=== PATIENT | male | born 1940 | race Caucasian/White ===

== ENCOUNTER 2017-03-10 13:02 | Emergency (ER) | payer OTHER ==
--- NOTE | 2017-03-10 14:28 | ED ---
General Adult HPI - General Chief complaint: Recheck/Abnormal Lab/Rx Stated complaint: high blood pressure Time Seen by Provider: 03/10/17 14:17 Source: patient Mode of arrival: ambulatory Limitations: no limitations - History of Present Illness Initial comments: This 77-year-old white male presents with a complaint of high blood pressure. He states that he felt slightly woozy 2 days ago. That it subsequently resolved. He checked his blood pressure and is actually was in the normal range per his recordings. He felt as though it could potentially be related to his blood pressure. He is here visiting from [place] and does not have a primary care physician to follow up with as of yet. He will be here until April. He denies any chest pain, shortness of breath, fevers, chills, or other symptomatology. He is currently asymptomatic at this time. He does have a history of his cardiac disease. He has had 3 stents in the past. He follows up regularly with his coder in [place]. No other complaints or modifying factors. - Related Data Allergies Allergy/AdvReac Type Severity Reaction Status Date / Time No Known Allergies Allergy Verified 03/10/17 13:11 Review of Systems ROS Statement: Those systems with pertinent positive or pertinent negative responses have been documented in the HPI. ROS Other: All systems not noted in ROS Statement are negative. Past Medical History Past Medical History: Coronary Artery Disease (CAD), Chest Pain / Angina, Myocardial Infarction ([place]) History of Any Multi-Drug Resistant Organisms: None Reported Past Surgical History: Heart Catheterization With Stent, Joint Replacement, Orthopedic Surgery Additional Past Surgical History / Comment(s): bilateral knees, right lung surgery Past Psychological History: No Psychological Hx Reported Smoking Status: Former smoker Past Alcohol Use History: Occasional, Rare Past Drug Use History: None Reported General Exam - General Exam Comments Initial Comments: GENERAL: The patient is well nourished and well hydrated. VITAL SIGNS: Heart rate, blood pressure, respiratory rate reviewed as recorded in nurse's notes. EYES: Pupils are round and reactive. Extraocular movements are intact. No conjunctival / lid redness or swelling. ENT: No external evidence of injury, swelling, or ecchymosis. Airway is patent. Throat is clear. NECK: Nontender. No swelling or evidence of injury. No subcutaneous emphysema. Trachea is midline. No thyroid mass. HEART: Regular rate and rhythm. Good peripheral pulses. LUNGS/CHEST: Breath sounds clear and equal bilaterally. No rales, rhonchi, or wheezes. No ecchymosis, subcutaneous emphysema, or tenderness. ABDOMEN: Abdomen soft without tenderness. No palpable masses or organomegaly. No peritoneal signs. No abdominal wall swelling or ecchymosis. EXTREMITIES: No extremity tenderness. Normal muscle tone and function. No thoracolumbar tenderness. NEUROLOGIC: Sensation is grossly intact. Cranial nerve exam reveals face is symmetrical, tongue is midline, speech is clear. SKIN: No abrasions or ecchymosis is noted. No induration or masses noted. PSYCHIATRIC: Alert and oriented. Appropriate behavior and judgment. Limitations: no limitations Course Vital Signs 03/10/17 13:05 Temperature 97.0 F L Pulse Rate 70 Respiratory 17 Rate Blood Pressure 160/77 O2 Sat by Pulse 96 Oximetry Medical Decision Making - Medical Decision Making The patient was seen and examined. He is a normal physical exam. His blood pressure is minimally elevated. Is not felt as though it is at the point that would require any definitive treatment. This felt as though he is stable for follow-up with a primary care physician. He will be referred to a primary care physician in this area as well since he will be here for the next couple of months. No acute process currently noted and is felt as though he is stable for discharge. He is counseled regarding hypertension and leaves in no distress. He is instructed to keep a blood pressure log and bring this as well as his medication list to his primary care physician in the next several days. Disposition Clinical Impression: Hypertension Disposition: HOME SELF-CARE Condition: Good Instructions: DASH Eating Plan (ED), Hypertension (ED) Referrals: Nohemi Salomon MD [STAFF PHYSICIAN] - 03/14/17 Time of Disposition: 14:27
[2017-03-10 14:38] VITALS: BP 168/88; PULSE 60; RESP 18; TEMP 97.4
== END 2017-03-10 14:40 | disposition home or self-care (01) ==
LOC: EC 13:02
DX: I10 Essential (primary) hypertension (principal); I25.10 Atherosclerotic heart disease of native coronary artery without angina pectoris; I25.2 Old myocardial infarction; Z95.5 Presence of coronary angioplasty implant and graft; Z87.891 Personal history of nicotine dependence
CPT/HCPCS: 93005; 99283

== ENCOUNTER → 2017-09-26 | Outpatient (CLI) | payer MEDICARE ==
[2017-09-26 12:35] LABS: Anisocytosis Slight; HCT 46.7 % (39.0-53.0); HGB 15.4 gm/dL (13.0-17.5); MCH 29.9 pg (25.0-35.0); MCHC 32.8 g/dL (31.0-37.0); MCV 91.2 fL (80.0-100.0); Mean Platelet Volume 8.7; Platelet Count 147 k/uL (150-450); RBC 5.13 m/uL (4.30-5.90); RDW 16.1 % (11.5-15.5); WBC 5.5 k/uL (3.8-10.6)
[2017-09-26 12:36] LABS: Appearance,Urine Clear (Clear); Bilirubin,Urine Negative (Negative); Blood,Urine Negative (Negative); Color,Urine Yellow; Glucose,Urine (UA) Negative (Negative); Ketones,Urine Negative (Negative); Leukocyte Esterase,Urine Negative (Negative); PH, Urine 5.5 (5.0-8.0); Protein,Urine Negative (Negative); Urobilinogen,Urine <2.0 mg/dL (<2.0)
[2017-09-26 12:45] LABS: ALT 38 U/L (21-72); AST 36 U/L (17-59); Albumin 4.4 g/dL (3.5-5.0); Alkaline Phosphatase 71 U/L (38-126); Anion Gap 9 mmol/L; Blood Urea Nitrogen 20 mg/dL (9-20); Calcium 9.5 mg/dL (8.4-10.2); Carbon Dioxide 25 mmol/L (22-30); Chloride 107 mmol/L (98-107); Cholesterol 152 mg/dL (<200); Glucose 108 mg/dL (74-99); HDL Cholesterol 50 mg/dL (40-60); LDL Cholesterol,Calculated 69 mg/dL (0-99); Potassium 4.3 mmol/L (3.5-5.1); Sodium 141 mmol/L (137-145); Total Protein 7.2 g/dL (6.3-8.2); Triglycerides 163 mg/dL (<150)
[2017-09-26 13:01] LABS: T4, Free (Free Thyroxine) 1.11 ng/dL (0.78-2.19)
[2017-09-26 13:15] LABS: Prostate Specific Antigen 0.45 ng/mL (0.00-4.00)
== END | disposition home or self-care (01) ==
LOC: LABWHC1 11:54
PROVIDERS: ATTEND Family Medicine
DX: E78.5 Hyperlipidemia, unspecified (principal); I10 Essential (primary) hypertension; N40.0 Benign prostatic hyperplasia without lower urinary tract symptoms
CPT/HCPCS: 36415; 80053; 80061; 81003; 84153; 84439; 84443; 85027

== ENCOUNTER 2017-10-09 11:37 | Observation (INO) | payer MEDICARE, OTHER ==
[2017-10-09] MEDS ORDERED: RX INFO: IV CONTRAST WAS GIVEN 1 EACH MISC MISCELLANE PRN (11:53)
[2017-10-09] MEDS ORDERED: SODIUM CHLORIDE 0.9% 1,000 ML IV STA (11:53)
--- NOTE | 2017-10-09 11:55 | ED ---
General Adult HPI - General Chief complaint: Neuro Symptoms/Deficit Stated complaint: Possible stroke Time Seen by Provider: 10/09/17 11:53 Source: patient, RN notes reviewed, old records reviewed Mode of arrival: wheelchair Limitations: no limitations - History of Present Illness Initial comments: This is a 69-year-old male to the ER for evaluation. Patient comes in for evaluation of possible stroke. History of CAD and NV. Patient states is her friend's house earlier had difficulty with speech difficulties talking difficulty finding words. Slurred speech. At this point patient states he feels normal, symptoms are resolved - Related Data Home Medications Medication Instructions Recorded Confirmed Aspirin EC [Ecotrin Low Dose] 81 mg PO DAILY 10/09/17 10/09/17 Atorvastatin [Lipitor] 40 mg PO HS 10/09/17 10/09/17 Benazepril [Lotensin] 5 mg PO DAILY 10/09/17 10/09/17 Clobetasol Propionate [Temovate 1 applic TOPICAL BID PRN 10/09/17 10/09/17 0.05% Cream] Cyanocobalamin (Vitamin B-12) 1,000 mcg PO DAILY 10/09/17 10/09/17 [Vitamin B-12] Isosorbide Mononitrate ER [Imdur] 30 mg PO DAILY 10/09/17 10/09/17 Metoprolol Tartrate [Lopressor] 12.5 mg PO DAILY 10/09/17 10/09/17 Multivitamin [Men's Multi-Vitamin] 1 tab PO DAILY 10/09/17 10/09/17 Allergies Allergy/AdvReac Type Severity Reaction Status Date / Time No Known Allergies Allergy Verified 10/09/17 11:50 Review of Systems ROS Statement: Those systems with pertinent positive or pertinent negative responses have been documented in the HPI. ROS Other: All systems not noted in ROS Statement are negative. Past Medical History Past Medical History: Coronary Artery Disease (CAD), Chest Pain / Angina, Myocardial Infarction ([place]) History of Any Multi-Drug Resistant Organisms: None Reported Past Surgical History: Heart Catheterization With Stent, Joint Replacement, Orthopedic Surgery Additional Past Surgical History / Comment(s): bilateral knees, right lung surgery Past Psychological History: No Psychological Hx Reported Smoking Status: Former smoker Past Alcohol Use History: Occasional, Rare Past Drug Use History: None Reported General Exam - General Exam Comments Initial Comments: NIH of 0 Limitations: no limitations General appearance: alert, in no apparent distress Head exam: Present: atraumatic, normocephalic, normal inspection Eye exam: Present: normal appearance, PERRL, EOMI. Absent: scleral icterus, conjunctival injection, periorbital swelling ENT exam: Present: normal exam, mucous membranes moist Neck exam: Present: normal inspection. Absent: tenderness, meningismus, lymphadenopathy Respiratory exam: Present: normal lung sounds bilaterally. Absent: respiratory distress, wheezes, rales, rhonchi, stridor Cardiovascular Exam: Present: regular rate, normal rhythm, normal heart sounds. Absent: systolic murmur, diastolic murmur, rubs, gallop, clicks GI/Abdominal exam: Present: soft, normal bowel sounds. Absent: distended, tenderness, guarding, rebound, rigid Extremities exam: Present: normal inspection, full ROM, normal capillary refill. Absent: tenderness, pedal edema, joint swelling, calf tenderness Back exam: Present: normal inspection Neurological exam: Present: alert, oriented X3, CN II-XII intact Psychiatric exam: Present: normal affect, normal mood Skin exam: Present: warm, dry, intact, normal color. Absent: rash Course Vital Signs 10/09/17 10/09/17 11:44 14:04 Temperature 97 F L 98.3 F Pulse Rate 62 54 L Respiratory 18 18 Rate Blood Pressure 134/71 158/71 O2 Sat by Pulse 95 98 Oximetry - Reevaluation(s) Reevaluation #1: 10/09/17 12:24 Symptoms did recur upon initial evaluation and after return from CAT scan all symptoms have resolved Reevaluation #2: 10/09/17 14:11 Patient symptoms are resolved EKG Findings - EKG Comments: EKG Findings:: EKG shows sinus rhythm rate of 64, SD 134, QRS 102, QTc 453 Medical Decision Making - Medical Decision Making 69 male the ER for evaluation of slurred speech and expressive aphasia, symptoms resolved will admit for neurological consultation - Lab Data Result diagrams: 10/09/17 12:10 10/09/17 12:10 Lab Results 10/09/17 10/09/17 10/09/17 Range/Units 11:56 12:10 12:10 WBC 6.0 (3.8-10.6) k/uL RBC 4.95 (4.30-5.90) m/uL Hgb 15.0 (13.0-17.5) gm/dL Hct 44.5 (39.0-53.0) % MCV 89.8 (80.0-100.0) fL MCH 30.3 (25.0-35.0) pg MCHC 33.7 (31.0-37.0) g/dL RDW 15.8 H (11.5-15.5) % Plt Count 173 (150-450) k/uL Neutrophils % 59 % Lymphocytes % 28 % Monocytes % 9 % Eosinophils % 2 % Basophils % 1 % Neutrophils # 3.5 (1.3-7.7) k/uL Lymphocytes # 1.7 (1.0-4.8) k/uL Monocytes # 0.5 (0-1.0) k/uL Eosinophils # 0.1 (0-0.7) k/uL Basophils # 0.1 (0-0.2) k/uL PT (9.0-12.0) sec INR (<1.2) APTT (22.0-30.0) sec Sodium 140 (137-145) mmol/L Potassium 4.2 (3.5-5.1) mmol/L Chloride 105 (98-107) mmol/L Carbon Dioxide 23 (22-30) mmol/L Anion Gap 12 mmol/L BUN 13 (9-20) mg/dL Creatinine 0.82 (0.66-1.25) mg/dL Est GFR (CKD-EPI)AfAm >90 (>60 ml/min/1.73 sqM) Est GFR (CKD-EPI)NonAf 85 (>60 ml/min/1.73 sqM) Glucose 119 H (74-99) mg/dL POC Glucose (mg/dL) 120 H (75-99) mg/dL POC Glu Feeder Operator Automatic ID Nancy Ramirez Calcium 9.5 (8.4-10.2) mg/dL Total Bilirubin 1.1 (0.2-1.3) mg/dL AST 31 (17-59) U/L ALT 38 (21-72) U/L Alkaline Phosphatase 75 (38-126) U/L Total Creatine Kinase (55-170) U/L CK-MB (CK-2) (0.0-2.4) ng/mL CK-MB (CK-2) Rel Index Troponin I (0.000-0.034) ng/mL Total Protein 7.0 (6.3-8.2) g/dL Albumin 4.2 (3.5-5.0) g/dL 10/09/17 10/09/17 Range/Units 12:10 12:10 WBC (3.8-10.6) k/uL RBC (4.30-5.90) m/uL Hgb (13.0-17.5) gm/dL Hct (39.0-53.0) % MCV (80.0-100.0) fL MCH (25.0-35.0) pg MCHC (31.0-37.0) g/dL RDW (11.5-15.5) % Plt Count (150-450) k/uL Neutrophils % % Lymphocytes % % Monocytes % % Eosinophils % % Basophils % % Neutrophils # (1.3-7.7) k/uL Lymphocytes # (1.0-4.8) k/uL Monocytes # (0-1.0) k/uL Eosinophils # (0-0.7) k/uL Basophils # (0-0.2) k/uL PT 10.5 (9.0-12.0) sec INR 1.1 (<1.2) APTT 24.7 (22.0-30.0) sec Sodium (137-145) mmol/L Potassium (3.5-5.1) mmol/L Chloride (98-107) mmol/L Carbon Dioxide (22-30) mmol/L Anion Gap mmol/L BUN (9-20) mg/dL Creatinine (0.66-1.25) mg/dL Est GFR (CKD-EPI)AfAm (>60 ml/min/1.73 sqM) Est GFR (CKD-EPI)NonAf (>60 ml/min/1.73 sqM) Glucose (74-99) mg/dL POC Glucose (mg/dL) (75-99) mg/dL POC Glu Feeder Operator Automatic ID Calcium (8.4-10.2) mg/dL Total Bilirubin (0.2-1.3) mg/dL AST (17-59) U/L ALT (21-72) U/L Alkaline Phosphatase (38-126) U/L Total Creatine Kinase 87 (55-170) U/L CK-MB (CK-2) 1.0 (0.0-2.4) ng/mL CK-MB (CK-2) Rel Index 1.1 Troponin I <0.012 (0.000-0.034) ng/mL Total Protein (6.3-8.2) g/dL Albumin (3.5-5.0) g/dL - Radiology Data Radiology results: report reviewed (CT brain CTA head and neck is negative), image reviewed Disposition Clinical Impression: Cerebrovascular accident Disposition: ADMITTED IP TO THIS [facility] Condition: Fair
[2017-10-09 12:07] LABS: Glucose,Whole Blood 120 mg/dL (75-99)
--- NOTE | 2017-10-09 12:27 | CT ---
EXAMINATION TYPE: CT brain wo con DATE OF EXAM: 10/09/2017 COMPARISON: NONE HISTORY: 77-year-old male Aphasia today. Symptoms resolving. TECHNIQUE: Examination was done in axial plane without intravenous contrast. Coronal and sagittal r econstructions performed. CT DLP: 1112 mGycm Automated exposure control for dose reduction was used. FINDINGS: There is no evidence of acute intracranial hemorrhage, acute ischemic changes, mass, mass-effect, or extra-axial fluid collection. There is no effacement of cerebral sulci or basal subarachnoid cister ns. There is no hydrocephalus. There is no midline shift. Campos-white matter distinction is preserv ed. There is mild to moderate generalized supratentorial volume loss. Paranasal sinuses and mastoid air cells are well pneumatized. Orbits and globes are intact. IMPRESSION: No acute intracranial abnormality seen. Mild to moderate generalized cerebral atrophy.
--- NOTE | 2017-10-09 12:35 | CT ---
EXAMINATION TYPE: CT angio head neck DATE OF EXAM: 10/09/2017 COMPARISON: CT brain same day HISTORY: 77-year-old male neurologic deficits, aphasia today TECHNIQUE: Contiguous axial scanning of the head and neck performed with IV Contrast, patient injecte d with 65 mL of Omnipaque 350. Coronal/sagittal MIP reconstructions performed. 3-D reconstructions ge nerated on a dedicated independent workstation. CT DLP: 352.0 mGycm Automated exposure control for dose reduction was used. FINDINGS: Head: Mild atherosclerotic calcifications within the carotid siphons. The vertebral, basilar, and internal carotid arteries are patent without significant stenosis or occlusion. Remainder of the anterior post erior circulations also appear grossly patent. No aneurysmal change seen. NECK: Moderate emphysema visualized upper lungs with some pleural-parenchymal scarring at the apices. Mild arthroscopic calcifications of the aortic cartilage with conventional arch vessel branching susannah marissa and mild chronic calcifications at the arch vessel origins. The right common carotid artery is patent. Mild atherosclerotic calcifications in the right carotid b ulb. Tortuosity of the upper cervical right ICA. The left common carotid artery shows mild atelectatic changes at its origin without significant steno sis. The left common and internal carotid arteries are patent with mild atherosclerotic calcification s eccentrically positioned in the proximal ICA just beyond the bulb without any significant stenosis. Tortuosity of the upper cervical left ICA. Mild atherosclerotic narrowing at the proximal left vertebral artery. Otherwise, the vertebral arteri es are codominant and patent throughout their course. IMPRESSION: 1. HEAD: NO LARGE VESSEL INTRACRANIAL OCCLUSION, SIGNIFICANT STENOSIS, OR ANEURYSMAL CHANGES SEEN. MS LD ATHEROSCLEROTIC CHANGES IN THE CAROTID SIPHONS. 2. NECK: MILD ATHEROSCLEROTIC CHANGE AT THE BILATERAL PROXIMAL ICA's. NO SIGNIFICANT STENOSIS SEEN ON EITHER SIDE. 3. COPD IN THE VISUALIZED UPPER LUNGS.
[2017-10-09 12:36] LABS: Basophils # (A) 0.1 k/uL (0-0.2); Basophils % (A) 1 %; Eosinophils # (A) 0.1 k/uL (0-0.7); Eosinophils % (A) 2 %; HCT 44.5 % (39.0-53.0); Lymphocytes # (A) 1.7 k/uL (1.0-4.8); Lymphocytes % (A) 28 %; MCH 30.3 pg (25.0-35.0); MCHC 33.7 g/dL (31.0-37.0); MCV 89.8 fL (80.0-100.0); Mean Platelet Volume 8.7; Monocytes # (A) 0.5 k/uL (0-1.0); Monocytes % (A) 9 %; Neutrophils # (A) 3.5 k/uL (1.3-7.7); Neutrophils % (A) 59 %; Platelet Count 173 k/uL (150-450); RBC 4.95 m/uL (4.30-5.90); RDW 15.8 % (11.5-15.5)
[2017-10-09 12:49] LABS: ALT 38 U/L (21-72); AST 31 U/L (17-59); Albumin 4.2 g/dL (3.5-5.0); Alkaline Phosphatase 75 U/L (38-126); Anion Gap 12 mmol/L; Blood Urea Nitrogen 13 mg/dL (9-20); Calcium 9.5 mg/dL (8.4-10.2); Carbon Dioxide 23 mmol/L (22-30); Chloride 105 mmol/L (98-107); Glucose 119 mg/dL (74-99); Potassium 4.2 mmol/L (3.5-5.1); Sodium 140 mmol/L (137-145); Total Bilirubin 1.1 mg/dL (0.2-1.3)
[2017-10-09 13:03] LABS: Creatine Kinase 87 U/L (55-170)
[2017-10-09 13:15] LABS: INR 1.1 (<1.2); Partial Thromboplastin Time 24.7 sec (22.0-30.0); Prothrombin Time 10.5 sec (9.0-12.0)
[2017-10-09 13:16] LABS: Troponin I <0.012 ng/mL (0.000-0.034)
--- NOTE | 2017-10-09 13:49 | XR ---
EXAMINATION TYPE: XR chest 2V DATE OF EXAM: 10/09/2017 COMPARISON: None HISTORY: 77-year-old male confusion, altered mental status, slurred speech TECHNIQUE: PA and lateral views FINDINGS: Heart normal size. Aorta within normal limits. Eventration anterior right hemidiaphragm. Diffuse inte rstitial prominence is chronic appearance. No consolidation or pleural effusion. Suggestion of some s urgical material at the right lower lung. IMPRESSION: Chronic-appearing changes. No definite acute process.
[2017-10-09 14:55] VITALS: BMI 28.8
[2017-10-09] MEDS ORDERED: CLOBETASOL PROP 0.05% CR 15GM TOPICAL PRN (15:14)
[2017-10-09] MEDS ORDERED: LORazepam 0.5 MG TAB PO PRN (15:15)
[2017-10-09] MEDS ORDERED: CALCIUM CARBONATE 500 MG CHEWABLE PO PRN (15:15)
[2017-10-09] MEDS ORDERED: Acetaminophen-Codeine 300-30mg TAB PO PRN (15:15)
[2017-10-09] MEDS ORDERED: MELATONIN 3 MG TABLET PO PRN (15:15)
[2017-10-09] MEDS ORDERED: MAGNESIUM HYDROXIDE 2,400 MG/10 ML CUP PO PRN (15:15)
[2017-10-09] MEDS ORDERED: NALOXONE 0.4 MG/ML 1 ML VIAL IV PRN (15:15)
[2017-10-09] MEDS ORDERED: LACTULOSE 20 GM/30 ML CUP PO PRN (15:15)
[2017-10-09] MEDS ORDERED: ONDANSETRON 4 MG/2 ML VIAL IVP PRN (15:15)
[2017-10-09] MEDS: ENOXAPARIN 40 MG/0.4 ML SYRINGE SQ SCH (16:40)
[2017-10-09] MEDS ORDERED: ATORVASTATIN 40 MG TAB PO SCH (21:00)
--- NOTE | 2017-10-09 22:48 | HP ---
HISTORY AND PHYSICAL DATE OF ADMISSION: 10/09/2017 PRESENTING COMPLAINT: Loss of speech. HISTORY OF PRESENTING COMPLAINT: A very pleasant 77-year-old patient of Dr. Kuhn whose chronic stable medical conditions include coronary artery disease, hypertension, hyperlipidemia. The patient was at his friend's house this morning, wanted to get his blood pressure cuff, his friend's, and was unable to say the word blood pressure and words were not coming out. Some words are coming out intermittently, not other words. That is when he decided to get to the hospital. No change in vision. No headache. No weakness on any particular side. No loss of consciousness. No palpitation. Came to the ER. He had one more episode, he thought, and then speech reverted back to normal. Patient's son is at the bedside. No prior history of the same. The patient had a stent placed way back in 1995, about 3 years ago had a further episode for cardiac workup where he was told that all his stents are blocked off, but he has good collaterals, it seems. The patient is otherwise rather active. The patient occasionally does get charley horses in his calf. REVIEW OF SYSTEMS: CONSTITUTIONAL: None. HEENT: None. RESPIRATORY: None. CARDIOVASCULAR: None. GASTROINTESTINAL: None. GENITOURINARY: None. MUSCULOSKELETAL: None. DERMATOLOGICAL: None. HEMATOLOGIC: None. LYMPHATIC: None. PSYCHIATRY: None. NEUROLOGICAL: None. PAST MEDICAL HISTORY: 1. Coronary artery with stent back in 1995 with a repeat cardiac cath 3 years ago showed all stents were blocked off. 2. Bilateral carpal tunnel and. 3. Right lung fungal wedge resection. 4. Hypertension. 5. Hyperlipidemia. PAST SURGICAL HISTORY: As above, including bilateral knee surgery, right lung wedge resection for a fungal infection. SOCIAL HISTORY: Lives alone. The patient used to be a evening sitter. Alcohol occasionally. Stopped smoking 19 years ago. FAMILY HISTORY: Myocardial infarction, colon cancer. HOME MEDICATIONS: 1. Multivitamin tab p.o. daily. 2. Vitamin B12 1000 mcg p.o. daily. 3. Temovate 0.05% 1 topical b.i.d. p.r.n. 4. Lopressor 12.5 p.o. daily. 5. Imdur ER 30 mg p.o. daily. 6. Lotensin 5 mg p.o. daily. 7. Lipitor 40 mg q.h.s. 8. Aspirin 81 mg p.o. daily. ALLERGIES: None. EXAMINATION: VITAL SIGNS: On presentation, temperature 97, pulse 62, respirations 18, blood pressure 134/71, pulse ox 95% on 2L. GENERAL APPEARANCE: Average build, lying in bed, comfortable. EYES: Pupils equal. Conjunctivae normal. HEENT: External appearance of nose and ears normal. Oral cavity normal. NECK: JVD not raised. Mass not palpable. RESPIRATORY: Effort normal. Lungs are clear. CARDIOVASCULAR: First and second sounds normal. No edema. ABDOMEN: Soft, nontender. Liver, spleen not palpable. LYMPHATIC: No lymph node palpable in neck or axillae. PSYCHIATRY: Alert and oriented x3. Mood and affect normal. NEUROLOGICAL: Pupils equal. No facial asymmetry. Power and sensation grossly intact. Reflexes are equal. Plantars are downgoing. INVESTIGATIONS: White count 6, hemoglobin 15, potassium 4.22. CT angio of the brain does not show any occlusion and no significant stenosis seen in the carotids currently. CT scan of the brain unremarkable. EKG shows PVC. ASSESSMENT: 1. Transient ischemic attack in the speech area in a right-handed patient which normally is in the Broca area on the left side of the brain with no evidence of ischemia shown on the CT scan. 2. Coronary artery disease with occluded stents, asymptomatic. 3. Essential hypertension. 4. Hyperlipidemia. PLAN: Patient is already on aspirin. Will switch that to Plavix. The patient is already on Lipitor 40 mg. Will do a 2-D echocardiogram. Care was discussed the patient and son at the bedside. Questions were answered. The patient's speech is back to normal. MMODL / IJN: [id number] /
[2017-10-10 03:08] LABS: Cholesterol 149 mg/dL (<200); HDL Cholesterol 46 mg/dL (40-60); LDL Cholesterol,Calculated 75 mg/dL (0-99); Triglycerides 140 mg/dL (<150)
[2017-10-10] MEDS: ENOXAPARIN 40 MG/0.4 ML SYRINGE SQ SCH (08:01)
[2017-10-10 08:05] VITALS: RESP 16
--- NOTE | 2017-10-10 08:46 | CT ---
EXAMINATION TYPE: CT brain wo con DATE OF EXAM: 10/10/2017 COMPARISON: 10/09/2017 HISTORY: Follow up to difficulty with speech CT DLP: 1198 mGycm Automated exposure control for dose reduction was used. TECHNIQUE: CT scan of the head is performed without contrast. FINDINGS: There is no acute intracranial hemorrhage or midline shift identified. There is diffuse v entricular and sulcal prominence consistent with diffuse age-related cerebral atrophy. There a few p atchy areas of low-attenuation in the periventricular white matter consistent with chronic small vess el ischemic change. The globes are intact and the visualized sinuses are clear. IMPRESSION: No interval change from the prior of 10/09/2017. No acute intracranial process. 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
[2017-10-10] MEDS ORDERED: ISOSORBIDE MONONITRATE ER 30 MG TAB.ER.24H PO SCH (09:00)
[2017-10-10] MEDS ORDERED: ASPIRIN 81 MG PO SCH (09:00)
[2017-10-10] MEDS ORDERED: METOPROLOL TARTRATE 12.5 MG TAB PO SCH (09:00)
[2017-10-10] MEDS ORDERED: CYANOCOBALAMIN 500 MCG TAB PO SCH (09:00)
[2017-10-10] MEDS ORDERED: LISINOPRIL 5 MG TAB PO SCH (09:00)
[2017-10-10 14:25] VITALS: PULSE 58
[2017-10-10 16:36] VITALS: BP 118/72; TEMP 97.8
--- NOTE | 2017-10-10 20:00 | ECHOF ---
Referral Reason:tia MEASUREMENTS -------- HEIGHT: 172.7 cm WEIGHT: 85.7 kg BP: 122/70 IVSd: 1.3 cm (0.6 - 1.1) LVIDd: 4.6 cm (3.9 - 5.3) LVPWd: 1.4 cm (0.6 - 1.1) IVSs: 2.0 cm LVIDs: 2.4 cm LVPWs: 1.8 cm LAESV Index (A-L): 25.87 ml/m Ao Diam: 3.7 cm (2.0 - 3.7) AV Cusp: 2.3 cm (1.5 - 2.6) LA Diam: 3.2 cm (2.7 - 3.8) MV EXCURSION: 15.618 mm (> 18.000) MV EF SLOPE: 71 mm/s (70 - 150) EPSS: 1.9 cm MV E Fercho: 0.68 m/s MV DecT: 326 ms MV A Fercho: 0.95 m/s MV E/A Ratio: 0.72 AR PHT: 959 ms RAP: 5.00 mmHg RVSP: 32.66 mmHg FINDINGS -------- Sinus rhythm. This was a technically good study. The left ventricular size is normal. There is mild concentric left ventricular hypertrophy. Overa ll left ventricular systolic function is normal with, an EF between 55 - 60 %. The right ventricle is normal in size and function. The left atrium is normal in size. The right atrium is normal in size. Aortic valve is trileaflet and is mildly thickened. There is mild aortic regurgitation. The mitral valve leaflets are mildly thickened. There is trace mitral regurgitation. Mild tricuspid regurgitation present. The right ventricular systolic pressure, as measured by Doppl er, is 32.66mmHg. Pulmonic valve appears structurally normal. The aortic root, ascending aorta and aortic arch are normal. The pericardium is normal. CONCLUSIONS -------- 1. Sinus rhythm. 2. This was a technically good study. 3. The left ventricular size is normal. 4. There is mild concentric left ventricular hypertrophy. 5. Overall left ventricular systolic function is normal with, an EF between 55 - 60 %. 6. The right ventricle is normal in size and function. 7. The left atrium is normal in size. 8. The right atrium is normal in size. 9. Aortic valve is trileaflet and is mildly thickened. 10. There is mild aortic regurgitation. 11. The mitral valve leaflets are mildly thickened. 12. There is trace mitral regurgitation. 13. Mild tricuspid regurgitation present. 14. The right ventricular systolic pressure, as measured by Doppler, is 32.66mmHg. 15. Pulmonic valve appears structurally normal. 16. The aortic root, ascending aorta and aortic arch are normal. 17. The pericardium is normal. COMPUTER OPERATIONS MANAGER: Elviar White RDCS
[2017-10-10] MEDS ORDERED: LISINOPRIL 10 MG TAB PO SCH (21:00)
--- NOTE | 2017-10-10 23:41 | P.CNNES ---
History of Present Illness Consult date: 10/10/17 Requesting physician: Yohannes Whitehead Reason for Consult: TIA Chief complaint: Difficulty with Speech History of Present Illness: Neurology is consulting on a 77-year-old male with a history of coronary artery disease, hypertension, hyperlipidemia. patient was speaking with a friend and experienced word finding difficulty. Patient was brought to the ED. Patient had 1 more occurrence of-like symptoms while in the ED but the symptoms resolved. Patient did have a stent placed in 1995 and in 2014 had a further episode for cardiac workup. He was advised that his prior stents had occluded. However, collaterals formed. On contact, patient is supine in bed and resting in no acute distress. Patient did express frustration with occurrence of intermittent word finding difficulty. Review of Systems Systems not noted in HPI or negative. Past Medical History Past Medical History: Coronary Artery Disease (CAD), Chest Pain / Angina, Myocardial Infarction ([place]) Additional Past Medical History / Comment(s): carpal tunnel,x2 artifical knees, right lung fungal wedge resection Last Myocardial Infarction Date:: 1996 History of Any Multi-Drug Resistant Organisms: None Reported Past Surgical History: Heart Catheterization With Stent, Joint Replacement, Orthopedic Surgery Additional Past Surgical History / Comment(s): bilateral knees, right lung surgery Past Anesthesia/Blood Transfusion Reactions: No Reported Reaction Date of Last Stent Placement:: 1996 Past Psychological History: No Psychological Hx Reported Smoking Status: Former smoker Past Alcohol Use History: Occasional, Rare Past Drug Use History: None Reported - Past Family History Father Family Medical History: Myocardial Infarction ([place]) Mother Family Medical History: Cancer Additional Family Medical History / Comment(s): colon Medications and Allergies Home Medications Medication Instructions Recorded Confirmed Type Aspirin EC [Ecotrin Low Dose] 81 mg PO DAILY 10/09/17 10/09/17 History Atorvastatin [Lipitor] 40 mg PO HS 10/09/17 10/09/17 History Benazepril [Lotensin] 5 mg PO DAILY 10/09/17 10/09/17 History Clobetasol Propionate [Temovate 1 applic TOPICAL BID PRN 10/09/17 10/09/17 History 0.05% Cream] Cyanocobalamin (Vitamin B-12) 1,000 mcg PO DAILY 10/09/17 10/09/17 History [Vitamin B-12] Isosorbide Mononitrate ER [Imdur] 30 mg PO DAILY 10/09/17 10/09/17 History Metoprolol Tartrate [Lopressor] 12.5 mg PO DAILY 10/09/17 10/09/17 History Multivitamin [Men's Multi-Vitamin] 1 tab PO DAILY 10/09/17 10/09/17 History Allergies Allergy/AdvReac Type Severity Reaction Status Date / Time No Known Allergies Allergy Verified 10/09/17 11:50 Physical Examination - Vital Signs Vital Signs: Vital Signs Temp Pulse Resp BP Pulse Ox 10/10/17 16:00 97.8 F 58 L 16 118/72 98 10/10/17 15:15 97 10/10/17 12:00 97.6 F 58 L 16 115/62 96 10/10/17 08:00 97.8 F 61 16 162/76 95 10/10/17 04:00 58 L 13 122/77 96 10/10/17 00:00 98.2 F 62 14 151/70 96 Intake and Output 10/10/17 10/10/17 10/11/17 14:59 22:59 06:59 Intake Total 480 Balance 480 Intake: Oral 480 Other: # Voids 3 General appearance: Alert & oriented x4, no apparent distress. Head: Atraumatic, normocephalic, normal inspection Eyes: Well appearance, PERRLA, EOMI. Absent scleral icterus, conjunctival injection, nystagmus, periorbital swelling. Ear, nose and throat: Normal exam, mucous membranes moist Neck: Normal inspection, absent tenderness, lymphadenopathy. Respiratory: No increased work of breathing Cardiovascular: Regular rate, rhythm GI/abdominal: Normal bowel sounds, nondistended, no tenderness, no guarding, no rebound, no rigidity. Extremities: All range of motion, normal capillary refill, no tenderness, pedal edema joint swelling, calf tenderness. Neurological: cranial nerves II through XII intact no lateralizing weakness no seizure activity noted on physical exam no pronator drift and no nystagmus. strength strength is equal in all 4 extremities, full Sensation: normal Psychological: Mood and affect appropriate for setting. Results - Laboratory Findings CBC and BMP: 10/09/17 12:10 10/09/17 12:10 Abnormal Lab Findings: Abnormal Labs 10/09/17 10/09/17 10/09/17 11:56 12:10 12:10 RDW 15.8 H Glucose 119 H POC Glucose (mg/dL) 120 H Assessment and Plan (1) TIA (transient ischemic attack) Status: Acute Code(s): G45.9 - TRANSIENT CEREBRAL ISCHEMIC ATTACK, UNSPECIFIED SNOMED Code(s): 674047377 (2) Expressive aphasia Status: Acute Code(s): R47.01 - APHASIA SNOMED Code(s): 271314762 (3) Hypertension Status: Acute Code(s): I10 - ESSENTIAL (PRIMARY) HYPERTENSION SNOMED Code(s) : 78332516 (4) Hyperlipidemia Status: Acute Code(s): E78.5 - HYPERLIPIDEMIA, UNSPECIFIED SNOMED Code(s): 11188251 Plan: 1. TIA 2. Expressive aphasia 3. Hypertension 4. Hyperlipidemia Based on the patient's symptoms, physical exam, it does appear that the patient did experience a TIA that has since resolved. Patient's primary complaint was expressive aphasiaword finding difficulty. Patient was already on Lipitor 40 mg-continue Hospitalist changed patient from aspirin to Plavix 75 mg by mouth daily - continue CT brain #1: No acute process, moderate age related atrophy, small vessel ischemic disease CT brain #2: Unchanged from #[address] angiogram noted mild atherosclerotic change, anatomical variant with vessels but noncontributory status: Patient's symptoms have resolved and he is back to baseline. patient is cleared for discharge from a neurological standpoint. Patient to follow up in our office within 14 days I have discussed the plan of care with the physician prior to implementation and he agrees with the plan as implemented.
--- NOTE | 2017-10-15 00:53 | DS ---
DISCHARGE SUMMARY DATE OF ADMISSION: 10/09/2017 DATE OF DISCHARGE: 10/10/2017 FINAL DIAGNOSES: 1. Transient ischemic attack in the speech area in a right-handed patient. 2. Coronary artery disease with occluded stents, asymptomatic. 3. Essential hypertension. 4. Hyperlipidemia. HOSPITAL COURSE: This pleasant gentleman presented with some loss of speech. The patient had a CT scan when he came in and repeat CT scan after 24 hours both were negative. CT angio did not show any significant stenosis. The 2D echocardiogram did not report any thrombus. The patient was back to his baseline. Questions were answered. Cleared by Neurology to be discharged. On examination, A/O x3. No neuro deficits. Lungs are clear. CONSULTATION: Dr. Mast from Neurology. DISCHARGE MEDICATIONS: 1. Aspirin 81 mg p.o. daily. 2. Lipitor 40 mg q.h.s. 3. Lotensin 5 mg p.o. daily. 4. Temovate 0.05% topical b.i.d. p.r.n. 5. Vitamin B12 1000 mcg p.o. daily. 6. Imdur ER 30 mg p.o. daily. 7. Lopressor 12.5 p.o. daily. 8. Multivitamin 1 tab p.o. daily. Follow up with Dr. Kuhn on 10/15/2017. Follow up with Dr. Mast in 2 weeks. MMODL / IJN: [id number] /
== END 2017-10-10 16:37 | disposition home or self-care (01) ==
LOC: EC 11:37 → 6SEL 13:00
PROVIDERS: ADMIT Hospitalist; ATTEND Hospitalist
DX: G45.9 Transient cerebral ischemic attack, unspecified (principal); I10 Essential (primary) hypertension; T82.855A Stenosis of coronary artery stent, initial encounter; E78.5 Hyperlipidemia, unspecified; I25.10 Atherosclerotic heart disease of native coronary artery without angina pectoris; Z95.5 Presence of coronary angioplasty implant and graft; G56.03 Carpal tunnel syndrome, bilateral upper limbs; Z79.82 Long term (current) use of aspirin; Z79.899 Other long term (current) drug therapy; I25.2 Old myocardial infarction; Z87.891 Personal history of nicotine dependence; Z82.49 Family history of ischemic heart disease and other diseases of the circulatory system; Z80.0 Family history of malignant neoplasm of digestive organs
CPT/HCPCS: 99285 ×2; 96360 ×2; 96372 ×2; 36415; 93005; 93306; 80061; 80053; 82550; 82553; 84484; 85025; 85610; 85730; 71046; 70496; 70450 ×2; 70498; G0378 ×2; Q9967; J1650 ×2

== ENCOUNTER 2018-09-05 09:46 | Emergency (ER) | payer MEDICARE, OTHER ==
[2018-09-05 10:03] VITALS: RESP 18
--- NOTE | 2018-09-05 11:19 | ED ---
General Adult HPI - General Chief complaint: Nausea/Vomiting/Diarrhea Stated complaint: Bladder pain/vomiting Time Seen by Provider: 09/05/18 10:00 Source: patient, RN notes reviewed Mode of arrival: ambulatory Limitations: no limitations - History of Present Illness Initial comments: This a 78-year-old male presents to the emergency department complaining of having urinary incontinence 6 times in one hour. Patient states he also has some dysuria. Patient also states out of the blue this morning he was nauseated and vomited times one. Patient states he has no abdominal pain he denies any fever he denies any chills denies being nauseated currently. Patient denies any diarrhea. Patient states he doesn't know why he was nauseated it occurred and now he is completely over it. Patient states he is wearing depends because he is having urinary incontinence this morning for the first time. Patient denies any chest pain difficulty breathing shortness of breath per patient denies any lightheadedness or dizziness. - Related Data Home Medications Medication Instructions Recorded Confirmed Aspirin EC [Ecotrin Low Dose] 81 mg PO DAILY 10/09/17 09/05/18 Atorvastatin [Lipitor] 40 mg PO HS 10/09/17 09/05/18 Benazepril [Lotensin] 5 mg PO DAILY 10/09/17 09/05/18 Isosorbide Mononitrate ER [Imdur] 30 mg PO DAILY 10/09/17 09/05/18 Metoprolol Tartrate [Lopressor] 12.5 mg PO DAILY 10/09/17 09/05/18 Multivitamin [Men's Multi-Vitamin] 1 tab PO DAILY 10/09/17 09/05/18 Biotin 5 mg PO DAILY 09/05/18 09/05/18 Saw [place] 160 mg PO DAILY 09/05/18 09/05/18 Tamsulosin HCl [Flomax] 0.4 mg PO DAILY 09/05/18 09/05/18 Vitamin B Complex 1 cap PO DAILY 09/05/18 09/05/18 Previous Rx's Medication Instructions Recorded Sulfamethox-Tmp 800-160Mg [Bactrim 1 each PO Q12HR #20 tab 09/05/18 DS 800-160 mg] Allergies Allergy/AdvReac Type Severity Reaction Status Date / Time No Known Allergies Allergy Verified 09/05/18 10:43 Review of Systems ROS Statement: Those systems with pertinent positive or pertinent negative responses have been documented in the HPI. ROS Other: All systems not noted in ROS Statement are negative. Past Medical History Past Medical History: Coronary Artery Disease (CAD), Chest Pain / Angina, Myocardial Infarction ([place]) Additional Past Medical History / Comment(s): carpal tunnel,x2 artifical knees, right lung fungal wedge resection Last Myocardial Infarction Date:: 1996 History of Any Multi-Drug Resistant Organisms: None Reported Past Surgical History: Heart Catheterization With Stent, Joint Replacement, Orthopedic Surgery Additional Past Surgical History / Comment(s): bilateral knees, right lung surgery Past Anesthesia/Blood Transfusion Reactions: No Reported Reaction Date of Last Stent Placement:: 1996 Past Psychological History: No Psychological Hx Reported Smoking Status: Former smoker Past Alcohol Use History: Occasional Past Drug Use History: None Reported - Past Family History Father Family Medical History: Myocardial Infarction ([place]) Mother Family Medical History: Cancer Additional Family Medical History / Comment(s): colon General Exam - General Exam Comments Initial Comments: GENERAL: Patient is well-developed and well-nourished. Patient is nontoxic and well- hydrated and is in mild distress. ENT: Neck is soft and supple. No significant lymphadenopathy is noted. Oropharynx is clear. Moist mucous membranes. Neck has full range of motion without eliciting any pain. EYES: The sclera were anicteric and conjunctiva were pink and moist. Extraocular movements were intact and pupils were equal round and reactive to light. Eyelids were unremarkable. PULMONARY: Unlabored respirations. Good breath sounds bilaterally. No audible rales rhonchi or wheezing was noted. CARDIOVASCULAR: There is a regular rate and rhythm without any murmurs gallops or rubs. ABDOMEN: Soft and nontender with normal bowel sounds. No palpable organomegaly was noted. There is no palpable pulsatile mass. SKIN: Skin is clear with no lesions or rashes and otherwise unremarkable. NEUROLOGIC: Patient is alert and oriented x3. Cranial nerves II through XII are grossly intact. Motor and sensory are also intact. Normal speech, volume and content. Symmetrical smile. MUSCULOSKELETAL: Normal extremities with adequate strength and full range of motion. No lower extremity swelling or edema. No calf tenderness. LYMPHATICS: No significant lymphadenopathy is noted PSYCHIATRIC: Normal psychiatric evaluation. Limitations: no limitations Course Vital Signs 09/05/18 09/05/18 09/05/18 09:58 12:00 12:45 Temperature 98.6 F Pulse Rate 86 72 76 Respiratory 18 18 18 Rate Blood Pressure 96/59 120/69 107/56 O2 Sat by Pulse 96 90 L 93 L Oximetry Medical Decision Making - Medical Decision Making Patient had a urinary tract infection psychiatric the patient a gram of Rocephin in the emergency department. - Lab Data Result diagrams: 09/05/18 11:36 09/05/18 11:36 Lab Results 09/05/18 09/05/18 09/05/18 Range/Units 11:36 11:36 11:36 WBC 18.7 H (3.8-10.6) k/uL RBC 4.63 (4.30-5.90) m/uL Hgb 14.0 (13.0-17.5) gm/dL Hct 42.2 (39.0-53.0) % MCV 91.1 (80.0-100.0) fL MCH 30.3 (25.0-35.0) pg MCHC 33.2 (31.0-37.0) g/dL RDW 17.2 H (11.5-15.5) % Plt Count 179 (150-450) k/uL Neutrophils % 91 % Lymphocytes % 4 % Monocytes % 4 % Eosinophils % 0 % Basophils % 0 % Neutrophils # 17.0 H (1.3-7.7) k/uL Lymphocytes # 0.7 L (1.0-4.8) k/uL Monocytes # 0.8 (0-1.0) k/uL Eosinophils # 0.1 (0-0.7) k/uL Basophils # 0.0 (0-0.2) k/uL Anisocytosis Slight Sodium 139 (137-145) mmol/L Potassium 4.1 (3.5-5.1) mmol/L Chloride 106 (98-107) mmol/L Carbon Dioxide 24 (22-30) mmol/L Anion Gap 9 mmol/L BUN 18 (9-20) mg/dL Creatinine 1.11 (0.66-1.25) mg/dL Est GFR (CKD-EPI)AfAm 73 (>60 ml/min/1.73 sqM) Est GFR (CKD-EPI)NonAf 63 (>60 ml/min/1.73 sqM) Glucose 165 H (74-99) mg/dL Calcium 9.2 (8.4-10.2) mg/dL Total Bilirubin 1.8 H (0.2-1.3) mg/dL AST 43 (17-59) U/L ALT 34 (21-72) U/L Alkaline Phosphatase 85 (38-126) U/L Total Protein 6.5 (6.3-8.2) g/dL Albumin 3.8 (3.5-5.0) g/dL Urine Color Dark Yellow Urine Appearance Cloudy (Clear) Urine pH 5.5 (5.0-8.0) Ur Specific [place] 1.025 (1.001-1.035) Urine Protein 2+ H (Negative) Urine Glucose (UA) Negative (Negative) Urine Ketones Trace H (Negative) Urine Blood Negative (Negative) Urine Nitrite Positive (Negative) Urine Bilirubin Negative (Negative) Urine Urobilinogen <2.0 (<2.0) mg/dL Ur Leukocyte Esterase Moderate H (Negative) Urine RBC 3 (0-5) /hpf Urine WBC 144 H (0-5) /hpf Ur Squamous Epith Cells 3 (0-4) /hpf Amorphous Sediment Occasional H (None) /hpf Urine Bacteria Many H (None) /hpf Hyaline Casts 44 H (0-2) /lpf Urine Mucus Many H (None) /hpf Disposition Clinical Impression: Urinary tract infection Disposition: HOME SELF-CARE Condition: Good Instructions (If sedation given, give patient instructions): Urinary Tract Infection in Men (ED) Prescriptions: Sulfamethox-Tmp 800-160Mg [Bactrim DS 800-160 mg] 1 each PO Q12HR #20 tab Is patient prescribed a controlled substance at d/c from ED?: No Referrals: Dharmesh Kuhn DO [Primary Care Provider] - 1-2 days Time of Disposition: 13:32
[2018-09-05 12:01] LABS: Anisocytosis Slight; Basophils % (A) 0 %; Eosinophils # (A) 0.1 k/uL (0-0.7); Eosinophils % (A) 0 %; HCT 42.2 % (39.0-53.0); Lymphocytes # (A) 0.7 k/uL (1.0-4.8); Lymphocytes % (A) 4 %; MCH 30.3 pg (25.0-35.0); MCHC 33.2 g/dL (31.0-37.0); MCV 91.1 fL (80.0-100.0); Mean Platelet Volume 7.3; Monocytes # (A) 0.8 k/uL (0-1.0); Monocytes % (A) 4 %; Neutrophils % (A) 91 %; Platelet Count 179 k/uL (150-450); RBC 4.63 m/uL (4.30-5.90); RDW 17.2 % (11.5-15.5); WBC 18.7 k/uL (3.8-10.6)
[2018-09-05 12:12] LABS: Amorphous Sediment,Urine Occasional /hpf; Appearance,Urine Cloudy (Clear); Bacteria,Urine Many /hpf; Bilirubin,Urine Negative (Negative); Blood,Urine Negative (Negative); Color,Urine Dark Yellow; Glucose,Urine (UA) Negative (Negative); Hyaline Casts,Urine 44 /lpf (0-2); Ketones,Urine Trace (Negative); Leukocyte Esterase,Urine Moderate (Negative); Mucus,Urine Many /hpf; Nitrite,Urine Positive (Negative); PH, Urine 5.5 (5.0-8.0); Protein,Urine 2+ (Negative); RBC,Urine 3 /hpf (0-5); Specific Gravity,Urine 1.025 (1.001-1.035); Squamous Epithelial Cell,Urine 3 /hpf (0-4); Urobilinogen,Urine <2.0 mg/dL (<2.0); WBC,Urine 144 /hpf (0-5)
[2018-09-05 12:45] LABS: Albumin 3.8 g/dL (3.5-5.0); Calcium 9.2 mg/dL (8.4-10.2); Potassium 4.1 mmol/L (3.5-5.1); Total Bilirubin 1.8 mg/dL (0.2-1.3); Total Protein 6.5 g/dL (6.3-8.2)
[2018-09-05] MEDS ORDERED: cefTRIAXone 1,000 MG VIAL (IM USE) IM STA (13:18)
[2018-09-05] MEDS ORDERED: APIXABAN 5 MG TAB PO STA (13:36)
[2018-09-05 14:05] VITALS: BP 117/65; PULSE 74; TEMP 97.4
== END 2018-09-05 14:03 | disposition home or self-care (01) ==
LOC: EC 09:46
DX: N39.0 Urinary tract infection, site not specified (principal); R11.2 Nausea with vomiting, unspecified; R19.7 Diarrhea, unspecified; I25.10 Atherosclerotic heart disease of native coronary artery without angina pectoris; I25.2 Old myocardial infarction; Z95.5 Presence of coronary angioplasty implant and graft; Z96.643 Presence of artificial hip joint, bilateral; Z87.891 Personal history of nicotine dependence; Z79.82 Long term (current) use of aspirin; Z79.899 Other long term (current) drug therapy; Z53.8 Procedure and treatment not carried out for other reasons
CPT/HCPCS: 36415; 80053; 85025; 81001; 87086; 99284; 96372; J0696; 87077; 87186

== ENCOUNTER 2018-09-07 12:05 | Inpatient (IN) | payer MEDICARE, OTHER ==
[2018-09-07] MEDS ORDERED: SODIUM CHLORIDE 0.9% 500 ML 500 ML IV STA (12:41)
[2018-09-07] MEDS ORDERED: SODIUM CHLORIDE 0.9% 1,000 ML IV STA (12:41)
--- NOTE | 2018-09-07 12:48 | ED ---
General Adult HPI - General Chief complaint: Urogenital Stated complaint: Cannot urinate Time Seen by Provider: 09/07/18 12:33 Source: patient Mode of arrival: ambulatory Limitations: no limitations - History of Present Illness Initial comments: This 78-year-old white male presents with plate urinary retention. He states that he will only be able to dribble a small amount of urine. This started last night. He does have some mild suprapubic pain. He states that he was seen in the emergency department 2 days ago and diagnosed with urinary tract infection. He apparently was having problems holding his urine at that time. He has had dysuria for the past several days. He denies any hematuria. He does relate a history of an enlarged prostate. He apparently had a fever of 100.3 after his ER visit 2 days ago. He states that he's felt very weak. He denies any previous history of hypotension but does present with a low blood pressure today. He denies any chest pain or shortness of breath. He states that he received an antibiotic shot in the ER 2 days ago and is on Bactrim currently. No other complaints or modifying factors. He does relate that he has seen Dr. Bui in the past in regards to his enlarged prostate. - Related Data Home Medications Medication Instructions Recorded Confirmed Aspirin EC [Ecotrin Low Dose] 81 mg PO DAILY 10/09/17 09/07/18 Atorvastatin [Lipitor] 40 mg PO HS 10/09/17 09/07/18 Benazepril [Lotensin] 5 mg PO DAILY 10/09/17 09/07/18 Isosorbide Mononitrate ER [Imdur] 30 mg PO DAILY 10/09/17 09/07/18 Metoprolol Tartrate [Lopressor] 12.5 mg PO DAILY 10/09/17 09/07/18 Multivitamin [Men's Multi-Vitamin] 1 tab PO DAILY 10/09/17 09/07/18 Biotin 5 mg PO DAILY 09/05/18 09/07/18 Saw [place] 160 mg PO DAILY 09/05/18 09/07/18 Tamsulosin HCl [Flomax] 0.4 mg PO DAILY 09/05/18 09/07/18 Vitamin B Complex 1 cap PO DAILY 09/05/18 09/07/18 Previous Rx's Medication Instructions Recorded Sulfamethox-Tmp 800-160Mg [Bactrim 1 each PO Q12HR #20 tab 09/05/18 DS 800-160 mg] Allergies Allergy/AdvReac Type Severity Reaction Status Date / Time No Known Allergies Allergy Verified 09/07/18 13:00 Review of Systems ROS Statement: Those systems with pertinent positive or pertinent negative responses have been documented in the HPI. ROS Other: All systems not noted in ROS Statement are negative. Past Medical History Past Medical History: Coronary Artery Disease (CAD), Chest Pain / Angina, Myocardial Infarction ([place]) Additional Past Medical History / Comment(s): carpal tunnel,x2 artifical knees, right lung fungal wedge resection Last Myocardial Infarction Date:: 1996 History of Any Multi-Drug Resistant Organisms: None Reported Past Surgical History: Heart Catheterization With Stent, Joint Replacement, Orthopedic Surgery Additional Past Surgical History / Comment(s): bilateral knees, right lung surgery Past Anesthesia/Blood Transfusion Reactions: No Reported Reaction Date of Last Stent Placement:: 1996 Past Psychological History: No Psychological Hx Reported Smoking Status: Former smoker Past Alcohol Use History: Occasional Past Drug Use History: None Reported - Past Family History Father Family Medical History: Myocardial Infarction ([place]) Mother Family Medical History: Cancer Additional Family Medical History / Comment(s): colon General Exam - General Exam Comments Initial Comments: GENERAL: The patient is well nourished and well hydrated. VITAL SIGNS: Heart rate, blood pressure, respiratory rate reviewed as recorded in nurse's notes. EYES: Pupils are round and reactive. Extraocular movements are intact. No conjunctival / lid redness or swelling. ENT: No external evidence of injury, swelling, or ecchymosis. Airway is patent. Throat is clear. NECK: Nontender. No swelling or evidence of injury. No subcutaneous emphysema. Trachea is midline. No thyroid mass. HEART: Regular rate and rhythm. Good peripheral pulses. LUNGS/CHEST: Breath sounds clear and equal bilaterally. No rales, rhonchi, or wheezes. No ecchymosis, subcutaneous emphysema, or tenderness. ABDOMEN: There is mild tenderness in the suprapubic region. No palpable masses or organomegaly. No peritoneal signs. No abdominal wall swelling or ecchymosis. EXTREMITIES: No extremity tenderness. Normal muscle tone and function. No thoracolumbar tenderness. NEUROLOGIC: Sensation is grossly intact. Cranial nerve exam reveals face is symmetrical, tongue is midline, speech is clear. SKIN: No abrasions or ecchymosis is noted. No induration or masses noted. PSYCHIATRIC: Alert and oriented. Appropriate behavior and judgment. Limitations: no limitations Course Vital Signs 09/07/18 09/07/18 09/07/18 12:17 13:01 14:00 Temperature 98.2 F Pulse Rate 74 57 L 62 Respiratory 18 18 18 Rate Blood Pressure 82/53 96/62 106/62 O2 Sat by Pulse 94 L 97 95 Oximetry 09/07/18 15:45 Temperature Pulse Rate 68 Respiratory 18 Rate Blood Pressure 124/70 O2 Sat by Pulse 94 L Oximetry Medical Decision Making - Medical Decision Making The patient was seen and examined. All diagnostics are reviewed. An IV is started and he is mildly hydrated. He does relate a history of fairly significant cardiac disease so overt hydration is not done. She states that he had 3 stents placed years ago and had another couple years ago which showed complete occlusion of all 3 stents but good collateral circulation. He also receives Rocephin intravenously. A [place] catheter is initiated. The laboratory came back showing transaminitis. The urine does show evidence of urinary tract infection. The acute abdominal series x-ray does not show any acute process. His blood pressure did improve with the fluid hydration. Nevertheless, it is felt as though he would require admission for further treatment due to his urinary tract infection, hypotension, urinary retention, and weakness. The patient is agreeable. Case is discussed with Dr. Talley and he is agreeable to admission. The EKG shows a normal sinus rhythm at a rate of 66. There is no acute ST-T wave changes identified. The [place] intervals 138, QRS duration is 90, and the QTC intervals 465. - Lab Data Result diagrams: 09/07/18 12:57 09/07/18 12:57 Lab Results 09/07/18 09/07/18 09/07/18 Range/Units 12:57 12:57 12:57 WBC 5.7 (3.8-10.6) k/uL RBC 4.35 (4.30-5.90) m/uL Hgb 13.2 (13.0-17.5) gm/dL Hct 38.8 L (39.0-53.0) % MCV 89.1 (80.0-100.0) fL MCH 30.2 (25.0-35.0) pg MCHC 33.9 (31.0-37.0) g/dL RDW 17.2 H (11.5-15.5) % Plt Count 153 (150-450) k/uL Neutrophils % 81 % Lymphocytes % 8 % Monocytes % 7 % Eosinophils % 2 % Basophils % 1 % Neutrophils # 4.6 (1.3-7.7) k/uL Lymphocytes # 0.5 L (1.0-4.8) k/uL Monocytes # 0.4 (0-1.0) k/uL Eosinophils # 0.1 (0-0.7) k/uL Basophils # 0.0 (0-0.2) k/uL Anisocytosis Slight PT (9.0-12.0) sec INR (<1.2) APTT (22.0-30.0) sec Sodium 137 (137-145) mmol/L Potassium 3.8 (3.5-5.1) mmol/L Chloride 107 (98-107) mmol/L Carbon Dioxide 20 L (22-30) mmol/L Anion Gap 10 mmol/L BUN 16 (9-20) mg/dL Creatinine 1.02 (0.66-1.25) mg/dL Est GFR (CKD-EPI)AfAm 81 (>60 ml/min/1.73 sqM) Est GFR (CKD-EPI)NonAf 70 (>60 ml/min/1.73 sqM) Glucose 133 H (74-99) mg/dL Plasma Lactic Acid [place] (0.7-2.0) mmol/L Calcium 8.8 (8.4-10.2) mg/dL Total Bilirubin 1.1 (0.2-1.3) mg/dL AST 127 H (17-59) U/L ALT 136 H (21-72) U/L Alkaline Phosphatase 109 (38-126) U/L Total Creatine Kinase 390 H (55-170) U/L CK-MB (CK-2) 1.7 (0.0-2.4) ng/mL CK-MB (CK-2) Rel Index 0.4 Troponin I <0.012 (0.000-0.034) ng/mL Total Protein 6.1 L (6.3-8.2) g/dL Albumin 3.4 L (3.5-5.0) g/dL Urine Color Urine Appearance (Clear) Urine pH (5.0-8.0) Ur Specific [place] (1.001-1.035) Urine Protein (Negative) Urine Glucose (UA) (Negative) Urine Ketones (Negative) Urine Blood (Negative) Urine Nitrite (Negative) Urine Bilirubin (Negative) Urine Urobilinogen (<2.0) mg/dL Ur Leukocyte Esterase (Negative) Urine RBC (0-5) /hpf Urine WBC (0-5) /hpf Ur Squamous Epith Cells (0-4) /hpf Urine Bacteria (None) /hpf Urine Mucus (None) /hpf 09/07/18 09/07/18 09/07/18 Range/Units 12:57 12:57 13:25 WBC (3.8-10.6) k/uL RBC (4.30-5.90) m/uL Hgb (13.0-17.5) gm/dL Hct (39.0-53.0) % MCV (80.0-100.0) fL MCH (25.0-35.0) pg MCHC (31.0-37.0) g/dL RDW (11.5-15.5) % Plt Count (150-450) k/uL Neutrophils % % Lymphocytes % % Monocytes % % Eosinophils % % Basophils % % Neutrophils # (1.3-7.7) k/uL Lymphocytes # (1.0-4.8) k/uL Monocytes # (0-1.0) k/uL Eosinophils # (0-0.7) k/uL Basophils # (0-0.2) k/uL Anisocytosis PT 10.1 (9.0-12.0) sec INR 0.9 (<1.2) APTT 26.1 (22.0-30.0) sec Sodium (137-145) mmol/L Potassium (3.5-5.1) mmol/L Chloride (98-107) mmol/L Carbon Dioxide (22-30) mmol/L Anion Gap mmol/L BUN (9-20) mg/dL Creatinine (0.66-1.25) mg/dL Est GFR (CKD-EPI)AfAm (>60 ml/min/1.73 sqM) Est GFR (CKD-EPI)NonAf (>60 ml/min/1.73 sqM) Glucose (74-99) mg/dL Plasma Lactic Acid [place] 1.8 (0.7-2.0) mmol/L Calcium (8.4-10.2) mg/dL Total Bilirubin (0.2-1.3) mg/dL AST (17-59) U/L ALT (21-72) U/L Alkaline Phosphatase (38-126) U/L Total Creatine Kinase (55-170) U/L CK-MB (CK-2) (0.0-2.4) ng/mL CK-MB (CK-2) Rel Index Troponin I (0.000-0.034) ng/mL Total Protein (6.3-8.2) g/dL Albumin (3.5-5.0) g/dL Urine Color Yellow Urine Appearance Clear (Clear) Urine pH 6.0 (5.0-8.0) Ur Specific [place] 1.009 (1.001-1.035) Urine Protein Trace H (Negative) Urine Glucose (UA) Negative (Negative) Urine Ketones Negative (Negative) Urine Blood Negative (Negative) Urine Nitrite Negative (Negative) Urine Bilirubin Negative (Negative) Urine Urobilinogen <2.0 (<2.0) mg/dL Ur Leukocyte Esterase Moderate H (Negative) Urine RBC 1 (0-5) /hpf Urine WBC 26 H (0-5) /hpf Ur Squamous Epith Cells <1 (0-4) /hpf Urine Bacteria Few H (None) /hpf Urine Mucus Rare H (None) /hpf Disposition Clinical Impression: Urinary retention, Abdominal pain, Hypotension, Weakness, Prostatic hypertrophy , Urinary tract infection, Transaminitis, Failure of outpatient treatment Disposition: ADMITTED IP TO THIS [facility] Condition: Fair Is patient prescribed a controlled substance at d/c from ED?: No Time of Disposition: 15:10 Decision Date: 09/07/18 Decision Time: 15:10
--- NOTE | 2018-09-07 13:30 | XR ---
EXAMINATION TYPE: XR abdomen acute w cxr DATE OF EXAM: 09/07/2018 COMPARISON: NONE HISTORY: Pain TECHNIQUE: Single view of the chest and 2 views of the abdomen are submitted. FINDINGS: Single view of the chest fails demonstrate evidence for acute pulmonary disease. Chronic elevation r ight hemidiaphragm. There is no evidence for pneumoperitoneum. The bowel gas pattern is unremarkable as there is air throughout nondilated small and large bowel. No sizeable air fluid levels.No mass effects are seen. No unusual calcifications. IMPRESSION: 1. Nonspecific nonobstructive bowel gas pattern.
[2018-09-07 13:33] LABS: Anisocytosis Slight; Basophils % (A) 1 %; Eosinophils # (A) 0.1 k/uL (0-0.7); Eosinophils % (A) 2 %; HCT 38.8 % (39.0-53.0); HGB 13.2 gm/dL (13.0-17.5); Lymphocytes # (A) 0.5 k/uL (1.0-4.8); Lymphocytes % (A) 8 %; MCH 30.2 pg (25.0-35.0); MCHC 33.9 g/dL (31.0-37.0); MCV 89.1 fL (80.0-100.0); Mean Platelet Volume 8.7; Monocytes # (A) 0.4 k/uL (0-1.0); Monocytes % (A) 7 %; Neutrophils # (A) 4.6 k/uL (1.3-7.7); Neutrophils % (A) 81 %; Platelet Count 153 k/uL (150-450); RBC 4.35 m/uL (4.30-5.90); RDW 17.2 % (11.5-15.5); WBC 5.7 k/uL (3.8-10.6)
[2018-09-07 13:36] LABS: Albumin 3.4 g/dL (3.5-5.0); Calcium 8.8 mg/dL (8.4-10.2); Potassium 3.8 mmol/L (3.5-5.1); Total Bilirubin 1.1 mg/dL (0.2-1.3); Total Protein 6.1 g/dL (6.3-8.2)
[2018-09-07 13:41] LABS: INR 0.9 (<1.2); Partial Thromboplastin Time 26.1 sec (22.0-30.0); Prothrombin Time 10.1 sec (9.0-12.0)
[2018-09-07 13:50] LABS: Creatine Kinase 390 U/L (55-170)
[2018-09-07 14:02] LABS: Creatine Kinase MB 1.7 ng/mL (0.0-2.4); Troponin I <0.012 ng/mL (0.000-0.034)
[2018-09-07 14:10] LABS: Appearance,Urine Clear (Clear); Bacteria,Urine Few /hpf; Bilirubin,Urine Negative (Negative); Blood,Urine Negative (Negative); Color,Urine Yellow; Glucose,Urine (UA) Negative (Negative); Ketones,Urine Negative (Negative); Leukocyte Esterase,Urine Moderate (Negative); Mucus,Urine Rare /hpf; Nitrite,Urine Negative (Negative); Protein,Urine Trace (Negative); RBC,Urine 1 /hpf (0-5); Specific Gravity,Urine 1.009 (1.001-1.035); Squamous Epithelial Cell,Urine <1 /hpf (0-4); Urobilinogen,Urine <2.0 mg/dL (<2.0); WBC,Urine 26 /hpf (0-5)
[2018-09-07] MEDS ORDERED: ONDANSETRON 4 MG/2 ML VIAL IVP PRN (15:11)
[2018-09-07] MEDS ORDERED: ACETAMINOPHEN TAB 325 MG TAB PO PRN (15:11)
[2018-09-07] MEDS ORDERED: NALOXONE 0.4 MG/ML 1 ML VIAL IV PRN (15:11)
[2018-09-07] MEDS ORDERED: HYDROcodone/APAP 5-325MG 1 EACH TAB PO PRN (15:11)
--- NOTE | 2018-09-07 16:27 | US ---
EXAMINATION TYPE: US gallbladder DATE OF EXAM: 09/07/2018 COMPARISON: NONE CLINICAL HISTORY: elevated liver enzymes. abn labs Limited exam due to overlying bowel gas EXAM MEASUREMENTS: Liver Length: 13.8 cm Gallbladder Wall: 0.2 cm CBD: 0.2 cm Right Kidney: 11.1 x 4.9 x 5.0 cm Pancreas: Echogenic in appearance. Main pancreatic duct - 2.2 mm. Tail obscured by overlying bowel gas Liver: wnl Gallbladder: No stones seen Evidence for sonographic Ojeda's sign: neg CBD: Obscured by overlying bowel gas CHD: wnl Right Kidney: wnl IMPRESSION: Limited study given overlying bowel content. Borderline prominence main pancreatic duct.
--- NOTE | 2018-09-07 17:57 | P.HPIM ---
History of Present Illness 78-year-old gentleman with known history of benign prostatic. Follows with Dr. Cristina as an outpatient came in with urinary retention patient was seen in the ER couple days ago for fever or urinary tract infection temperature of 100.3 urine cultures from then was showing gram-negative bacilli. Patient was discharged on Bactrim comes back for urinary retention not comfortable to go home patient is being admitted to fully catheter was placed urology was consulted patient was started on Rocephin. Patient is bit hypotensive patient also takes lisinopril which will be held along with a beta cristian patient was started on IV fluids. Patient was having dysuria couple days ago which improved now Review of Systems REVIEW OF SYSTEMS: CONSTITUTIONAL: No fever, no malaise, no fatigue. HEENT: No recent visual problems or hearing problems. Denied any sore throat. CARDIOVASCULAR: No chest pain, orthopnea, PND, no palpitations, no syncope. PULMONARY: No shortness of breath, no cough, no hemoptysis. GASTROINTESTINAL: No diarrhea, no nausea, no vomiting, no abdominal pain. NEUROLOGICAL: No headaches, no weakness, no numbness. HEMATOLOGICAL: Denies any bleeding or petechiae. GENITOURINARY: No frequency, or urgency. MUSCULOSKELETAL/RHEUMATOLOGICAL: Denies any joint pain, swelling, or any muscle pain. ENDOCRINE: Denies any polyuria or polydipsia. The rest of the 14-point review of systems is negative. Past Medical History Past Medical History: Coronary Artery Disease (CAD), Chest Pain / Angina, Myocardial Infarction ([place]) Additional Past Medical History / Comment(s): carpal tunnel,x2 artifical knees, right lung fungal wedge resection Last Myocardial Infarction Date:: 1996 History of Any Multi-Drug Resistant Organisms: None Reported Past Surgical History: Heart Catheterization With Stent, Joint Replacement, Orthopedic Surgery Additional Past Surgical History / Comment(s): bilateral knees, right lung surgery Past Anesthesia/Blood Transfusion Reactions: No Reported Reaction Date of Last Stent Placement:: 1996 Past Psychological History: No Psychological Hx Reported Smoking Status: Former smoker Past Alcohol Use History: Occasional Past Drug Use History: None Reported - Past Family History Father Family Medical History: Myocardial Infarction ([place]) Mother Family Medical History: Cancer Additional Family Medical History / Comment(s): colon Medications and Allergies Home Medications Medication Instructions Recorded Confirmed Type Aspirin EC [Ecotrin Low Dose] 81 mg PO DAILY 10/09/17 09/07/18 History Atorvastatin [Lipitor] 40 mg PO HS 10/09/17 09/07/18 History Benazepril [Lotensin] 5 mg PO DAILY 10/09/17 09/07/18 History Isosorbide Mononitrate ER [Imdur] 30 mg PO DAILY 10/09/17 09/07/18 History Metoprolol Tartrate [Lopressor] 12.5 mg PO DAILY 10/09/17 09/07/18 History Multivitamin [Men's Multi-Vitamin] 1 tab PO DAILY 10/09/17 09/07/18 History Biotin 5 mg PO DAILY 09/05/18 09/07/18 History Saw [place] 160 mg PO DAILY 09/05/18 09/07/18 History Sulfamethox-Tmp 800-160Mg [Bactrim 1 each PO Q12HR #20 tab 09/05/18 09/07/18 Rx DS 800-160 mg] Tamsulosin HCl [Flomax] 0.4 mg PO DAILY 09/05/18 09/07/18 History Vitamin B Complex 1 cap PO DAILY 09/05/18 09/07/18 History Allergies Allergy/AdvReac Type Severity Reaction Status Date / Time No Known Allergies Allergy Verified 09/07/18 13:00 Physical Exam Vitals: Vital Signs Temp Pulse Resp BP Pulse Ox 09/07/18 16:30 72 18 132/74 94 L 09/07/18 15:45 68 18 124/70 94 L 09/07/18 14:00 62 18 106/62 95 09/07/18 13:01 57 L 18 96/62 97 09/07/18 12:17 98.2 F 74 18 82/53 94 L Intake and Output 09/07/18 09/07/18 09/07/18 06:59 14:59 22:59 Output Total 1000 Balance -1000 Output: Urine 1000 Other: Weight 86.183 kg PHYSICAL EXAMINATION: GENERAL: The patient is alert and oriented x3, not in any acute distress. Well developed, well nourished. HEENT: Pupils are round and equally reacting to light. EOMI. No scleral icterus. No conjunctival pallor. Normocephalic, atraumatic. No pharyngeal erythema. No thyromegaly. CARDIOVASCULAR: S1 and S2 present. No murmurs, rubs, or gallops. PULMONARY: Chest is clear to auscultation, no wheezing or crackles. ABDOMEN: Soft, nontender, nondistended, normoactive bowel sounds. No palpable organomegaly. MUSCULOSKELETAL: No joint swelling or deformity. EXTREMITIES: No cyanosis, clubbing, or pedal edema. NEUROLOGICAL: Gross neurological examination did not reveal any focal deficits. SKIN: No rashes. Results CBC & Chem 7: 09/07/18 12:57 09/07/18 12:57 Labs: Abnormal Lab Results - Last 24 Hours (Table) 09/07/18 09/07/18 09/07/18 Range/Units 12:57 12:57 12:57 Hct 38.8 L (39.0-53.0) % RDW 17.2 H (11.5-15.5) % Lymphocytes # 0.5 L (1.0-4.8) k/uL Carbon Dioxide 20 L (22-30) mmol/L Glucose 133 H (74-99) mg/dL AST 127 H (17-59) U/L ALT 136 H (21-72) U/L Total Creatine Kinase 390 H (55-170) U/L Total Protein 6.1 L (6.3-8.2) g/dL Albumin 3.4 L (3.5-5.0) g/dL Urine Protein (Negative) Ur Leukocyte Esterase (Negative) Urine WBC (0-5) /hpf Urine Bacteria (None) /hpf Urine Mucus (None) /hpf 09/07/18 Range/Units 13:25 Hct (39.0-53.0) % RDW (11.5-15.5) % Lymphocytes # (1.0-4.8) k/uL Carbon Dioxide (22-30) mmol/L Glucose (74-99) mg/dL AST (17-59) U/L ALT (21-72) U/L Total Creatine Kinase (55-170) U/L Total Protein (6.3-8.2) g/dL Albumin (3.5-5.0) g/dL Urine Protein Trace H (Negative) Ur Leukocyte Esterase Moderate H (Negative) Urine WBC 26 H (0-5) /hpf Urine Bacteria Few H (None) /hpf Urine Mucus Rare H (None) /hpf Assessment and Plan Plan: -Sepsis secondary to urinary tract infection patient has gram-negative bacilli in the urine: Patient will continued on Rocephin and will await finalization of the cultures -Urinary retention patient does have history of benign prostatic hypertrophic for which patient is on tamsulosin which will be continued -Hypertension: Patient is presently hypotensive because of sepsis and as well will be discontinued patient will be continued on IV for fluids. -Hyperlipidemia -Coronary artery disease For for above-mentioned chronic medical problems patient will be resumed and continued on home medications
[2018-09-07 20:26] LABS: Creatine Kinase 329 U/L (55-170)
[2018-09-07 20:40] LABS: Creatine Kinase MB 1.7 ng/mL (0.0-2.4); Troponin I <0.012 ng/mL (0.000-0.034)
[2018-09-07] MEDS ORDERED: ATORVASTATIN 40 MG TAB PO SCH (21:00)
[2018-09-08 01:47] LABS: Creatine Kinase 296 U/L (55-170)
[2018-09-08 02:00] LABS: Creatine Kinase MB 1.1 ng/mL (0.0-2.4); Troponin I <0.012 ng/mL (0.000-0.034)
[2018-09-08 05:01] LABS: Hepatitis A Antibody IgM Non-Reactive (Non-Reactive); Hepatitis B Core IgM Non-Reactive (Non-Reactive)
[2018-09-08 07:14] VITALS: BP 144/80; PULSE 63; RESP 17; TEMP 98.1
[2018-09-08 07:56] LABS: Anisocytosis Slight; HCT 36.6 % (39.0-53.0); HGB 12.5 gm/dL (13.0-17.5); MCH 30.7 pg (25.0-35.0); MCHC 34.2 g/dL (31.0-37.0); MCV 89.7 fL (80.0-100.0); Mean Platelet Volume 8.6; Platelet Count 125 k/uL (150-450); RBC 4.08 m/uL (4.30-5.90); RDW 17.2 % (11.5-15.5)
[2018-09-08 08:23] LABS: ALT 141 U/L (21-72); AST 112 U/L (17-59); Albumin 2.9 g/dL (3.5-5.0); Alkaline Phosphatase 108 U/L (38-126); Anion Gap 8 mmol/L; Blood Urea Nitrogen 13 mg/dL (9-20); Calcium 8.3 mg/dL (8.4-10.2); Carbon Dioxide 21 mmol/L (22-30); Chloride 111 mmol/L (98-107); Glucose 108 mg/dL (74-99); Potassium 3.7 mmol/L (3.5-5.1); Sodium 140 mmol/L (137-145); Total Bilirubin 0.7 mg/dL (0.2-1.3); Total Protein 5.4 g/dL (6.3-8.2)
[2018-09-08] MEDS ORDERED: NON-FORMULARY DRUG (Biotin [Biotin] 5 MG) PO SCH (09:00)
[2018-09-08] MEDS ORDERED: ENOXAPARIN 40 MG/0.4 ML SYRINGE SQ SCH (09:00)
[2018-09-08] MEDS ORDERED: TAMSULOSIN 0.4 MG CAP.ER.24H PO SCH (09:00)
[2018-09-08] MEDS ORDERED: ISOSORBIDE MONONITRATE ER 30 MG TAB.ER.24H PO SCH (09:00)
[2018-09-08] MEDS ORDERED: METOPROLOL TARTRATE 12.5 MG TAB PO SCH (09:00)
[2018-09-08] MEDS ORDERED: PANTOPRAZOLE 40 MG/10 ML VIAL IV SCH (09:00)
[2018-09-08] MEDS ORDERED: BENAZEPRIL 5 MG PO SCH (09:00)
[2018-09-08] MEDS ORDERED: NON-FORMULARY DRUG (Saw Palmetto [Saw Palmetto] 160 MG) PO SCH (09:00)
[2018-09-08] MEDS ORDERED: ASPIRIN 81 MG PO SCH (09:00)
[2018-09-08] MEDS ORDERED: MULTIVITAMINS, THERA 1 EACH TAB PO SCH (12:00)
--- NOTE | 2018-09-08 13:14 | P.GSCN ---
History of Present Illness Consult date: 09/08/18 Reason for Consult: Urinary retention and urinary tract infection History of present illness: The patient is a 78-year-old male admitted through the emergency room yesterday for evaluation of urinary retention and a urinary tract infection. The patient' s history started late last week when he developed urgency and urge incontinence. He was seen in the [facility] emergency room on 09/05. His white blood count was 18,000 but he was afebrile. Urinalysis suggested a urinary tract infection. He was started on Bactrim and a urine culture eventually grew E. coli which was sensitive to Bactrim. He continued to have problems with urgency and urge incontinence and returned to the emergency room yesterday. His white blood count was 5700 and he was afebrile. BUN and creatinine were 16/1.02. A Schofield catheter was inserted and drained 1000 mL of relatively clear urine. The patient was started on IV antibiotics under the assumption that he continue to have a urinary tract infection and was admitted for further evaluation. The patient has remained afebrile and says he feels much more comfortable. His white blood count today is 5000. BUN/creatinine are 13/0.83. The patient has a history of a urinary tract infection which occurred while he was in [place] 4-5 years ago and resolved following antibiotics treatment. He was seen by in 05/2018 due to a slow urinary flow and urinary frequency. He was started on tamsulosin and his postvoid residual in 05/2018 was 12 mL. He says that prior to last week he was voiding every 3-4 hours during the day and and 1-2 times at night. Up until last week he felt that he was voiding completely. He has had no gross hematuria. He says that his bowels have been moving normally. Review of Systems - Constitutional Reports sweats, Denies fever - Cardiovascular Denies chest pain, Denies shortness of breath - Respiratory Denies cough - Gastrointestinal Denies abdominal pain, Denies constipation - Genitourinary Reports as per HPI Past Medical History Past Medical History: Coronary Artery Disease (CAD), Chest Pain / Angina, CVA/ TIA, Myocardial Infarction ([place]), Prostate Disorder Additional Past Medical History / Comment(s): Bilateral total knee arthroplasty, right lung fungal wedge resection, uti dx 09-05-18, had pne vaccine <5 years ago, news writer unable to verify date at time of this sdmit,please f/u in am Last Myocardial Infarction Date:: 1996 History of Any Multi-Drug Resistant Organisms: None Reported Past Surgical History: Heart Catheterization With Stent, Joint Replacement, Orthopedic Surgery, Tonsillectomy Additional Past Surgical History / Comment(s): bilateral knee replacments, right lung surgery, cataracts removed-lens iplants Past Anesthesia/Blood Transfusion Reactions: No Reported Reaction Date of Last Stent Placement:: 1996 Smoking Status: Former smoker - Past Family History Father Family Medical History: Myocardial Infarction ([place]) Mother Family Medical History: Cancer Additional Family Medical History / Comment(s): colon Medications and Allergies Home Medications Medication Instructions Recorded Confirmed Type Aspirin EC [Ecotrin Low Dose] 81 mg PO DAILY 10/09/17 09/07/18 History Atorvastatin [Lipitor] 40 mg PO HS 10/09/17 09/07/18 History Isosorbide Mononitrate ER [Imdur] 30 mg PO DAILY 10/09/17 09/07/18 History Metoprolol Tartrate [Lopressor] 12.5 mg PO DAILY 10/09/17 09/07/18 History Multivitamin [Men's Multi-Vitamin] 1 tab PO DAILY 10/09/17 09/07/18 History Biotin 5 mg PO DAILY 09/05/18 09/07/18 History Saw [place] 160 mg PO DAILY 09/05/18 09/07/18 History Tamsulosin HCl [Flomax] 0.4 mg PO DAILY 09/05/18 09/07/18 History Vitamin B Complex 1 cap PO DAILY 09/05/18 09/07/18 History Ciprofloxacin HCl [Cipro] 500 mg PO Q12H 5 Days #10 tab 09/08/18 Rx Allergies Allergy/AdvReac Type Severity Reaction Status Date / Time No Known Allergies Allergy Verified 09/07/18 13:00 Surgical - Exam Vital Signs Temp Pulse Resp BP Pulse Ox 98.2 F 74 18 82/53 94 L 09/07/18 12:17 09/07/18 12:17 09/07/18 12:17 09/07/18 12:17 09/07/18 12:17 - General well nourished, no distress - ENT no hearing loss - Respiratory normal respiratory effort - Abdomen Abdomen: soft, non tender, no organomegaly Hernia: none - Genitourinary normal penis with no external lesions, testicles non-tender, other (Schofield catheter is in place and is draining clear urine) Results - Labs 09/08/18 07:05 09/08/18 07:05 Abnormal Lab Results - Last 24 Hours (Table) 09/07/18 09/07/18 09/07/18 Range/Units 12:57 12:57 12:57 RBC (4.30-5.90) m/uL Hgb (13.0-17.5) gm/dL Hct 38.8 L (39.0-53.0) % RDW 17.2 H (11.5-15.5) % Plt Count (150-450) k/uL Lymphocytes # 0.5 L (1.0-4.8) k/uL Chloride (98-107) mmol/L Carbon Dioxide 20 L (22-30) mmol/L Glucose 133 H (74-99) mg/dL Calcium (8.4-10.2) mg/dL AST 127 H (17-59) U/L ALT 136 H (21-72) U/L Total Creatine Kinase 390 H (55-170) U/L Total Protein 6.1 L (6.3-8.2) g/dL Albumin 3.4 L (3.5-5.0) g/dL Urine Protein (Negative) Ur Leukocyte Esterase (Negative) Urine WBC (0-5) /hpf Urine Bacteria (None) /hpf Urine Mucus (None) /hpf 09/07/18 09/07/18 09/08/18 Range/Units 13:25 18:56 01:03 RBC (4.30-5.90) m/uL Hgb (13.0-17.5) gm/dL Hct (39.0-53.0) % RDW (11.5-15.5) % Plt Count (150-450) k/uL Lymphocytes # (1.0-4.8) k/uL Chloride (98-107) mmol/L Carbon Dioxide (22-30) mmol/L Glucose (74-99) mg/dL Calcium (8.4-10.2) mg/dL AST (17-59) U/L ALT (21-72) U/L Total Creatine Kinase 329 H 296 H (55-170) U/L Total Protein (6.3-8.2) g/dL Albumin (3.5-5.0) g/dL Urine Protein Trace H (Negative) Ur Leukocyte Esterase Moderate H (Negative) Urine WBC 26 H (0-5) /hpf Urine Bacteria Few H (None) /hpf Urine Mucus Rare H (None) /hpf 09/08/18 09/08/18 Range/Units 07:05 07:05 RBC 4.08 L (4.30-5.90) m/uL Hgb 12.5 L (13.0-17.5) gm/dL Hct 36.6 L (39.0-53.0) % RDW 17.2 H (11.5-15.5) % Plt Count 125 L (150-450) k/uL Lymphocytes # (1.0-4.8) k/uL Chloride 111 H (98-107) mmol/L Carbon Dioxide 21 L (22-30) mmol/L Glucose 108 H (74-99) mg/dL Calcium 8.3 L (8.4-10.2) mg/dL AST 112 H (17-59) U/L ALT 141 H (21-72) U/L Total Creatine Kinase (55-170) U/L Total Protein 5.4 L (6.3-8.2) g/dL Albumin 2.9 L (3.5-5.0) g/dL Urine Protein (Negative) Ur Leukocyte Esterase (Negative) Urine WBC (0-5) /hpf Urine Bacteria (None) /hpf Urine Mucus (None) /hpf Microbiology - Last 24 Hours (Table) 09/07/18 13:25 Urine Culture - Preliminary Urine,Voided Diabetes panel 09/07/18 09/08/18 Range/Units 12:57 07:05 Sodium 137 140 (137-145) mmol/L Potassium 3.8 3.7 (3.5-5.1) mmol/L Chloride 107 111 H (98-107) mmol/L Carbon Dioxide 20 L 21 L (22-30) mmol/L BUN 16 13 (9-20) mg/dL Creatinine 1.02 0.83 (0.66-1.25) mg/dL Glucose 133 H 108 H (74-99) mg/dL Calcium 8.8 8.3 L (8.4-10.2) mg/dL AST 127 H 112 H (17-59) U/L ALT 136 H 141 H (21-72) U/L Alkaline Phosphatase 109 108 (38-126) U/L Total Protein 6.1 L 5.4 L (6.3-8.2) g/dL Albumin 3.4 L 2.9 L (3.5-5.0) g/dL Calcium panel 09/07/18 09/08/18 Range/Units 12:57 07:05 Calcium 8.8 8.3 L (8.4-10.2) mg/dL Albumin 3.4 L 2.9 L (3.5-5.0) g/dL Pituitary panel 09/07/18 09/08/18 Range/Units 12:57 07:05 Sodium 137 140 (137-145) mmol/L Potassium 3.8 3.7 (3.5-5.1) mmol/L Chloride 107 111 H (98-107) mmol/L Carbon Dioxide 20 L 21 L (22-30) mmol/L BUN 16 13 (9-20) mg/dL Creatinine 1.02 0.83 (0.66-1.25) mg/dL Glucose 133 H 108 H (74-99) mg/dL Calcium 8.8 8.3 L (8.4-10.2) mg/dL Adrenal panel 09/07/18 09/08/18 Range/Units 12:57 07:05 Sodium 137 140 (137-145) mmol/L Potassium 3.8 3.7 (3.5-5.1) mmol/L Chloride 107 111 H (98-107) mmol/L Carbon Dioxide 20 L 21 L (22-30) mmol/L BUN 16 13 (9-20) mg/dL Creatinine 1.02 0.83 (0.66-1.25) mg/dL Glucose 133 H 108 H (74-99) mg/dL Calcium 8.8 8.3 L (8.4-10.2) mg/dL Total Bilirubin 1.1 0.7 (0.2-1.3) mg/dL AST 127 H 112 H (17-59) U/L ALT 136 H 141 H (21-72) U/L Alkaline Phosphatase 109 108 (38-126) U/L Total Protein 6.1 L 5.4 L (6.3-8.2) g/dL Albumin 3.4 L 2.9 L (3.5-5.0) g/dL Assessment and Plan (1) Urinary retention Narrative/Plan: The patient's urinary retention is most likely related to a combination of underlying BPH and a recent urinary tract infection. Patient had been taking tamsulosin 0.4 mg daily. The dose of the tamsulosin should be increased to twice a day. I instructed the patient in catheter removal and he can remove the catheter at home at 0 600 on 09/11. I will see him in the office at 1045 that morning to check a postvoid residual. Current Visit: Yes Status: Acute Code(s): R33.9 - RETENTION OF URINE, UNSPECIFIED SNOMED Code(s): 343357170 (2) Urinary tract infection Narrative/Plan: The patient had a urinary tract infection which was diagnosed on 09/05. Urine culture grew E. coli which is sensitive to the Bactrim that he was discharged on. The patient's infection has most likely responded to antibiotics as he is afebrile and his white blood count has normalized. His symptoms of lower abdominal discomfort with urgency incontinence appear to be primarily related to urinary retention. The patient can be discharged on Bactrim and he should finish the prescription that he has been previously been given. From my standpoint the patient does not need to be in the hospital for treatment of his infection or urinary retention. Current Visit: Yes Status: Acute Code(s): N39.0 - URINARY TRACT INFECTION, SITE NOT SPECIFIED SNOMED Code(s): 30865339
--- NOTE | 2018-09-08 13:37 | P.DS ---
Providers Date of admission: 09/07/18 15:11 Attending physician: Marii Talley Consults: 09/07/18 15:12 Consult Physician Routine Consulting Provider: Tam Eubanks Consult Reason/Comments: urinary retention, uti Do you want consulting provider notified?: Yes Primary care physician: [facility] Course: patient is admitted for UTI and urinary retention patient has E. coli in the urine patient will be started on Cipro for 5 more days will be discharged home patient will follow with urology as an outpatient. Patient will keep the Schofield catheter. PHYSICAL EXAMINATION: GENERAL: The patient is alert and oriented x3, not in any acute distress. Well developed, well nourished. HEENT: Pupils are round and equally reacting to light. EOMI. No scleral icterus. No conjunctival pallor. Normocephalic, atraumatic. No pharyngeal erythema. No thyromegaly. CARDIOVASCULAR: S1 and S2 present. No murmurs, rubs, or gallops. PULMONARY: Chest is clear to auscultation, no wheezing or crackles. ABDOMEN: Soft, nontender, nondistended, normoactive bowel sounds. No palpable organomegaly. MUSCULOSKELETAL: No joint swelling or deformity. EXTREMITIES: No cyanosis, clubbing, or pedal edema. NEUROLOGICAL: Gross neurological examination did not reveal any focal deficits. SKIN: No rashes. For rest of the chronic medical problems hospitalization course please refer to dictation of my HPI from yesterday Patient Condition at Discharge: Fair Plan - Discharge Summary Discharge Rx Participant: No New Discharge Prescriptions: New Ciprofloxacin HCl [Cipro] 500 mg PO Q12H 5 Days #10 tab Discontinued Benazepril [Lotensin] 5 mg PO DAILY Sulfamethox-Tmp 800-160Mg [Bactrim DS 800-160 mg] 1 each PO Q12HR #20 tab No Action Metoprolol Tartrate [Lopressor] 12.5 mg PO DAILY Isosorbide Mononitrate ER [Imdur] 30 mg PO DAILY Atorvastatin [Lipitor] 40 mg PO HS Aspirin EC [Ecotrin Low Dose] 81 mg PO DAILY Multivitamin [Men's Multi-Vitamin] 1 tab PO DAILY Vitamin B Complex 1 cap PO DAILY Tamsulosin HCl [Flomax] 0.4 mg PO DAILY Biotin 5 mg PO DAILY Saw [place] 160 mg PO DAILY Discharge Medication List Aspirin EC [Ecotrin Low Dose] 81 mg PO DAILY 10/09/17 [History] Atorvastatin [Lipitor] 40 mg PO HS 10/09/17 [History] Isosorbide Mononitrate ER [Imdur] 30 mg PO DAILY 10/09/17 [History] Metoprolol Tartrate [Lopressor] 12.5 mg PO DAILY 10/09/17 [History] Multivitamin [Men's Multi-Vitamin] 1 tab PO DAILY 10/09/17 [History] Biotin 5 mg PO DAILY 09/05/18 [History] Saw [place] 160 mg PO DAILY 09/05/18 [History] Tamsulosin HCl [Flomax] 0.4 mg PO DAILY 09/05/18 [History] Vitamin B Complex 1 cap PO DAILY 09/05/18 [History] Ciprofloxacin HCl [Cipro] 500 mg PO Q12H 5 Days #10 tab 09/08/18 [Rx] Follow up Appointment(s)/Referral(s): Tam Eubanks MD [STAFF PHYSICIAN] - 09/11/18 10:45 am Patient Instructions/Handouts: Urinary Retention in Men (GEN), Urinary Tract Infection in Men (GEN) Discharge Disposition: HOME SELF-CARE
--- NOTE | 2018-09-09 14:22 | CDI ---
Documentation Clarification Form Date: 09/09/18 From: Becky Verma Phone: If you have a question regarding this query, please contact Joselin Gusman at [phone] between 8am and 5pm. Admit Date: 09/07/2018 3:11:00 PM Patient Name: Adriel Gates Visit Number: [id number] Discharge Date: 09/08/2018 2:30:00 PM ATTENTION: The Clinical Documentation Specialists (CDI) and [facility] Coding Staff appreciate your assistance in clarifying documentation. Please respond to the clarification below the line at the bottom and electronically sign. The CDI & [facility] Coding staff will review the response and follow-up if needed. Please note: Queries are made part of the Legal Health Record. If you have any questions, please contact the author of this message via ITS. Dr. Marii Talley The patient presented with urinary retention. Sepsis secondary to urinary tract infection is documented in the H&P. Hypotension due to sepsis is also documented in the H&P. History/Risk Factors: The patient was diagnosed with UTI in the ER a couple of days prior to admission and given bactrim. Patient also has BPH with urinary retention. Clinical Indicators: Hypotensive on admission. WBCs normal, lactic acid normal. No fever. WBC: 5.7 Lactic acid: 1.8 Blood cultures: No growth. Vitals signs on admission: T. 98.2, P. 74, R. 18, BP 82/53 Treatment: Antiibiotics: IV Ceftriaxone IV Bolus: 500 mls @ 999 mls/hr then 1 liter at 100 mls/hr Other: In your professional opinion, please clarify if these findings signify one of the following conditions:: Sepsis ruled out SIRS, without underlying infectious process Sepsis Severe Sepsis Septic Shock Other, please specify Unable to determine Appropriate documentation is already dictated in the note. ANASTASIAD
== END 2018-09-08 14:30 | disposition home or self-care (01) | DRG 690 ==
LOC: EC 12:05 → 3NMEDONC 15:11 → 4SSUR 18:12
PROVIDERS: ADMIT Internal Medicine; ATTEND Internal Medicine
DX: N39.0 Urinary tract infection, site not specified (principal); I95.9 Hypotension, unspecified; N40.1 Benign prostatic hyperplasia with lower urinary tract symptoms; B96.20 Unspecified Escherichia coli [E. coli] as the cause of diseases classified elsewhere; E78.5 Hyperlipidemia, unspecified; I10 Essential (primary) hypertension; I25.10 Atherosclerotic heart disease of native coronary artery without angina pectoris; I25.2 Old myocardial infarction; N39.41 Urge incontinence; R33.8 Other retention of urine; R74.0 Nonspecific elevation of levels of transaminase and lactic acid dehydrogenase [LDH]; Z79.82 Long term (current) use of aspirin; Z79.899 Other long term (current) drug therapy; Z96.653 Presence of artificial knee joint, bilateral; Z86.73 Personal history of transient ischemic attack (TIA), and cerebral infarction without residual deficits; Z87.891 Personal history of nicotine dependence; Z95.5 Presence of coronary angioplasty implant and graft; Z98.42 Cataract extraction status, left eye; Z98.41 Cataract extraction status, right eye; Z96.1 Presence of intraocular lens; Z82.49 Family history of ischemic heart disease and other diseases of the circulatory system; Z80.0 Family history of malignant neoplasm of digestive organs
CPT/HCPCS: 36415; 51702; 74022; 76705; 80053; 80074; 81001; 82550; 82553; 83605; 84484; 85025; 85027; 85610; 85730; 87040; 87077; 87086; 87186; 93005; 96361; 96365; 96372; 99284; 99285

== ENCOUNTER → 2020-08-01 | Outpatient (CLI) | payer MEDICARE ==
--- NOTE | 2020-08-01 13:11 | US ---
EXAMINATION TYPE: US abdomen complete DATE OF EXAM: 08/01/2020 COMPARISON: US CLINICAL HISTORY: K80.20 calculus of gallbladder without cholecystitis. Abnormal labs EXAM MEASUREMENTS: Liver Length: 15.7 cm Gallbladder Wall: 0.2 cm CBD: 0.3 cm Spleen: 8.6 cm Right Kidney: 10.8 x 5.0 x 4.3 cm Left Kidney: 11.0 x 5.8 x 4.8 cm Pancreas: Panc duct visualized as seen on previous= 3mm, tail obscured by overlying bowel gas Liver: Heterogeneous, otherwise wnl Gallbladder: Multiple folds, lumen clear Evidence for sonographic Ojeda's sign: No CBD: wnl Spleen: wnl Right Kidney: wnl, lower pole gassed out Left Kidney: wnl Upper IVC: wnl Abd Aorta: Wall calcifications, no evidence of AAA IMPRESSION: 1. Normal abdomen ultrasound.
== END | disposition home or self-care (01) ==
LOC: RADUSWWP 07:28
PROVIDERS: ATTEND Family Medicine
DX: K80.20 Calculus of gallbladder without cholecystitis without obstruction (principal)
CPT/HCPCS: 76700

== ENCOUNTER 2020-09-22 11:01 | Observation (INO) | payer MEDICARE ==
[2020-09-22] MEDS ORDERED: SODIUM CHLORIDE 0.9% 1,000 ML IV STA (11:30)
--- NOTE | 2020-09-22 11:34 | ED ---
General Adult HPI - General Chief complaint: Recheck/Abnormal Lab/Rx Stated complaint: Low BP Time Seen by Provider: 09/22/20 11:18 Source: patient, RN notes reviewed Mode of arrival: ambulatory Limitations: no limitations - History of Present Illness Initial comments: Patient is a pleasant 80-year-old male presenting to the emergency Department with low blood pressure. Patient was doing dishes this morning and felt lightheaded. Patient does check his blood pressure with systolic 92. Patient had a repeat of 78. Patient states he is feeling better at this time. Patient called his doctor and was advised to come here. No chest pain or dyspnea. No abdominal pain. No confusion. No weakness. No recent changes in blood pressure medication. No fever or recent illness. - Related Data Home Medications Medication Instructions Recorded Confirmed Aspirin EC [Ecotrin Low Dose] 81 mg PO DAILY 10/09/17 09/22/20 Atorvastatin [Lipitor] 40 mg PO HS 10/09/17 09/22/20 Isosorbide Mononitrate ER [Imdur] 30 mg PO DAILY 10/09/17 09/22/20 Metoprolol Tartrate [Lopressor] 12.5 mg PO DAILY 10/09/17 09/22/20 Multivitamin [Men's Multi-Vitamin] 1 tab PO DAILY 10/09/17 09/22/20 Saw [place] 160 mg PO BID 09/05/18 09/22/20 Tamsulosin HCl [Flomax] 0.4 mg PO BID 09/05/18 09/22/20 Benazepril [Lotensin] 5 mg PO DAILY 09/22/20 09/22/20 Cyanocobalamin (Vitamin B-12) 2,500 mcg PO DAILY 09/22/20 09/22/20 [Vitamin B-12] Allergies Allergy/AdvReac Type Severity Reaction Status Date / Time No Known Allergies Allergy Verified 09/22/20 12:52 Review of Systems ROS Statement: Those systems with pertinent positive or pertinent negative responses have been documented in the HPI. ROS Other: All systems not noted in ROS Statement are negative. Constitutional: Denies: fever Eyes: Denies: eye pain ENT: Denies: ear pain Respiratory: Denies: cough Cardiovascular: Denies: chest pain Endocrine: Denies: fatigue Gastrointestinal: Denies: abdominal pain Genitourinary: Denies: urgency Musculoskeletal: Denies: back pain Skin: Denies: rash Neurological: Denies: weakness Past Medical History Past Medical History: Coronary Artery Disease (CAD), Chest Pain / Angina, CVA/TIA, Myocardial Infarction ([place]), Prostate Disorder Additional Past Medical History / Comment(s): Bilateral total knee arthroplasty,right lung fungal wedge resection, uti dx 09-05-18, had pne vaccine <5 years ago,leader writer unable to verify date at time of this sdmit,please f/u in am Last Myocardial Infarction Date:: 1996 History of Any Multi-Drug Resistant Organisms: None Reported Past Surgical History: Heart Catheterization With Stent, Joint Replacement, Orthopedic Surgery, Tonsillectomy Additional Past Surgical History / Comment(s): bilateral knee replacments, right lung surgery, cataracts removed-lens iplants Past Anesthesia/Blood Transfusion Reactions: No Reported Reaction Date of Last Stent Placement:: 1996 Past Psychological History: No Psychological Hx Reported Smoking Status: Never smoker Past Alcohol Use History: Occasional Past Drug Use History: None Reported - Past Family History Father Family Medical History: Myocardial Infarction ([place]) Mother Family Medical History: Cancer Additional Family Medical History / Comment(s): colon General Exam Limitations: no limitations General appearance: alert, in no apparent distress Head exam: Present: normocephalic Eye exam: Present: normal appearance Neck exam: Present: normal inspection Respiratory exam: Present: normal lung sounds bilaterally Cardiovascular Exam: Present: regular rate, normal rhythm Expanded Peripheral pulses: 2+: Radial (R), Radial (L), Posterior Tibialis (R), Posterior Tibialis (L) GI/Abdominal exam: Present: soft. Absent: tenderness, pulsatile mass Extremities exam: Present: normal inspection. Absent: pedal edema, calf tenderness Neurological exam: Present: alert, oriented X3, CN II-XII intact. Absent: motor sensory deficit Expanded Neurological exam: Present: protecting the airway Speech: Present: fluid speech Motor strength exam: RUE: 5, LUE: 5, RLE: 5, LLE: 5 Eye Response: (4) open spontaneously Motor Response: (6) obeys commands Verbal Response: (5) oriented Psychiatric exam: Present: normal affect, normal mood Skin exam: Present: normal color Course Vital Signs 09/22/20 09/22/20 11:12 12:10 Temperature 97.8 F Pulse Rate 88 58 L Respiratory 20 18 Rate Blood Pressure 103/62 129/65 O2 Sat by Pulse 99 96 Oximetry EKG Findings - EKG Comments: EKG Findings:: Normal sinus rhythm at 63. NE 138. QRS 90. QT 462. QTC 472. Left axis. Inferior Q waves. T-wave inversion in inferior. Lateral T wave inversion. Medical Decision Making - Medical Decision Making Patient reevaluated and resting comfortably in bed. Patient updated on results and plan. Does with Dr. gallegos, who will admit covering for Dr. Whitehead, who admits for Dr. Kuhn - Lab Data Result diagrams: 09/22/20 12:10 09/22/20 12:10 Lab Results 09/22/20 09/22/20 09/22/20 Range/Units 12:10 12:10 12:10 WBC 5.0 (3.8-10.6) k/uL RBC 4.43 (4.30-5.90) m/uL Hgb 13.7 (13.0-17.5) gm/dL Hct 40.0 (39.0-53.0) % MCV 90.2 (80.0-100.0) fL MCH 31.0 (25.0-35.0) pg MCHC 34.3 (31.0-37.0) g/dL RDW 16.5 H (11.5-15.5) % Plt Count 139 L (150-450) k/uL MPV 8.4 Neutrophils % 63 % Lymphocytes % 25 % Monocytes % 8 % Eosinophils % 3 % Basophils % 1 % Neutrophils # 3.2 (1.3-7.7) k/uL Lymphocytes # 1.2 (1.0-4.8) k/uL Monocytes # 0.4 (0-1.0) k/uL Eosinophils # 0.1 (0-0.7) k/uL Basophils # 0.0 (0-0.2) k/uL Anisocytosis Slight PT 10.7 (9.0-12.0) sec INR 1.0 (<1.2) APTT 25.9 (22.0-30.0) sec D-Dimer 0.47 (<0.60) mg/L FEU Sodium 138 (137-145) mmol/L Potassium 4.2 (3.5-5.1) mmol/L Chloride 107 (98-107) mmol/L Carbon Dioxide 25 (22-30) mmol/L Anion Gap 6 mmol/L BUN 17 (9-20) mg/dL Creatinine 0.94 (0.66-1.25) mg/dL Est GFR (CKD-EPI)AfAm 88 (>60 ml/min/1.73 sqM) Est GFR (CKD-EPI)NonAf 76 (>60 ml/min/1.73 sqM) Glucose 110 H (74-99) mg/dL Plasma Lactic Acid Davey (0.7-2.0) mmol/L Calcium 9.1 (8.4-10.2) mg/dL Magnesium 2.1 (1.6-2.3) mg/dL Total Bilirubin 1.1 (0.2-1.3) mg/dL AST 30 (17-59) U/L ALT 22 (4-49) U/L Alkaline Phosphatase 57 (38-126) U/L Troponin I (0.000-0.034) ng/mL Total Protein 6.0 L (6.3-8.2) g/dL Albumin 3.5 (3.5-5.0) g/dL 09/22/20 09/22/20 Range/Units 12:10 12:10 WBC (3.8-10.6) k/uL RBC (4.30-5.90) m/uL Hgb (13.0-17.5) gm/dL Hct (39.0-53.0) % MCV (80.0-100.0) fL MCH (25.0-35.0) pg MCHC (31.0-37.0) g/dL RDW (11.5-15.5) % Plt Count (150-450) k/uL MPV Neutrophils % % Lymphocytes % % Monocytes % % Eosinophils % % Basophils % % Neutrophils # (1.3-7.7) k/uL Lymphocytes # (1.0-4.8) k/uL Monocytes # (0-1.0) k/uL Eosinophils # (0-0.7) k/uL Basophils # (0-0.2) k/uL Anisocytosis PT (9.0-12.0) sec INR (<1.2) APTT (22.0-30.0) sec D-Dimer (<0.60) mg/L FEU Sodium (137-145) mmol/L Potassium (3.5-5.1) mmol/L Chloride (98-107) mmol/L Carbon Dioxide (22-30) mmol/L Anion Gap mmol/L BUN (9-20) mg/dL Creatinine (0.66-1.25) mg/dL Est GFR (CKD-EPI)AfAm (>60 ml/min/1.73 sqM) Est GFR (CKD-EPI)NonAf (>60 ml/min/1.73 sqM) Glucose (74-99) mg/dL Plasma Lactic Acid Davey 2.1 H* (0.7-2.0) mmol/L Calcium (8.4-10.2) mg/dL Magnesium (1.6-2.3) mg/dL Total Bilirubin (0.2-1.3) mg/dL AST (17-59) U/L ALT (4-49) U/L Alkaline Phosphatase (38-126) U/L Troponin I <0.012 (0.000-0.034) ng/mL Total Protein (6.3-8.2) g/dL Albumin (3.5-5.0) g/dL Disposition Clinical Impression: Hypotension, T wave inversion in EKG Disposition: ADMITTED IP TO THIS HOSP Is patient prescribed a controlled substance at d/c from ED?: No Referrals: Dharmesh Kuhn DO [Primary Care Provider] - 1-2 days Decision Time: 13:30
[2020-09-22 12:24] LABS: Anisocytosis Slight; Basophils % (A) 1 %; Eosinophils # (A) 0.1 k/uL (0-0.7); Eosinophils % (A) 3 %; HGB 13.7 gm/dL (13.0-17.5); Lymphocytes # (A) 1.2 k/uL (1.0-4.8); Lymphocytes % (A) 25 %; MCHC 34.3 g/dL (31.0-37.0); MCV 90.2 fL (80.0-100.0); Mean Platelet Volume 8.4; Monocytes # (A) 0.4 k/uL (0-1.0); Monocytes % (A) 8 %; Neutrophils # (A) 3.2 k/uL (1.3-7.7); Neutrophils % (A) 63 %; Platelet Count 139 k/uL (150-450); RBC 4.43 m/uL (4.30-5.90); RDW 16.5 % (11.5-15.5)
[2020-09-22 12:37] LABS: Albumin 3.5 g/dL (3.5-5.0); Calcium 9.1 mg/dL (8.4-10.2); Magnesium 2.1 mg/dL (1.6-2.3); Potassium 4.2 mmol/L (3.5-5.1); Total Bilirubin 1.1 mg/dL (0.2-1.3)
[2020-09-22 12:39] LABS: D-Dimer 0.47 mg/L FEU (<0.60); Partial Thromboplastin Time 25.9 sec (22.0-30.0); Prothrombin Time 10.7 sec (9.0-12.0)
--- NOTE | 2020-09-22 12:44 | XR ---
EXAMINATION TYPE: XR chest 2V DATE OF EXAM: 09/22/2020 COMPARISON: 10/09/2017 HISTORY: Shortness of breath TECHNIQUE: Frontal and lateral views of the chest are obtained. FINDINGS: Scattered senescent parenchymal changes noted. Hyperinflation compatible with COPD. No evidence for infiltrate. No evidence for atelectasis. Heart size is stable. Mediastinal structures are stable and grossly unremarkable. No evidence for hilar prominence. Degenerative changes dorsal spine. IMPRESSION: 1. No evidence for acute pulmonary disease.
[2020-09-22] MEDS ORDERED: NITROGLYCERIN SL TABS 0.4 MG TAB SUBLINGUAL PRN (13:30)
[2020-09-22] MEDS ORDERED: ASPIRIN 81 MG PO STA (13:30)
[2020-09-22] MEDS: SODIUM CHLORIDE 0.9% 1,000 ML IV SCH ×3 (14:13→21:06)
[2020-09-22 17:00] VITALS: RESP 18
--- NOTE | 2020-09-22 17:10 | P.HPIM ---
History of Present Illness Patient is a pleasant 80-year-old male came in with the low blood pressure felt lightheaded. Patient is any fever chills doesn't have any sepsis patient is a bit obese mildly dehydrated with dry mucous membranes. Patient was started on IV fluids patient's SURENDRA inhibitor will be held. Patient will be monitored overnight possibly of discharge tomorrow. Patient denied any recent changes in medication patient denied any diarrhea or nausea vomiting. Review of Systems REVIEW OF SYSTEMS: CONSTITUTIONAL: No fever, no malaise, no fatigue. HEENT: No recent visual problems or hearing problems. Denied any sore throat. CARDIOVASCULAR: No chest pain, orthopnea, PND, no palpitations, no syncope. PULMONARY: No shortness of breath, no cough, no hemoptysis. GASTROINTESTINAL: No diarrhea, no nausea, no vomiting, no abdominal pain. NEUROLOGICAL: No headaches, no weakness, no numbness. HEMATOLOGICAL: Denies any bleeding or petechiae. GENITOURINARY: Denies any burning micturition, frequency, or urgency. MUSCULOSKELETAL/RHEUMATOLOGICAL: Denies any joint pain, swelling, or any muscle pain. ENDOCRINE: Denies any polyuria or polydipsia. The rest of the 14-point review of systems is negative. Past Medical History Past Medical History: Coronary Artery Disease (CAD), Chest Pain / Angina, CVA/TIA, Myocardial Infarction ([place]), Prostate Disorder Additional Past Medical History / Comment(s): Bilateral total knee arthroplasty,right lung fungal wedge resection, uti dx 09-05-18, had pne vaccine <5 years ago,sba underwriter unable to verify date at time of this sdmit,please f/u in am Last Myocardial Infarction Date:: 1996 History of Any Multi-Drug Resistant Organisms: None Reported Past Surgical History: Heart Catheterization With Stent, Joint Replacement, Orthopedic Surgery, Tonsillectomy Additional Past Surgical History / Comment(s): bilateral knee replacments, right lung surgery, cataracts removed-lens iplants Past Anesthesia/Blood Transfusion Reactions: No Reported Reaction Date of Last Stent Placement:: 1996 Past Psychological History: No Psychological Hx Reported Smoking Status: Never smoker Past Alcohol Use History: Occasional Past Drug Use History: None Reported - Past Family History Father Family Medical History: Myocardial Infarction ([place]) Mother Family Medical History: Cancer Additional Family Medical History / Comment(s): colon Medications and Allergies Home Medications Medication Instructions Recorded Confirmed Type Aspirin EC [Ecotrin Low Dose] 81 mg PO DAILY 10/09/17 09/22/20 History Atorvastatin [Lipitor] 40 mg PO HS 10/09/17 09/22/20 History Isosorbide Mononitrate ER [Imdur] 30 mg PO DAILY 10/09/17 09/22/20 History Metoprolol Tartrate [Lopressor] 12.5 mg PO DAILY 10/09/17 09/22/20 History Multivitamin [Men's Multi-Vitamin] 1 tab PO DAILY 10/09/17 09/22/20 History Saw [place] 160 mg PO BID 09/05/18 09/22/20 History Tamsulosin HCl [Flomax] 0.4 mg PO BID 09/05/18 09/22/20 History Benazepril [Lotensin] 5 mg PO DAILY 09/22/20 09/22/20 History Cyanocobalamin (Vitamin B-12) 2,500 mcg PO DAILY 09/22/20 09/22/20 History [Vitamin B-12] Allergies Allergy/AdvReac Type Severity Reaction Status Date / Time No Known Allergies Allergy Verified 09/22/20 12:52 Physical Exam Vitals: Vital Signs Temp Pulse Pulse Resp BP Pulse Ox 09/22/20 16:59 59 L 18 133/70 96 09/22/20 13:45 58 L 16 108/65 96 09/22/20 13:30 58 L 09/22/20 12:10 58 L 18 129/65 96 09/22/20 11:12 97.8 F 88 20 103/62 99 Intake and Output 09/22/20 09/22/20 09/22/20 06:59 14:59 22:59 Other: Weight 83.915 kg PHYSICAL EXAMINATION: GENERAL: The patient is alert and oriented x3, not in any acute distress. Well developed, well nourished. HEENT: Pupils are round and equally reacting to light. EOMI. No scleral icterus. No conjunctival pallor. Normocephalic, atraumatic. No pharyngeal erythema. No thyromegaly. CARDIOVASCULAR: S1 and S2 present. No murmurs, rubs, or gallops. PULMONARY: Chest is clear to auscultation, no wheezing or crackles. ABDOMEN: Soft, nontender, nondistended, normoactive bowel sounds. No palpable organomegaly. MUSCULOSKELETAL: No joint swelling or deformity. EXTREMITIES: No cyanosis, clubbing, or pedal edema. NEUROLOGICAL: Gross neurological examination did not reveal any focal deficits. SKIN: No rashes. Results CBC & Chem 7: 09/22/20 12:10 09/22/20 12:10 Labs: Abnormal Lab Results - Last 24 Hours (Table) 09/22/20 09/22/20 09/22/20 Range/Units 12:10 12:10 12:10 RDW 16.5 H (11.5-15.5) % Plt Count 139 L (150-450) k/uL Glucose 110 H (74-99) mg/dL Plasma Lactic Acid Davey 2.1 H* (0.7-2.0) mmol/L Total Protein 6.0 L (6.3-8.2) g/dL Assessment and Plan Plan: -Hypotension secondary to mild dehydration and medications SURENDRA inhibitor will be held patient will be started on Cardizem and IV fluids -Lactic acidosis no evidence of sepsis at this time. And it intravascular depletion patient will continue her IV fluids as mentioned above --Benign prostatic hypertrophy -Hyperlipidemia - coronary artery disease
[2020-09-22] MEDS ORDERED: ATORVASTATIN 40 MG TAB PO SCH (21:00)
[2020-09-22] MEDS: TAMSULOSIN 0.4 MG CAP.ER.24H PO SCH (21:06)
[2020-09-23] MEDS: SODIUM CHLORIDE 0.9% 1,000 ML IV SCH ×2 (05:29→14:10)
[2020-09-23] MEDS ORDERED: ASPIRIN 81 MG PO SCH (09:00)
[2020-09-23] MEDS ORDERED: ISOSORBIDE MONONITRATE ER 30 MG TAB.ER.24H PO SCH (09:00)
[2020-09-23] MEDS ORDERED: ASPIRIN 325 MG TAB PO SCH (09:00)
[2020-09-23] MEDS ORDERED: CYANOCOBALAMIN 500 MCG TAB PO SCH (09:00)
--- NOTE | 2020-09-23 09:09 | P.CRDCN ---
History of Present Illness Consult date: 09/23/20 Requesting physician: Marii Talley Reason for Consult (text): t wave inversion Chief complaint: woozy feeling History of present illness: This is a pleasant 80-year-old gentleman who follows with Dr. Ascencio in the office. He has a history of hypertension, hyperlipidemia, CAD with prior [place] over 10 years ago and most recent stenting about 5 or 6 years ago in [place] with the details are not available to me at this time. Presented to the emergency department at the advice of his physician due to feeling quite woozy at home. Apparently it was following breakfast patient was up getting dressed and began to feel quite lightheaded and woozy. Blood pressure was noted to be low. He does check it at home but has not been checking it regularly. He recently lost about 10 pounds Cha cut out sweets and potato chips. He is currently on Flomax, metoprolol tartrate 4.5 mg by mouth daily, isosorbide 30 mg by mouth daily, benazepril 5 mg by mouth daily. He's had no recent change in hi s medications. Chest x-ray on admission showed no evidence for acute pulmonary disease. Blood pressure upon presentation to the emergency department was 103/62 with a heart rate of 88. He's been receiving IV fluids of 0.9% normal saline at 75 mL/hour. Laboratory values on admission showed normal hemoglobin, reticulocyte count 139, normal d-dimer, sodium 138, potassium 4.2, BUN 17 and creatinine 0.94, plasma lactic acid 2.1 with a repeat of 1.2. Troponins have been negative 3. EKG does show some T-wave inversions in inferolateral leads which is new compared to most recent available EKG. Patient denies any symptoms of chest discomfort and has had no symptoms similar to what he experienced with his WI or prior to his most recent PCI. Blood pressure has improved with some evidence of hypertension through the night. Upon examination the patient is resting comfortably in bed. He denies any further complaints of feeling woozy. He's had no chest discomfort, shortness of breath, palpitations, dizziness, lightheadedness, edema, orthopnea or PND. Past Medical History Past Medical History: Coronary Artery Disease (CAD), Chest Pain / Angina, CVA/TIA, Myocardial Infarction ([place]), Prostate Disorder Additional Past Medical History / Comment(s): Bilateral total knee arthroplasty,right lung fungal wedge resection, uti dx 09-05-18, had pne vaccine <5 years ago,mortgage or loan underwriter unable to verify date at time of this sdmit,please f/u in am Last Myocardial Infarction Date:: 1996 History of Any Multi-Drug Resistant Organisms: None Reported Past Surgical History: Heart Catheterization With Stent, Joint Replacement, Orthopedic Surgery, Tonsillectomy Additional Past Surgical History / Comment(s): bilateral knee replacments, right lung surgery, cataracts removed-lens iplants Past Anesthesia/Blood Transfusion Reactions: No Reported Reaction Date of Last Stent Placement:: 1996 Past Psychological History: No Psychological Hx Reported Smoking Status: Never smoker Past Alcohol Use History: Occasional Past Drug Use History: None Reported - Past Family History Father Family Medical History: Myocardial Infarction ([place]) Mother Family Medical History: Cancer Additional Family Medical History / Comment(s): colon Medications and Allergies Home Medications Medication Instructions Recorded Confirmed Type Aspirin EC [Ecotrin Low Dose] 81 mg PO DAILY 10/09/17 09/22/20 History Atorvastatin [Lipitor] 40 mg PO HS 10/09/17 09/22/20 History Isosorbide Mononitrate ER [Imdur] 30 mg PO DAILY 10/09/17 09/22/20 History Multivitamin [Men's Multi-Vitamin] 1 tab PO DAILY 10/09/17 09/22/20 History Saw [place] 160 mg PO BID 09/05/18 09/22/20 History Tamsulosin HCl [Flomax] 0.4 mg PO BID 09/05/18 09/22/20 History Cyanocobalamin (Vitamin B-12) 2,500 mcg PO DAILY 09/22/20 09/22/20 History [Vitamin B-12] Allergies Allergy/AdvReac Type Severity Reaction Status Date / Time No Known Allergies Allergy Verified 09/22/20 12:52 Physical Exam Vitals: Vital Signs Temp Pulse Pulse Pulse Resp BP BP 09/23/20 02:00 97.6 F 57 L 18 145/79 09/23/20 01:39 62 18 09/22/20 20:22 09/22/20 20:00 97.5 F L 62 18 155/80 09/22/20 16:59 59 L 18 133/70 09/22/20 14:04 98 F 62 18 155/80 09/22/20 13:45 58 L 16 108/65 09/22/20 13:30 58 L 09/22/20 12:10 58 L 18 129/65 09/22/20 11:12 97.8 F 88 20 103/62 Pulse Ox 09/23/20 02:00 94 L 09/23/20 01:39 09/22/20 20:22 95 09/22/20 20:00 96 09/22/20 16:59 96 09/22/20 14:04 96 09/22/20 13:45 96 09/22/20 13:30 09/22/20 12:10 96 09/22/20 11:12 99 Intake and Output 09/22/20 09/23/20 09/23/20 22:59 06:59 14:59 Intake Total 600 600 Balance 600 600 Intake: Intake, IV Titration 600 600 Amount Sodium Chloride 0.9% 1, 600 600 000 ml @ 75 mls/hr IV . [id number] [facility] Rx#:[id number] Other: Voiding Method Toilet Toilet Toilet # Voids 2 1 1 PHYSICAL EXAMINATION: This is a 80-year-old male in no apparent distress at the time of my examination. VITAL SIGNS: Blood pressure 145/79, heart rate 57, respirations 18, temp 97.6F. Patient is 94 % on room air. HEENT: Head is atraumatic, normocephalic. Pupils are equal, round. Sclerae anicteric. Conjunctivae are clear. Mucous membranes of the mouth are moist. Neck is supple. There is no elevated jugular venous pressure. No carotid bruit is heard. CHEST EXAMINATION: Clear to auscultation bilaterally. No wheezes rales or rhonchi. Respirations even and nonlabored. HEART EXAMINATION: Heart regular, positive S1 and S2. No S3. No S4. No clicks, rubs or murmurs. ABDOMEN: Soft, nontender. Bowel sounds are heard. No organomegaly noted. EXTREMITIES: 2+ peripheral pulses with no evidence of peripheral edema and no calf tenderness noted. NEUROLOGIC EXAMINATION: Patient is awake, alert and oriented x3. Results 09/22/20 12:10 09/22/20 12:10 Cardiac Enzymes 09/22/20 09/22/20 09/22/20 Range/Units 12:10 12:10 15:26 AST 30 (17-59) U/L Troponin I <0.012 <0.012 (0.000-0.034) ng/mL 09/22/20 Range/Units 18:48 AST (17-59) U/L Troponin I <0.012 (0.000-0.034) ng/mL Coagulation 09/22/20 Range/Units 12:10 PT 10.7 (9.0-12.0) sec APTT 25.9 (22.0-30.0) sec CBC 09/22/20 Range/Units 12:10 WBC 5.0 (3.8-10.6) k/uL RBC 4.43 (4.30-5.90) m/uL Hgb 13.7 (13.0-17.5) gm/dL Hct 40.0 (39.0-53.0) % Plt Count 139 L (150-450) k/uL Comprehensive Metabolic Panel 09/22/20 Range/Units 12:10 Sodium 138 (137-145) mmol/L Potassium 4.2 (3.5-5.1) mmol/L Chloride 107 (98-107) mmol/L Carbon Dioxide 25 (22-30) mmol/L BUN 17 (9-20) mg/dL Creatinine 0.94 (0.66-1.25) mg/dL Glucose 110 H (74-99) mg/dL Calcium 9.1 (8.4-10.2) mg/dL AST 30 (17-59) U/L ALT 22 (4-49) U/L Alkaline Phosphatase 57 (38-126) U/L Total Protein 6.0 L (6.3-8.2) g/dL Albumin 3.5 (3.5-5.0) g/dL Current Medications Generic Name Dose Route Start Last Admin Trade Name Freq PRN Reason Stop Dose Admin Aspirin 81 mg 09/23/20 09:00 Aspirin 81 Mg PO DAILY PRAKASH Atorvastatin Calcium 40 mg 09/22/20 21:00 09/22/20 21:06 Atorvastatin 40 Mg Tab PO 40 mg HS PRAKASH Administration Cyanocobalamin 2,500 mcg 09/23/20 09:00 Cyanocobalamin 500 Mcg Tab PO DAILY [facility] Sodium Chloride 1,000 mls @ 100 mls/hr 09/22/20 13:30 09/22/20 21:06 Saline 0.9% IV Not Given .Q10H PRAKASH Sodium Chloride 1,000 mls @ 75 mls/hr 09/22/20 17:15 09/23/20 05:29 Saline 0.9% IV 75 mls/hr .[id number] PRAKASH Administration Isosorbide Mononitrate 30 mg 09/23/20 09:00 Isosorbide Mononitrate Er 30 Mg Tab.Er.24h PO DAILY PRAKASH Nitroglycerin 0.4 mg 09/22/20 13:30 Nitroglycerin Sl Tabs 0.4 Mg Tab SUBLINGUAL Q5M PRN Chest Pain Tamsulosin HCl 0.4 mg 09/22/20 21:00 09/22/20 21:06 Tamsulosin 0.4 Mg Cap.Er.24h PO 0.4 mg BID PRAKASH Administration Intake and Output 09/22/20 09/23/20 09/23/20 22:59 06:59 14:59 Intake Total 600 600 Balance 600 600 Intake: Intake, IV Titration 600 600 Amount Sodium Chloride 0.9% 1, 600 600 000 ml @ 75 mls/hr IV . [id number] [facility] Rx#:[id number] Other: Voiding Method Toilet Toilet Toilet # Voids 2 1 1 09/22/20 12:10 09/22/20 12:10 Assessment and Plan Assessment: #1 hypotension likely secondary to recently lost and decrease in sodium intake as well as mild underlying dehydration #2 EKG changes with T-wave inversion noted in inferolateral leads, troponins negative 3 and no symptoms of chest discomfort #3 history of CAD with prior [place] and stenting #4 hypertension #5 hyperlipidemia #6 remote history of nicotine dependence Plan: From cardiology's perspective we will check orthostatic blood pressures. We'll obtain a 2-D echo with Doppler to assess cardiac structure and function. We will stop the beta cristian and oral nitrate. Continue SURENDRA inhibitor. Monitor the blood pressure. Depending on the patient's clinical course and diagnostic findings further recommendations will be made. HONING MACHINE SET UP OPERATOR note has been reviewed, I agree with a documented findings and plan of care. Patient was seen and examined.
[2020-09-23 09:22] LABS: Chol/HDL Ratio 3.08; LDL Cholesterol,Calculated 41.8 mg/dL (0.0-131.0); VLDL Calculation 35.2 mg/dL (5.00-40.00)
[2020-09-23] MEDS: TAMSULOSIN 0.4 MG CAP.ER.24H PO SCH (10:34)
[2020-09-23 10:51] VITALS: BP 165/76; PULSE 62; TEMP 97.5
--- NOTE | 2020-09-23 12:35 | P.DS ---
Providers Date of admission: 09/22/20 13:30 Expected date of discharge: 09/23/20 Attending physician: Tc Kendrick MD Consults: 09/22/20 13:30 Consult Physician Urgent Consulting Provider: Patrice Izquierdo Consult Reason/Comments: t wave inversion Do you want consulting provider notified?: Yes Primary care physician: [facility] Course: Final Diagnosis -Hypotension secondary to mild dehydration and medications -Lactic acidosis no evidence of sepsis at this time secondary to intravascular depletion -Benign prostatic hypertrophy -Hyperlipidemia -coronary artery disease Discharge disposition Patient is being discharged in a stable condition with guarded prognosis to home. Patient will follow-up with Dr. Kuhn in the outpatient setting upon discharge. Patient also instructed to follow-up with cardiology Dr. Ascencio in the outpatient setting. Total time taken is greater than 35 minutes. Hospital course Patient is a pleasant 80-year-old male came in with the low blood pressure felt lightheaded. Patient is any fever chills doesn't have any sepsis patient is a bit obese mildly dehydrated with dry mucous membranes. Patient was started on IV fluids patient's SURENDRA inhibitor will be held. Patient will be monitored overnight possibly of discharge tomorrow. Patient denied any recent changes in medication patient denied any diarrhea or nausea vomiting. 09/23/2020 Patient was seen this morning with no acute overnight issues. Patient denies any dizziness or lightheadedness. Patient was seen and evaluated by cardiology recommending a 2-D echo which is currently pending. Patient states he is feeling Much better and would like to go home. Patient is hungry and requesting to eat something. Patient instructed to hold blood pressure medications and follow-up with primary care provider this week. She instructed to get up slowly and sit at the side of the bed or chair for 1-2 minutes before standing. Patient also instructed to follow-up with cardiology in the outpatient setting. Currently no reports of chest pain, shortness of breath, or palpitations. Patient is afebrile. No reports of nausea or vomiting and patient is tolerating diet. Patient will be discharged home today. On exam vital signs are stable. Cardio S1, S2 are muffled. Respiratory system shows diminished breath sounds at the bases with no wheezing or rhonchi noted. Abdomen is soft and nontender. Nervous system show no focal deficits Please refer to medication reconciliation sheet for a list of medications. Patient Condition at Discharge: Stable Plan - Discharge Summary Discharge Rx Participant: No New Discharge Prescriptions: Continue Isosorbide Mononitrate ER [Imdur] 30 mg PO DAILY Atorvastatin [Lipitor] 40 mg PO HS Aspirin EC [Ecotrin Low Dose] 81 mg PO DAILY Multivitamin [Men's Multi-Vitamin] 1 tab PO DAILY Tamsulosin HCl [Flomax] 0.4 mg PO BID Saw Cotuit 160 mg PO BID Cyanocobalamin (Vitamin B-12) [Vitamin B-12] 2,500 mcg PO DAILY Discontinued Metoprolol Tartrate [Lopressor] 12.5 mg PO DAILY Benazepril [Lotensin] 5 mg PO DAILY Discharge Medication List Aspirin EC [Ecotrin Low Dose] 81 mg PO DAILY 10/09/17 [History] Atorvastatin [Lipitor] 40 mg PO HS 10/09/17 [History] Isosorbide Mononitrate ER [Imdur] 30 mg PO DAILY 10/09/17 [History] Multivitamin [Men's Multi-Vitamin] 1 tab PO DAILY 10/09/17 [History] Saw Cotuit 160 mg PO BID 09/05/18 [History] Tamsulosin HCl [Flomax] 0.4 mg PO BID 09/05/18 [History] Cyanocobalamin (Vitamin B-12) [Vitamin B-12] 2,500 mcg PO DAILY 09/22/20 [History] Follow up Appointment(s)/Referral(s): Pavithra Ascencio MD [STAFF PHYSICIAN] - 1 Week Dhramesh Kuhn DO [Primary Care Provider] - 1-2 days Patient Instructions/Handouts: Hypotension (DC) Activity/Diet/Wound Care/Special Instructions: Activity Limited until follow-up Follow up with primary care provider upon discharge Hold blood pressure medications and keep a diary of blood pressure readings and follow-up with primary care provider this week Follow-up with cardiology outpatient Continue current diet Sit up slowly at the edge of the bed or chair for 1-2 minutes before getting up or position changes Discharge Disposition: HOME SELF-CARE
--- NOTE | 2020-09-23 13:48 | ECHOF ---
Referral Reason:near syncope, EKG changes MEASUREMENTS -------- HEIGHT: 172.7 cm WEIGHT: 83.9 kg BP: 145/79 RVIDd: 3.7 cm (< 3.3) IVSd: 1.5 cm (0.6 - 1.1) LVIDd: 5.4 cm (3.9 - 5.3) LVPWd: 1.5 cm (0.6 - 1.1) IVSs: 1.9 cm LVIDs: 3.7 cm LVPWs: 2.2 cm LAESV Index (A-L): 29.21 ml/m Ao Diam: 3.2 cm (2.0 - 3.7) AV Cusp: 1.6 cm (1.5 - 2.6) MV EXCURSION: 13.946 mm (> 18.000) MV EF SLOPE: 82 mm/s (70 - 150) EPSS: 1.3 cm MV E Fercho: 0.85 m/s MV DecT: 212 ms MV A Fercho: 1.27 m/s MV E/A Ratio: 0.67 AR PHT: 557 ms RAP: 5.00 mmHg RVSP: 42.86 mmHg FINDINGS -------- Sinus rhythm. This was a technically adequate study. The left ventricular size is normal. There is moderate concentric left ventricular hypertrophy. O verall left ventricular systolic function is mildly impaired with, an EF between 45 - 50 %. The teagan stolic filling pattern indicates impaired relaxation 23.68. Basal lateral LV wall motion is hypokin etic. Basal inferior LV wall motion is hypokinetic. Mid lateral LV wall motion is hypokinetic. Mid inferior LV wall motion is hypokinetic. The right ventricle is mildly enlarged. LA is midly dilated 29-33ml/m2. The right atrial size is normal. Interatrial and interventricular septum intact. There is moderate aortic valve sclerosis. There is bydn-in-nicojfsp aortic regurgitation. There i s no evidence of aortic stenosis. Mild mitral annular calcification present. Cktv-yq-pylfxsna mitral regurgitation is present. Moderate tricuspid regurgitation present. There is mild pulmonary hypertension. The right ventric ular systolic pressure, as measured by Doppler, is 42.86mmHg. There is no pulmonic regurgitation present. The aortic root size is normal. IVC Not well visulized. There is no pericardial effusion. CONCLUSIONS -------- 1. There is moderate concentric left ventricular hypertrophy. 2. Overall left ventricular systolic function is mildly impaired with, an EF between 45 - 50 %. 3. Basal lateral LV wall motion is hypokinetic. 4. Basal inferior LV wall motion is hypokinetic. 5. Mid lateral LV wall motion is hypokinetic. 6. Mid inferior LV wall motion is hypokinetic. 7. The right ventricle is mildly enlarged. 8. LA is midly dilated 29-33ml/m2. 9. There is moderate aortic valve sclerosis. 10. There is ankq-wg-ylfuemnr aortic regurgitation. 11. Gxcx-fm-jzhamsiw mitral regurgitation is present. 12. Moderate tricuspid regurgitation present. 13. There is mild pulmonary hypertension. ACADEMIC PROGRAM SPECIALIST: Selma Raza RDCS
[2020-09-24] MEDS ORDERED: lisinopriL 5 MG TAB PO SCH (09:00)
== END 2020-09-23 14:58 | disposition home or self-care (01) ==
LOC: EC 11:01 → 6NMEDSUR 13:30
PROVIDERS: ADMIT Internal Medicine; ATTEND Internal Medicine
DX: I95.9 Hypotension, unspecified (principal); E87.2 Acidosis; E86.0 Dehydration; N40.0 Benign prostatic hyperplasia without lower urinary tract symptoms; E78.5 Hyperlipidemia, unspecified; I25.10 Atherosclerotic heart disease of native coronary artery without angina pectoris; E66.9 Obesity, unspecified; Z68.28 Body mass index [BMI] 28.0-28.9, adult; I10 Essential (primary) hypertension; Z87.891 Personal history of nicotine dependence; Z79.82 Long term (current) use of aspirin; Z79.899 Other long term (current) drug therapy; I25.2 Old myocardial infarction; Z86.73 Personal history of transient ischemic attack (TIA), and cerebral infarction without residual deficits; Z87.440 Personal history of urinary (tract) infections; Z95.5 Presence of coronary angioplasty implant and graft; Z96.653 Presence of artificial knee joint, bilateral; Z82.49 Family history of ischemic heart disease and other diseases of the circulatory system; Z80.0 Family history of malignant neoplasm of digestive organs; Z20.822 Contact with and (suspected) exposure to COVID-19
CPT/HCPCS: 96361 ×3; 93005 ×2; 96360; 99285; 94760; 93306; 85379; 80061; 80053; 83605; 83735; 84484; 85025; 85610; 85730; 87635; 71046; G0378 ×2

== ENCOUNTER 2021-02-19 06:07 | Day surgery (SDC) | payer MEDICARE ==
[2021-02-15 10:46] VITALS: BMI 28.7
[~2021-02-19 06:07] MED LIST: ALPRAZolam 0.25 MG TAB PO PRN; ALPRAZolam 0.5 MG TAB PO PRN; NITROGLYCERIN SL TABS 0.4 MG TAB SUBLINGUAL PRN; SODIUM CHLORIDE 0.9% 1,000 ML in EMPTY BAG 1 BAG IV ONE
[2021-02-19] MEDS ORDERED: SODIUM CHLORIDE 0.9% 1,000 ML IV ONE (06:29)
[2021-02-19 06:50] VITALS: RESP 16; TEMP 98
[2021-02-19] MEDS ORDERED: HEPARIN SODIUM,PORCINE 2,500 UNIT in SODIUM CHLORIDE 0.9% 250 ML IRRIGATION PRN (07:00)
[2021-02-19] MEDS ORDERED: ASPIRIN 325 MG TAB PO ONE (07:00)
[2021-02-19] MEDS ORDERED: HEPARIN SODIUM,PORCINE 10,000 UNIT in SODIUM CHLORIDE 0.9% 1,000 ML IRRIGATION PRN (07:00)
[2021-02-19] MEDS ORDERED: ATORVASTATIN 80 MG TAB PO ONE (07:00)
[2021-02-19] MEDS ORDERED: VERAPAMIL 2.5 MG/ML 2 ML AMP ONE (07:25)
[2021-02-19] MEDS ORDERED: LIDOCAINE 1% INJ 10MG/ML (20 ML MDV) ONE (07:25)
[2021-02-19] MEDS ORDERED: HEPARIN SODIUM 1,000 UN/ML (10ML VL) ONE (07:29)
[2021-02-19] MEDS ORDERED: MIDAZOLAM 2 MG/2 ML VIAL IV ONE (07:33)
[2021-02-19] MEDS ORDERED: LIDOCAINE 1% INJ 10MG/ML (20 ML MDV) SQ ONE (07:37)
[2021-02-19] MEDS ORDERED: VERAPAMIL SYRINGE (5 MG/10 ML) INTRAARTER ONE (07:42)
[2021-02-19] MEDS ORDERED: HEPARIN SODIUM 1,000 UN/ML (10ML VL) IV ONE (07:42)
[2021-02-19] MEDS ORDERED: IOPAMIDOL-370 100ML BTL INJ ONE (07:57)
[2021-02-19] MEDS ORDERED: SODIUM CHLORIDE 0.9% 1,000 ML IV SCH (08:15)
--- NOTE | 2021-02-19 09:15 | CC ---
CARDIAC CATHETERIZATION REPORT DATE OF SERVICE: 02/19/2021 PROCEDURE: Left heart catheterization and coronary angiography. PERFORMED BY: Dr. Miguel Ascencio. Moderate conscious sedation time was 18 minutes. Patient was administered Versed. Oxygen saturation, hemodynamics and EKG were monitored closely. CLINICAL INFORMATION: Mr. Adriel Gates is an 81-year-old gentleman with history of prior inferior VA in 1996 with a bare metal stent and subsequent to that vessel was totally occluded, collateralized from the left system. He also has sick sinus syndrome and is not on beta blockers and his heart rate runs in the high 50s and low 60s. He has hypertension and hyperlipidemia. There was a stress test which revealed a fixed defect in the inferior wall, but also a defect in the anterolateral wall as well and therefore was advised coronary angiography because of concern that he may have progression of CAD. PROCEDURE NOTE: Under local anesthesia and strict aseptic precautions, a 6-Gambian introducer was placed in the right radial artery. Using a JL3.4 and JR4 catheters, I performed coronary angiography and the same right catheter was used to check LV pressure but LV gram was not performed. The sheath was taken out and TR band applied as per protocol with saturation in the fingers of the right hand of about 98%. Patient tolerated procedure well without complications. CARDIAC CATH FINDINGS: The left ventricular end-diastolic pressure was about 10 mmHg without any gradient across aortic valve. CORONARY ANGIOGRAPHY FINDINGS: RIGHT CORONARY ARTERY: Dominant vessel, totally occluded in the proximal portion, seen as a stump without antegrade flow. However, the right coronary artery is collateralized from the left system with a rich network of collaterals coming from the LAD and circumflex opacifying the distal branches of RCA. LEFT MAIN CORONARY ARTERY: This is a very small vessel that immediately bifurcates into LAD and circumflex and appears to be moderate to heavily calcified. LEFT ANTERIOR DESCENDING CORONARY ARTERY: This vessel is heavily calcified in the proximal portion. In the BROWNING caudal projection, there is 80% lesion with heavy calcification in the LAD. The LAD then continues distally and gives off septal and diagonal branches that runs all the way to the apex and appears to be a graftable vessel. Some septal branches provide collaterals to the distal branches of the RCA. LEFT POSTERIOR CIRCUMFLEX CORONARY ARTERY: This vessel at its ostium is heavily calcified with at least a 70% blockage in the ostium of the circumflex and distally the first obtuse marginal is occluded and the second obtuse marginal is relatively small in caliber and then the distal posterolateral branch is large and graftable and appears to supply a sizable amount of myocardium. There are some collaterals from the circumflex system opacifying the distal branches of RCA. Left ventriculogram was not performed. FINAL IMPRESSION: This patient has a total occlusion of the dominant RCA, significant 70-80% lesion calcified of the ostial LAD as it comes off from the left main and also ostial circumflex of about 70% with calcification. The LAD distally does not have significant lesions and circumflex 1st obtuse marginal is occluded but the distal posterolateral branch is good size and graftable. There are collaterals from the left system to the distal branches of RCA. Filling pressures are normal and there is no gradient. RECOMMENDATION: I am recommending aortocoronary bypass surgery with a graft to the LAD and circumflex posterolateral branch and the distal RCA branches also can be grafted. Although this is a previously infarcted territory, there may be some viable myocardium. LAD appears to be a significant lesion. The left main is also involved and circumflex ostium is also involved. It is almost like a left main equivalent. Advised aortocoronary bypass surgery with HOYT to LAD and vein graft to the circumflex, possibly to RCA as well. Discussed my thoughts in detail with the patient, family, and also Dr. Guardado. MMDUANE / CARMELA: [id number] /
--- NOTE | 2021-02-19 11:35 | XR ---
EXAMINATION TYPE: XR chest 2V DATE OF EXAM: 02/19/2021 COMPARISON: 09/22/2020 HISTORY: Shortness of breath TECHNIQUE: Frontal and lateral views of the chest are obtained. FINDINGS: Scattered senescent parenchymal changes noted. Hyperinflation compatible with COPD. No evidence for infiltrate. No evidence for atelectasis. Heart size is stable. Mediastinal structures are stable and grossly unremarkable. No evidence for hilar prominence. Degenerative changes dorsal spine. IMPRESSION: 1. No evidence for acute pulmonary disease.
--- NOTE | 2021-02-19 11:50 | P.GSCN ---
<Elvira Dean - Last Filed: 02/19/21 11:36> History of Present Illness Consult date: 02/19/21 Reason for Consult: Coronary artery disease Requesting physician: Pavithra Ascencio History of present illness: This is an 81-year-old active gentleman who follows on an outpatient basis with Dr. Kuhn for primary care and Dr. Ascencio for cardiology. He has a previous medical history of coronary artery disease with myocardial infarction and previo us PCI, sick sinus syndrome, hypertension, hypercholesterolemia, TIA, prior lung biopsy, prior tobacco dependence, and family history of coronary artery disease. The patient states he has annual stress tests performed by cardiology, and his recent stress test was abnormal, demonstrating fixed defect in the inferior wall with possible reversible defect in the anterior lateral wall. He denies any chest pain, shortness of breath, or any other anginal type symptomatology in recent history. Due to findings on his stress test there was concern for progression of his coronary artery disease and he was recommended to undergo heart catheterization which was completed today and which demonstrated a calcified left main disease, calcified proximal left anterior descending coronary artery with 80% lesion, 70% blockage to the ostium of the circumflex coronary artery, total occlusion of the dominant RCA. Due to these findings consultation was placed to cardiothoracic surgery and the case was discussed between Dr. Guardado and Dr. Ascencio. Review of Systems Review of systems was completed and was negative Past Medical History Past Medical History: Coronary Artery Disease (CAD), Chest Pain / Angina, Hyperlipidemia, Hypertension, Myocardial Infarction ([place]), Prostate Disorder Additional Past Medical History / Comment(s): states has 3 cardiac stents that are 100% blocked, with collateral bypass; patient denies hypertension although it is listed in his history and he is on antihypertensives Last Myocardial Infarction Date:: 1996 History of Any Multi-Drug Resistant Organisms: None Reported Past Surgical History: Heart Catheterization With Stent, Joint Replacement, Orthopedic Surgery, Tonsillectomy Additional Past Surgical History / Comment(s): bilateral knee replacments, right lung wedge resection, cataracts removed-lens implants, states 3 cardiac stents Past Anesthesia/Blood Transfusion Reactions: No Reported Reaction Date of Last Stent Placement:: 1996 Past Psychological History: No Psychological Hx Reported Smoking Status: Former smoker Past Alcohol Use History: Rare Past Drug Use History: None Reported - Past Family History Father Family Medical History: Myocardial Infarction ([place]) Mother Family Medical History: Cancer Additional Family Medical History / Comment(s): colon Medications and Allergies Home Medications Medication Instructions Recorded Confirmed Type Aspirin EC [Ecotrin Low Dose] 81 mg PO DAILY 10/09/17 02/19/21 History Atorvastatin [Lipitor] 40 mg PO HS 10/09/17 02/19/21 History Multivitamin [Men's Multi-Vitamin] 1 tab PO DAILY 10/09/17 02/19/21 History Saw Ledbetter 160 mg PO BID 09/05/18 02/19/21 History Cyanocobalamin (Vitamin B-12) 2,500 mcg PO DAILY 09/22/20 02/19/21 History [Vitamin B-12] Benazepril [Lotensin] 5 mg PO QAM 02/15/21 02/19/21 History Allergies Allergy/AdvReac Type Severity Reaction Status Date / Time No Known Allergies Allergy Verified 02/19/21 06:28 Surgical - Exam Vital Signs Temp Pulse Resp BP Pulse Ox 98 F 68 16 179/77 97 02/19/21 06:48 02/19/21 06:48 02/19/21 06:48 02/19/21 06:48 02/19/21 06:48 CONSTITUTIONAL: Awake and alert, appears comfortable, cooperative, well- developed, well-nourished, no pain, no acute distress EYES: Pupils equal, round, reactive to light, normal ocular movement ENT: Moist mucous membranes without oral lesions present NECK: No masses, no bruits, trachea midline RESPIRATORY: Lungs sounds clear to auscultation bilaterally. Respirations even, nonlabored. Currently on room air with oxygen saturation 98%. Strong cough. No chest wall deformities. No clubbing or cyanosis present CARDIOVASCULAR: S1, S2 present. Regular rate and rhythm, sinus rhythm on telemetry. Palpable peripheral pulses bilaterally. No edema present. No calf pain or tenderness noted. No significant lower extremity varicosities noted. GASTROINTESTINAL: Abdomen soft, nontender, nondistended without masses or organomegaly noted. There is no rebound or guarding present. Active bowel sounds present 4 quadrants. GENITOURINARY: Deferred INTEGUMENTARY: Skin is warm and dry with evidence of good perfusion. NEUROLOGIC: Cranial nerves II through XII intact, normal coordination, no obvious motor or sensory deficits, speech is normal MUSKULOSKELETAL: Able to move all extremities, strength equal bilaterally, normal posture PSYCHIATRIC: Alert and oriented to person place and time, appropriate affect, intact judgment and insight Results - Imaging Additional studies: Heart catheterization films from today and echocardiogram films from August [address] Guardado Assessment and Plan Assessment: 1. Coronary artery disease with myocardial infarction and previous PCI 2. Sick sinus syndrome, off beta blockers 3. Hypertension 4. Hypercholesterolemia 5. TIA 6. Prior lung biopsy 7. Prior tobacco dependence 8. Family history of coronary artery disease Plan: The patient was seen and examined in the extended stay unit with Dr. Guardado. Chart/diagnostics reviewed. The usual course. Per course of order artery bypass surgery was discussed in detail with the patient, his , and his son at the bedside, risks and benefits were reviewed, all questions were answered. The patient is willing to consent to surgery. Preoperative testing was initiated. Once all testing has been completed an STS risk score will be calculated and discussed with the patient. 5 m walk test will be completed. Recommend continuing aspirin, statin. Would like beta cristian therapy, however it is contraindicated in this patient with a history of sick sinus syndrome and was stopped per cardiology. Our plan is for off-pump coronary artery bypass surgery with left internal mammary artery, endovascular vein harvest, and possible left atrial appendage, timing to be determined. Once preoperative testing has been completed the patient may be discharged to home from our standpoint to return as an outpatient for surgery. More recommendations to follow. Thank you Dr. Ascencio for this consult. We look forward to working with you in the care of your patient. Time with Patient: Greater than 30 <Adriel Guardado R - Last Filed: 02/19/21 16:25> Surgical - Exam Vital Signs Temp Pulse Resp BP Pulse Ox 98 F 68 16 179/77 97 02/19/21 06:48 02/19/21 06:48 02/19/21 06:48 02/19/21 06:48 02/19/21 06:48 Results - Labs 02/19/21 13:21 02/19/21 13:21 Abnormal Lab Results - Last 24 Hours (Table) 02/19/21 02/19/21 Range/Units 13:21 14:05 RDW 16.7 H (11.5-15.5) % Crossmatch See Detail Diabetes panel 02/19/21 Range/Units 13:21 Sodium 142 (137-145) mmol/L Potassium 4.6 (3.5-5.1) mmol/L Chloride 106 (98-107) mmol/L Carbon Dioxide 30 (22-30) mmol/L BUN 16 (9-20) mg/dL Creatinine 0.78 (0.66-1.25) mg/dL Glucose 90 (74-99) mg/dL Calcium 9.4 (8.4-10.2) mg/dL AST 30 (17-59) U/L ALT 22 (4-49) U/L Alkaline Phosphatase 63 (38-126) U/L Total Protein 6.5 (6.3-8.2) g/dL Albumin 4.0 (3.5-5.0) g/dL Thyroid panel 02/19/21 Range/Units 13:21 TSH 1.540 (0.465-4.680) mIU/L Calcium panel 02/19/21 Range/Units 13:21 Calcium 9.4 (8.4-10.2) mg/dL Albumin 4.0 (3.5-5.0) g/dL Pituitary panel 02/19/21 Range/Units 13:21 Sodium 142 (137-145) mmol/L Potassium 4.6 (3.5-5.1) mmol/L Chloride 106 (98-107) mmol/L Carbon Dioxide 30 (22-30) mmol/L BUN 16 (9-20) mg/dL Creatinine 0.78 (0.66-1.25) mg/dL Glucose 90 (74-99) mg/dL Calcium 9.4 (8.4-10.2) mg/dL TSH 1.540 (0.465-4.680) mIU/L Adrenal panel 02/19/21 Range/Units 13:21 Sodium 142 (137-145) mmol/L Potassium 4.6 (3.5-5.1) mmol/L Chloride 106 (98-107) mmol/L Carbon Dioxide 30 (22-30) mmol/L BUN 16 (9-20) mg/dL Creatinine 0.78 (0.66-1.25) mg/dL Glucose 90 (74-99) mg/dL Calcium 9.4 (8.4-10.2) mg/dL Total Bilirubin 0.6 (0.2-1.3) mg/dL AST 30 (17-59) U/L ALT 22 (4-49) U/L Alkaline Phosphatase 63 (38-126) U/L Total Protein 6.5 (6.3-8.2) g/dL Albumin 4.0 (3.5-5.0) g/dL Assessment and Plan Assessment: Patient seen and examined with RESERVE OPERATOR. Cath films and echo reviewed. Discussed with Dr Ascencio. 81 yom wiout symptomatology. History of CAD and inf [place] in past. + stress testing led to cardiac cath today. This shows chroinic RCA occlusion with filling lt to rt, graftable target. Distal left main/ proximal LAD and stent stenoses. Rec: CABG elective next week. Discussed with patient and . Indications for surgery, risks vs benefits, possible complications all discussed. Questions answered.
[2021-02-19 12:49] LABS: Appearance,Urine Clear (Clear); Bilirubin,Urine Negative (Negative); Blood,Urine Negative (Negative); Color,Urine Yellow; Glucose,Urine (UA) Negative (Negative); Ketones,Urine Negative (Negative); Leukocyte Esterase,Urine Negative (Negative); Nitrite,Urine Negative (Negative); PH, Urine 6.5 (5.0-8.0); Protein,Urine Negative (Negative); Specific Gravity,Urine 1.027 (1.001-1.035); Urobilinogen,Urine <2.0 mg/dL (<2.0)
[2021-02-19 13:45] LABS: Anisocytosis Slight; Basophils % (A) 1 %; Eosinophils # (A) 0.2 k/uL (0-0.7); Eosinophils % (A) 4 %; HCT 42.3 % (39.0-53.0); HGB 14.2 gm/dL (13.0-17.5); Lymphocytes # (A) 1.5 k/uL (1.0-4.8); Lymphocytes % (A) 31 %; MCH 31.6 pg (25.0-35.0); MCHC 33.6 g/dL (31.0-37.0); MCV 94.1 fL (80.0-100.0); Mean Platelet Volume 8.9; Monocytes # (A) 0.4 k/uL (0-1.0); Monocytes % (A) 8 %; Neutrophils # (A) 2.5 k/uL (1.3-7.7); Neutrophils % (A) 54 %; Platelet Count 152 k/uL (150-450); RDW 16.7 % (11.5-15.5); WBC 4.7 k/uL (3.8-10.6)
[2021-02-19 13:55] LABS: Partial Thromboplastin Time 25.7 sec (22.0-30.0); Prothrombin Time 10.5 sec (9.0-12.0)
[2021-02-19 14:02] LABS: ALT 22 U/L (4-49); AST 30 U/L (17-59); African American GFR (CKD) >90 (>60 ml/min/1.73 sqM); Alkaline Phosphatase 63 U/L (38-126); Anion Gap 6 mmol/L; Blood Urea Nitrogen 16 mg/dL (9-20); Calcium 9.4 mg/dL (8.4-10.2); Carbon Dioxide 30 mmol/L (22-30); Chloride 106 mmol/L (98-107); Glucose 90 mg/dL (74-99); Magnesium 2.2 mg/dL (1.6-2.3); Non-African American GFR(CKD) 84 (>60 ml/min/1.73 sqM); Potassium 4.6 mmol/L (3.5-5.1); Sodium 142 mmol/L (137-145); Total Bilirubin 0.6 mg/dL (0.2-1.3); Total Protein 6.5 g/dL (6.3-8.2)
[2021-02-19 15:49] VITALS: BP 156/77; PULSE 54
[2021-02-19 19:27] LABS: Hepatitis A Antibody IgM Non-Reactive (Non-Reactive); Hepatitis B Core IgM Non-Reactive (Non-Reactive); Hepatitis B Surface Antigen Non-Reactive (Non-Reactive); Hepatitis C IgG Antibody Non-Reactive (Non-Reactive)
[2021-02-19 21:01] LABS: Hemoglobin A1C 5.4 % (4.0-6.0)
[2021-02-20 02:15] LABS: Chol/HDL Ratio 3.23; Cholesterol 126 mg/dL (0-200); LDL Cholesterol,Calculated 33.2 mg/dL (0.0-131.0)
--- NOTE | 2021-02-21 13:45 | P.VSCSTY ---
Greater Saphenous Vein Mapping This is bilateral lower extremity greater saphenous vein mapping. Date of service: 02/19/2021 Vein quality and ultrasound appearance: We see no intraluminal thrombus or obvious wall changes. There are sizable branches high thigh on the left mid thigh on the right and mid calf and ankle on the right.. Vein size groin right : 9.4 x 10.7 groin left: 5.6 x 8.0 High thigh right: 6.9 x 8.3 high thigh left: 3.2 x 3.5 Mid thigh right: 8.7 x 10.2 mid thigh left: 3.6 x 3.1 Above-knee right: 8.3 x 10.7 above-knee left: 2.8 x 2.9 Below knee right: 6.2 x 7.6 below-knee left: 2.2 x 2.6 Mid calf right: 2.5 x 3.0 mid calf left: 2.7 x 3.0 Ankle right: 2.4 x 2.8 ankle left: 2.4 x 2.8 Impression: The left saphenous vein appears to be usable throughout. There is some usable vein below the knee on the right. The rest appears to be somewhat large for use as conduit.
== END 2021-02-19 14:25 | disposition home or self-care (01) ==
LOC: CATHCVL 06:07
PROVIDERS: ATTEND Internal Medicine Interventional Cardiology
DX: I25.10 Atherosclerotic heart disease of native coronary artery without angina pectoris (principal); I25.84 Coronary atherosclerosis due to calcified coronary lesion; I25.82 Chronic total occlusion of coronary artery; I25.2 Old myocardial infarction; I10 Essential (primary) hypertension; E78.5 Hyperlipidemia, unspecified; Z20.822 Contact with and (suspected) exposure to COVID-19; Z95.5 Presence of coronary angioplasty implant and graft; Z79.899 Other long term (current) drug therapy; Z79.82 Long term (current) use of aspirin; E78.00 Pure hypercholesterolemia, unspecified; Z86.73 Personal history of transient ischemic attack (TIA), and cerebral infarction without residual deficits
CPT/HCPCS: 94150; 93306; 93458; 80061; 80053; 80074; 84443; 83735; 85025; 85610; 85730; 81003; 87070; 83036; 71046; 93970; C1894; C1769 ×2; U0003; U0005; J2250; J2001; J1644; Q9967; 86850; 86900; 86901; 86920

== ENCOUNTER 2021-02-28 05:42 | Inpatient (IN) | payer MEDICARE ==
[~2021-02-28 05:42] MED LIST changes: +ALBUMIN HUMAN 25% 50 ML IV ONE; +ALBUMIN HUMAN 5% 500 ML IVPB ONE; -ALPRAZolam 0.25 MG TAB PO PRN; -ALPRAZolam 0.5 MG TAB PO PRN; +ASPIRIN 325 MG TAB PO ONE; +ATORVASTATIN 10 MG TAB PO ONE; +CALCIUM CHLORIDE 100 MG/ML 10 ML SYRINGE IV ONE; +CARDIOPLEGIC SOLN (K+ 16 MEQ/L 1,000 ML with SODIUM BICARB (1 MEQ/ML) 20 ML, LIDOCAINE ... PERFUSION ONE; +CHLORHEXIDINE GLUCONATE 15 ML CUP MUCOUS MEM ONE; +CLEVIDIPINE BUTYRATE 25 MG in EMPTY BAG 1 BAG IV ONE; +HEPARIN SODIUM 1,000 UN/ML (10ML VL) IV ONE; +INSULIN REGULAR 100 UNIT in SODIUM CHLORIDE 0.9% 100 ML IV ONE; +LACTATED RINGERS 1,000 ML IV ONE; +LACTATED RINGERS 1,000 ML IV SCH; +MAGNESIUM SULFATE MG 500 MG/ML IV ONE; +MANNITOL 25% 12.5 GM/50 ML VIAL IV ONE; +METOPROLOL TARTRATE 12.5 MG TAB PO ONE; +NITROGLYCERIN SL TABS 0.4 MG TAB SUBLINGUAL ONE; -NITROGLYCERIN SL TABS 0.4 MG TAB SUBLINGUAL PRN; +NITROGLYCERIN-D5W PMX 25 MG/250 ML BTL IV ONE; +NITROGLYCERIN-D5W PMX 50 MG in DEXTROSE/WATER 1 250ML.BAG IV ONE; +NOREPINEPHRINE 4 MG in SODIUM CHLORIDE 0.9% 250 ML IV ONE; +PHENYLEPHRINE 10 MG/ML VIAL IV ONE; +PHENYLEPHRINE 40 MG in SODIUM CHLORIDE 0.9% 250 ML IV ONE; +PROTAMINE SULFATE 10 MG/ML 25 ML VIAL IV ONE; +PROTAMINE SULFATE 250 MG in EMPTY BAG 1 BAG IV ONE; +SODIUM BICARB 8.4% 50 ML SYR (1 MEQ/ML) IV ONE; +SODIUM CHLORIDE 0.9% 1,000 ML IV ONE; -SODIUM CHLORIDE 0.9% 1,000 ML in EMPTY BAG 1 BAG IV ONE; +TRANEXAMIC ACID 2,000 MG in SODIUM CHLORIDE 0.9% 80 ML IV ONE; +propofoL 1,000 MG/100 ML VIAL IV ONE
[2021-02-28 06:38] LABS: Glucose,Whole Blood 118 mg/dL (75-99)
[2021-02-28] MEDS ORDERED: ALBUMIN HUMAN 5% (25gm) 500 ML VIAL IVPB ONE (08:21)
[2021-02-28] MEDS ORDERED: HEPARIN SODIUM,PORCINE 10,000 UNIT/ML 1 ML VIAL ONE (08:21)
[2021-02-28] MEDS ORDERED: MIDAZOLAM 2 MG/2 ML VIAL ONE (08:21)
[2021-02-28] MEDS ORDERED: SODIUM CHLORIDE 0.9% IRRIG 1,000 ML BTL IRRIGATION ONE (08:21)
[2021-02-28] MEDS ORDERED: fentaNYL (PF) 50 MCG/ML 50 ML VIAL ONE (08:21)
[2021-02-28] MEDS ORDERED: ePHEDrine SULFATE/0.9% NACL/PF 50 MG/5 ML SYRINGE IV ONE (08:21)
[2021-02-28] MEDS ORDERED: VECURONIUM 10 MG VIAL IV ONE (08:21)
[2021-02-28] MEDS ORDERED: INSULIN REGULAR 100 UNIT/ML VIAL (IV) IV ONE (08:21)
[2021-02-28] MEDS ORDERED: POTASSIUM CHLORIDE OPEN HEART 20 MEQ/50 ML BAG IVPB ONE (08:21)
[2021-02-28] MEDS ORDERED: PROPOFOL 10 MG/ML 20 ML VIAL IV ONE (08:21)
[2021-02-28] MEDS ORDERED: PROTAMINE SULFATE 10 MG/ML 5 ML VIAL IV ONE (08:21)
[2021-02-28] MEDS: HEPARIN SODIUM,PORCINE 5,000 UNIT in SODIUM CHLORIDE 0.9% 500 ML 500 ML IV ONE ×2 (09:08→09:26)
[2021-02-28] MEDS: PAPAVERINE 360 MG in SODIUM CHLORIDE 0.9% 90 ML IV ONE ×2 (09:08→09:26)
[2021-02-28] MEDS: ceFAZolin 1,000 MG in SODIUM CHLORIDE 0.9% IRRIGATIO 1,000 ML IRRIGATION ONE ×2 (09:09→12:42)
[2021-02-28 09:18] LABS: ABG Base Excess -2.3 mmol/L; ABG Glucose Whole Blood 110 mg/dL (75-99); ABG HCO3 23 mmol/L (21-25); ABG Hematocrit 38 % (34.0-46.0); ABG Ionized Calcium 4.7 mg/dL (4.5-5.3); ABG PCO2 42 mmHg (35-45); ABG PH 7.35 (7.35-7.45); ABG PO2 260 mmHg (83-108); ABG Sodium Whole Blood 140 mmol/L (135-146); ABG TCO2 25 mmol/L (19-24)
[2021-02-28 10:45] LABS: ABG Base Excess -1.3 mmol/L; ABG Glucose Whole Blood 136 mg/dL (75-99); ABG HCO3 23 mmol/L (21-25); ABG Hematocrit 36 % (34.0-46.0); ABG Ionized Calcium 4.5 mg/dL (4.5-5.3); ABG Lactic Acid Whole Blood 1.5 mmol/L (0.5-1.6); ABG Oxygen Saturation 99.7 % (94-97); ABG PCO2 35 mmHg (35-45); ABG PH 7.42 (7.35-7.45); ABG PO2 163 mmHg (83-108); ABG Potassium Whole Blood 3.8 mmol/L (3.4-4.5); ABG Sodium Whole Blood 139 mmol/L (135-146); ABG TCO2 24 mmol/L (19-24)
[2021-02-28 11:13] LABS: ABG Base Excess -2.2 mmol/L; ABG Glucose Whole Blood 129 mg/dL (75-99); ABG HCO3 23 mmol/L (21-25); ABG Hematocrit 34 % (34.0-46.0); ABG Ionized Calcium 4.5 mg/dL (4.5-5.3); ABG Lactic Acid Whole Blood 1.4 mmol/L (0.5-1.6); ABG Oxygen Saturation 99.8 % (94-97); ABG PCO2 41 mmHg (35-45); ABG PH 7.36 (7.35-7.45); ABG PO2 192 mmHg (83-108); ABG Potassium Whole Blood 4.5 mmol/L (3.4-4.5); ABG Sodium Whole Blood 139 mmol/L (135-146); ABG TCO2 24 mmol/L (19-24)
[2021-02-28 12:31] LABS: ABG Glucose Whole Blood 108 mg/dL (75-99); ABG HCO3 22 mmol/L (21-25); ABG Hematocrit 28 % (34.0-46.0); ABG Ionized Calcium 4.9 mg/dL (4.5-5.3); ABG PCO2 37 mmHg (35-45); ABG PH 7.38 (7.35-7.45); ABG PO2 208 mmHg (83-108); ABG Potassium Whole Blood 3.7 mmol/L (3.4-4.5); ABG Sodium Whole Blood 141 mmol/L (135-146); ABG TCO2 23 mmol/L (19-24)
[2021-02-28] MEDS ORDERED: Potassium Replacement Protocol 1 EACH MISC MISCELLANE PRN (13:03)
[2021-02-28] MEDS ORDERED: METOCLOPRAMIDE 5 MG/ML 2 ML VIAL IVP PRN (13:03)
[2021-02-28] MEDS ORDERED: Magnesium Replacement Protocol 1 EACH MISC MISCELLANE PRN (13:03)
[2021-02-28] MEDS ORDERED: IPRATROPIUM-ALBUTEROL 3 ML NEB INHALATION PRN (13:03)
[2021-02-28] MEDS ORDERED: BENZOCAINE/MENTHOL LOZENG 1 EACH LOZENGE MUCOUS MEM PRN (13:03)
[2021-02-28] MEDS ORDERED: Phosphorus Replacement Protoco 1 EACH MISC MISCELLANE PRN (13:03)
[2021-02-28] MEDS ORDERED: AMIODARONE 450 MG in DEXTROSE 5% IN WATER 250 ML IV PRN ×2 (13:03)
[2021-02-28] MEDS ORDERED: ONDANSETRON 4 MG/2 ML VIAL IVP PRN (13:03)
[2021-02-28] MEDS ORDERED: CALCIUM GLUCONATE 2 GM in SODIUM CHLORIDE 0.9% 100 ML IVPB PRN (13:03)
[2021-02-28] MEDS ORDERED: AMIODARONE 360 MG in DEXTROSE 5% IN WATER 200 ML IV PRN ×2 (13:03)
[2021-02-28] MEDS ORDERED: hydrALAZINE HCL 20 MG/ML 1 ML VIAL IVP PRN (13:03)
[2021-02-28] MEDS ORDERED: DEXTROSE 5% IN WATER 100 ML with AMIODARONE 150 MG IV PRN (13:03)
--- NOTE | 2021-02-28 13:23 | P.OP ---
Date of Procedure: 02/28/21 Preoperative Diagnosis: CAD Postoperative Diagnosis: Same Procedure(s) Performed: Off-pump CABG 3 with HOYT to LAD, saphenous vein grafts to obtuse marginal and posterior descending coronary arteries, endovascular vein harvest, epi-aortic ultrasonography, ligation of left atrial appendage with 40 mm AtriCure clip Implants: 40 mm AtriCure clip Anesthesia: BRANDON Surgeon: Adriel Guardado Belt Changer #1: Eugenio Aldridge Belt Changer #2: Ezra Browning Estimated Blood Loss (ml): 200 IV fluids (ml): 2,000 Urine output (ml): 500 Pathology: none sent Condition: stable Disposition: ICU Indications for Procedure: 81-year-old male with abnormal stress test underwent cardiac catheterization demonstrating left main triple-vessel coronary artery disease. Recommended [facility] coronary bypass surgery by Dr. Ascencio. Elective surgery was scheduled. Operative Findings: Diffuse coronary artery disease, mild atherosclerotic change of the ascending aorta, small but adequate saphenous vein, good internal mammary artery. LV function was normal. There was moderate AI by Echocardiography. MR was trivial. Description of Procedure: Patient was brought to the operating room, placed supine on the operating table, anesthetized and intubated. Invasive monitoring lines been placed in the preop holding area. Sch[place] catheter was placed. The anterior torso and bilateral lower extremities were sterilely prepped and draped. Saphenous vein was harvested from the upper calf to the groin. This is a relatively small vein. The lower portion was the best it was decided to harvested breast remaining vein to the ankle. Contralateral limb did not look like a good vein harvest site due to extensive varicose vein disease. The greater saphenous vein ultimately was harvested from ankle to groin on the left. 2 adequate segments were obtained. Simultaneous sternotomy was performed a left hemisternum retracted upwards and the left internal mammary artery harvested on a vascularized pedicle. It was left intact on its origin from the subclavian and divided distally. Left pleural space was drained with 32-Hungarian chest tube. Standard sternal retractor was placed. Midline pericardiotomy was performed. The heart was exposed pericardial sutures. Suction stabilization was used during distal anastomosis. Patient was systemically heparinized and ACT maintained greater than 250 during grafting. We began with the HOYT to the LAD. HOYT was tunneled into the pericardial space and the LAD was grafted in its midportion. There was a 1.75 mm vessel of good quality. Was opened and blood flow control with a 1.5 mm flow through. End to side anastomosis between the HOYT and the LAD was constructed with running 8-0 P rolene suture. On completion of the anastomosis the flow through was removed 50 probe the proximal distal portion of the anastomosis. Suture was tied with good result and hemostasis. The TERESA pedicle was tacked surrounding epicardium with 6-0 silk. Next the inferior wall was exposed. The posterior descending coronary artery was dissected out. The distal right coronary artery was heavily calcified. Soft spot was identified in the proximal PDA and the vessel was opened here. 1.5 mm flow through was placed within the lumen of the vessel. End-to-side anastomosis between the saphenous vein from the lower portion of the leg to the posterior descending coronary artery was performed with running 7-0 Prolene suture. Completion anastomosis the flow through was removed effectively probing the proximal distal portion anastomosis. Suture was tied with good result and hemostasis. Vein was cut to appropriately to reach the ascending aorta. Lateral wall of the heart was exposed. The major marginal branch was a diffusely diseased vessel. Was grafted fairly distally and a soft spot. It was opened here and blood flow was controlled with a 1.5 mm flow through. End to side anastomosis between the saphenous vein from upper portion of the cath into the proximal thigh was performed with running 7-0 Prolene suture. On completion anastomosis the flow through was removed 50 probe the proximal distal portion anastomosis. Suture was tied with good result and hemostasis. The heart was lowered into anatomic position. The vein was cut to appropriately to reach the ascending aorta. 40 mm AtriCure clip was placed on the base of the left atrial appendage. The pressure was controlled by anesthesia. Partial-occlusion clamp was placed in the ascending aorta. 24 mm punch holes were created in the ascending aorta. Proximal anastomoses were constructed with running 6-0 Prolene suture. On completion of the proximal anastomoses partial-occlusion clamp was removed they were de-aired with needle holes and the inflow was open. Good hemostasis was obtained throughout. Grafts were noted to lay well and be of good length. Heparin was reversed with protamine and after assuring good hemostasis the chest was irrigated with antibiotic solution. The mediastinum was drained with a 36- Hungarian chest tube. Left pleural space was drained with a 32-Hungarian chest tube. After assuring good hemostasis the sternum was reapproximated with 8 sternal wires. Fascia was closed with 0 Ethibond. Subcutaneous and subcuticular layers in the leg and chest were closed with layers of Vicryl suture. Dry sterile dressings were applied and the patient was transferred to the ICU in stable condition. No blood products were required no inotropes were required.
[2021-02-28] MEDS ORDERED: DEXMEDETOMIDINE/0.9% NACL(PMX) 400 MCG in EMPTY BAG 1 BAG IV SCH (13:30)
[2021-02-28] MEDS ORDERED: NITROGLYCERIN-D5W PMX 50 MG in DEXTROSE/WATER 1 250ML.BAG IV SCH (13:30)
[2021-02-28] MEDS ORDERED: INSULIN REGULAR 100 UNIT in SODIUM CHLORIDE 0.9% 100 ML IV SCH (13:30)
[2021-02-28 13:31] LABS: ABG Lactic Acid Whole Blood 2.2 mmol/L (0.5-1.6)
[2021-02-28 13:33] LABS: ABG Lactic Acid Whole Blood 2.6 mmol/L (0.5-1.6)
[2021-02-28] MEDS: LACTATED RINGERS 1,000 ML IV SCH (13:40)
[2021-02-28] MEDS: ACETAMINOPHEN IV (For NPO) 1,000 MG in EMPTY BAG 1 BAG IVPB SCH ×2 (14:00→23:09)
[2021-02-28] MEDS: CLEVIDIPINE BUTYRATE 25 MG in EMPTY BAG 1 BAG IV SCH ×2 (14:00→23:08)
[2021-02-28 14:11] LABS: ABG Base Excess -3.5 mmol/L; ABG HCO3 23 mmol/L (21-25); ABG Oxygen Saturation 99.7 % (94-97); ABG PCO2 47 mmHg (35-45); ABG PO2 272 mmHg (83-108); ABG TCO2 24 mmol/L (19-24)
[2021-02-28 14:17] LABS: Glucose,Whole Blood 99 mg/dL (75-99)
--- NOTE | 2021-02-28 14:18 | XR ---
EXAMINATION TYPE: XR chest 1V portable DATE OF EXAM: 02/28/2021 Comparison: 02/19/2021 Clinical History: 81-year-old male Post Operative Cardiac Surgery Findings: Interval median sternotomy wires with post-CABG clips. ET tube satisfactory. NG tube courses below th e diaphragm. Mediastinal drain. Right IJ Blanket-Adele catheter with tip in the proximal right main pulmo nary artery. Left-sided chest tube. No appreciable pneumothorax. Heart size. Diffuse interstitial gray nges increased as are small effusions with patchy bibasilar opacities. Impression: Interval post CABG changes. New pulmonary vascular congestion along with new small pleural effusions and adjacent atelectasis and/or consolidation.
--- NOTE | 2021-02-28 14:20 | P.CNPUL ---
History of Present Illness Consult date: 02/28/21 Requesting physician: Adriel Guardado Reason for consult: other Chief complaint: Coronary artery disease History of present illness: This is a 81-year-old white male patient of Dr. Dharmesh staley with past medical history of coronary artery disease with prior history of myocardial infarction and previous PCI, hypertension, hypercholesterolemia, sick sinus syndrome, prior tobacco dependence, osteoarthritis with history of orthopedic surgeries. Patient also has history of a lung wedge biopsy for a fungal infection 10 or 12 years ago. He has a family history of coronary artery disease. Patient had an abnormal outpatient stress test which showed fixed defect in the inferior wall with possible reversible defect in the anterior lateral wall. Clinically patient had been asymptomatic, without any complaints of chest pain, shortness of breath or any other anginal-type symptoms recently. Patient had a heart catheterization on 02/19/2021 which showed a calcified left main disease, calcified proximal left anterior descending coronary artery with 80% lesion, 70% blockage to the ostium of the circumflex coronary artery, total occlusion of the dominant RCA. His most recent echocardiogram from 09/23/2020 showed mildly impaired left ventricular systolic function with an EF of 45-50%, mildly enlarged right ventricle, hypokinesis of the basal lateral, inferior, mid lateral, and mid inferior LV wall motion. There was moderate aortic valve sclerosis, with mild to moderate aortic regurgitation, mild to moderate mitral regurgitation, and moderate tricuspid regurgitation, pulmonary artery pressure was 42.8 mmHg. His preop FEV1 was in order of 2.13 L or 81% of predicted, with FVC of 2.6 L or 72% of predicted, FEV1 to FVC ratio of 112%, MCV of 79.9, and this was consistent with mild restriction. Patient was referred to cardiothoracic surgery for coronary artery bypass consideration. After undergoing preop evaluation patient was deemed appropriate for off-pump coronary artery bypass surgery with left internal mammary artery, and endovascular vein harvest on possible left atrial appendage exclusion. On February 28 2021 patient underwent off pump elective myocardial revascularization with HOYT to the LAD, SVG to the PDA, SVG to the OM, endoscopic vein harvest from the left lower extremity, left atrial appendage exclusion and intraoperative transesophageal echocardiogram. Patient is seen in the postoperative period in the intensive care unit, he is intubated, and sedated on assist control mode of ventilation, with a rate of 12, tidal lines 500, FiO2 of 100% and PEEP of 5, postoperative blood gas showed a pO2 of 272, pCO2 of 47, and pH of 7.30 and this was done on FiO2 100%. FiO2 had since been dropped down to 60%. Patient is currently on lactated Ringer's at 50 ML per hour, Diprivan, and small amount of nitroglycerin infusion. He is in sinus mechanism, hemodynamically he is stable, blood pressures 139/60, PA pressures 42/18, CVP is 8, cardiac output is 5.3, and cardiac index is 2.6. He has a left pleural and mediastinal chest tube connected together, to Pleur-evac, wall suction, with small amount of sanguinous output. His incisions are clean dry and intact, covered with surgical dressings. Postoperative chest x-ray has been reviewed showing ET tube, [place]- Adele catheter, in appropriate positions. No pneumothorax Review of Systems All systems: negative Constitutional: Denies chills, Denies fever Eyes: denies blurred vision, denies pain Ears, nose, mouth and throat: Denies headache, Denies sore throat Cardiovascular: Denies chest pain, Denies shortness of breath Respiratory: Denies cough Gastrointestinal: Denies abdominal pain, Denies diarrhea, Denies nausea, Denies vomiting Musculoskeletal: Denies myalgias Integumentary: Denies pruritus, Denies rash Neurological: Denies numbness, Denies weakness Psychiatric: Denies anxiety, Denies depression Endocrine: Denies fatigue, Denies weight change Past Medical History Past Medical History: Coronary Artery Disease (CAD), Chest Pain / Angina, Hyperlipidemia, Hypertension, Myocardial Infarction (PR), Prostate Disorder Additional Past Medical History / Comment(s): states has 3 cardiac stents that are 100% blocked, with collateral bypass; patient denies hypertension although it is listed in his history and he is on antihypertensives Last Myocardial Infarction Date:: 1996 History of Any Multi-Drug Resistant Organisms: None Reported Past Surgical History: Heart Catheterization, Heart Catheterization With Stent, Joint Replacement, Orthopedic Surgery, Tonsillectomy Additional Past Surgical History / Comment(s): bilateral knee replacments, right lung wedge resection, cataracts removed-lens implants, states 3 cardiac stents Past Anesthesia/Blood Transfusion Reactions: No Reported Reaction Date of Last Stent Placement:: 1996 Smoking Status: Former smoker - Past Family History Father Family Medical History: Myocardial Infarction (PR) Mother Family Medical History: Cancer Additional Family Medical History / Comment(s): colon Medications and Allergies Home Medications Medication Instructions Recorded Confirmed Type Aspirin EC [Ecotrin Low Dose] 81 mg PO DAILY 10/09/17 02/28/21 History Atorvastatin [Lipitor] 40 mg PO HS 10/09/17 02/28/21 History Multivitamin [Men's Multi-Vitamin] 1 tab PO DAILY 10/09/17 02/28/21 History Saw [place] 160 mg PO BID 09/05/18 02/28/21 History Cyanocobalamin (Vitamin B-12) 2,500 mcg PO DAILY 09/22/20 02/28/21 History [Vitamin B-12] Benazepril [Lotensin] 5 mg PO QAM 02/15/21 02/28/21 History Flaxseed Oil 1,000 mg PO DAILY 02/26/21 02/28/21 History Green Tea [place] Extract [Green Tea 150 mg PO DAILY 02/26/21 02/28/21 History Extract] Pumpkin Seed Oil 1 tab PO DAILY 02/26/21 02/28/21 History Super C 1 tab PO DAILY 02/26/21 02/28/21 History Allergies Allergy/AdvReac Type Severity Reaction Status Date / Time No Known Allergies Allergy Verified 02/28/21 07:17 Physical Exam Vitals: Vital Signs Temp Pulse Resp BP BP Pulse Ox 02/28/21 06:11 154/74 02/28/21 06:10 97.0 F L 67 18 197/91 98 Intake and Output 02/27/21 02/28/21 02/28/21 22:59 06:59 14:59 Intake Total 400 103 Balance 400 103 Intake: IV 400 103 Other: Weight 87.2 kg GENERAL EXAM: Sedated, intubated, 81-year-old white male on assist-control mode of ventilation comfortable in no apparent distress. HEAD: Normocephalic/atraumatic. EYES: Normal reaction of pupils, equal size. Conjunctiva pink, sclera white. NOSE: Clear with pink turbinates. THROAT: No erythema or exudates. NECK: No masses, no JVD, no thyroid enlargement, no adenopathy. CHEST: No chest wall deformity. Symmetrical expansion. Midsternal incision is clean dry and intact, 1 mediastinal and left pleural chest tube in place, connected to get the to the Pleur-evac, to wall suction, no evidence of air leak noted, with small amount of sanguinous output in the Pleur-evac LUNGS: Equal air entry with no crackles, wheeze, rhonchi or dullness. CVS: Regular rate and rhythm, normal S1 and S2, no gallops, no murmurs, no rubs ABDOMEN: Soft, nontender. No hepatosplenomegaly, normal bowel sounds, no guarding or rigidity. EXTREMITIES: No clubbing, no edema, no cyanosis, 2+ pulses and upper and lower extremities. MUSCULOSKELETAL: Muscle strength and tone normal. Left leg endovascular vein harvest site covered with a surgical dressing, SCDs are on on bilateral lower extremities, SPINE: No scoliosis or deformity SKIN: No rashes CENTRAL NERVOUS SYSTEM: Sedated, and intubated. No focal deficits, tone is normal in all 4 extremities. Results - Laboratory Findings Abnormal lab findings: Abnormal Labs 02/19/21 02/28/21 14:05 06:27 POC Glucose (mg/dL) 118 H Crossmatch See Detail - Diagnostic Findings Chest x-ray: report reviewed, image reviewed Assessment and Plan Plan: Assessment: #1. Multivessel coronary artery disease, with an abnormal outpatient stress test, post previous myocardial infarction, and previous PCI, status post off-pump three-vessel artery artery bypass grafting with HOYT to the LAD, SVG to the PDA, and SCDs to the OM, endoscopic vein harvest from the left lower extremity, and left atrial appendage exclusion, postoperative day #0 on 02/28/2021 #2. Routine postoperative ventilator management #3. Prior history of right lung biopsy for a fungal infection in 2009 #4. Former smoker #5. Prior history of TIA #6. Osteoarthritis, with prior history of bilateral knee replacements Plan: Postoperative chest x-ray and labs are pending Blood gas reviewed Hemodynamically patient is stable Continue weaning FiO2 per protocol Continue nebulized bronchodilators every 4 hours while on the vent and 4 times a day after extubation Proceed with spontaneous awakening trial spontaneous breathing trial Incentive spirometer to the bedside after extubation Daily labs and chest x-rays We'll continue to closely follow with CT surgery I performed a history & physical examination of the patient and discussed their management with my nurse practitioner, Pily Reilly. I reviewed the nurse practitioner's note and agree with the documented findings and plan of care. Lung sounds are positive for clear breath sounds throughout the lung huynh. The findings and the impression was discussed with the patient. I attest to the documentation by the nurse practitioner. Time with Patient: Greater than 30
[2021-02-28 14:45] LABS: Glucose,Whole Blood 114 mg/dL (75-99)
[2021-02-28] MEDS ORDERED: MUPIROCIN 2% OINT 22 GM TUBE NASAL ONE (15:00)
[2021-02-28] MEDS: IPRATROPIUM-ALBUTEROL 3 ML NEB INHALATION SCH ×2 (15:23→18:09)
[2021-02-28 15:33] LABS: Anisocytosis Slight; Basophils % (A) 0 %; Eosinophils # (A) 0.1 k/uL (0-0.7); Eosinophils % (A) 1 %; HCT 28.1 % (39.0-53.0); Ionized Calcium 5.4 mg/dL (4.5-5.3); Lymphocytes # (A) 1.3 k/uL (1.0-4.8); Lymphocytes % (A) 13 %; MCH 32.3 pg (25.0-35.0); MCHC 34.2 g/dL (31.0-37.0); MCV 94.3 fL (80.0-100.0); Mean Platelet Volume 8.4; Monocytes # (A) 0.3 k/uL (0-1.0); Monocytes % (A) 3 %; Neutrophils % (A) 82 %; Platelet Count 112 k/uL (150-450); RBC 2.97 m/uL (4.30-5.90); RDW 17.2 % (11.5-15.5); WBC 9.8 k/uL (3.8-10.6)
[2021-02-28 15:44] LABS: ALT 13 U/L (4-49); AST 23 U/L (17-59); African American GFR (CKD) >90 (>60 ml/min/1.73 sqM); Albumin 2.7 g/dL (3.5-5.0); Alkaline Phosphatase 34 U/L (38-126); Anion Gap 6 mmol/L; Blood Urea Nitrogen 9 mg/dL (9-20); Calcium 8.2 mg/dL (8.4-10.2); Carbon Dioxide 21 mmol/L (22-30); Chloride 111 mmol/L (98-107); Glucose 100 mg/dL (74-99); Non-African American GFR(CKD) >90 (>60 ml/min/1.73 sqM); Potassium 3.8 mmol/L (3.5-5.1); Sodium 138 mmol/L (137-145); Total Bilirubin 0.4 mg/dL (0.2-1.3); Total Protein 4.5 g/dL (6.3-8.2)
[2021-02-28 15:47] LABS: INR 1.2 (<1.2); Partial Thromboplastin Time 34.6 sec (22.0-30.0); Prothrombin Time 12.7 sec (9.0-12.0)
[2021-02-28 15:57] LABS: HGB 9.6 gm/dL (13.0-17.5)
[2021-02-28 16:05] LABS: Glucose,Whole Blood 140 mg/dL (75-99)
[2021-02-28] MEDS: HEPARIN SODIUM,PORCINE/PF 5,000 UNIT/0.5 ML SYRINGE SQ SCH ×2 (16:44→23:07)
[2021-02-28 17:00] LABS: Glucose,Whole Blood 146 mg/dL (75-99)
[2021-02-28 17:08] LABS: Anisocytosis Slight; Basophils % (A) 0 %; Eosinophils # (A) 0.1 k/uL (0-0.7); Eosinophils % (A) 0 %; HCT 34.1 % (39.0-53.0); HGB 11.6 gm/dL (13.0-17.5); Lymphocytes # (A) 1.1 k/uL (1.0-4.8); Lymphocytes % (A) 9 %; MCH 31.9 pg (25.0-35.0); MCHC 34.2 g/dL (31.0-37.0); MCV 93.4 fL (80.0-100.0); Mean Platelet Volume 9.4; Monocytes # (A) 0.4 k/uL (0-1.0); Monocytes % (A) 3 %; Neutrophils # (A) 10.3 k/uL (1.3-7.7); Neutrophils % (A) 86 %; Platelet Count 126 k/uL (150-450); RBC 3.65 m/uL (4.30-5.90); RDW 17.2 % (11.5-15.5)
--- NOTE | 2021-02-28 17:22 | P.CONS ---
History of Present Illness - Reason for Consult Consult date: 02/28/21 Medical management Requesting physician: Adriel Guardado - Chief Complaint Coronary bypass - History of Present Illness Consultation: This is a 81-year-old patient who follows with Dr. Kuhn. Chronic stable medical conditions include hypertension, hyperlipidemia, BPH, osteoarthritis,. Patient undergone triple vessel bypass today. In the ICU. Currently intubated on the ventilator with FiO2 50% and a PEEP of 5. Patient did receive Cell Saver albumin previously. Current drips include nitroglycerin at 5 g, insulin 1.5 mg an hour, Cleviprex. Patient has 2 chest tubes 1 mediastinal and one left pleural. Telemetry shows sinus rhythm. Patient is semi-awake. [place] catheter. And warming blanket. Review of systems: Cannot be obtained patient is intubated Past medical history to include: Coronary artery with stent, hypertension, hyperlipidemia, prostate disorder, osteoarthritis Social history: Patient is to be unit and zhang. Stop smoking about 22 years ago. Alcohol occasionally. Family history: Includes myocardial infarction Physical examination: VITAL SIGNS: 90, 23, 106/51, 94% on the ventilator GENERAL: BMI 29.2, laying in bed, intubated. EYES: Pupils equal. Conjunctiva normal. HEENT: [External appearance of nose and ears normal, endotracheal tube NECK: JVD unable to assess; masses not palpable. HEART: First and second heart sounds are normal; no edema. LUNGS: Respiratory rate normal; decreased breath sounds. ABDOMEN: Soft, nontender, liver spleen not palpable, no masses palpable. PSYCH: Patient lethargic, unable to assessl. NEUROLOGICAL: Cranial nerves grossly intact; no facial asymmetry, power and sensation grossly intact. LYMPHATICS: No lymph nodes palpable in the axilla and neck INVESTIGATIONS, reviewed in the clinical context: WBC 12 hemoglobin 11.6 platelets 126 potassium 4.1 creatinine 0.57 albumin 2.7 L DL 33.2 Previous labs: Hemoglobin 14.2 on February 19 platelets 152 Assessment and plan: -Triple vessel coronary bypass. Patient has 1 mediastinal and one left pleural chest tube. -Triple vessel coronary artery disease -Acute hypoxic respiratory failure requiring ventilator support On FiO2 50% and a PEEP of 5 -Essential hypertension Currently on Cleviprex -Hyperlipidemia Resume Lipitor -BPH On supplements -Acute postprocedure blood loss anemia, expected from surgery Follow H&H -Dilutional thrombocytopenia -Hypoalbuminemia, acute phase reactant From surgery Patient comes in the ventilator. With FiO2 50 to PEEP of 5. On DuoNeb. Did receive amiodarone. Patient also on aspirin, Lipitor, IV Ancef, Cleviprex drip, subcu heparin insulin drip, Lopressor nitroglycerin drip status post IV propofol. Patient be followed closely. Thank you Dr. Guardado Past Medical History Past Medical History: Coronary Artery Disease (CAD), Chest Pain / Angina, H yperlipidemia, Hypertension, Myocardial Infarction ([place]), Prostate Disorder Additional Past Medical History / Comment(s): states has 3 cardiac stents that are 100% blocked, with collateral bypass; patient denies hypertension although it is listed in his history and he is on antihypertensives Last Myocardial Infarction Date:: 1996 History of Any Multi-Drug Resistant Organisms: None Reported Past Surgical History: Heart Catheterization, Heart Catheterization With Stent, Joint Replacement, Orthopedic Surgery, Tonsillectomy Additional Past Surgical History / Comment(s): bilateral knee replacments, right lung wedge resection, cataracts removed-lens implants, states 3 cardiac stents Past Anesthesia/Blood Transfusion Reactions: No Reported Reaction Date of Last Stent Placement:: 1996 Smoking Status: Former smoker - Past Family History Father Family Medical History: Myocardial Infarction ([place]) Mother Family Medical History: Cancer Additional Family Medical History / Comment(s): colon Medications and Allergies Home Medications Medication Instructions Recorded Confirmed Type Aspirin EC [Ecotrin Low Dose] 81 mg PO DAILY 10/09/17 02/28/21 History Atorvastatin [Lipitor] 40 mg PO HS 10/09/17 02/28/21 History Multivitamin [Men's Multi-Vitamin] 1 tab PO DAILY 10/09/17 02/28/21 History Saw [place] 160 mg PO BID 09/05/18 02/28/21 History Cyanocobalamin (Vitamin B-12) 2,500 mcg PO DAILY 09/22/20 02/28/21 History [Vitamin B-12] Benazepril [Lotensin] 5 mg PO QAM 02/15/21 02/28/21 History Flaxseed Oil 1,000 mg PO DAILY 02/26/21 02/28/21 History Green Tea [place] Extract [Green Tea 150 mg PO DAILY 02/26/21 02/28/21 History Extract] Pumpkin Seed Oil 1 tab PO DAILY 02/26/21 02/28/21 History Super C 1 tab PO DAILY 02/26/21 02/28/21 History Allergies Allergy/AdvReac Type Severity Reaction Status Date / Time No Known Allergies Allergy Verified 02/28/21 07:17 Physical Exam Vitals: Vital Signs Temp Pulse Pulse Resp BP BP BP 02/28/21 17:00 90 23 02/28/21 16:45 93 21 02/28/21 16:30 86 22 02/28/21 16:15 87 24 02/28/21 16:00 85 22 02/28/21 15:45 79 20 02/28/21 15:37 77 14 02/28/21 15:30 74 17 02/28/21 15:24 73 14 02/28/21 15:15 73 18 02/28/21 15:00 68 15 02/28/21 14:45 68 17 02/28/21 14:30 67 15 02/28/21 14:15 65 16 166/81 02/28/21 14:00 61 14 02/28/21 13:45 59 L 14 02/28/21 06:11 154/74 02/28/21 06:10 97.0 F L 67 18 197/91 Pulse Ox 02/28/21 17:00 94 L 02/28/21 16:45 95 02/28/21 16:30 95 02/28/21 16:15 97 02/28/21 16:00 95 02/28/21 15:45 95 02/28/21 15:37 02/28/21 15:30 95 02/28/21 15:24 02/28/21 15:15 95 02/28/21 15:00 95 02/28/21 14:45 95 02/28/21 14:30 96 02/28/21 14:15 100 02/28/21 14:00 100 02/28/21 13:45 99 02/28/21 06:11 02/28/21 06:10 98 Intake and Output 02/28/21 02/28/21 02/28/21 06:59 14:59 22:59 Intake Total 400 199.500 250.757 Output Total 2345 1570 Balance 400 -2145.500 -1319.243 Intake: IV 400 192 208 .9 NS pressure bag 9 18 .9NS CO/CI 30 90 Lactated Ringers 1,000 ml 50 100 @ 50 mls/hr IV .Q20H PRAKASH Rx#:[id number] Intake, IV Titration 7.500 42.757 Amount Clevidipine Butyrate 25 7.500 1.467 mg In Empty Bag 1 bag @ 1 MG/HR 2 mls/hr IV .Q24H PRAKASH Rx#:[id number] propofoL 1,000 mg In 41.29 Empty Bag 1 bag @ Titrate IV .Q0M PRAKASH Rx#: [id number] Output: Chest Tube Drainage 120 320 Chest Tube Left Pleural/ 120 320 Mediastinal Urine 1225 1250 Estimated Blood Loss 1000 Other: Weight 87.2 kg ABP, PAP, CO, CI - Last 8 Hours Arterial Blood Pressure 106/51 Arterial Blood Pressure 140/66 Arterial Blood Pressure 155/65 Arterial Blood Pressure 162/64 Arterial Blood Pressure 147/65 Arterial Blood Pressure 137/59 Arterial Blood Pressure 125/60 Arterial Blood Pressure 140/60 Arterial Blood Pressure 136/57 Arterial Blood Pressure 130/57 Arterial Blood Pressure 102/45 Arterial Blood Pressure 170/72 Arterial Blood Pressure 147/63 Arterial Blood Pressure 143/60 Arterial Blood Pressure 132/51 Pulmonary Artery Pressure 32/17 Pulmonary Artery Pressure 34/18 Pulmonary Artery Pressure 0/0 Pulmonary Artery Pressure 39/19 Pulmonary Artery Pressure 38/18 Pulmonary Artery Pressure 35/17 Pulmonary Artery Pressure 35/20 Pulmonary Artery Pressure 35/19 Pulmonary Artery Pressure 34/16 Pulmonary Artery Pressure 32/15 Pulmonary Artery Pressure 37/16 Pulmonary Artery Pressure 42/18 Pulmonary Artery Pressure 42/19 Pulmonary Artery Pressure 38/15 Cardiac Output 5.4 Cardiac Output 5.4 Cardiac Output 5.9 Cardiac Output 7.4 Cardiac Output 5.3 Cardiac Index 2.7 Cardiac Index 2.7 Cardiac Index 2.9 Cardiac Index 3.7 Cardiac Index 2.6 Results CBC & Chem 7: 02/28/21 17:03 02/28/21 17:03 Labs: Abnormal Lab Results - Last 24 Hours (Table) 02/19/21 02/28/21 02/28/21 Range/Units 14:05 06:27 09:21 WBC (3.8-10.6) k/uL RBC (4.30-5.90) m/uL Hgb (13.0-17.5) gm/dL Hct (39.0-53.0) % RDW (11.5-15.5) % Plt Count (150-450) k/uL Neutrophils # (1.3-7.7) k/uL PT (9.0-12.0) sec INR (<1.2) APTT (22.0-30.0) sec ABG pH (7.35-7.45) ABG pCO2 (35-45) mmHg ABG pO2 260 H (83-108) mmHg ABG Total CO2 25 H (19-24) mmol/L ABG O2 Saturation 100.0 H (94-97) % ABG Hematocrit (34.0-46.0) % ABG Glucose 110 H (75-99) mg/dL ABG Lactic Acid 2.2 H* (0.5-1.6) mmol/L Hemoglobin 12.4 L (13.0-17.5) gm/dL Chloride (98-107) mmol/L Carbon Dioxide (22-30) mmol/L Creatinine (0.66-1.25) mg/dL Glucose (74-99) mg/dL POC Glucose (mg/dL) 118 H (75-99) mg/dL Calcium (8.4-10.2) mg/dL Ionized Calcium [place] (4.5-5.3) mg/dL Alkaline Phosphatase (38-126) U/L Total Protein (6.3-8.2) g/dL Albumin (3.5-5.0) g/dL Arterial Blood Glucose 110 H (75-99) mg/dL Crossmatch See Detail 02/28/21 02/28/21 02/28/21 Range/Units 10:48 11:16 12:34 WBC (3.8-10.6) k/uL RBC (4.30-5.90) m/uL Hgb (13.0-17.5) gm/dL Hct (39.0-53.0) % RDW (11.5-15.5) % Plt Count (150-450) k/uL Neutrophils # (1.3-7.7) k/uL PT (9.0-12.0) sec INR (<1.2) APTT (22.0-30.0) sec ABG pH (7.35-7.45) ABG pCO2 (35-45) mmHg ABG pO2 163 H 192 H 208 H (83-108) mmHg ABG Total CO2 (19-24) mmol/L ABG O2 Saturation 99.7 H 99.8 H 100.0 H (94-97) % ABG Hematocrit 28 L (34.0-46.0) % ABG Glucose 136 H 129 H 108 H (75-99) mg/dL ABG Lactic Acid 2.6 H* (0.5-1.6) mmol/L Hemoglobin 11.6 L 11.1 L 9.0 L (13.0-17.5) gm/dL Chloride (98-107) mmol/L Carbon Dioxide (22-30) mmol/L Creatinine (0.66-1.25) mg/dL Glucose (74-99) mg/dL POC Glucose (mg/dL) (75-99) mg/dL Calcium (8.4-10.2) mg/dL Ionized Calcium [place] (4.5-5.3) mg/dL Alkaline Phosphatase (38-126) U/L Total Protein (6.3-8.2) g/dL Albumin (3.5-5.0) g/dL Arterial Blood Glucose 136 H 129 H 108 H (75-99) mg/dL Crossmatch 02/28/21 02/28/21 02/28/21 Range/Units 13:43 13:43 13:43 WBC (3.8-10.6) k/uL RBC 2.97 L (4.30-5.90) m/uL Hgb 9.6 L D (13.0-17.5) gm/dL Hct 28.1 L (39.0-53.0) % RDW 17.2 H (11.5-15.5) % Plt Count 112 L (150-450) k/uL Neutrophils # 8.0 H (1.3-7.7) k/uL PT 12.7 H (9.0-12.0) sec INR 1.2 H (<1.2) APTT 34.6 H (22.0-30.0) sec ABG pH (7.35-7.45) ABG pCO2 (35-45) mmHg ABG pO2 (83-108) mmHg ABG Total CO2 (19-24) mmol/L ABG O2 Saturation (94-97) % ABG Hematocrit (34.0-46.0) % ABG Glucose (75-99) mg/dL ABG Lactic Acid (0.5-1.6) mmol/L Hemoglobin (13.0-17.5) gm/dL Chloride 111 H (98-107) mmol/L Carbon Dioxide 21 L (22-30) mmol/L Creatinine 0.57 L (0.66-1.25) mg/dL Glucose 100 H (74-99) mg/dL POC Glucose (mg/dL) (75-99) mg/dL Calcium 8.2 L (8.4-10.2) mg/dL Ionized Calcium [place] 5.4 H (4.5-5.3) mg/dL Alkaline Phosphatase 34 L (38-126) U/L Total Protein 4.5 L (6.3-8.2) g/dL Albumin 2.7 L (3.5-5.0) g/dL Arterial Blood Glucose (75-99) mg/dL Crossmatch 02/28/21 02/28/21 02/28/21 Range/Units 14:09 14:44 16:03 WBC (3.8-10.6) k/uL RBC (4.30-5.90) m/uL Hgb (13.0-17.5) gm/dL Hct (39.0-53.0) % RDW (11.5-15.5) % Plt Count (150-450) k/uL Neutrophils # (1.3-7.7) k/uL PT (9.0-12.0) sec INR (<1.2) APTT (22.0-30.0) sec ABG pH 7.30 L (7.35-7.45) ABG pCO2 47 H (35-45) mmHg ABG pO2 272 H (83-108) mmHg ABG Total CO2 (19-24) mmol/L ABG O2 Saturation 99.7 H (94-97) % ABG Hematocrit (34.0-46.0) % ABG Glucose (75-99) mg/dL ABG Lactic Acid (0.5-1.6) mmol/L Hemoglobin (13.0-17.5) gm/dL Chloride (98-107) mmol/L Carbon Dioxide (22-30) mmol/L Creatinine (0.66-1.25) mg/dL Glucose (74-99) mg/dL POC Glucose (mg/dL) 114 H 140 H (75-99) mg/dL Calcium (8.4-10.2) mg/dL Ionized Calcium [place] (4.5-5.3) mg/dL Alkaline Phosphatase (38-126) U/L Total Protein (6.3-8.2) g/dL Albumin (3.5-5.0) g/dL Arterial Blood Glucose (75-99) mg/dL Crossmatch 02/28/21 02/28/21 Range/Units 16:53 17:03 WBC 12.0 H (3.8-10.6) k/uL RBC 3.65 L (4.30-5.90) m/uL Hgb 11.6 L (13.0-17.5) gm/dL Hct 34.1 L (39.0-53.0) % RDW 17.2 H (11.5-15.5) % Plt Count 126 L (150-450) k/uL Neutrophils # 10.3 H (1.3-7.7) k/uL PT (9.0-12.0) sec INR (<1.2) APTT (22.0-30.0) sec ABG pH (7.35-7.45) ABG pCO2 (35-45) mmHg ABG pO2 (83-108) mmHg ABG Total CO2 (19-24) mmol/L ABG O2 Saturation (94-97) % ABG Hematocrit (34.0-46.0) % ABG Glucose (75-99) mg/dL ABG Lactic Acid (0.5-1.6) mmol/L Hemoglobin (13.0-17.5) gm/dL Chloride (98-107) mmol/L Carbon Dioxide (22-30) mmol/L Creatinine (0.66-1.25) mg/dL Glucose (74-99) mg/dL POC Glucose (mg/dL) 146 H (75-99) mg/dL Calcium (8.4-10.2) mg/dL Ionized Calcium [place] (4.5-5.3) mg/dL Alkaline Phosphatase (38-126) U/L Total Protein (6.3-8.2) g/dL Albumin (3.5-5.0) g/dL Arterial Blood Glucose (75-99) mg/dL Crossmatch
[2021-02-28 17:40] LABS: ABG Base Excess -1.4 mmol/L; ABG HCO3 24 mmol/L (21-25); ABG Oxygen Saturation 96.9 % (94-97); ABG PCO2 39 mmHg (35-45); ABG PH 7.39 (7.35-7.45); ABG PO2 85 mmHg (83-108); ABG TCO2 25 mmol/L (19-24)
[2021-02-28 17:56] LABS: Glucose,Whole Blood 150 mg/dL (75-99)
[2021-02-28] MEDS: KETOROLAC 15 MG/ML 1 ML VIAL IVP SCH ×2 (18:11→23:06)
[2021-02-28 19:15] LABS: Glucose,Whole Blood 129 mg/dL (75-99)
[2021-02-28 19:54] LABS: Glucose,Whole Blood 122 mg/dL (75-99)
[2021-02-28 19:59] LABS: Anisocytosis Slight; Basophils % (A) 0 %; Eosinophils % (A) 0 %; HGB 11.8 gm/dL (13.0-17.5); Lymphocytes # (A) 0.5 k/uL (1.0-4.8); Lymphocytes % (A) 4 %; MCH 32.1 pg (25.0-35.0); MCHC 34.8 g/dL (31.0-37.0); MCV 92.3 fL (80.0-100.0); Mean Platelet Volume 9.5; Monocytes # (A) 0.4 k/uL (0-1.0); Monocytes % (A) 3 %; Neutrophils # (A) 10.9 k/uL (1.3-7.7); Neutrophils % (A) 91 %; Platelet Count 117 k/uL (150-450); Poikilocytosis Slight; RBC 3.69 m/uL (4.30-5.90); RDW 17.1 % (11.5-15.5); WBC 11.9 k/uL (3.8-10.6)
[2021-02-28 21:14] LABS: Glucose,Whole Blood 119 mg/dL (75-99)
[2021-02-28] MEDS: ATORVASTATIN 40 MG TAB PO SCH (21:16)
[2021-02-28 21:57] LABS: Glucose,Whole Blood 125 mg/dL (75-99)
[2021-02-28 23:27] LABS: Glucose,Whole Blood 143 mg/dL (75-99)
[2021-03-01] MEDS ORDERED: HYDROcodone/APAP 5-325MG 1 EACH TAB PO PRN (00:52)
[2021-03-01 01:02] LABS: Glucose,Whole Blood 129 mg/dL (75-99)
[2021-03-01] MEDS: HYDROcodone/APAP 5-325MG 1 EACH TAB PO PRN ×2 (01:06→22:32)
[2021-03-01] MEDS: ALBUMIN HUMAN 5% 250 ML in EMPTY BAG 1 BAG IVPB PRN ×2 (02:01→06:30)
[2021-03-01 03:05] LABS: Glucose,Whole Blood 110 mg/dL (75-99)
[2021-03-01 03:47] LABS: Anisocytosis Slight; Basophils % (A) 0 %; Eosinophils % (A) 0 %; HGB 11.1 gm/dL (13.0-17.5); Lymphocytes % (A) 7 %; MCH 31.9 pg (25.0-35.0); MCHC 34.6 g/dL (31.0-37.0); MCV 92.1 fL (80.0-100.0); Monocytes # (A) 0.7 k/uL (0-1.0); Monocytes % (A) 5 %; Neutrophils # (A) 11.4 k/uL (1.3-7.7); Neutrophils % (A) 86 %; Platelet Count 106 k/uL (150-450); Poikilocytosis Slight; RBC 3.48 m/uL (4.30-5.90); RDW 17.2 % (11.5-15.5); WBC 13.2 k/uL (3.8-10.6)
[2021-03-01 03:54] LABS: Ionized Calcium 4.9 mg/dL (4.5-5.3)
[2021-03-01 04:01] LABS: ALT 14 U/L (4-49); AST 32 U/L (17-59); African American GFR (CKD) >90 (>60 ml/min/1.73 sqM); Albumin 3.3 g/dL (3.5-5.0); Alkaline Phosphatase 41 U/L (38-126); Anion Gap 8 mmol/L; Blood Urea Nitrogen 9 mg/dL (9-20); Calcium 8.3 mg/dL (8.4-10.2); Carbon Dioxide 22 mmol/L (22-30); Chloride 103 mmol/L (98-107); Glucose 114 mg/dL (74-99); Magnesium 1.8 mg/dL (1.6-2.3); Non-African American GFR(CKD) >90 (>60 ml/min/1.73 sqM); Sodium 133 mmol/L (137-145); Total Bilirubin 1.1 mg/dL (0.2-1.3); Total Protein 5.3 g/dL (6.3-8.2)
[2021-03-01 05:03] LABS: Glucose,Whole Blood 132 mg/dL (75-99)
[2021-03-01 06:13] LABS: Glucose,Whole Blood 143 mg/dL (75-99)
[2021-03-01] MEDS: KETOROLAC 15 MG/ML 1 ML VIAL IVP SCH ×3 (06:22→17:37)
[2021-03-01] MEDS: MAGNESIUM SULFATE-D5W PMX 1 GM in DEXTROSE/WATER 1 100ML.BAG IVPB SCH ×2 (06:22→08:33)
[2021-03-01 07:00] LABS: Glucose,Whole Blood 144 mg/dL (75-99)
[2021-03-01] MEDS: IPRATROPIUM-ALBUTEROL 3 ML NEB INHALATION SCH ×4 (08:17→20:00)
[2021-03-01 08:31] LABS: Glucose,Whole Blood 163 mg/dL (75-99)
[2021-03-01] MEDS: HEPARIN SODIUM,PORCINE/PF 5,000 UNIT/0.5 ML SYRINGE SQ SCH ×2 (08:32→15:49)
[2021-03-01] MEDS: MULTIVITAMINS, THERA 1 EACH TAB PO SCH (08:33)
[2021-03-01] MEDS: ASPIRIN 325 MG TAB PO SCH (08:33)
[2021-03-01] MEDS: CLOPIDOGREL 75 MG TAB PO SCH (08:33)
[2021-03-01] MEDS: CYANOCOBALAMIN 500 MCG TAB PO SCH (08:33)
[2021-03-01] MEDS: LACTATED RINGERS 1,000 ML IV SCH (08:36)
[2021-03-01] MEDS ORDERED: PANTOPRAZOLE 40 MG/10 ML VIAL IVP SCH (09:00)
[2021-03-01] MEDS ORDERED: MAGNESIUM HYDROXIDE 2,400 MG/10 ML CUP PO PRN (09:00)
[2021-03-01] MEDS ORDERED: bisacodyL 10 MG SUPP RECTAL PRN (09:00)
[2021-03-01] MEDS ORDERED: METOPROLOL TARTRATE 12.5 MG TAB PO SCH (09:00)
--- NOTE | 2021-03-01 09:00 | XR ---
EXAMINATION TYPE: XR chest 1V portable DATE OF EXAM: 03/01/2021 COMPARISON: 02/28/2021 INDICATION: Post cardiac surgery TECHNIQUE: Single frontal view of the chest is obtained. FINDINGS: The heart size is normal. The pulmonary vasculature is upper limits of normal. Appears to be some left basilar platelike atelectasis. Mild infiltrate at the right base. There are multiple lines and catheters. Mediastinal tubes are present. A left-sided chest tube is pre sent. [place] catheter is present with the tip in the right main pulmonary artery region. Sternoto my wires are in the midline. No pneumothorax is evident. IMPRESSION: 1. Mild bibasilar infiltrates. 2. Some platelike atelectasis at the left base. 3. Lines and catheters discussed above
[2021-03-01 09:19] LABS: Glucose,Whole Blood 152 mg/dL (75-99)
[2021-03-01 10:11] LABS: Glucose,Whole Blood 160 mg/dL (75-99)
[2021-03-01 10:59] LABS: Glucose,Whole Blood 139 mg/dL (75-99)
[2021-03-01 11:09] VITALS: BMI 29.0
[2021-03-01 12:31] LABS: Glucose,Whole Blood 188 mg/dL (75-99)
--- NOTE | 2021-03-01 12:52 | P.PN ---
Subjective Progress Note Date: 03/01/21 Principal diagnosis: Coronary artery disease This is a 81-year-old white male patient of Dr. Dharmesh staley with past medical history of coronary artery disease with prior history of myocardial infarction and previous PCI, hypertension, hypercholesterolemia, sick sinus syndrome, prior tobacco dependence, osteoarthritis with history of orthopedic surgeries. Patient also has history of a lung wedge biopsy for a fungal infection 10 or 12 years ago. He has a family history of coronary artery disease. Patient had an abnormal outpatient stress test which showed fixed defect in the inferior wall with possible reversible defect in the anterior lateral wall. Clinically patient had been asymptomatic, without any complaints of chest pain, shortness of breath or any other anginal-type symptoms recently. Patient had a heart catheterization on 02/19/2021 which showed a calcified left main disease, calcified proximal left anterior descending coronary artery with 80% lesion, 70% blockage to the ostium of the circumflex coronary artery, total occlusion of the dominant RCA. His most recent echocardiogram from 09/23/2020 showed mildly impaired left ventricular systolic function with an EF of 45-50%, mildly enlarged right ventricle, hypokinesis of the basal lateral, inferior, mid lateral, and mid inferior LV wall motion. There was moderate aortic valve sclerosis, with mild to moderate aortic regurgitation, mild to moderate mitral regurgitation, and moderate tricuspid regurgitation, pulmonary artery pressure was 42.8 mmHg. His preop FEV1 was in order of 2.13 L or 81% of predicted, with FVC of 2.6 L or 72% of predicted, FEV1 to FVC ratio of 112%, MCV of 79.9, and th is was consistent with mild restriction. Patient was referred to cardiothoracic surgery for coronary artery bypass consideration. After undergoing preop evaluation patient was deemed appropriate for off-pump coronary artery bypass surgery with left internal mammary artery, and endovascular vein harvest on possible left atrial appendage exclusion. On February 28 2021 patient underwent off pump elective myocardial revascularization with HOYT to the LAD, SVG to the PDA, SVG to the OM, endoscopic vein harvest from the left lower extremity, left atrial appendage exclusion and intraoperative transesophageal echocardiogram. Patient is seen in the postoperative period in the intensive care unit, he is intubated, and sedated on assist control mode of ventilation, with a rate of 12, tidal lines 500, FiO2 of 100% and PEEP of 5, postoperative blood gas showed a pO2 of 272, pCO2 of 47, and pH of 7.30 and this was done on FiO2 100%. FiO2 had since been dropped down to 60%. Patient is currently on lactated Ringer's at 50 ML per hour, Diprivan, and small amount of nitroglycerin infusion. He is in sinus mechanism, hemodynamically he is stable, blood pressures 139/60, PA pressures 42/18, CVP is 8, cardiac output is 5.3, and cardiac index is 2.6. He has a left pleural and mediastinal chest tube connected together, to Pleur-evac, wall suction, with small amount of sanguinous output. His incisions are clean dry and intact, covered with surgical dressings. Postoperative chest x-ray has been reviewed showing ET tube, [place] catheter, in appropriate positions. No pneumothorax On 03/01/2021 patient seen in follow-up intensive care unit. Today is postoperative day #1, status post three-vessel coronary artery bypass grafting was done off pump, with endovascular vein harvest. Patient is doing well, he seen sitting up in the recliner, on 3 L oxygen pulse ox is 93%, patient was ext ubated within 4 hours of the OR exit time. Patient has been working on incentive spirometer, today's chest x-ray shows mild bibasilar infiltrates, and platelike atelectasis at the left base. He was dynamically his been stable, he is currently on lactated Ringer's at a rate of 30 ML per hour, and insulin drip is at 2.5 units per hour. No other drips. Patient is in sinus mechanism with a controlled rate, [place] catheter has been discontinued, his mediastinal and left pleural chest tube has put out a total of 1070 ML of watery serosanguineous output in the last 24 hours. His incisions are clean dry and intact. Sternum was stable, chest tube sites are clean dry and intact. No episodes of arrhythmias overnight. Patient is breathing comfortably, he is tolerating oral intake. Today's labs have been reviewed, white count is 13.2, hemoglobin is 11.1, sodium is 133, the rest electrolytes are within normal limits, BUN is 9, creatinine 0.61. Objective - Vital Signs Vital signs: Vital Signs Temp 98 F 03/01/21 12:00 Pulse 78 03/01/21 12:00 Resp 16 03/01/21 12:00 BP 96/44 03/01/21 12:00 Pulse Ox 93 L 03/01/21 12:00 Intake & Output 02/28/21 03/01/21 03/01/21 18:59 06:59 18:59 Intake Total 705.901 6115.197 608.612 Output Total 4575 1760 420 Balance -3891.458 -439.803 188.612 Weight 86.5 kg 86.5 kg Intake: IV 628 1168 254 .9 NS pressure bag 45 108 24 .9NS CO/CI 180 60 ACETAMINOPHEN IV (For NPO 100 ) 1,000 mg In Empty Bag 1 bag @ 400 mls/hr IVPB Q6HR PRAKASH Rx#:[id number] Albumin Human 5% 250 ml 250 In Empty Bag 1 bag @ 250 mls/hr IVPB Q1HR PRN Rx#: [id number] Lactated Ringers 1,000 ml 200 500 180 @ 20 mls/hr IV .Q24H PRAKASH Rx#:[id number] ceFAZolin 2 gm In Sodium 100 150 50 Chloride 0.9% 50 ml @ 100 mls/hr IVPB Q8HR PRAKASH Rx# :[id number] Intake, IV Titration 55.542 52.197 114.612 Amount Clevidipine Butyrate 25 11.500 32.300 mg In Empty Bag 1 bag @ 1 MG/HR 2 mls/hr IV .Q24H PRAKASH Rx#:[id number] Insulin Regular 100 unit 2.752 19.897 14.612 In Sodium Chloride 0.9% 100 ml @ Per Protocol IV .Q0M PRAKASH Rx#:[id number] Magnesium Sulfate-D5w Pmx 100 1 gm In Dextrose/Water 1 100ml.bag @ 100 mls/hr IVPB Q1H PRAKASH Rx#: [id number] propofoL 1,000 mg In 41.29 Empty Bag 1 bag @ Titrate IV .Q0M PRAKASH Rx#: [id number] Oral 100 240 Output: Chest Tube Drainage 550 520 175 Chest Tube Left Pleural/ 550 520 175 Mediastinal Urine 3025 1240 245 Estimated Blood Loss 1000 Other: Voiding Method Indwelling Catheter Indwelling Catheter Indwelling Catheter ABP, PAP, CO, CI - Last Documented Arterial Blood Pressure 115/52 Pulmonary Artery Pressure 36/15 Cardiac Output 7.1 Cardiac Index 3.5 - Exam GENERAL EXAM: Awake and alert, oriented 3,, 81-year-old white male on 3 L of oxygen pulse ox of 93%, sitting up in the recliner HEAD: Normocephalic/atraumatic. EYES: Normal reaction of pupils, equal size. Conjunctiva pink, sclera white. NOSE: Clear with pink turbinates. THROAT: No erythema or exudates. NECK: No masses, no JVD, no thyroid enlargement, no adenopathy. CHEST: No chest wall deformity. Symmetrical expansion. Midsternal incision is clean dry and intact, 1 mediastinal and left pleural chest tube in place, connected to get the to the Pleur-evac, to wall suction, no evidence of air leak noted, with small amount of sanguinous output in the Pleur-evac LUNGS: Equal air entry with no crackles, wheeze, rhonchi or dullness. CVS: Regular rate and rhythm, normal S1 and S2, no gallops, no murmurs, no rubs ABDOMEN: Soft, nontender. No hepatosplenomegaly, normal bowel sounds, no guarding or rigidity. EXTREMITIES: No clubbing, no edema, no cyanosis, 2+ pulses and upper and lower extremities. MUSCULOSKELETAL: Muscle strength and tone normal. Left leg endovascular vein harvest site covered with a surgical dressing, SCDs are on on bilateral lower extremities, SPINE: No scoliosis or deformity SKIN: No rashes CENTRAL NERVOUS SYSTEM: Awake and alert, oriented 3. No focal deficits, tone is normal in all 4 extremities. - Labs CBC & Chem 7: 03/01/21 03:35 03/01/21 03:35 Labs: Abnormal Lab Results - Last 24 Hours (Table) 02/19/21 02/28/21 02/28/21 Range/Units 14:05 09:21 10:48 WBC (3.8-10.6) k/uL RBC (4.30-5.90) m/uL Hgb (13.0-17.5) gm/dL Hct (39.0-53.0) % RDW (11.5-15.5) % Plt Count (150-450) k/uL Neutrophils # (1.3-7.7) k/uL Lymphocytes # (1.0-4.8) k/uL PT (9.0-12.0) sec INR (<1.2) APTT (22.0-30.0) sec ABG pH (7.35-7.45) ABG pCO2 (35-45) mmHg ABG pO2 260 H 163 H (83-108) mmHg ABG Total CO2 25 H (19-24) mmol/L ABG O2 Saturation 100.0 H 99.7 H (94-97) % ABG Hematocrit (34.0-46.0) % ABG Glucose 110 H 136 H (75-99) mg/dL ABG Lactic Acid 2.2 H* (0.5-1.6) mmol/L Hemoglobin 12.4 L 11.6 L (13.0-17.5) gm/dL Sodium (137-145) mmol/L Chloride (98-107) mmol/L Carbon Dioxide (22-30) mmol/L Creatinine (0.66-1.25) mg/dL Glucose (74-99) mg/dL POC Glucose (mg/dL) (75-99) mg/dL Calcium (8.4-10.2) mg/dL Ionized Calcium [place] (4.5-5.3) mg/dL Alkaline Phosphatase (38-126) U/L Total Protein (6.3-8.2) g/dL Albumin (3.5-5.0) g/dL Arterial Blood Glucose 110 H 136 H (75-99) mg/dL Crossmatch See Detail 02/28/21 02/28/21 02/28/21 Range/Units 11:16 12:34 13:43 WBC (3.8-10.6) k/uL RBC 2.97 L (4.30-5.90) m/uL Hgb 9.6 L D (13.0-17.5) gm/dL Hct 28.1 L (39.0-53.0) % RDW 17.2 H (11.5-15.5) % Plt Count 112 L (150-450) k/uL Neutrophils # 8.0 H (1.3-7.7) k/uL Lymphocytes # (1.0-4.8) k/uL PT (9.0-12.0) sec INR (<1.2) APTT (22.0-30.0) sec ABG pH (7.35-7.45) ABG pCO2 (35-45) mmHg ABG pO2 192 H 208 H (83-108) mmHg ABG Total CO2 (19-24) mmol/L ABG O2 Saturation 99.8 H 100.0 H (94-97) % ABG Hematocrit 28 L (34.0-46.0) % ABG Glucose 129 H 108 H (75-99) mg/dL ABG Lactic Acid 2.6 H* (0.5-1.6) mmol/L Hemoglobin 11.1 L 9.0 L (13.0-17.5) gm/dL Sodium (137-145) mmol/L Chloride (98-107) mmol/L Carbon Dioxide (22-30) mmol/L Creatinine (0.66-1.25) mg/dL Glucose (74-99) mg/dL POC Glucose (mg/dL) (75-99) mg/dL Calcium (8.4-10.2) mg/dL Ionized Calcium [place] (4.5-5.3) mg/dL Alkaline Phosphatase (38-126) U/L Total Protein (6.3-8.2) g/dL Albumin (3.5-5.0) g/dL Arterial Blood Glucose 129 H 108 H (75-99) mg/dL Crossmatch 02/28/21 02/28/21 02/28/21 Range/Units 13:43 13:43 14:09 WBC (3.8-10.6) k/uL RBC (4.30-5.90) m/uL Hgb (13.0-17.5) gm/dL Hct (39.0-53.0) % RDW (11.5-15.5) % Plt Count (150-450) k/uL Neutrophils # (1.3-7.7) k/uL Lymphocytes # (1.0-4.8) k/uL PT 12.7 H (9.0-12.0) sec INR 1.2 H (<1.2) APTT 34.6 H (22.0-30.0) sec ABG pH 7.30 L (7.35-7.45) ABG pCO2 47 H (35-45) mmHg ABG pO2 272 H (83-108) mmHg ABG Total CO2 (19-24) mmol/L ABG O2 Saturation 99.7 H (94-97) % ABG Hematocrit (34.0-46.0) % ABG Glucose (75-99) mg/dL ABG Lactic Acid (0.5-1.6) mmol/L Hemoglobin (13.0-17.5) gm/dL Sodium (137-145) mmol/L Chloride 111 H (98-107) mmol/L Carbon Dioxide 21 L (22-30) mmol/L Creatinine 0.57 L (0.66-1.25) mg/dL Glucose 100 H (74-99) mg/dL POC Glucose (mg/dL) (75-99) mg/dL Calcium 8.2 L (8.4-10.2) mg/dL Ionized Calcium [place] 5.4 H (4.5-5.3) mg/dL Alkaline Phosphatase 34 L (38-126) U/L Total Protein 4.5 L (6.3-8.2) g/dL Albumin 2.7 L (3.5-5.0) g/dL Arterial Blood Glucose (75-99) mg/dL Crossmatch 02/28/21 02/28/21 02/28/21 Range/Units 14:44 16:03 16:53 WBC (3.8-10.6) k/uL RBC (4.30-5.90) m/uL Hgb (13.0-17.5) gm/dL Hct (39.0-53.0) % RDW (11.5-15.5) % Plt Count (150-450) k/uL Neutrophils # (1.3-7.7) k/uL Lymphocytes # (1.0-4.8) k/uL PT (9.0-12.0) sec INR (<1.2) APTT (22.0-30.0) sec ABG pH (7.35-7.45) ABG pCO2 (35-45) mmHg ABG pO2 (83-108) mmHg ABG Total CO2 (19-24) mmol/L ABG O2 Saturation (94-97) % ABG Hematocrit (34.0-46.0) % ABG Glucose (75-99) mg/dL ABG Lactic Acid (0.5-1.6) mmol/L Hemoglobin (13.0-17.5) gm/dL Sodium (137-145) mmol/L Chloride (98-107) mmol/L Carbon Dioxide (22-30) mmol/L Creatinine (0.66-1.25) mg/dL Glucose (74-99) mg/dL POC Glucose (mg/dL) 114 H 140 H 146 H (75-99) mg/dL Calcium (8.4-10.2) mg/dL Ionized Calcium [place] (4.5-5.3) mg/dL Alkaline Phosphatase (38-126) U/L Total Protein (6.3-8.2) g/dL Albumin (3.5-5.0) g/dL Arterial Blood Glucose (75-99) mg/dL Crossmatch 02/28/21 02/28/21 02/28/21 Range/Units 17:03 17:38 17:55 WBC 12.0 H (3.8-10.6) k/uL RBC 3.65 L (4.30-5.90) m/uL Hgb 11.6 L (13.0-17.5) gm/dL Hct 34.1 L (39.0-53.0) % RDW 17.2 H (11.5-15.5) % Plt Count 126 L (150-450) k/uL Neutrophils # 10.3 H (1.3-7.7) k/uL Lymphocytes # (1.0-4.8) k/uL PT (9.0-12.0) sec INR (<1.2) APTT (22.0-30.0) sec ABG pH (7.35-7.45) ABG pCO2 (35-45) mmHg ABG pO2 (83-108) mmHg ABG Total CO2 25 H (19-24) mmol/L ABG O2 Saturation (94-97) % ABG Hematocrit (34.0-46.0) % ABG Glucose (75-99) mg/dL ABG Lactic Acid (0.5-1.6) mmol/L Hemoglobin (13.0-17.5) gm/dL Sodium (137-145) mmol/L Chloride (98-107) mmol/L Carbon Dioxide (22-30) mmol/L Creatinine (0.66-1.25) mg/dL Glucose (74-99) mg/dL POC Glucose (mg/dL) 150 H (75-99) mg/dL Calcium (8.4-10.2) mg/dL Ionized Calcium [place] (4.5-5.3) mg/dL Alkaline Phosphatase (38-126) U/L Total Protein (6.3-8.2) g/dL Albumin (3.5-5.0) g/dL Arterial Blood Glucose (75-99) mg/dL Crossmatch 02/28/21 02/28/21 02/28/21 Range/Units 19:13 19:52 19:53 WBC 11.9 H (3.8-10.6) k/uL RBC 3.69 L (4.30-5.90) m/uL Hgb 11.8 L (13.0-17.5) gm/dL Hct 34.0 L (39.0-53.0) % RDW 17.1 H (11.5-15.5) % Plt Count 117 L (150-450) k/uL Neutrophils # 10.9 H (1.3-7.7) k/uL Lymphocytes # 0.5 L (1.0-4.8) k/uL PT (9.0-12.0) sec INR (<1.2) APTT (22.0-30.0) sec ABG pH (7.35-7.45) ABG pCO2 (35-45) mmHg ABG pO2 (83-108) mmHg ABG Total CO2 (19-24) mmol/L ABG O2 Saturation (94-97) % ABG Hematocrit (34.0-46.0) % ABG Glucose (75-99) mg/dL ABG Lactic Acid (0.5-1.6) mmol/L Hemoglobin (13.0-17.5) gm/dL Sodium (137-145) mmol/L Chloride (98-107) mmol/L Carbon Dioxide (22-30) mmol/L Creatinine (0.66-1.25) mg/dL Glucose (74-99) mg/dL POC Glucose (mg/dL) 129 H 122 H (75-99) mg/dL Calcium (8.4-10.2) mg/dL Ionized Calcium [place] (4.5-5.3) mg/dL Alkaline Phosphatase (38-126) U/L Total Protein (6.3-8.2) g/dL Albumin (3.5-5.0) g/dL Arterial Blood Glucose (75-99) mg/dL Crossmatch 02/28/21 02/28/21 02/28/21 Range/Units 21:12 21:56 23:25 WBC (3.8-10.6) k/uL RBC (4.30-5.90) m/uL Hgb (13.0-17.5) gm/dL Hct (39.0-53.0) % RDW (11.5-15.5) % Plt Count (150-450) k/uL Neutrophils # (1.3-7.7) k/uL Lymphocytes # (1.0-4.8) k/uL PT (9.0-12.0) sec INR (<1.2) APTT (22.0-30.0) sec ABG pH (7.35-7.45) ABG pCO2 (35-45) mmHg ABG pO2 (83-108) mmHg ABG Total CO2 (19-24) mmol/L ABG O2 Saturation (94-97) % ABG Hematocrit (34.0-46.0) % ABG Glucose (75-99) mg/dL ABG Lactic Acid (0.5-1.6) mmol/L Hemoglobin (13.0-17.5) gm/dL Sodium (137-145) mmol/L Chloride (98-107) mmol/L Carbon Dioxide (22-30) mmol/L Creatinine (0.66-1.25) mg/dL Glucose (74-99) mg/dL POC Glucose (mg/dL) 119 H 125 H 143 H (75-99) mg/dL Calcium (8.4-10.2) mg/dL Ionized Calcium [place] (4.5-5.3) mg/dL Alkaline Phosphatase (38-126) U/L Total Protein (6.3-8.2) g/dL Albumin (3.5-5.0) g/dL Arterial Blood Glucose (75-99) mg/dL Crossmatch 03/01/21 03/01/21 03/01/21 Range/Units 01:00 03:03 03:35 WBC 13.2 H (3.8-10.6) k/uL RBC 3.48 L (4.30-5.90) m/uL Hgb 11.1 L (13.0-17.5) gm/dL Hct 32.0 L (39.0-53.0) % RDW 17.2 H (11.5-15.5) % Plt Count 106 L (150-450) k/uL Neutrophils # 11.4 H (1.3-7.7) k/uL Lymphocytes # (1.0-4.8) k/uL PT (9.0-12.0) sec INR (<1.2) APTT (22.0-30.0) sec ABG pH (7.35-7.45) ABG pCO2 (35-45) mmHg ABG pO2 (83-108) mmHg ABG Total CO2 (19-24) mmol/L ABG O2 Saturation (94-97) % ABG Hematocrit (34.0-46.0) % ABG Glucose (75-99) mg/dL ABG Lactic Acid (0.5-1.6) mmol/L Hemoglobin (13.0-17.5) gm/dL Sodium (137-145) mmol/L Chloride (98-107) mmol/L Carbon Dioxide (22-30) mmol/L Creatinine (0.66-1.25) mg/dL Glucose (74-99) mg/dL POC Glucose (mg/dL) 129 H 110 H (75-99) mg/dL Calcium (8.4-10.2) mg/dL Ionized Calcium [place] (4.5-5.3) mg/dL Alkaline Phosphatase (38-126) U/L Total Protein (6.3-8.2) g/dL Albumin (3.5-5.0) g/dL Arterial Blood Glucose (75-99) mg/dL Crossmatch 03/01/21 03/01/21 03/01/21 Range/Units 03:35 05:01 06:11 WBC (3.8-10.6) k/uL RBC (4.30-5.90) m/uL Hgb (13.0-17.5) gm/dL Hct (39.0-53.0) % RDW (11.5-15.5) % Plt Count (150-450) k/uL Neutrophils # (1.3-7.7) k/uL Lymphocytes # (1.0-4.8) k/uL PT (9.0-12.0) sec INR (<1.2) APTT (22.0-30.0) sec ABG pH (7.35-7.45) ABG pCO2 (35-45) mmHg ABG pO2 (83-108) mmHg ABG Total CO2 (19-24) mmol/L ABG O2 Saturation (94-97) % ABG Hematocrit (34.0-46.0) % ABG Glucose (75-99) mg/dL ABG Lactic Acid (0.5-1.6) mmol/L Hemoglobin (13.0-17.5) gm/dL Sodium 133 L (137-145) mmol/L Chloride (98-107) mmol/L Carbon Dioxide (22-30) mmol/L Creatinine 0.61 L (0.66-1.25) mg/dL Glucose 114 H (74-99) mg/dL POC Glucose (mg/dL) 132 H 143 H (75-99) mg/dL Calcium 8.3 L (8.4-10.2) mg/dL Ionized Calcium [place] (4.5-5.3) mg/dL Alkaline Phosphatase (38-126) U/L Total Protein 5.3 L (6.3-8.2) g/dL Albumin 3.3 L (3.5-5.0) g/dL Arterial Blood Glucose (75-99) mg/dL Crossmatch 03/01/21 03/01/21 03/01/21 Range/Units 06:59 08:18 09:04 WBC (3.8-10.6) k/uL RBC (4.30-5.90) m/uL Hgb (13.0-17.5) gm/dL Hct (39.0-53.0) % RDW (11.5-15.5) % Plt Count (150-450) k/uL Neutrophils # (1.3-7.7) k/uL Lymphocytes # (1.0-4.8) k/uL PT (9.0-12.0) sec INR (<1.2) APTT (22.0-30.0) sec ABG pH (7.35-7.45) ABG pCO2 (35-45) mmHg ABG pO2 (83-108) mmHg ABG Total CO2 (19-24) mmol/L ABG O2 Saturation (94-97) % ABG Hematocrit (34.0-46.0) % ABG Glucose (75-99) mg/dL ABG Lactic Acid (0.5-1.6) mmol/L Hemoglobin (13.0-17.5) gm/dL Sodium (137-145) mmol/L Chloride (98-107) mmol/L Carbon Dioxide (22-30) mmol/L Creatinine (0.66-1.25) mg/dL Glucose (74-99) mg/dL POC Glucose (mg/dL) 144 H 163 H 152 H (75-99) mg/dL Calcium (8.4-10.2) mg/dL Ionized Calcium [place] (4.5-5.3) mg/dL Alkaline Phosphatase (38-126) U/L Total Protein (6.3-8.2) g/dL Albumin (3.5-5.0) g/dL Arterial Blood Glucose (75-99) mg/dL Crossmatch 03/01/21 03/01/21 03/01/21 Range/Units 10:09 10:57 12:28 WBC (3.8-10.6) k/uL RBC (4.30-5.90) m/uL Hgb (13.0-17.5) gm/dL Hct (39.0-53.0) % RDW (11.5-15.5) % Plt Count (150-450) k/uL Neutrophils # (1.3-7.7) k/uL Lymphocytes # (1.0-4.8) k/uL PT (9.0-12.0) sec INR (<1.2) APTT (22.0-30.0) sec ABG pH (7.35-7.45) ABG pCO2 (35-45) mmHg ABG pO2 (83-108) mmHg ABG Total CO2 (19-24) mmol/L ABG O2 Saturation (94-97) % ABG Hematocrit (34.0-46.0) % ABG Glucose (75-99) mg/dL ABG Lactic Acid (0.5-1.6) mmol/L Hemoglobin (13.0-17.5) gm/dL Sodium (137-145) mmol/L Chloride (98-107) mmol/L Carbon Dioxide (22-30) mmol/L Creatinine (0.66-1.25) mg/dL Glucose (74-99) mg/dL POC Glucose (mg/dL) 160 H 139 H 188 H (75-99) mg/dL Calcium (8.4-10.2) mg/dL Ionized Calcium [place] (4.5-5.3) mg/dL Alkaline Phosphatase (38-126) U/L Total Protein (6.3-8.2) g/dL Albumin (3.5-5.0) g/dL Arterial Blood Glucose (75-99) mg/dL Crossmatch Assessment and Plan Plan: Assessment: #1. Multivessel coronary artery disease, with an abnormal outpatient stress test, post previous myocardial infarction, and previous PCI, status post off- pump three-vessel artery artery bypass grafting with HOYT to the LAD, SVG to the PDA, and SCDs to the OM, endoscopic vein harvest from the left lower extremity, and left atrial appendage exclusion, postoperative day #0 on 02/28/2021. Postop day #1 #2. Routine postoperative ventilator management, patient was successfully weaned and extubated on postoperative day #0, within 4 hours of OR exit time #3. Prior history of right lung biopsy for a fungal infection in 2009 #4. Former smoker #5. Prior history of TIA #6. Osteoarthritis, with prior history of bilateral knee replacements Plan: Patient is doing well Hemodynamically stable Continue encouraging deep breathing and coughing and insulin spirometry use This chest x-ray has been reviewed Labs have been reviewed No acute events overnight Tolerating extubation well so far Continue nebulized bronchodilators 4 times a day Encourage ambulation Chest tubes will remain in place We'll continue to monitor output, Continue glucose monitoring Daily chest x-rays and labs I performed a history & physical examination of the patient and discussed their management with my nurse practitioner, Pily Reilly. I reviewed the nurse practitioner's note and agree with the documented findings and plan of care. Lung sounds are positive for clear breath sounds throughout the lung huynh. The findings and the impression was discussed with the patient. I attest to the documentation by the nurse practitioner. Time with Patient: Less than 30
--- NOTE | 2021-03-01 12:55 | P.PN ---
Subjective Progress Note Date: 03/01/21 Principal diagnosis: Coronary artery disease. Past medical history significant for coronary artery disease with myocardial infarction and previous PCI, sick sinus syndrome, recent abnormal stress test, hypertension, hypercholesterolemia, TIA, prior lung biopsy, prior tobacco dependence and family history of coronary artery disease. POD #1 Off-pump CABG 3 with HOYT to LAD, saphenous vein grafts to obtuse marginal and posterior descending coronary arteries, endovascular vein harvest, epi-aortic ultrasonography, ligation of left atrial appendage with 40 mm AtriCure clip. Postoperative acute blood loss anemia, expected post cardiac surgery given hemodilution. The patient was seen in follow-up today 03/01/2021 at his bedside in the intensive care unit. Currently he is sitting up to the bedside chair, is awake, alert and oriented 3 and is in no acute care distress. He was successfully extubated last evening at 6:05 PM, is currently on room air with oxygen saturati on is 94%. He is achieving 1250 mL on his incentive spirometry with much encouragement. He remains hemodynamically stable and is currently on no inotropic or pressor support. Bedside telemetry showing normal sinus rhythm heart rate 77 BPM. Current hemodynamic showing a cardiac output 7.1, cardiac index 3.5, PA pressure 38/17, and CVP 6 mmHg. Mediastinal and left pleural chest tubes remain in place to low continuous wall suction -20 cm H2O. No air leak is present. Draining thin serosanguineous drainage with 350 mL output in the last 8 hours and 950 mL output since surgery. Objective - Vital Signs Vital signs: Vital Signs Temp 99.0 F 03/01/21 08:00 Pulse 72 03/01/21 08:17 Resp 12 03/01/21 08:00 BP 95/59 03/01/21 08:00 Pulse Ox 94 L 03/01/21 08:00 Intake & Output 02/28/21 03/01/21 03/01/21 18:59 06:59 18:59 Intake Total 157.599 6254.197 335.535 Output Total 4575 1760 90 Balance -3891.458 -439.803 245.535 Weight 86.5 kg Intake: IV 628 1168 92 .9 NS pressure bag 45 108 12 .9NS CO/CI 180 60 ACETAMINOPHEN IV (For NPO 100 ) 1,000 mg In Empty Bag 1 bag @ 400 mls/hr IVPB Q6HR PRAKASH Rx#:[id number] Albumin Human 5% 250 ml 250 In Empty Bag 1 bag @ 250 mls/hr IVPB Q1HR PRN Rx#: [id number] Lactated Ringers 1,000 ml 200 500 80 @ 50 mls/hr IV .Q20H PRAKASH Rx#:[id number] ceFAZolin 2 gm In Sodium 100 150 Chloride 0.9% 50 ml @ 100 mls/hr IVPB Q8HR PRAKASH Rx# :[id number] Intake, IV Titration 55.542 52.197 3.535 Amount Clevidipine Butyrate 25 11.500 32.300 mg In Empty Bag 1 bag @ 1 MG/HR 2 mls/hr IV .Q24H PRAKASH Rx#:[id number] Insulin Regular 100 unit 2.752 19.897 3.535 In Sodium Chloride 0.9% 100 ml @ Per Protocol IV .Q0M PRAKASH Rx#:[id number] propofoL 1,000 mg In 41.29 Empty Bag 1 bag @ Titrate IV .Q0M PRAKASH Rx#: [id number] Oral 100 240 Output: Chest Tube Drainage 550 520 50 Chest Tube Left Pleural/ 550 520 50 Mediastinal Urine 3025 1240 40 Estimated Blood Loss 1000 Other: Voiding Method Indwelling Catheter Indwelling Catheter ABP, PAP, CO, CI - Last Documented Arterial Blood Pressure 120/52 Pulmonary Artery Pressure 36/15 Cardiac Output 7.1 Cardiac Index 3.5 - Exam CONSTITUTIONAL: Sitting up to the bedside chair in the intensive care unit, appears comfortable, cooperative, no apparent acute distress. HEENT: Neck is supple, no JVD, no lymphadenopathy. Right IJ Cordis and Felda- Adele catheter in place and functioning. RESPIRATORY: Lungs sounds essentially clear throughout, diminished to his bilateral bases with few scattered crackles to his right lower lobe. Respirations are symmetrical and nonlabored. Currently on room air with oxygen saturation is 94%. Able to achieve 1250 mL on his incentive spirometry. Strong cough. CARDIOVASCULAR: Regular rhythm and rate. S1 and S2 present, negative for S3, gallop or murmur. Sternum is stable. Palpable peripheral pulses bilaterally, no edema present. No calf pain or tenderness noted. Heart hugger in place with patient demonstrating appropriate use. Knee-high DAVID hose and sequential compression devices in place to his bilateral lower extremities. Bedside teleme try showing normal sinus rhythm heart rate 77 BPM. GASTROINTESTINAL: Abdomen soft, nontender, nondistended. Hypoactive bowel sounds present 4 quadrants. Tolerating diet. Passing flatus. No guarding or rigidity. GENITOURINARY: Schofield present draining clear, yellow urine. Output 565 mL in the last 8 hours INTEGUMENTARY: Skin is warm and dry with no evidence of clubbing or cyanosis. Midline sternal incision clean dry and well approximated, covered with dry intact dressing. Left lower extremity EVH sites well approximated without redness or drainage. NEUROLOGIC: Cranial nerves II through XII intact. No focal deficits. MUSKULOSKELETAL: Able to move all extremities, strength equal bilaterally, generalized weakness. PSYCHIATRIC: Alert and oriented to person place and time, appropriate affect, intact judgment and insight. INVASIVE LINES AND TUBES: Mediastinal/left pleural chest tubes present and connected to low continuous wall suction, no air leaks present. Chest tubes with 350 mL of thin serosanguineous drainage overnight, 950 mL output since surgery. Right internal jugular Felda/Cordis, right radial arterial line present. Last CO 7.1, CI 3.5 , PA 38/17 and CVP 6 mmHg. - Allied health notes Allied health notes reviewed: nursing - Labs CBC & Chem 7: 03/01/21 03:35 03/01/21 03:35 Labs: Abnormal Lab Results - Last 24 Hours (Table) 02/19/21 02/28/21 02/28/21 Range/Units 14:05 09:21 10:48 WBC (3.8-10.6) k/uL RBC (4.30-5.90) m/uL Hgb (13.0-17.5) gm/dL Hct (39.0-53.0) % RDW (11.5-15.5) % Plt Count (150-450) k/uL Neutrophils # (1.3-7.7) k/uL Lymphocytes # (1.0-4.8) k/uL PT (9.0-12.0) sec INR (<1.2) APTT (22.0-30.0) sec ABG pH (7.35-7.45) ABG pCO2 (35-45) mmHg ABG pO2 260 H 163 H (83-108) mmHg ABG Total CO2 25 H (19-24) mmol/L ABG O2 Saturation 100.0 H 99.7 H (94-97) % ABG Hematocrit (34.0-46.0) % ABG Glucose 110 H 136 H (75-99) mg/dL ABG Lactic Acid 2.2 H* (0.5-1.6) mmol/L Hemoglobin 12.4 L 11.6 L (13.0-17.5) gm/dL Sodium (137-145) mmol/L Chloride (98-107) mmol/L Carbon Dioxide (22-30) mmol/L Creatinine (0.66-1.25) mg/dL Glucose (74-99) mg/dL POC Glucose (mg/dL) (75-99) mg/dL Calcium (8.4-10.2) mg/dL Ionized Calcium [place] (4.5-5.3) mg/dL Alkaline Phosphatase (38-126) U/L Total Protein (6.3-8.2) g/dL Albumin (3.5-5.0) g/dL Arterial Blood Glucose 110 H 136 H (75-99) mg/dL Crossmatch See Detail 02/28/21 02/28/21 02/28/21 Range/Units 11:16 12:34 13:43 WBC (3.8-10.6) k/uL RBC 2.97 L (4.30-5.90) m/uL Hgb 9.6 L D (13.0-17.5) gm/dL Hct 28.1 L (39.0-53.0) % RDW 17.2 H (11.5-15.5) % Plt Count 112 L (150-450) k/uL Neutrophils # 8.0 H (1.3-7.7) k/uL Lymphocytes # (1.0-4.8) k/uL PT (9.0-12.0) sec INR (<1.2) APTT (22.0-30.0) sec ABG pH (7.35-7.45) ABG pCO2 (35-45) mmHg ABG pO2 192 H 208 H (83-108) mmHg ABG Total CO2 (19-24) mmol/L ABG O2 Saturation 99.8 H 100.0 H (94-97) % ABG Hematocrit 28 L (34.0-46.0) % ABG Glucose 129 H 108 H (75-99) mg/dL ABG Lactic Acid 2.6 H* (0.5-1.6) mmol/L Hemoglobin 11.1 L 9.0 L (13.0-17.5) gm/dL Sodium (137-145) mmol/L Chloride (98-107) mmol/L Carbon Dioxide (22-30) mmol/L Creatinine (0.66-1.25) mg/dL Glucose (74-99) mg/dL POC Glucose (mg/dL) (75-99) mg/dL Calcium (8.4-10.2) mg/dL Ionized Calcium [place] (4.5-5.3) mg/dL Alkaline Phosphatase (38-126) U/L Total Protein (6.3-8.2) g/dL Albumin (3.5-5.0) g/dL Arterial Blood Glucose 129 H 108 H (75-99) mg/dL Crossmatch 02/28/21 02/28/21 02/28/21 Range/Units 13:43 13:43 14:09 WBC (3.8-10.6) k/uL RBC (4.30-5.90) m/uL Hgb (13.0-17.5) gm/dL Hct (39.0-53.0) % RDW (11.5-15.5) % Plt Count (150-450) k/uL Neutrophils # (1.3-7.7) k/uL Lymphocytes # (1.0-4.8) k/uL PT 12.7 H (9.0-12.0) sec INR 1.2 H (<1.2) APTT 34.6 H (22.0-30.0) sec ABG pH 7.30 L (7.35-7.45) ABG pCO2 47 H (35-45) mmHg ABG pO2 272 H (83-108) mmHg ABG Total CO2 (19-24) mmol/L ABG O2 Saturation 99.7 H (94-97) % ABG Hematocrit (34.0-46.0) % ABG Glucose (75-99) mg/dL ABG Lactic Acid (0.5-1.6) mmol/L Hemoglobin (13.0-17.5) gm/dL Sodium (137-145) mmol/L Chloride 111 H (98-107) mmol/L Carbon Dioxide 21 L (22-30) mmol/L Creatinine 0.57 L (0.66-1.25) mg/dL Glucose 100 H (74-99) mg/dL POC Glucose (mg/dL) (75-99) mg/dL Calcium 8.2 L (8.4-10.2) mg/dL Ionized Calcium [place] 5.4 H (4.5-5.3) mg/dL Alkaline Phosphatase 34 L (38-126) U/L Total Protein 4.5 L (6.3-8.2) g/dL Albumin 2.7 L (3.5-5.0) g/dL Arterial Blood Glucose (75-99) mg/dL Crossmatch 02/28/21 02/28/21 02/28/21 Range/Units 14:44 16:03 16:53 WBC (3.8-10.6) k/uL RBC (4.30-5.90) m/uL Hgb (13.0-17.5) gm/dL Hct (39.0-53.0) % RDW (11.5-15.5) % Plt Count (150-450) k/uL Neutrophils # (1.3-7.7) k/uL Lymphocytes # (1.0-4.8) k/uL PT (9.0-12.0) sec INR (<1.2) APTT (22.0-30.0) sec ABG pH (7.35-7.45) ABG pCO2 (35-45) mmHg ABG pO2 (83-108) mmHg ABG Total CO2 (19-24) mmol/L ABG O2 Saturation (94-97) % ABG Hematocrit (34.0-46.0) % ABG Glucose (75-99) mg/dL ABG Lactic Acid (0.5-1.6) mmol/L Hemoglobin (13.0-17.5) gm/dL Sodium (137-145) mmol/L Chloride (98-107) mmol/L Carbon Dioxide (22-30) mmol/L Creatinine (0.66-1.25) mg/dL Glucose (74-99) mg/dL POC Glucose (mg/dL) 114 H 140 H 146 H (75-99) mg/dL Calcium (8.4-10.2) mg/dL Ionized Calcium [place] (4.5-5.3) mg/dL Alkaline Phosphatase (38-126) U/L Total Protein (6.3-8.2) g/dL Albumin (3.5-5.0) g/dL Arterial Blood Glucose (75-99) mg/dL Crossmatch 02/28/21 02/28/21 02/28/21 Range/Units 17:03 17:38 17:55 WBC 12.0 H (3.8-10.6) k/uL RBC 3.65 L (4.30-5.90) m/uL Hgb 11.6 L (13.0-17.5) gm/dL Hct 34.1 L (39.0-53.0) % RDW 17.2 H (11.5-15.5) % Plt Count 126 L (150-450) k/uL Neutrophils # 10.3 H (1.3-7.7) k/uL Lymphocytes # (1.0-4.8) k/uL PT (9.0-12.0) sec INR (<1.2) APTT (22.0-30.0) sec ABG pH (7.35-7.45) ABG pCO2 (35-45) mmHg ABG pO2 (83-108) mmHg ABG Total CO2 25 H (19-24) mmol/L ABG O2 Saturation (94-97) % ABG Hematocrit (34.0-46.0) % ABG Glucose (75-99) mg/dL ABG Lactic Acid (0.5-1.6) mmol/L Hemoglobin (13.0-17.5) gm/dL Sodium (137-145) mmol/L Chloride (98-107) mmol/L Carbon Dioxide (22-30) mmol/L Creatinine (0.66-1.25) mg/dL Glucose (74-99) mg/dL POC Glucose (mg/dL) 150 H (75-99) mg/dL Calcium (8.4-10.2) mg/dL Ionized Calcium [place] (4.5-5.3) mg/dL Alkaline Phosphatase (38-126) U/L Total Protein (6.3-8.2) g/dL Albumin (3.5-5.0) g/dL Arterial Blood Glucose (75-99) mg/dL Crossmatch 02/28/21 02/28/21 02/28/21 Range/Units 19:13 19:52 19:53 WBC 11.9 H (3.8-10.6) k/uL RBC 3.69 L (4.30-5.90) m/uL Hgb 11.8 L (13.0-17.5) gm/dL Hct 34.0 L (39.0-53.0) % RDW 17.1 H (11.5-15.5) % Plt Count 117 L (150-450) k/uL Neutrophils # 10.9 H (1.3-7.7) k/uL Lymphocytes # 0.5 L (1.0-4.8) k/uL PT (9.0-12.0) sec INR (<1.2) APTT (22.0-30.0) sec ABG pH (7.35-7.45) ABG pCO2 (35-45) mmHg ABG pO2 (83-108) mmHg ABG Total CO2 (19-24) mmol/L ABG O2 Saturation (94-97) % ABG Hematocrit (34.0-46.0) % ABG Glucose (75-99) mg/dL ABG Lactic Acid (0.5-1.6) mmol/L Hemoglobin (13.0-17.5) gm/dL Sodium (137-145) mmol/L Chloride (98-107) mmol/L Carbon Dioxide (22-30) mmol/L Creatinine (0.66-1.25) mg/dL Glucose (74-99) mg/dL POC Glucose (mg/dL) 129 H 122 H (75-99) mg/dL Calcium (8.4-10.2) mg/dL Ionized Calcium [place] (4.5-5.3) mg/dL Alkaline Phosphatase (38-126) U/L Total Protein (6.3-8.2) g/dL Albumin (3.5-5.0) g/dL Arterial Blood Glucose (75-99) mg/dL Crossmatch 02/28/21 02/28/21 02/28/21 Range/Units 21:12 21:56 23:25 WBC (3.8-10.6) k/uL RBC (4.30-5.90) m/uL Hgb (13.0-17.5) gm/dL Hct (39.0-53.0) % RDW (11.5-15.5) % Plt Count (150-450) k/uL Neutrophils # (1.3-7.7) k/uL Lymphocytes # (1.0-4.8) k/uL PT (9.0-12.0) sec INR (<1.2) APTT (22.0-30.0) sec ABG pH (7.35-7.45) ABG pCO2 (35-45) mmHg ABG pO2 (83-108) mmHg ABG Total CO2 (19-24) mmol/L ABG O2 Saturation (94-97) % ABG Hematocrit (34.0-46.0) % ABG Glucose (75-99) mg/dL ABG Lactic Acid (0.5-1.6) mmol/L Hemoglobin (13.0-17.5) gm/dL Sodium (137-145) mmol/L Chloride (98-107) mmol/L Carbon Dioxide (22-30) mmol/L Creatinine (0.66-1.25) mg/dL Glucose (74-99) mg/dL POC Glucose (mg/dL) 119 H 125 H 143 H (75-99) mg/dL Calcium (8.4-10.2) mg/dL Ionized Calcium [place] (4.5-5.3) mg/dL Alkaline Phosphatase (38-126) U/L Total Protein (6.3-8.2) g/dL Albumin (3.5-5.0) g/dL Arterial Blood Glucose (75-99) mg/dL Crossmatch 03/01/21 03/01/21 03/01/21 Range/Units 01:00 03:03 03:35 WBC 13.2 H (3.8-10.6) k/uL RBC 3.48 L (4.30-5.90) m/uL Hgb 11.1 L (13.0-17.5) gm/dL Hct 32.0 L (39.0-53.0) % RDW 17.2 H (11.5-15.5) % Plt Count 106 L (150-450) k/uL Neutrophils # 11.4 H (1.3-7.7) k/uL Lymphocytes # (1.0-4.8) k/uL PT (9.0-12.0) sec INR (<1.2) APTT (22.0-30.0) sec ABG pH (7.35-7.45) ABG pCO2 (35-45) mmHg ABG pO2 (83-108) mmHg ABG Total CO2 (19-24) mmol/L ABG O2 Saturation (94-97) % ABG Hematocrit (34.0-46.0) % ABG Glucose (75-99) mg/dL ABG Lactic Acid (0.5-1.6) mmol/L Hemoglobin (13.0-17.5) gm/dL Sodium (137-145) mmol/L Chloride (98-107) mmol/L Carbon Dioxide (22-30) mmol/L Creatinine (0.66-1.25) mg/dL Glucose (74-99) mg/dL POC Glucose (mg/dL) 129 H 110 H (75-99) mg/dL Calcium (8.4-10.2) mg/dL Ionized Calcium [place] (4.5-5.3) mg/dL Alkaline Phosphatase (38-126) U/L Total Protein (6.3-8.2) g/dL Albumin (3.5-5.0) g/dL Arterial Blood Glucose (75-99) mg/dL Crossmatch 03/01/21 03/01/21 03/01/21 Range/Units 03:35 05:01 06:11 WBC (3.8-10.6) k/uL RBC (4.30-5.90) m/uL Hgb (13.0-17.5) gm/dL Hct (39.0-53.0) % RDW (11.5-15.5) % Plt Count (150-450) k/uL Neutrophils # (1.3-7.7) k/uL Lymphocytes # (1.0-4.8) k/uL PT (9.0-12.0) sec INR (<1.2) APTT (22.0-30.0) sec ABG pH (7.35-7.45) ABG pCO2 (35-45) mmHg ABG pO2 (83-108) mmHg ABG Total CO2 (19-24) mmol/L ABG O2 Saturation (94-97) % ABG Hematocrit (34.0-46.0) % ABG Glucose (75-99) mg/dL ABG Lactic Acid (0.5-1.6) mmol/L Hemoglobin (13.0-17.5) gm/dL Sodium 133 L (137-145) mmol/L Chloride (98-107) mmol/L Carbon Dioxide (22-30) mmol/L Creatinine 0.61 L (0.66-1.25) mg/dL Glucose 114 H (74-99) mg/dL POC Glucose (mg/dL) 132 H 143 H (75-99) mg/dL Calcium 8.3 L (8.4-10.2) mg/dL Ionized Calcium [place] (4.5-5.3) mg/dL Alkaline Phosphatase (38-126) U/L Total Protein 5.3 L (6.3-8.2) g/dL Albumin 3.3 L (3.5-5.0) g/dL Arterial Blood Glucose (75-99) mg/dL Crossmatch 03/01/21 Range/Units 06:59 WBC (3.8-10.6) k/uL RBC (4.30-5.90) m/uL Hgb (13.0-17.5) gm/dL Hct (39.0-53.0) % RDW (11.5-15.5) % Plt Count (150-450) k/uL Neutrophils # (1.3-7.7) k/uL Lymphocytes # (1.0-4.8) k/uL PT (9.0-12.0) sec INR (<1.2) APTT (22.0-30.0) sec ABG pH (7.35-7.45) ABG pCO2 (35-45) mmHg ABG pO2 (83-108) mmHg ABG Total CO2 (19-24) mmol/L ABG O2 Saturation (94-97) % ABG Hematocrit (34.0-46.0) % ABG Glucose (75-99) mg/dL ABG Lactic Acid (0.5-1.6) mmol/L Hemoglobin (13.0-17.5) gm/dL Sodium (137-145) mmol/L Chloride (98-107) mmol/L Carbon Dioxide (22-30) mmol/L Creatinine (0.66-1.25) mg/dL Glucose (74-99) mg/dL POC Glucose (mg/dL) 144 H (75-99) mg/dL Calcium (8.4-10.2) mg/dL Ionized Calcium [place] (4.5-5.3) mg/dL Alkaline Phosphatase (38-126) U/L Total Protein (6.3-8.2) g/dL Albumin (3.5-5.0) g/dL Arterial Blood Glucose (75-99) mg/dL Crossmatch - Imaging and Cardiology Chest x-ray: report reviewed, image reviewed Assessment and Plan Assessment: 1. Coronary artery disease, status post CABG 3 2. History of coronary artery disease with myocardial infarction and previous PCI 3. History of sick sinus syndrome 4. History of hypertension 5. Hypercholesterolemia 6. History of TIA 7. Remote history of lung biopsy, for fungal infection 10-12 years ago 8. Remote history of tobacco dependence, with a preoperative FEV1 81% of predicted value, 2.13 L 9. Family history of coronary artery disease 10. Osteoarthritis with history of previous orthopedic surgeries Plan: 1. Continue aspirin, statin, Plavix, low-dose beta cristian. Will increase metoprolol tartrate carefully, as tolerated as patient did have documented history of sick sinus syndrome. 2. Encourage incentive spirometry use 10 times every hour while awake. Bronchodilators per pulmonology management. 3. Discontinue IV nitroglycerin drip. 4. Increase activity, ambulate as tolerated. PT/OT/cardiac rehab consulted. 5. GI/DVT prophylaxis. 6. Will monitor daily labs and chest x-rays. Electrolyte replacement per protocol. 7. Insulin management per primary care service. The patient is not diabetic, preoperative hemoglobin A1c 5.4%, however he does need tight blood sugar control to promote sternal union and to prevent infection 8. Pain control with current medication regimen. 9. Discontinue Felda. Connect Cordis to continuous CVP monitoring. 10. Continue mediastinal/left chest tubes, Cordis, arterial line for another 24 hours. 11. Continue Schofield catheter for another 24 hours for strict accurate intake and output. Daily weights. 12. More recommendations to follow based on patient's clinical course. Time with Patient: Greater than 30
[2021-03-01 13:16] LABS: Glucose,Whole Blood 181 mg/dL (75-99)
--- NOTE | 2021-03-01 13:47 | P.PN ---
Progress Note - Text Progress Note Date: 03/01/21 - Chief Complaint Coronary bypass Consultation: This is a 81-year-old patient who follows with Dr. Kuhn. Chronic stable medical conditions include hypertension, hyperlipidemia, BPH, osteoarthritis,. Patient undergone triple vessel bypass today. In the ICU. Currently intubated on the ventilator with FiO2 50% and a PEEP of 5. Patient did receive Cell Saver albumin previously. Current drips include nitroglycerin at 5 g, insulin 1.5 mg an hour, Cleviprex. Patient has 2 chest tubes 1 mediastinal and one left pleural. Telemetry shows sinus rhythm. Patient is semi-awake. Schofield catheter. And warming blanket. March 01: ICU: Sitting up in a chair. Chest tubes in place. Nasal cannula. Sinus rhythm. Tolerated clear liquids. Did thousand cc on incentive spirometry. No flatus. Patient did walk in the hallway with support. Review of systems: Was done for constitutional, cardiovascular, GI, pulmonary. relevant finding as above Active Medications Hydrocodone Bitart/Acetaminophen (Hydrocodone/Apap 5-325mg 1 Each Tab) 2 each PO Q4HR PRN PRN Reason: Severe Pain Last Admin: 03/01/21 01:06 Dose: 2 each Documented by: Hydrocodone Bitart/Acetaminophen (Hydrocodone/Apap 5-325mg 1 Each Tab) 1 each PO Q4HR PRN PRN Reason: Moderate Pain Albuterol/Ipratropium (Ipratropium-Albuterol 3 Ml Neb) 3 ml INHALATION RT-Q2H PRN PRN Reason: Shortness Of Breath Or Wheezing Albuterol/Ipratropium (Ipratropium-Albuterol 3 Ml Neb) 3 ml INHALATION RT-QID [facility] Last Admin: 03/01/21 11:46 Dose: Not Given Documented by: Aspirin (Aspirin 325 Mg Tab) 325 mg PO DAILY [facility] Last Admin: 03/01/21 08:33 Dose: 325 mg Documented by: Atorvastatin Calcium (Atorvastatin 40 Mg Tab) 40 mg PO HS [facility] Last Admin: 02/28/21 21:16 Dose: 40 mg Documented by: Benzocaine/Menthol (Benzocaine/Menthol Lozeng 1 Each Lozenge) 1 each MUCOUS MEM Q2H PRN PRN Reason: Sore Throat Bisacodyl (Bisacodyl 10 Mg Supp) 10 mg RECTAL DAILY PRN PRN Reason: Constipation Clopidogrel Bisulfate (Clopidogrel 75 Mg Tab) 75 mg PO DAILY [facility] Last Admin: 03/01/21 08:33 Dose: 75 mg Documented by: Cyanocobalamin (Cyanocobalamin 500 Mcg Tab) 2,500 mcg PO DAILY [facility] Last Admin: 03/01/21 08:33 Dose: 2,500 mcg Documented by: Heparin Sodium (Porcine) (Heparin Sodium,Porcine/Pf 5,000 Unit/0.5 Ml Syringe) 5,000 unit SQ Q8HR [facility] Last Admin: 03/01/21 08:32 Dose: 5,000 unit Documented by: Hydralazine HCl (Hydralazine Hcl 20 Mg/Ml 1 Ml Vial) 10 mg IVP Q1H PRN PRN Reason: Blood Pressure - High Amiodarone HCl 150 mg/ (Dextrose/Water) 103 mls @ 618 mls/hr IV .Q10M PRN; Protocol PRN Reason: A.FIB/FLUTTER Amiodarone HCl 360 mg/ (Dextrose/Water) 207.2 mls @ 34.533 mls/hr IV .Q6H PRN; Protocol PRN Reason: A.FIB/FLUTTER Amiodarone HCl 450 mg/ (Dextrose/Water) 250 mls @ 16.667 mls/hr IV .Q15H PRN; Protocol PRN Reason: A.FIB/FLUTTER Albumin Human 250 ml/ IV (Solution) 250 mls @ 250 mls/hr IVPB Q1HR PRN PRN Reason: For Volume Stop: 03/02/21 13:04 Last Admin: 03/01/21 06:30 Dose: 250 mls/hr Documented by: Lactated Ringer's (Lactated Ringers) 1,000 mls @ 20 mls/hr IV .Q24H [facility] Last Admin: 03/01/21 08:36 Dose: 50 mls/hr Documented by: Calcium Gluconate 2 gm/ Sodium (Chloride) 120 mls @ 100 mls/hr IVPB ONCE PRN PRN Reason: Ionized Calcium less than 4.4 Stop: 03/30/21 13:04 Insulin Human Regular 100 unit (/ Sodium Chloride) 101 mls @ 0 mls/hr IV .Q0M PRAKASH; Protocol Last Titration: 03/01/21 13:15 Dose: 5 units/hr, 5.05 mls/hr Documented by: Ketorolac Tromethamine (Ketorolac 15 Mg/Ml 1 Ml Vial) 15 mg IVP Q6HR [facility] Stop: 03/03/21 16:40 Last Admin: 03/01/21 11:41 Dose: 15 mg Documented by: Magnesium Hydroxide (Magnesium Hydroxide 2,400 Mg/10 Ml Cup) 2,400 mg PO BID PRN PRN Reason: Constipation Metoclopramide HCl (Metoclopramide 5 Mg/Ml 2 Ml Vial) 10 mg IVP Q4H PRN PRN Reason: Nausea And Vomiting Metoprolol Tartrate (Metoprolol Tartrate 12.5 Mg Tab) 12.5 mg PO BID [facility] Last Admin: 03/01/21 08:34 Dose: 12.5 mg Documented by: Miscellaneous Information (Potassium Replacement Protocol 1 Each Misc) 1 each MISCELLANE DAILY PRN; Protocol PRN Reason: Per Protocol Miscellaneous Information (Magnesium Replacement Protocol 1 Each Misc) 1 each MISCELLANE DAILY PRN; Protocol PRN Reason: Per Protocol Miscellaneous Information (Phosphorus Replacement Protoco 1 Each Misc) 1 each MISCELLANE DAILY PRN; Protocol PRN Reason: Per Protocol Multivitamins (Multivitamins, Thera 1 Each Tab) 1 each PO DAILY [facility] Last Admin: 03/01/21 08:33 Dose: 1 each Documented by: Ondansetron HCl (Ondansetron 4 Mg/2 Ml Vial) 4 mg IVP Q6HR PRN PRN Reason: Nausea And Vomiting Last Admin: 03/01/21 06:00 Dose: 4 mg Documented by: Pantoprazole Sodium (Pantoprazole 40 Mg Tablet) 40 mg PO AC-BRKT [facility] Senna/Docusate Sodium (Sennosides-Docusate Sodium 1 Each Tab) 2 each PO HS [facility] Sodium Chloride (Sodium Chloride 0.9% Flush 10 Ml Syringe) 10 ml IV BID [facility] Last Admin: 03/01/21 08:34 Dose: 10 ml Documented by: Past medical history to include: Coronary artery with stent, hypertension, hyperlipidemia, prostate disorder, osteoarthritis Social history: Patient is to be unit and zhang. Stop smoking about 22 years ago. Alcohol occasionally. Family history: Includes myocardial infarction Physical examination: VITAL SIGNS: 98, 78, 16, 115/52, 93% on 3 L GENERAL: Sitting up in a chair, awake. Chest tubes in place EYES: Pupils equal. Conjunctiva normal. HEENT: [External appearance of nose and ears normal, oral cavity normal NECK: JVD unable to assess; masses not palpable. HEART: First and second heart sounds are normal; no edema. LUNGS: Respiratory rate increased; decreased breath sounds. ABDOMEN: Soft, nontender, liver spleen not palpable, no masses palpable. PSYCH: AO - times three. Mood and affect normall. Tired NEUROLOGICAL: Cranial nerves grossly intact; no facial asymmetry, power and sensation grossly intact. INVESTIGATIONS, reviewed in the clinical context: March 01: WBC 13.2 hemoglobin 11.1 platelets 106 potassium 4 creatinine 0.61 WBC 12 hemoglobin 11.6 platelets 126 potassium 4.1 creatinine 0.57 albumin 2.7 LDL 33.2 Previous labs: Hemoglobin 14.2 on February 19 platelets 152 Assessment and plan: -Triple vessel coronary bypass. Patient has 1 mediastinal and one left pleural chest tube. -Triple vessel coronary artery disease -Acute hypoxic respiratory failure , status post ventilator On 3 L nasal cannula today -Essential hypertension Taken off Cleviprex. Lopressor 12.5 twice daily -Hyperlipidemia Lipitor 40 mg daily at bedtime -BPH On supplements -Acute postprocedure blood loss anemia, expected from surgery Follow H&H -Dilutional thrombocytopenia -Hypoalbuminemia, acute phase reactant From surgery Pulmonary clear liquids. Diet being advanced. Activity as tolerated. Incentive spirometry. Other medications to continue. Thank you Dr. Guardado
[2021-03-01 14:05] LABS: Glucose,Whole Blood 127 mg/dL (75-99)
[2021-03-01 15:05] LABS: Glucose,Whole Blood 110 mg/dL (75-99)
--- NOTE | 2021-03-01 15:23 | CDI ---
Documentation Clarification Form Date: 03/01/2021 03:12:04 PM From: Lisa Wing CCS, CCDS Admit Date: 02/28/2021 05:42:00 AM Patient Name: Adriel Gates Visit Number: [id number] Discharge Date: ATTENTION: The Clinical Documentation Specialists (CDI) and [facility] Coding Staff appreciate your assistance in clarifying documentation. Please respond to the clarification below the line at the bottom and electronically sign. The CDI & [facility] Coding staff will review the response and follow-up if needed. Please note: Queries are made part of the Legal Health Record. If you have any questions, please contact the author of this message via ITS. Dr. Yohannes Whitehead: Per the 02/28 Medical Management Consult and the 02/28 Medical Management Progress Note, the following is documented: Acute hypoxic respiratory failure , status post ventilator. On 3 L nasal cannula today. Per the 02/28 Pulmonary/Critical Care Consult and subsequent Progress Note on 03/01: "Routine postoperative ventilator management." and "Routine postoperative ventilator management, patient was successfully weaned and extubated on postoperative day #0, within 4 hours of OR exit." Additional clarification regarding the documented Acute Hypoxic Respiratory Failure is requested. History/Risk Factors per the 02/28 Medical Management Consult: Hypertension, Hyperlipidemia, BPH, OA, CAD with prior Stent, Former smoker. Clinical Indicators: Presented on 02/28 for an elective CABG. Per the Pulmonary/Critical Utility Mechanic, the patient was extubated to 3Lnc within 4 hours of OR exit time. Treatment 02/28: To ICU postoperatively, O2 3Lnc, INH Neb Bronchodilators q4Hrs, Incentive Spirometer, IV Cefazolin, IV Clevidipine, IV Heparin, IV Lactated Ringers, IV MagSulfate Can you please clarify the following diagnosis: [ ] Acute Hypoxic Respiratory Failure Present: [ ] Yes [ ] No [ ] Other, please specify: [ ] Unable to determine (Template Last Revised: September 2020) see progress note MTDD
[2021-03-01 16:15] LABS: Glucose,Whole Blood 110 mg/dL (75-99)
[2021-03-01 17:27] LABS: Glucose,Whole Blood 127 mg/dL (75-99)
[2021-03-01] MEDS: METOPROLOL TARTRATE 12.5 MG TAB PO SCH ×2 (17:37→21:03)
--- NOTE | 2021-03-01 17:42 | P.CRDCN ---
History of Present Illness Consult date: 03/01/21 History of present illness: This is a 81-year-old gentleman with history of coronary artery disease with previous myocardial infarction and PCI who was recently evaluated with by cardiac catheterization because of abnormal stress test and echocardiogram. He was found to have 80% stenosis of the calcified proximal left anterior descending coronary artery, 70% stenosis of the ostium of the circumflex coronary artery and total occlusion of the dominant RCA. Ejection fraction is a 40-45%. He also had mild to moderate aortic regurgitation, mitral regurgitation and moderate tricuspid regurgitation on the echocardiogram. Patient had a HOYT graft to the LAD, vein graft to the PDA and vein graft to the OM branch. Patient is extubated. Patient seemed to be hemodynamically stable. Complaining of chest pain only when he takes a deep breath. No Sigmund arrhythmias noted. Overall patient seemed to be progressing fairly well at this time. Vital signs are stable Review of Systems As per the chart Past Medical History Past Medical History: Coronary Artery Disease (CAD), Chest Pain / Angina, H yperlipidemia, Hypertension, Myocardial Infarction ([place]), Prostate Disorder Additional Past Medical History / Comment(s): states has 3 cardiac stents that are 100% blocked, with collateral bypass; patient denies hypertension although it is listed in his history and he is on antihypertensives Last Myocardial Infarction Date:: 1996 History of Any Multi-Drug Resistant Organisms: None Reported Past Surgical History: Heart Catheterization, Heart Catheterization With Stent, Joint Replacement, Orthopedic Surgery, Tonsillectomy Additional Past Surgical History / Comment(s): bilateral knee replacments, right lung wedge resection, cataracts removed-lens implants, states 3 cardiac stents Past Anesthesia/Blood Transfusion Reactions: No Reported Reaction Date of Last Stent Placement:: 1996 Smoking Status: Former smoker - Past Family History Father Family Medical History: Myocardial Infarction ([place]) Mother Family Medical History: Cancer Additional Family Medical History / Comment(s): colon Medications and Allergies Home Medications Medication Instructions Recorded Confirmed Type Aspirin EC [Ecotrin Low Dose] 81 mg PO DAILY 10/09/17 02/28/21 History Atorvastatin [Lipitor] 40 mg PO HS 10/09/17 02/28/21 History Multivitamin [Men's Multi-Vitamin] 1 tab PO DAILY 10/09/17 02/28/21 History Saw [place] 160 mg PO BID 09/05/18 02/28/21 History Cyanocobalamin (Vitamin B-12) 2,500 mcg PO DAILY 09/22/20 02/28/21 History [Vitamin B-12] Benazepril [Lotensin] 5 mg PO QAM 02/15/21 02/28/21 History Flaxseed Oil 1,000 mg PO DAILY 02/26/21 02/28/21 History Green Tea [place] Extract [Green Tea 150 mg PO DAILY 02/26/21 02/28/21 History Extract] Pumpkin Seed Oil 1 tab PO DAILY 02/26/21 02/28/21 History Super C 1 tab PO DAILY 02/26/21 02/28/21 History Allergies Allergy/AdvReac Type Severity Reaction Status Date / Time No Known Allergies Allergy Verified 02/28/21 07:17 Physical Exam Vitals: Vital Signs Temp Pulse Resp BP Pulse Ox 03/01/21 17:00 86 22 96 03/01/21 16:01 79 03/01/21 16:00 98 F 81 28 H 95 03/01/21 15:48 78 03/01/21 15:00 76 23 93 L 03/01/21 14:00 75 16 94 L 03/01/21 13:00 72 17 94 L 03/01/21 12:00 98 F 78 16 93 L 03/01/21 11:00 79 18 93 L 03/01/21 10:00 75 16 90 L 03/01/21 09:00 74 15 96/44 99 03/01/21 08:30 74 03/01/21 08:17 72 03/01/21 08:00 99.0 F 77 12 94 L 03/01/21 07:00 76 12 95/59 93 L 03/01/21 06:00 85 23 94 L 03/01/21 05:00 79 18 95 03/01/21 04:00 99.1 F 73 20 96 03/01/21 03:00 75 15 96 03/01/21 02:00 78 16 101/58 96 03/01/21 01:00 82 20 93 L 03/01/21 00:00 100.0 F H 86 18 104/62 95 02/28/21 23:45 86 18 94 L 02/28/21 23:30 89 21 92 L 02/28/21 23:15 93 21 93 L 02/28/21 23:00 96 22 91 L 02/28/21 22:45 97 26 H 90 L 02/28/21 22:30 93 20 94 L 02/28/21 22:15 93 20 95 02/28/21 22:00 92 27 H 129/69 90 L 02/28/21 21:45 98 24 93 L 02/28/21 21:30 92 19 94 L 02/28/21 21:15 93 27 H 98 02/28/21 21:00 86 21 129/69 91 L 02/28/21 20:45 87 24 94 L 02/28/21 20:30 88 24 127/74 92 L 02/28/21 20:15 85 18 95 02/28/21 20:00 88 21 93 L 02/28/21 19:45 89 14 93 L 02/28/21 19:30 87 26 H 128/72 94 L 02/28/21 19:15 85 17 94 L 02/28/21 19:00 86 17 95 02/28/21 18:45 89 21 95 02/28/21 18:30 87 27 H 93 L 02/28/21 18:15 97 28 H 92 L 02/28/21 18:00 87 22 97 02/28/21 17:45 84 20 98 Intake and Output 03/01/21 03/01/21 03/01/21 06:59 14:59 22:59 Intake Total 916.800 683.490 80.626 Output Total 915 540 265 Balance 1.800 143.490 -184.374 Intake: IV 872 321 78 .9 NS pressure bag 72 51 18 ACETAMINOPHEN IV (For NPO 100 ) 1,000 mg In Empty Bag 1 bag @ 400 mls/hr IVPB Q6HR [facility] Rx#:[id number] Albumin Human 5% 250 ml 250 In Empty Bag 1 bag @ 250 mls/hr IVPB Q1HR PRN Rx#: [id number] Lactated Ringers 1,000 ml 400 220 60 @ 20 mls/hr IV .Q24H [facility] Rx#:[id number] ceFAZolin 2 gm In Sodium 50 50 Chloride 0.9% 50 ml @ 100 mls/hr IVPB Q8HR [facility] Rx# :[id number] Intake, IV Titration 44.800 122.490 2.626 Amount Clevidipine Butyrate 25 30.500 mg In Empty Bag 1 bag @ 1 MG/HR 2 mls/hr IV .Q24H [facility] Rx#:[id number] Insulin Regular 100 unit 14.300 22.490 2.626 In Sodium Chloride 0.9% 100 ml @ Per Protocol IV .Q0M [facility] Rx#:[id number] Magnesium Sulfate-D5w Pmx 100 1 gm In Dextrose/Water 1 100ml.bag @ 100 mls/hr IVPB Q1H [facility] Rx#: [id number] Oral 240 Output: Chest Tube Drainage 350 195 80 Chest Tube Left Pleural/ 350 195 80 Mediastinal Urine 565 345 185 Other: Voiding Method Indwelling Catheter Indwelling Catheter Indwelling Catheter Weight 86.5 kg 86.5 kg ABP, PAP, CO, CI - Last 8 Hours Arterial Blood Pressure 133/50 Arterial Blood Pressure 124/53 Arterial Blood Pressure 125/45 Arterial Blood Pressure 114/43 Arterial Blood Pressure 108/40 Arterial Blood Pressure 115/52 Arterial Blood Pressure 132/41 Arterial Blood Pressure 136/43 GENERAL EXAM: Patient is alert and oriented and doesn't appear to be in any acute distress HEENT: Normocephalic. Normal reaction of pupils, equal size, normal range of extraocular motion. No erythema or exudates in the throat. NECK: No masses, no nuchal rigidity. CHEST: Postsurgical LUNGS: Rhonchi HEART: S1 and S2 normal ABDOMEN: No hepatosplenomegaly, normal bowel sounds, no guarding or rigidity. SKIN: No rashes CENTRAL NERVOUS SYSTEM: No focal deficits. EXTREMITIES: No cyanosis, clubbing or edema. Results 03/01/21 03:35 03/01/21 03:35 Cardiac Enzymes 03/01/21 Range/Units 03:35 AST 32 (17-59) U/L CBC 02/28/21 03/01/21 Range/Units 19:53 03:35 WBC 11.9 H 13.2 H (3.8-10.6) k/uL RBC 3.69 L 3.48 L (4.30-5.90) m/uL Hgb 11.8 L 11.1 L (13.0-17.5) gm/dL Hct 34.0 L 32.0 L (39.0-53.0) % Plt Count 117 L 106 L (150-450) k/uL Comprehensive Metabolic Panel 03/01/21 Range/Units 03:35 Sodium 133 L (137-145) mmol/L Potassium 4.0 (3.5-5.1) mmol/L Chloride 103 (98-107) mmol/L Carbon Dioxide 22 (22-30) mmol/L BUN 9 (9-20) mg/dL Creatinine 0.61 L (0.66-1.25) mg/dL Glucose 114 H (74-99) mg/dL Calcium 8.3 L (8.4-10.2) mg/dL AST 32 (17-59) U/L ALT 14 (4-49) U/L Alkaline Phosphatase 41 (38-126) U/L Total Protein 5.3 L (6.3-8.2) g/dL Albumin 3.3 L (3.5-5.0) g/dL Current Medications Generic Name Dose Route Start Last Admin Trade Name Freq PRN Reason Stop Dose Admin Hydrocodone Bitart/Acetaminophen 2 each 03/01/21 00:52 03/01/21 01:06 Hydrocodone/Apap 5-325mg 1 Each Tab PO 2 each Q4HR PRN Administration Severe Pain Hydrocodone Bitart/Acetaminophen 1 each 03/01/21 00:52 Hydrocodone/Apap 5-325mg 1 Each Tab PO Q4HR PRN Moderate Pain Albuterol/Ipratropium 3 ml 02/28/21 13:03 Ipratropium-Albuterol 3 Ml Neb INHALATION RT-Q2H PRN Shortness Of Breath Or Wheezing Albuterol/Ipratropium 3 ml 03/01/21 08:00 03/01/21 15:48 Ipratropium-Albuterol 3 Ml Neb INHALATION 3 ml RT-QID PRAKASH Administration Aspirin 325 mg 03/01/21 09:00 03/01/21 08:33 Aspirin 325 Mg Tab PO 325 mg DAILY [facility]ASH Administration Atorvastatin Calcium 40 mg 02/28/21 21:00 02/28/21 21:16 Atorvastatin 40 Mg Tab PO 40 mg HS [facility]ASH Administration Benzocaine/Menthol 1 each 02/28/21 13:03 Benzocaine/Menthol Lozeng 1 Each Lozenge MUCOUS MEM Q2H PRN Sore Throat Bisacodyl 10 mg 03/01/21 09:00 Bisacodyl 10 Mg Supp RECTAL DAILY PRN Constipation Clopidogrel Bisulfate 75 mg 03/01/21 09:00 03/01/21 08:33 Clopidogrel 75 Mg Tab PO 75 mg DAILY [facility] Administration Cyanocobalamin 2,500 mcg 03/01/21 09:00 03/01/21 08:33 Cyanocobalamin 500 Mcg Tab PO 2,500 mcg DAILY [facility] Administration Heparin Sodium (Porcine) 5,000 unit 02/28/21 16:00 03/01/21 15:49 Heparin Sodium,Porcine/Pf 5,000 Unit/0.5 Ml Syringe SQ 5,000 unit Q8HR [facility] Administration Hydralazine HCl 10 mg 02/28/21 13:03 Hydralazine Hcl 20 Mg/Ml 1 Ml Vial IVP Q1H PRN Blood Pressure - High Amiodarone HCl 150 mg/ 103 mls @ 618 mls/hr 02/28/21 13:03 Dextrose/Water IV .Q10M PRN A.FIB/FLUTTER Protocol Amiodarone HCl 360 mg/ 207.2 mls @ 34.533 mls/hr 02/28/21 13:03 Dextrose/Water IV .Q6H PRN A.FIB/FLUTTER Protocol 1 MG/MIN Amiodarone HCl 450 mg/ 250 mls @ 16.667 mls/hr 02/28/21 13:03 Dextrose/Water IV .Q15H PRN A.FIB/FLUTTER Protocol 0.5 MG/MIN Albumin Human 250 ml/ IV 250 mls @ 250 mls/hr 02/28/21 13:03 03/01/21 06:30 Solution IVPB 03/02/21 13:04 250 mls/hr Q1HR PRN Administration For Volume Lactated Ringer's 1,000 mls @ 20 mls/hr 02/28/21 13:03 03/01/21 08:36 Lactated Ringers IV 50 mls/hr .Q24H [facility]ASH Administration Calcium Gluconate 2 gm/ Sodium 120 mls @ 100 mls/hr 02/28/21 13:03 Chloride IVPB 03/30/21 13:04 ONCE PRN Ionized Calcium less than 4.4 Insulin Human Regular 100 unit 101 mls @ 0 mls/hr 02/28/21 13:30 03/01/21 17:14 / Sodium Chloride IV 2.5 units/hr .Q0M [facility]ASH 2.525 mls/hr Titration Protocol Per Protocol Ketorolac Tromethamine 15 mg 02/28/21 18:00 03/01/21 11:41 Ketorolac 15 Mg/Ml 1 Ml Vial IVP 03/03/21 16:40 15 mg Q6HR PRAKASH Administration Magnesium Hydroxide 2,400 mg 03/01/21 09:00 Magnesium Hydroxide 2,400 Mg/10 Ml Cup PO BID PRN Constipation Metoclopramide HCl 10 mg 02/28/21 13:03 Metoclopramide 5 Mg/Ml 2 Ml Vial IVP Q4H PRN Nausea And Vomiting Metoprolol Tartrate 12.5 mg 03/01/21 16:30 Metoprolol Tartrate 12.5 Mg Tab PO TID [facility] Miscellaneous Information 1 each 02/28/21 13:03 Potassium Replacement Protocol 1 Each Misc MISCELLANE DAILY PRN Per Protocol Protocol Miscellaneous Information 1 each 02/28/21 13:03 Magnesium Replacement Protocol 1 Each Misc MISCELLANE DAILY PRN Per Protocol Protocol Miscellaneous Information 1 each 02/28/21 13:03 Phosphorus Replacement Protoco 1 Each Misc MISCELLANE DAILY PRN Per Protocol Protocol Multivitamins 1 each 03/01/21 09:00 03/01/21 08:33 Multivitamins, Thera 1 Each Tab PO 1 each DAILY [facility] Administration Ondansetron HCl 4 mg 02/28/21 13:03 03/01/21 06:00 Ondansetron 4 Mg/2 Ml Vial IVP 4 mg Q6HR PRN Administration Nausea And Vomiting Pantoprazole Sodium 40 mg 03/02/21 07:30 Pantoprazole 40 Mg Tablet PO AC-BRKFST [facility] Senna/Docusate Sodium 2 each 03/01/21 21:00 Sennosides-Docusate Sodium 1 Each Tab PO HS [facility]ASH Sodium Chloride 10 ml 02/28/21 21:00 03/01/21 08:34 Sodium Chloride 0.9% Flush 10 Ml Syringe IV 10 ml BID [facility]AKASH Administration Intake and Output 03/01/21 03/01/21 03/01/21 06:59 14:59 22:59 Intake Total 916.800 683.490 80.626 Output Total 915 540 265 Balance 1.800 143.490 -184.374 Intake: IV 872 321 78 .9 NS pressure bag 72 51 18 ACETAMINOPHEN IV (For NPO 100 ) 1,000 mg In Empty Bag 1 bag @ 400 mls/hr IVPB Q6HR [facility] Rx#:[id number] Albumin Human 5% 250 ml 250 In Empty Bag 1 bag @ 250 mls/hr IVPB Q1HR PRN Rx#: [id number] Lactated Ringers 1,000 ml 400 220 60 @ 20 mls/hr IV .Q24H [facility] Rx#:[id number] ceFAZolin 2 gm In Sodium 50 50 Chloride 0.9% 50 ml @ 100 mls/hr IVPB Q8HR [facility] Rx# :[id number] Intake, IV Titration 44.800 122.490 2.626 Amount Clevidipine Butyrate 25 30.500 mg In Empty Bag 1 bag @ 1 MG/HR 2 mls/hr IV .Q24H [facility] Rx#:[id number] Insulin Regular 100 unit 14.300 22.490 2.626 In Sodium Chloride 0.9% 100 ml @ Per Protocol IV .Q0M [facility] Rx#:[id number] Magnesium Sulfate-D5w Pmx 100 1 gm In Dextrose/Water 1 100ml.bag @ 100 mls/hr IVPB Q1H [facility] Rx#: [id number] Oral 240 Output: Chest Tube Drainage 350 195 80 Chest Tube Left Pleural/ 350 195 80 Mediastinal Urine 565 345 185 Other: Voiding Method Indwelling Catheter Indwelling Catheter Indwelling Catheter Weight 86.5 kg 86.5 kg Patient Weight 03/02/21 06:59 Weight 86.5 kg 03/01/21 03:35 03/01/21 03:35 Assessment and Plan (1) Status post aorto-coronary artery bypass graft Current Visit: Yes Status: Acute Code(s): Z95.1 - PRESENCE OF AORTOCORONARY BYPASS GRAFT SNOMED Code(s): 581982709 (2) History of TIA (transient ischemic attack) Current Visit: Yes Status: Acute Code(s): Z86.73 - PRSNL HX OF TIA (TIA), AND CEREB INFRC W/O RESID DEFICITS SNOMED Code(s): 229374374 (3) Hyperlipidemia Current Visit: No Status: Acute Code(s): E78.5 - HYPERLIPIDEMIA, UNSPECIFIED SNOMED Code(s): 17040966 (4) Hypertension Current Visit: No Status: Acute Code(s): I10 - ESSENTIAL (PRIMARY) HYPE RTENSION SNOMED Code(s): 65945632 Plan: Patient's to make clinically stable and making good progress. No arrhythmias noted. Continue current medical therapy. We will follow
[2021-03-01 17:55] LABS: Glucose,Whole Blood 142 mg/dL (75-99)
[2021-03-01 19:04] LABS: Glucose,Whole Blood 227 mg/dL (75-99)
[2021-03-01 20:44] LABS: Glucose,Whole Blood 167 mg/dL (75-99)
[2021-03-01] MEDS: ATORVASTATIN 40 MG TAB PO SCH (21:03)
[2021-03-01] MEDS: SENNOSIDES-DOCUSATE SODIUM 1 EACH TAB PO SCH (21:03)
[2021-03-01 22:37] LABS: Glucose,Whole Blood 97 mg/dL (75-99)
[2021-03-02 00:19] LABS: Glucose,Whole Blood 127 mg/dL (75-99)
[2021-03-02] MEDS: HEPARIN SODIUM,PORCINE/PF 5,000 UNIT/0.5 ML SYRINGE SQ SCH ×4 (00:21→23:24)
[2021-03-02] MEDS: KETOROLAC 15 MG/ML 1 ML VIAL IVP SCH ×5 (00:21→23:23)
[2021-03-02 02:01] LABS: Glucose,Whole Blood 122 mg/dL (75-99)
[2021-03-02 03:22] LABS: Glucose,Whole Blood 122 mg/dL (75-99)
[2021-03-02 04:17] LABS: Glucose,Whole Blood 126 mg/dL (75-99)
[2021-03-02 04:36] LABS: Anisocytosis Slight; Basophils % (A) 0 %; Eosinophils # (A) 0.1 k/uL (0-0.7); Eosinophils % (A) 0 %; HCT 29.6 % (39.0-53.0); HGB 10.1 gm/dL (13.0-17.5); Lymphocytes # (A) 1.4 k/uL (1.0-4.8); Lymphocytes % (A) 11 %; MCH 31.9 pg (25.0-35.0); MCHC 34.1 g/dL (31.0-37.0); MCV 93.8 fL (80.0-100.0); Monocytes # (A) 0.6 k/uL (0-1.0); Monocytes % (A) 5 %; Neutrophils # (A) 10.7 k/uL (1.3-7.7); Neutrophils % (A) 82 %; Platelet Count 111 k/uL (150-450); RBC 3.15 m/uL (4.30-5.90); RDW 17.2 % (11.5-15.5)
[2021-03-02 04:55] LABS: Albumin 2.9 g/dL (3.5-5.0); Calcium 8.3 mg/dL (8.4-10.2); Magnesium 2.4 mg/dL (1.6-2.3); Total Bilirubin 0.9 mg/dL (0.2-1.3)
[2021-03-02 06:04] LABS: Glucose,Whole Blood 133 mg/dL (75-99)
[2021-03-02] MEDS: IPRATROPIUM-ALBUTEROL 3 ML NEB INHALATION SCH ×4 (07:04→20:05)
[2021-03-02] MEDS ORDERED: FUROSEMIDE 10 MG/ML 2 ML VIAL IV STA (07:21)
[2021-03-02] MEDS: PANTOPRAZOLE 40 MG TABLET PO SCH (07:23)
[2021-03-02] MEDS: METOPROLOL TARTRATE 25 MG TAB PO SCH ×2 (07:23→22:03)
[2021-03-02 07:48] LABS: Glucose,Whole Blood 142 mg/dL (75-99)
[2021-03-02] MEDS: LACTATED RINGERS 1,000 ML IV SCH (08:28)
[2021-03-02] MEDS: ASPIRIN 325 MG TAB PO SCH (08:29)
[2021-03-02] MEDS: CYANOCOBALAMIN 500 MCG TAB PO SCH (08:29)
[2021-03-02] MEDS: CLOPIDOGREL 75 MG TAB PO SCH (08:29)
[2021-03-02] MEDS: MULTIVITAMINS, THERA 1 EACH TAB PO SCH (08:30)
--- NOTE | 2021-03-02 08:44 | XR ---
EXAMINATION TYPE: XR chest 1V portable DATE OF EXAM: 03/02/2021 Comparison: 03/01/2021 Clinical History: 81-year-old male Post Operative Cardiac Surgery Findings: Median sternotomy wires are present. Mediastinal drain. Left-sided chest tube. No appreciable pneumot horax. Right IJ sheath remains in place with removal of the [place] catheter. Heart borderline in s ize. Mild interstitial opacity. Stable line at the medial right base. Patchy left basilar opacity rem ains. Slight improving aeration at the right base. Impression: Similar interstitial density, possible pulmonary vascular congestion. Left basilar atelectasis and/or consolidation remains. Prior surgical change and some improving aeration at the right base.
[2021-03-02] MEDS ORDERED: DEXTROSE 5% IN WATER 100 ML with AMIODARONE 150 MG IV ONE (09:00)
[2021-03-02 09:07] LABS: Glucose,Whole Blood 160 mg/dL (75-99)
--- NOTE | 2021-03-02 10:22 | P.PN ---
Subjective Progress Note Date: 03/02/21 Principal diagnosis: Coronary artery disease. Past medical history significant for coronary artery disease with myocardial infarction and previous PCI, sick sinus syndrome, recent abnormal stress test, hypertension, hypercholesterolemia, TIA, prior lung biopsy, prior tobacco dependence and family history of coronary artery disease. POD #2 Off-pump CABG 3 with HOYT to LAD, saphenous vein grafts to obtuse marginal and posterior descending coronary arteries, endovascular vein harvest, epi-aortic ultrasonography, ligation of left atrial appendage with 40 mm AtriCure clip. Postoperative acute blood loss anemia, expected post cardiac surgery given hemodilution. Postoperative paroxysmal atrial fibrillation, a known common occurrence after cardiac surgery. The patient was seen in follow-up today 03/02/2021 at his bedside in the intensive care unit. Currently he is sitting up to the bedside chair, is awake, alert and oriented 3 and is in no acute care distress. He denies any complaints of pain or shortness of breath at this time. His bedside telemetry showing atrial fibrillation with heart rate 114 BPM. Amiodarone per protocol was initiated and infusing at 1 mg/m. Oxygen saturation are 94% on 2 L nasal cannula and he is achieving 1000 mL on his incentive spirometry. Mediastinal and left pleural chest tubes remain in place to low continuous wall suction -20 cm H2O. No air leak is present. Draining thin serosanguineous drainage, with 230 mL output in the last 8 hours and 620 mL output in the last 24 hours. He has been up ambulating in the intensive care unit hallway with standby assistance from nursing and therapy staff. Schofield catheter remains in place for accurate I&O with 460 mL output in the last 8 hours. He remains hemodynamically stable and is currently on no inotropic or pressor support. Objective - Vital Signs Vital signs: Vital Signs Temp 98.9 F 03/02/21 08:00 Pulse 120 H 03/02/21 08:00 Resp 19 03/02/21 08:00 BP 96/61 03/02/21 08:00 Pulse Ox 96 03/02/21 08:00 Intake & Output 03/01/21 03/02/21 03/02/21 18:59 06:59 18:59 Intake Total 791.757 309.140 52.801 Output Total 865 900 130 Balance -73.243 -590.860 -77.199 Weight 86.5 kg 90 kg Intake: IV 425 279 46 .9 NS pressure bag 75 39 6 Lactated Ringers 1,000 ml 300 240 40 @ 20 mls/hr IV .Q24H PRAKASH Rx#:[id number] ceFAZolin 2 gm In Sodium 50 Chloride 0.9% 50 ml @ 100 mls/hr IVPB Q8HR PRAKASH Rx# :[id number] Intake, IV Titration 126.757 30.140 6.801 Amount Insulin Regular 100 unit 26.757 30.140 6.801 In Sodium Chloride 0.9% 100 ml @ Per Protocol IV .Q0M PRAKASH Rx#:[id number] Magnesium Sulfate-D5w Pmx 100 1 gm In Dextrose/Water 1 100ml.bag @ 100 mls/hr IVPB Q1H PRAKASH Rx#: [id number] Oral 240 Output: Chest Tube Drainage 305 270 50 Chest Tube Left Pleural/ 305 270 50 Mediastinal Urine 560 630 80 Other: Voiding Method Indwelling Catheter Indwelling Catheter ABP, PAP, CO, CI - Last Documented Arterial Blood Pressure 133/50 Pulmonary Artery Pressure 36/15 Cardiac Output 7.1 Cardiac Index 3.5 - Exam CONSTITUTIONAL: Sitting up to the bedside chair in the intensive care unit, appears comfortable, cooperative, no apparent acute distress. HEENT: Neck is supple, no JVD, no lymphadenopathy. Right IJ Cordis in place and functioning. RESPIRATORY: Lungs sounds essentially clear throughout, diminished to his bilateral bases. Respirations are symmetrical and nonlabored. Currently on 2 L nasal cannula with oxygen saturation is 94%. Able to achieve 1000 mL on his incentive spirometry. Strong cough. CARDIOVASCULAR: Irregular rhythm and tachycardic rate. S1 and S2 present, negative for S3, gallop or murmur. Sternum is stable. Palpable peripheral pulses bilaterally, no edema present. No calf pain or tenderness noted. Heart hugger in place with patient demonstrating appropriate use. Knee-high DAVID hose and sequential compression devices in place to his bilateral lower extremities. Bedside telemetry showing atrial fibrillation with heart rate 114 BPM. GASTROINTESTINAL: Abdomen soft, nontender, nondistended. Active bowel sounds present 4 quadrants. Tolerating diet. Passing flatus. No guarding or rigidity. GENITOURINARY: Schofield present draining clear, yellow urine. Output 460 mL in the last 8 hours INTEGUMENTARY: Skin is warm and dry with no evidence of clubbing or cyanosis. Midline sternal incision clean dry and well approximated, covered with dry intact dressing. Left lower extremity EVH sites well approximated without redness or drainage. NEUROLOGIC: Cranial nerves II through XII intact. No focal deficits. MUSKULOSKELETAL: Able to move all extremities, strength equal bilaterally. PSYCHIATRIC: Alert and oriented to person place and time, appropriate affect, intact judgment and insight. INVASIVE LINES AND TUBES: Mediastinal/left pleural chest tubes present and connected to low continuous wall suction, no air leaks present. Chest tubes with 230 mL of thin serosanguineous drainage overnight, 620 mL output since surgery. Right internal jugular Cordis present. Last CVP 11mmHg. - Allied health notes Allied health notes reviewed: nursing - Labs CBC & Chem 7: 03/02/21 04:18 03/02/21 04:18 Labs: Abnormal Lab Results - Last 24 Hours (Table) 03/01/21 03/01/21 03/01/21 Range/Units 09:04 10:09 10:57 WBC (3.8-10.6) k/uL RBC (4.30-5.90) m/uL Hgb (13.0-17.5) gm/dL Hct (39.0-53.0) % RDW (11.5-15.5) % Plt Count (150-450) k/uL Neutrophils # (1.3-7.7) k/uL Sodium (137-145) mmol/L Glucose (74-99) mg/dL POC Glucose (mg/dL) 152 H 160 H 139 H (75-99) mg/dL Calcium (8.4-10.2) mg/dL Magnesium (1.6-2.3) mg/dL Total Protein (6.3-8.2) g/dL Albumin (3.5-5.0) g/dL 03/01/21 03/01/21 03/01/21 Range/Units 12:28 13:14 14:05 WBC (3.8-10.6) k/uL RBC (4.30-5.90) m/uL Hgb (13.0-17.5) gm/dL Hct (39.0-53.0) % RDW (11.5-15.5) % Plt Count (150-450) k/uL Neutrophils # (1.3-7.7) k/uL Sodium (137-145) mmol/L Glucose (74-99) mg/dL POC Glucose (mg/dL) 188 H 181 H 127 H (75-99) mg/dL Calcium (8.4-10.2) mg/dL Magnesium (1.6-2.3) mg/dL Total Protein (6.3-8.2) g/dL Albumin (3.5-5.0) g/dL 03/01/21 03/01/21 03/01/21 Range/Units 15:02 15:57 17:13 WBC (3.8-10.6) k/uL RBC (4.30-5.90) m/uL Hgb (13.0-17.5) gm/dL Hct (39.0-53.0) % RDW (11.5-15.5) % Plt Count (150-450) k/uL Neutrophils # (1.3-7.7) k/uL Sodium (137-145) mmol/L Glucose (74-99) mg/dL POC Glucose (mg/dL) 110 H 110 H 127 H (75-99) mg/dL Calcium (8.4-10.2) mg/dL Magnesium (1.6-2.3) mg/dL Total Protein (6.3-8.2) g/dL Albumin (3.5-5.0) g/dL 03/01/21 03/01/21 03/01/21 Range/Units 17:52 18:57 20:43 WBC (3.8-10.6) k/uL RBC (4.30-5.90) m/uL Hgb (13.0-17.5) gm/dL Hct (39.0-53.0) % RDW (11.5-15.5) % Plt Count (150-450) k/uL Neutrophils # (1.3-7.7) k/uL Sodium (137-145) mmol/L Glucose (74-99) mg/dL POC Glucose (mg/dL) 142 H 227 H 167 H (75-99) mg/dL Calcium (8.4-10.2) mg/dL Magnesium (1.6-2.3) mg/dL Total Protein (6.3-8.2) g/dL Albumin (3.5-5.0) g/dL 08/06/21 08/06/21 08/06/21 Range/Units 00:17 01:59 03:20 WBC (3.8-10.6) k/uL RBC (4.30-5.90) m/uL Hgb (13.0-17.5) gm/dL Hct (39.0-53.0) % RDW (11.5-15.5) % Plt Count (150-450) k/uL Neutrophils # (1.3-7.7) k/uL Sodium (137-145) mmol/L Glucose (74-99) mg/dL POC Glucose (mg/dL) 127 H 122 H 122 H (75-99) mg/dL Calcium (8.4-10.2) mg/dL Magnesium (1.6-2.3) mg/dL Total Protein (6.3-8.2) g/dL Albumin (3.5-5.0) g/dL 03/02/21 03/02/21 03/02/21 Range/Units 04:15 04:18 04:18 WBC 13.0 H (3.8-10.6) k/uL RBC 3.15 L (4.30-5.90) m/uL Hgb 10.1 L (13.0-17.5) gm/dL Hct 29.6 L (39.0-53.0) % RDW 17.2 H (11.5-15.5) % Plt Count 111 L (150-450) k/uL Neutrophils # 10.7 H (1.3-7.7) k/uL Sodium 133 L (137-145) mmol/L Glucose 118 H (74-99) mg/dL POC Glucose (mg/dL) 126 H (75-99) mg/dL Calcium 8.3 L (8.4-10.2) mg/dL Magnesium 2.4 H (1.6-2.3) mg/dL Total Protein 5.0 L (6.3-8.2) g/dL Albumin 2.9 L (3.5-5.0) g/dL 03/02/21 03/02/21 Range/Units 06:03 07:46 WBC (3.8-10.6) k/uL RBC (4.30-5.90) m/uL Hgb (13.0-17.5) gm/dL Hct (39.0-53.0) % RDW (11.5-15.5) % Plt Count (150-450) k/uL Neutrophils # (1.3-7.7) k/uL Sodium (137-145) mmol/L Glucose (74-99) mg/dL POC Glucose (mg/dL) 133 H 142 H (75-99) mg/dL Calcium (8.4-10.2) mg/dL Magnesium (1.6-2.3) mg/dL Total Protein (6.3-8.2) g/dL Albumin (3.5-5.0) g/dL - Imaging and Cardiology Chest x-ray: report reviewed, image reviewed Assessment and Plan Assessment: 1. Coronary artery disease, status post CABG 3 2. History of coronary artery disease with myocardial infarction and previous PCI 3. History of sick sinus syndrome 4. History of hypertension 5. Hypercholesterolemia 6. History of TIA 7. Remote history of lung biopsy, for fungal infection 10-12 years ago 8. Remote history of tobacco dependence, with a preoperative FEV1 81% of predicted value, 2.13 L 9. Family history of coronary artery disease 10. Osteoarthritis with history of previous orthopedic surgeries 11. Postoperative acute blood loss anemia, an expected outcome due to hemodilution 12. Postoperative paroxysmal atrial fibrillation, a known common occurrence after cardiac surgery Plan: 1. Continue aspirin, statin, Plavix, and beta cristian. Will increase metoprolol tartrate 25 mg by mouth twice a day we will carefully increase, as tolerated as patient did have documented history of sick sinus syndrome. Absolutely 2. Encourage incentive spirometry use 10 times every hour while awake. Bronchodilators per pulmonology management. 3. We will remove his mediastinal chest tube and keep his left pleural chest tube to low continuous wall suction at -20 cm H2O. Anticipate removal of his left pleural chest tube tomorrow 03/03/2021. 4. Increase activity, ambulate as tolerated. PT/OT/cardiac rehab consulted. 5. GI/DVT prophylaxis. 6. Will monitor daily labs and chest x-rays. Electrolyte replacement per protocol. 7. Insulin management per primary care service. The patient is not diabetic, preoperative hemoglobin A1c 5.4%, however he does need tight blood sugar control to promote sternal union and to prevent infection 8. Pain control with current medication regimen. 9. Discontinue right IJ Cordis. 10. Right radial arterial line has been discontinued. 11. Discontinue Schofield catheter, continue to record strict accurate intake and output. Daily weights. 12. Amiodarone 150 mg IV bolus 1 now over 10 minutes and then start amiodarone 1 mg/m per the amiodarone protocol for his paroxysmal atrial fibrillation. 13. Lasix 20 mg IV 1 now. 14. Transfer to the cardiac stepdown unit when bed available. Discharge planning is in place. 15. More recommendations to follow based on patient's clinical course. Time with Patient: Greater than 30
--- NOTE | 2021-03-02 11:39 | P.PN ---
Subjective Progress Note Date: 03/02/21 Principal diagnosis: CAD This is a 81-year-old white male patient of Dr. Dharmesh staley with past medical history of coronary artery disease with prior history of myocardial infarction and previous PCI, hypertension, hypercholesterolemia, sick sinus syndrome, prior tobacco dependence, osteoarthritis with history of orthopedic surgeries. Patient also has history of a lung wedge biopsy for a fungal infection 10 or 12 years ago. He has a family history of coronary artery disease. Patient had an abnormal outpatient stress test which showed fixed defect in the inferior wall with possible reversible defect in the anterior lateral wall. Clinically patient had been asymptomatic, without any complaints of chest pain, shortness of breath or any other anginal-type symptoms recently. Patient had a heart catheterization on 02/19/2021 which showed a calcified left main disease, calcified proximal left anterior descending coronary artery with 80% lesion, 70% blockage to the ostium of the circumflex coronary artery, total occlusion of the dominant RCA. His most recent echocardiogram from 09/23/2020 showed mildly impaired left ventricular systolic function with an EF of 45-50%, mildly enlarged right ventricle, hypokinesis of the basal lateral, inferior, mid lateral, and mid inferior LV wall motion. There was moderate aortic valve sclerosis, with mild to moderate aortic regurgitation, mild to moderate mitral regurgitation, and moderate tricuspid regurgitation, pulmonary artery pressure was 42.8 mmHg. His preop FEV1 was in order of 2.13 L or 81% of predicted, with FVC of 2.6 L or 72% of predicted, FEV1 to FVC ratio of 112%, MCV of 79.9, and this was consistent with mild restriction. Patient was referred to cardiothoracic surgery for coronary artery bypass consideration. After undergoing preop evaluation patient was deemed appropriate for off-pump coronary artery bypass surgery with left internal mammary artery, and endovascular vein harvest on possible left atrial appendage exclusion. On February 28 2021 patient underwent off pump elective myocardial revascularization with HOYT to the LAD, SVG to the PDA, SVG to the OM, endoscopic vein harvest from the left lower extremity, left atrial appendage exclusion and intraoperative transesophageal echocardiogram. Patient is seen in the postoperative period in the intensive care unit, he is intubated, and sedated on assist control mode of ventilation, with a rate of 12, tidal lines 500, FiO2 of 100% and PEEP of 5, postoperative blood gas showed a pO2 of 272, pCO2 of 47, and pH of 7.30 and this was done on FiO2 100%. FiO2 had since been dropped down to 60%. Patient is currently on lactated Ringer's at 50 ML per hour, Diprivan, and small amount of nitroglycerin infusion. He is in sinus mechanism, hemodynamically he is stable, blood pressures 139/60, PA pressures 42/18, CVP is 8, cardiac output is 5.3, and cardiac index is 2.6. He has a left pleural and mediastinal chest tube connected together, to Pleur-evac, wall suction, with small amount of sanguinous output. His incisions are clean dry and intact, covered with surgical dressings. Postoperative chest x-ray has been reviewed showing ET tube, [place]- Adele catheter, in appropriate positions. No pneumothorax On 03/01/2021 patient seen in follow-up intensive care unit. Today is postoperative day #1, status post three-vessel coronary artery bypass grafting was done off pump, with endovascular vein harvest. Patient is doing well, he seen sitting up in the recliner, on 3 L oxygen pulse ox is 93%, patient was extubated within 4 hours of the OR exit time. Patient has been working on incentive spirometer, today's chest x-ray shows mild bibasilar infiltrates, and platelike atelectasis at the left base. He was dynamically his been stable, he is currently on lactated Ringer's at a rate of 30 ML per hour, and insulin drip is at 2.5 units per hour. No other drips. Patient is in sinus mechanism with a controlled rate, [place]-Adele catheter has been discontinued, his mediastinal and left pleural chest tube has put out a total of 1070 ML of watery serosanguineous output in the last 24 hours. His incisions are clean dry and intact. Sternum was stable, chest tube sites are clean dry and intact. No episodes of arrhythmias overnight. Patient is breathing comfortably, he is tolerating oral intake. Today's labs have been reviewed, white count is 13.2, hemoglobin is 11.1, sodium is 133, the rest electrolytes are within normal limits, BUN is 9, creatinine 0.61. The patient is seen today 03/02/2021 in follow-up in the intensive care unit. Postoperative day #2. He did receive a three-vessel coronary artery bypass surgery. He is awake and alert in no acute distress. Maintaining O2 saturation in the mid 90s on 3 L/m per nasal cannula. He is afebrile. He did have an episode of atrial fibrillation earlier this morning. He did receive amiodarone bolus and is currently back in sinus rhythm. Chest x-ray reveals similar interstitial density, some pulmonary vascular congestion. Left basilar atelectasis. Improved aeration in the right base. He received Lasix 20 mg IVP 1. He remains on bronchodilators. He continues to work well with the incentive spirometer. Heparin for DVT prophylaxis. White count 13.0. Hemoglobin 10.1. Platelets 111. Sodium 133. Potassium 4.0. Creatinine 0.97. Glucose 126. Objective - Vital Signs Vital signs: Vital Signs Temp 98.9 F 03/02/21 08:00 Pulse 68 03/02/21 11:20 Resp 19 03/02/21 10:00 BP 91/58 03/02/21 10:00 Pulse Ox 98 03/02/21 10:00 Intake & Output 03/01/21 03/02/21 03/02/21 18:59 06:59 18:59 Intake Total 791.757 309.140 89.252 Output Total 865 900 635 Balance -73.243 -590.860 -545.748 Weight 86.5 kg 90 kg Intake: IV 425 279 79 .9 NS pressure bag 75 39 9 Lactated Ringers 1,000 ml 300 240 70 @ 20 mls/hr IV .Q24H PRAKASH Rx#:[id number] ceFAZolin 2 gm In Sodium 50 Chloride 0.9% 50 ml @ 100 mls/hr IVPB Q8HR PRAKASH Rx# :[id number] Intake, IV Titration 126.757 30.140 10.252 Amount Insulin Regular 100 unit 26.757 30.140 10.252 In Sodium Chloride 0.9% 100 ml @ Per Protocol IV .Q0M PRAKASH Rx#:[id number] Magnesium Sulfate-D5w Pmx 100 1 gm In Dextrose/Water 1 100ml.bag @ 100 mls/hr IVPB Q1H PRAKASH Rx#: [id number] Oral 240 Output: Chest Tube Drainage 305 270 80 Chest Tube Left Pleural/ 305 270 80 Mediastinal Urine 560 630 555 Other: Voiding Method Indwelling Catheter Indwelling Catheter Indwelling Catheter ABP, PAP, CO, CI - Last Documented Arterial Blood Pressure 133/50 Pulmonary Artery Pressure 36/15 Cardiac Output 7.1 Cardiac Index 3.5 - Exam GENERAL EXAM: Awake and alert, oriented 3, 81-year-old male patient on 3 L of oxygen pulse ox of 96%, sitting up in the recliner HEAD: Normocephalic/atraumatic. EYES: Normal reaction of pupils, equal size. Conjunctiva pink, sclera white. NOSE: Clear with pink turbinates. THROAT: No erythema or exudates. NECK: No masses, no JVD, no thyroid enlargement, no adenopathy. CHEST: No chest wall deformity. Symmetrical expansion. Midsternal incision is clean dry and intact, 1 mediastinal and left pleural chest tube in place LUNGS: Equal air entry with crackles in the posterior bases left greater than right. CVS: Regular rate and rhythm, normal S1 and S2, no gallops, no murmurs, no rubs ABDOMEN: Soft, nontender. No hepatosplenomegaly, normal bowel sounds, no guard ing or rigidity. EXTREMITIES: No clubbing, no edema, no cyanosis, 2+ pulses and upper and lower extremities. MUSCULOSKELETAL: Muscle strength and tone normal. Left leg endovascular vein harvest site covered with a surgical dressing, SCDs are on on bilateral lower extremities, SPINE: No scoliosis or deformity SKIN: No rashes CENTRAL NERVOUS SYSTEM: Awake and alert, oriented 3. No focal deficits, tone is normal in all 4 extremities. - Labs CBC & Chem 7: 03/02/21 04:18 03/02/21 04:18 Labs: Abnormal Lab Results - Last 24 Hours (Table) 03/01/21 03/01/21 03/01/21 Range/Units 12:28 13:14 14:05 WBC (3.8-10.6) k/uL RBC (4.30-5.90) m/uL Hgb (13.0-17.5) gm/dL Hct (39.0-53.0) % RDW (11.5-15.5) % Plt Count (150-450) k/uL Neutrophils # (1.3-7.7) k/uL Sodium (137-145) mmol/L Glucose (74-99) mg/dL POC Glucose (mg/dL) 188 H 181 H 127 H (75-99) mg/dL Calcium (8.4-10.2) mg/dL Magnesium (1.6-2.3) mg/dL Total Protein (6.3-8.2) g/dL Albumin (3.5-5.0) g/dL 03/01/21 03/01/21 03/01/21 Range/Units 15:02 15:57 17:13 WBC (3.8-10.6) k/uL RBC (4.30-5.90) m/uL Hgb (13.0-17.5) gm/dL Hct (39.0-53.0) % RDW (11.5-15.5) % Plt Count (150-450) k/uL Neutrophils # (1.3-7.7) k/uL Sodium (137-145) mmol/L Glucose (74-99) mg/dL POC Glucose (mg/dL) 110 H 110 H 127 H (75-99) mg/dL Calcium (8.4-10.2) mg/dL Magnesium (1.6-2.3) mg/dL Total Protein (6.3-8.2) g/dL Albumin (3.5-5.0) g/dL 03/01/21 03/01/21 03/01/21 Range/Units 17:52 18:57 20:43 WBC (3.8-10.6) k/uL RBC (4.30-5.90) m/uL Hgb (13.0-17.5) gm/dL Hct (39.0-53.0) % RDW (11.5-15.5) % Plt Count (150-450) k/uL Neutrophils # (1.3-7.7) k/uL Sodium (137-145) mmol/L Glucose (74-99) mg/dL POC Glucose (mg/dL) 142 H 227 H 167 H (75-99) mg/dL Calcium (8.4-10.2) mg/dL Magnesium (1.6-2.3) mg/dL Total Protein (6.3-8.2) g/dL Albumin (3.5-5.0) g/dL 03/02/21 03/02/21 03/02/21 Range/Units 00:17 01:59 03:20 WBC (3.8-10.6) k/uL RBC (4.30-5.90) m/uL Hgb (13.0-17.5) gm/dL Hct (39.0-53.0) % RDW (11.5-15.5) % Plt Count (150-450) k/uL Neutrophils # (1.3-7.7) k/uL Sodium (137-145) mmol/L Glucose (74-99) mg/dL POC Glucose (mg/dL) 127 H 122 H 122 H (75-99) mg/dL Calcium (8.4-10.2) mg/dL Magnesium (1.6-2.3) mg/dL Total Protein (6.3-8.2) g/dL Albumin (3.5-5.0) g/dL 03/02/21 03/02/21 03/02/21 Range/Units 04:15 04:18 04:18 WBC 13.0 H (3.8-10.6) k/uL RBC 3.15 L (4.30-5.90) m/uL Hgb 10.1 L (13.0-17.5) gm/dL Hct 29.6 L (39.0-53.0) % RDW 17.2 H (11.5-15.5) % Plt Count 111 L (150-450) k/uL Neutrophils # 10.7 H (1.3-7.7) k/uL Sodium 133 L (137-145) mmol/L Glucose 118 H (74-99) mg/dL POC Glucose (mg/dL) 126 H (75-99) mg/dL Calcium 8.3 L (8.4-10.2) mg/dL Magnesium 2.4 H (1.6-2.3) mg/dL Total Protein 5.0 L (6.3-8.2) g/dL Albumin 2.9 L (3.5-5.0) g/dL 03/02/21 03/02/21 03/02/21 Range/Units 06:03 07:46 09:05 WBC (3.8-10.6) k/uL RBC (4.30-5.90) m/uL Hgb (13.0-17.5) gm/dL Hct (39.0-53.0) % RDW (11.5-15.5) % Plt Count (150-450) k/uL Neutrophils # (1.3-7.7) k/uL Sodium (137-145) mmol/L Glucose (74-99) mg/dL POC Glucose (mg/dL) 133 H 142 H 160 H (75-99) mg/dL Calcium (8.4-10.2) mg/dL Magnesium (1.6-2.3) mg/dL Total Protein (6.3-8.2) g/dL Albumin (3.5-5.0) g/dL Assessment and Plan Assessment: 1 Multivessel coronary artery disease, with an abnormal outpatient stress test, post previous myocardial infarction, and previous PCI, status post off-pump three-vessel artery artery bypass grafting with HOYT to the LAD, SVG to the PDA, and SCDs to the OM, endoscopic vein harvest from the left lower extremity, and left atrial appendage exclusion on 02/28/2021. Postop day #2 2 Routine postoperative ventilator management, patient was successfully weaned and extubated on postoperative day #0, within 4 hours of OR exit time 3 Paroxysmal atrial fibrillation requiring amiodarone, the common and expected occurrence of open heart surgery 4 Prior history of right lung biopsy for a fungal infection in 2009 5 Former smoker 6 Prior history of TIA 7 Osteoarthritis, with prior history of bilateral knee replacements Plan: The patient was seen and evaluated by Dr. Dietrich Chest x-ray and labs reviewed Lasix 20 mg IVP 1 was given this morning Initiated on amiodarone for paroxysmal atrial fibrillation Continue bronchodilators, continue incentive spirometer Increase his activity as tolerated We will continue to follow I, the cosigning physician, performed a history & physical examination of the patient. Lungs sounds with faint crackles in posterior bases left greater than right. Maintaining good O2 saturations in the 90s on 3 L/m per nasal cannula. I discussed the assessment and plan of care with my nurse practitioner, Vivian Adkins. I attest to the above note as dictated by her.
--- NOTE | 2021-03-02 11:57 | P.PN ---
Subjective This is a pleasant 81-year-old male past medical history significant for coronary artery disease with previous PA and PCI who was recently evaluated pericardial thoracic surgery due to abnormal cardiac catheterization and was found to have 80% stenosis of the calcified proximal LAD, 70% stenosis of ostial circumflex and total occlusion of the dominant RCA with an ejection fraction of 40-45% with mild to moderate aortic regurgitation, mitral regurgitation and moderate tricuspid regurgitation. He is status post HOYT to LAD, SVG to PDA and SVG to OM. He is seen and examined resting comfortably lying flat in bed in no acute distress. This morning he went into A. fib with RVR. He was initiated on IV amiodarone and converted back to sinus mechanism. He is currently maintaining sinus rhythm with a blood pressure of 91/58 heart rate of 68. Laboratory data reviewed, WBC 13, hemoglobin 10.1, platelets 111, sodium 133, potassium 4 creatinine 0.97. Chest x-ray this morning revealed similar interstitial density, possible pulmonary vascular congestion, left basilar atelectasis and/or consolidation remains. He denies symptoms of chest pain, shortness of breath, dizziness or palpitations. Even during the afib episode he was asymptomatic. GENERAL: Well-appearing, well-nourished and in no acute distress. NECK: Supple without JVD or thyromegaly. LUNGS: Bibasilar rales, no wheezes or rhonchi. Respiration equal and unlabored. HEART: Regular rate and rhythm without murmurs, rubs or gallops. S1 and S2 heard. Heart hugger in place. EXTREMITIES: Normal range of motion, no edema. No clubbing or cyanosis. Peripheral pulses intact. ASSESSMENT Coronary artery disease status post bypass grafting Brief paroxysmal episode of atrial fibrillation with rapid ventricular response, currently maintaining sinus mechanism on IV amiodarone Hypertension Dyslipidemia History of TIA Former nicotine dependence PLAN Continue amiodarone infusion for afib. Agree with one time dose of IV lasix. Increase activity and ambulation as tolerated. Encourage incentive spirometer use. Nurse Practitioner note has been reviewed, I agree with a documented findings and plan of care. Patient was seen and examined. Objective - Vital Signs Vital signs: Vital Signs Temp 98.9 F 03/02/21 08:00 Pulse 68 03/02/21 11:28 Resp 19 03/02/21 10:00 BP 91/58 03/02/21 10:00 Pulse Ox 98 03/02/21 10:00 Intake & Output 03/01/21 03/02/21 03/02/21 18:59 06:59 18:59 Intake Total 791.757 309.140 89.252 Output Total 865 900 635 Balance -73.243 -590.860 -545.748 Weight 86.5 kg 90 kg Intake: IV 425 279 79 .9 NS pressure bag 75 39 9 Lactated Ringers 1,000 ml 300 240 70 @ 20 mls/hr IV .Q24H [facility] Rx#:[id number] ceFAZolin 2 gm In Sodium 50 Chloride 0.9% 50 ml @ 100 mls/hr IVPB Q8HR [facility] Rx# :[id number] Intake, IV Titration 126.757 30.140 10.252 Amount Insulin Regular 100 unit 26.757 30.140 10.252 In Sodium Chloride 0.9% 100 ml @ Per Protocol IV .Q0M PRAKASH Rx#:[id number] Magnesium Sulfate-D5w Pmx 100 1 gm In Dextrose/Water 1 100ml.bag @ 100 mls/hr IVPB Q1H [facility] Rx#: [id number] Oral 240 Output: Chest Tube Drainage 305 270 80 Chest Tube Left Pleural/ 305 270 80 Mediastinal Urine 560 630 555 Other: Voiding Method Indwelling Catheter Indwelling Catheter Indwelling Catheter ABP, PAP, CO, CI - Last Documented Arterial Blood Pressure 133/50 Pulmonary Artery Pressure 36/15 Cardiac Output 7.1 Cardiac Index 3.5 - Labs CBC & Chem 7: 03/02/21 04:18 03/02/21 04:18 Labs: Abnormal Lab Results - Last 24 Hours (Table) 03/01/21 03/01/21 03/01/21 Range/Units 12:28 13:14 14:05 WBC (3.8-10.6) k/uL RBC (4.30-5.90) m/uL Hgb (13.0-17.5) gm/dL Hct (39.0-53.0) % RDW (11.5-15.5) % Plt Count (150-450) k/uL Neutrophils # (1.3-7.7) k/uL Sodium (137-145) mmol/L Glucose (74-99) mg/dL POC Glucose (mg/dL) 188 H 181 H 127 H (75-99) mg/dL Calcium (8.4-10.2) mg/dL Magnesium (1.6-2.3) mg/dL Total Protein (6.3-8.2) g/dL Albumin (3.5-5.0) g/dL 03/01/21 03/01/21 03/01/21 Range/Units 15:02 15:57 17:13 WBC (3.8-10.6) k/uL RBC (4.30-5.90) m/uL Hgb (13.0-17.5) gm/dL Hct (39.0-53.0) % RDW (11.5-15.5) % Plt Count (150-450) k/uL Neutrophils # (1.3-7.7) k/uL Sodium (137-145) mmol/L Glucose (74-99) mg/dL POC Glucose (mg/dL) 110 H 110 H 127 H (75-99) mg/dL Calcium (8.4-10.2) mg/dL Magnesium (1.6-2.3) mg/dL Total Protein (6.3-8.2) g/dL Albumin (3.5-5.0) g/dL 03/01/21 03/01/21 03/01/21 Range/Units 17:52 18:57 20:43 WBC (3.8-10.6) k/uL RBC (4.30-5.90) m/uL Hgb (13.0-17.5) gm/dL Hct (39.0-53.0) % RDW (11.5-15.5) % Plt Count (150-450) k/uL Neutrophils # (1.3-7.7) k/uL Sodium (137-145) mmol/L Glucose (74-99) mg/dL POC Glucose (mg/dL) 142 H 227 H 167 H (75-99) mg/dL Calcium (8.4-10.2) mg/dL Magnesium (1.6-2.3) mg/dL Total Protein (6.3-8.2) g/dL Albumin (3.5-5.0) g/dL 03/02/21 03/02/21 03/02/21 Range/Units 00:17 01:59 03:20 WBC (3.8-10.6) k/uL RBC (4.30-5.90) m/uL Hgb (13.0-17.5) gm/dL Hct (39.0-53.0) % RDW (11.5-15.5) % Plt Count (150-450) k/uL Neutrophils # (1.3-7.7) k/uL Sodium (137-145) mmol/L Glucose (74-99) mg/dL POC Glucose (mg/dL) 127 H 122 H 122 H (75-99) mg/dL Calcium (8.4-10.2) mg/dL Magnesium (1.6-2.3) mg/dL Total Protein (6.3-8.2) g/dL Albumin (3.5-5.0) g/dL 03/02/21 03/02/21 03/02/21 Range/Units 04:15 04:18 04:18 WBC 13.0 H (3.8-10.6) k/uL RBC 3.15 L (4.30-5.90) m/uL Hgb 10.1 L (13.0-17.5) gm/dL Hct 29.6 L (39.0-53.0) % RDW 17.2 H (11.5-15.5) % Plt Count 111 L (150-450) k/uL Neutrophils # 10.7 H (1.3-7.7) k/uL Sodium 133 L (137-145) mmol/L Glucose 118 H (74-99) mg/dL POC Glucose (mg/dL) 126 H (75-99) mg/dL Calcium 8.3 L (8.4-10.2) mg/dL Magnesium 2.4 H (1.6-2.3) mg/dL Total Protein 5.0 L (6.3-8.2) g/dL Albumin 2.9 L (3.5-5.0) g/dL 03/02/21 03/02/21 03/02/21 Range/Units 06:03 07:46 09:05 WBC (3.8-10.6) k/uL RBC (4.30-5.90) m/uL Hgb (13.0-17.5) gm/dL Hct (39.0-53.0) % RDW (11.5-15.5) % Plt Count (150-450) k/uL Neutrophils # (1.3-7.7) k/uL Sodium (137-145) mmol/L Glucose (74-99) mg/dL POC Glucose (mg/dL) 133 H 142 H 160 H (75-99) mg/dL Calcium (8.4-10.2) mg/dL Magnesium (1.6-2.3) mg/dL Total Protein (6.3-8.2) g/dL Albumin (3.5-5.0) g/dL
[2021-03-02 12:06] LABS: Glucose,Whole Blood 149 mg/dL (75-99)
[2021-03-02] MEDS: INSULIN ASPART (NovoLOG) 100 UNIT/ML VIAL SQ SCH ×3 (12:08→22:03)
[2021-03-02] MEDS: TAMSULOSIN 0.4 MG CAP.ER.24H PO SCH (12:13)
--- NOTE | 2021-03-02 16:15 | P.PN ---
Progress Note - Text Progress Note Date: 03/02/21 - Chief Complaint Coronary bypass Consultation: This is a 81-year-old patient who follows with Dr. Kuhn. Chronic stable medical conditions include hypertension, hyperlipidemia, BPH, osteoarthritis,. Patient undergone triple vessel bypass today. In the ICU. Currently intubated on the ventilator with FiO2 50% and a PEEP of 5. Patient did receive Cell Saver albumin previously. Current drips include nitroglycerin at 5 g, insulin 1.5 mg an hour, Cleviprex. Patient has 2 chest tubes 1 mediastinal and one left pleural. Telemetry shows sinus rhythm. Patient is semi-awake. Schofield catheter. And warming blanket. March 01: ICU: Sitting up in a chair. Chest tubes in place. Nasal cannula. Sinus rhythm. Tolerated clear liquids. Did thousand cc on incentive spirometry. No flatus. Patient did walk in the hallway with support. March 02: ICU: Laying in bed. Did call into atrial fibrillation this morning. Back in sinus rhythm. Started on IV amiodarone. And Lopressor. Schofield catheter in place. Put on Flomax. Did walk in the hallway. Mediastinal chest tube removed. Oral intake better. Using incentive spirometry. Review of systems: Was done for constitutional, cardiovascular, GI, pulmonary. relevant finding as above Active Medications Hydrocodone Bitart/Acetaminophen (Hydrocodone/Apap 5-325mg 1 Each Tab) 2 each PO Q4HR PRN PRN Reason: Severe Pain Last Admin: 03/01/21 22:32 Dose: 2 each Documented by: Hydrocodone Bitart/Acetaminophen (Hydrocodone/Apap 5-325mg 1 Each Tab) 1 each PO Q4HR PRN PRN Reason: Moderate Pain Albuterol/Ipratropium (Ipratropium-Albuterol 3 Ml Neb) 3 ml INHALATION RT-Q2H PRN PRN Reason: Shortness Of Breath Or Wheezing Albuterol/Ipratropium (Ipratropium-Albuterol 3 Ml Neb) 3 ml INHALATION RT-QID [facility] Last Admin: 03/02/21 15:57 Dose: 3 ml Documented by: Aspirin (Aspirin 325 Mg Tab) 325 mg PO DAILY [facility] Last Admin: 03/02/21 08:29 Dose: 325 mg Documented by: Atorvastatin Calcium (Atorvastatin 40 Mg Tab) 40 mg PO HS [facility] Last Admin: 03/01/21 21:03 Dose: 40 mg Documented by: Bisacodyl (Bisacodyl 10 Mg Supp) 10 mg RECTAL DAILY PRN PRN Reason: Constipation Clopidogrel Bisulfate (Clopidogrel 75 Mg Tab) 75 mg PO DAILY [facility] Last Admin: 03/02/21 08:29 Dose: 75 mg Documented by: Cyanocobalamin (Cyanocobalamin 500 Mcg Tab) 2,500 mcg PO DAILY [facility] Last Admin: 03/02/21 08:29 Dose: 2,500 mcg Documented by: Heparin Sodium (Porcine) (Heparin Sodium,Porcine/Pf 5,000 Unit/0.5 Ml Syringe) 5,000 unit SQ Q8HR [facility] Last Admin: 03/02/21 08:29 Dose: 5,000 unit Documented by: Amiodarone HCl 150 mg/ (Dextrose/Water) 103 mls @ 618 mls/hr IV .Q10M PRN; Protocol PRN Reason: A.FIB/FLUTTER Last Admin: 03/02/21 07:49 Dose: 618 mls/hr Documented by: Amiodarone HCl 360 mg/ (Dextrose/Water) 207.2 mls @ 34.533 mls/hr IV .Q6H PRN; Protocol PRN Reason: A.FIB/FLUTTER Amiodarone HCl 450 mg/ (Dextrose/Water) 250 mls @ 16.667 mls/hr IV .Q15H PRN; Protocol PRN Reason: A.FIB/FLUTTER Calcium Gluconate 2 gm/ Sodium (Chloride) 120 mls @ 100 mls/hr IVPB ONCE PRN PRN Reason: Ionized Calcium less than 4.4 Stop: 03/30/21 13:04 Insulin Aspart (Insulin Aspart (Novolog) 100 Unit/Ml Vial) 0 unit SQ ACHS [facility]; Protocol Last Admin: 03/02/21 12:08 Dose: 1 unit Documented by: Ketorolac Tromethamine (Ketorolac 15 Mg/Ml 1 Ml Vial) 15 mg IVP Q6HR [facility] Stop: 03/03/21 16:40 Last Admin: 03/02/21 12:07 Dose: 15 mg Documented by: Magnesium Hydroxide (Magnesium Hydroxide 2,400 Mg/10 Ml Cup) 2,400 mg PO BID PRN PRN Reason: Constipation Metoclopramide HCl (Metoclopramide 5 Mg/Ml 2 Ml Vial) 10 mg IVP Q4H PRN PRN Reason: Nausea And Vomiting Metoprolol Tartrate (Metoprolol Tartrate 25 Mg Tab) 25 mg PO BID [facility] Last Admin: 03/02/21 07:23 Dose: 25 mg Documented by: Miscellaneous Information (Potassium Replacement Protocol 1 Each Misc) 1 each MISCELLANE DAILY PRN; Protocol PRN Reason: Per Protocol Miscellaneous Information (Magnesium Replacement Protocol 1 Each Misc) 1 each MISCELLANE DAILY PRN; Protocol PRN Reason: Per Protocol Miscellaneous Information (Phosphorus Replacement Protoco 1 Each Misc) 1 each MISCELLANE DAILY PRN; Protocol PRN Reason: Per Protocol Multivitamins (Multivitamins, Thera 1 Each Tab) 1 each PO DAILY [facility] Last Admin: 03/02/21 08:30 Dose: 1 each Documented by: Ondansetron HCl (Ondansetron 4 Mg/2 Ml Vial) 4 mg IVP Q6HR PRN PRN Reason: Nausea And Vomiting Last Admin: 03/01/21 06:00 Dose: 4 mg Documented by: Pantoprazole Sodium (Pantoprazole 40 Mg Tablet) 40 [facility] Last Admin: 03/02/21 07:23 Dose: 40 mg Documented by: Senna/Docusate Sodium (Sennosides-Docusate Sodium 1 Each Tab) 2 each PO HS [facility] Last Admin: 03/01/21 21:03 Dose: 2 each Documented by: Sodium Chloride (Sodium Chloride 0.9% Flush 10 Ml Syringe) 10 ml IV BID [facility] Last Admin: 03/02/21 08:29 Dose: 10 ml Documented by: Tamsulosin HCl (Tamsulosin 0.4 Mg Cap.Er.24h) 0.4 mg PO [facility] Last Admin: 03/02/21 12:13 Dose: 0.4 mg Documented by: Past medical history to include: Coronary artery with stent, hypertension, hyperlipidemia, prostate disorder, osteoarthritis Social history: Patient is to be unit and zhang. Stop smoking about 22 years ago. Alcohol occasionally. Family history: Includes myocardial infarction Physical examination: VITAL SIGNS: 98.1, 71, 22, 109/59, 95% on 2 L GENERAL: Laying in bed, comfortable leftpleural Chest tube in place EYES: Pupils equal. Conjunctiva normal. HEENT: [External appearance of nose and ears normal, oral cavity normal NECK: JVD unable to assess; masses not palpable. HEART: First and second heart sounds are normal; no edema. LUNGS: Respiratory rate increased; decreased breath sounds. ABDOMEN: Soft, nontender, liver spleen not palpable, no masses palpable. PSYCH: AO - times three. Mood and affect normal. Tired NEUROLOGICAL: Cranial nerves grossly intact; no facial asymmetry, power and sensation grossly intact. INVESTIGATIONS, reviewed in the clinical context: March 02: WBC 13 hemoglobin 10.1 platelets 111 potassium 4 creatinine 0.97 March 01: WBC 13.2 hemoglobin 11.1 platelets 106 potassium 4 creatinine 0.61 WBC 12 hemoglobin 11.6 platelets 126 potassium 4.1 creatinine 0.57 albumin 2.7 LDL 33.2 Previous labs: Hemoglobin 14.2 on February 19 platelets 152 Assessment and plan: -Triple vessel coronary bypass. Patient has 1 mediastinal-discontinued and one left pleural chest tube. -Triple vessel coronary artery disease -Acute hypoxic respiratory failure , status post ventilator On 2 L nasal cannula today -New onset of paroxysmal atrial fibrillation. Back in sinus rhythm IV amiodarone. Lopressor -Essential hypertension Taken off Cleviprex. Increase Lopressor 25 mg twice daily -Hyperlipidemia Lipitor 40 mg daily at bedtime -BPH On supplements -Acute postprocedure blood loss anemia, expected from surgery Follow H&H -Dilutional thrombocytopenia -Hypoalbuminemia, acute phase reactant From surgery On IV amiodarone. Dose of Lopressor increased. Other medications to continue. Eating better. Thank you Dr. Guardado
[2021-03-02 16:42] LABS: Glucose,Whole Blood 129 mg/dL (75-99)
[2021-03-02 21:54] LABS: Glucose,Whole Blood 186 mg/dL (75-99)
[2021-03-02] MEDS: ATORVASTATIN 40 MG TAB PO SCH (22:03)
[2021-03-02] MEDS: SENNOSIDES-DOCUSATE SODIUM 1 EACH TAB PO SCH (22:03)
[2021-03-03] MEDS: HYDROcodone/APAP 5-325MG 1 EACH TAB PO PRN (02:26)
[2021-03-03 04:42] LABS: Anisocytosis Slight; Basophils % (A) 0 %; Eosinophils # (A) 0.1 k/uL (0-0.7); Eosinophils % (A) 1 %; HGB 9.4 gm/dL (13.0-17.5); Lymphocytes % (A) 11 %; MCH 31.5 pg (25.0-35.0); MCHC 33.6 g/dL (31.0-37.0); MCV 93.8 fL (80.0-100.0); Mean Platelet Volume 9.9; Monocytes # (A) 0.4 k/uL (0-1.0); Monocytes % (A) 5 %; Neutrophils # (A) 7.2 k/uL (1.3-7.7); Neutrophils % (A) 82 %; Platelet Count 110 k/uL (150-450); RBC 2.98 m/uL (4.30-5.90); RDW 17.6 % (11.5-15.5); WBC 8.8 k/uL (3.8-10.6)
[2021-03-03] MEDS: KETOROLAC 15 MG/ML 1 ML VIAL IVP SCH ×2 (05:06→11:38)
[2021-03-03 05:09] LABS: ALT 14 U/L (4-49); AST 40 U/L (17-59); African American GFR (CKD) >90 (>60 ml/min/1.73 sqM); Albumin 2.9 g/dL (3.5-5.0); Alkaline Phosphatase 49 U/L (38-126); Anion Gap 7 mmol/L; Blood Urea Nitrogen 18 mg/dL (9-20); Carbon Dioxide 22 mmol/L (22-30); Chloride 103 mmol/L (98-107); Glucose 132 mg/dL (74-99); Non-African American GFR(CKD) 84 (>60 ml/min/1.73 sqM); Potassium 3.8 mmol/L (3.5-5.1); Sodium 132 mmol/L (137-145); Total Bilirubin 1.2 mg/dL (0.2-1.3)
[2021-03-03] MEDS ORDERED: POTASSIUM CHLORIDE ER 20 MEQ TAB.ER PO SCH ×2 (06:00→09:00)
[2021-03-03 06:55] LABS: Glucose,Whole Blood 139 mg/dL (75-99)
[2021-03-03] MEDS: INSULIN ASPART (NovoLOG) 100 UNIT/ML VIAL SQ SCH ×4 (06:58→20:11)
[2021-03-03] MEDS: PANTOPRAZOLE 40 MG TABLET PO SCH (06:58)
[2021-03-03] MEDS: IPRATROPIUM-ALBUTEROL 3 ML NEB INHALATION SCH ×4 (08:09→19:51)
--- NOTE | 2021-03-03 08:17 | P.PN ---
Subjective Progress Note Date: 03/03/21 Principal diagnosis: Coronary artery disease. Past medical history significant for coronary artery disease with myocardial infarction and previous PCI, sick sinus syndrome, recent abnormal stress test, hypertension, hypercholesterolemia, TIA, prior lung biopsy, prior tobacco dependence and family history of coronary artery disease. POD #3 Off-pump CABG 3 with HOYT to LAD, saphenous vein grafts to obtuse marginal and posterior descending coronary arteries, endovascular vein harvest, epi-aortic ultrasonography, ligation of left atrial appendage with 40 mm AtriCure clip. Postoperative acute blood loss anemia, expected post cardiac surgery given hemodilution. Postoperative paroxysmal atrial fibrillation, a known common occurrence after cardiac surgery. The patient was seen in follow-up today 03/03/2021 at his bedside in the intensive care unit. Currently he is sitting up to the bedside chair, is awake, alert and oriented 3 and is in no acute care distress. He denies any complaints of pain or shortness of breath at this time. His mediastinal chest tube was removed without incident yesterday 03/02/2021. Left pleural chest tube remains in place to low continuous wall suction -20 cm H2O. No air leaks present. Draining thin serosanguineous drainage with 100 mL output in the last 8 hours and 280 mL in the last 24 hours. Oxygen saturation are 94% on 2 L nasal cannula and he is achieving 6767-6479 mL on his incentive spirometry. He remains hemodynamically stable and is currently on no inotropic or pressor support. Bedside telemetry showing normal sinus rhythm heart rate 68 BPM, no further episodes of atrial fibrillation. Amiodarone drip remains infusing per protocol at 0.5 mg/m. Objective - Vital Signs Vital signs: Vital Signs Temp 98.7 F 03/03/21 04:00 Pulse 71 03/03/21 04:00 Resp 18 03/03/21 04:00 BP 102/59 03/03/21 04:00 Pulse Ox 94 L 03/03/21 04:00 Intake & Output 03/02/21 03/03/21 03/03/21 18:59 06:59 18:59 Intake Total 159.252 110 Output Total 1100 670 Balance -940.748 -560 Weight 89.6 kg Intake: IV 149 110 .9 NS pressure bag 9 Lactated Ringers 1,000 ml 140 110 @ 20 mls/hr IV .Q24H [facility] Rx#:[id number] Intake, IV Titration 10.252 Amount Insulin Regular 100 unit 10.252 In Sodium Chloride 0.9% 100 ml @ Per Protocol IV .Q0M [facility] Rx#:[id number] Output: Chest Tube Drainage 110 220 Chest Tube Left Pleural/ 80 Mediastinal Left Lateral Chest 30 220 Urine 990 450 Other: Voiding Method Indwelling Catheter Toilet Urinal # Voids 1 ABP, PAP, CO, CI - Last Documented Arterial Blood Pressure 133/50 Pulmonary Artery Pressure 36/15 Cardiac Output 7.1 Cardiac Index 3.5 - Exam CONSTITUTIONAL: Sitting up to the bedside chair in the intensive care unit, appears comfortable, cooperative, no apparent acute distress. HEENT: Neck is supple, no JVD, no lymphadenopathy. Right IJ Cordis in place and functioning. RESPIRATORY: Lungs sounds essentially clear throughout, diminished to his bilateral bases. Respirations are symmetrical and nonlabored. Currently on 2 L nasal cannula with oxygen saturation is 94%. Able to achieve 5422-5623 mL mL on his incentive spirometry. Strong cough. CARDIOVASCULAR: Regular rhythm and rate. S1 and S2 present, negative for S3, gallop or murmur. Sternum is stable. Palpable peripheral pulses bilaterally, no edema present. No calf pain or tenderness noted. Heart hugger in place with patient demonstrating appropriate use. Knee-high DAVID hose and sequential compression devices in place to his bilateral lower extremities. Bedside telemetry showing normal sinus rhythm heart rate 68 BPM. GASTROINTESTINAL: Abdomen soft, nontender, nondistended. Active bowel sounds present 4 quadrants. Tolerating diet. Passing flatus. No guarding or rigidity. GENITOURINARY: Continues to void. Output 250 mL in the last 8 hours. INTEGUMENTARY: Skin is warm and dry with no evidence of clubbing or cyanosis. Midline sternal incision clean dry and well approximated, covered with dry intact dressing. Left lower extremity EVH sites well approximated without redness or drainage. NEUROLOGIC: Cranial nerves II through XII intact. No focal deficits. MUSKULOSKELETAL: Able to move all extremities, strength equal bilaterally. PSYCHIATRIC: Alert and oriented to person place and time, appropriate affect, intact judgment and insight. INVASIVE LINES AND TUBES: Left pleural chest tube present and connected to low continuous wall suction, no air leaks present. Chest tube with 100 mL of thin serosanguineous drainage overnight, 280 mL output since surgery. - Labs CBC & Chem 7: 08/07/21 04:26 03/03/21 04:26 Labs: Abnormal Lab Results - Last 24 Hours (Table) 03/02/21 03/02/21 03/02/21 Range/Units 09:05 12:05 16:41 RBC (4.30-5.90) m/uL Hgb (13.0-17.5) gm/dL Hct (39.0-53.0) % RDW (11.5-15.5) % Plt Count (150-450) k/uL Sodium (137-145) mmol/L Glucose (74-99) mg/dL POC Glucose (mg/dL) 160 H 149 H 129 H (75-99) mg/dL Calcium (8.4-10.2) mg/dL Total Protein (6.3-8.2) g/dL Albumin (3.5-5.0) g/dL 03/02/21 03/03/21 03/03/21 Range/Units 21:51 04:26 04:26 RBC 2.98 L (4.30-5.90) m/uL Hgb 9.4 L (13.0-17.5) gm/dL Hct 28.0 L (39.0-53.0) % RDW 17.6 H (11.5-15.5) % Plt Count 110 L (150-450) k/uL Sodium 132 L (137-145) mmol/L Glucose 132 H (74-99) mg/dL POC Glucose (mg/dL) 186 H (75-99) mg/dL Calcium 8.0 L (8.4-10.2) mg/dL Total Protein 5.0 L (6.3-8.2) g/dL Albumin 2.9 L (3.5-5.0) g/dL 03/03/21 Range/Units 06:52 RBC (4.30-5.90) m/uL Hgb (13.0-17.5) gm/dL Hct (39.0-53.0) % RDW (11.5-15.5) % Plt Count (150-450) k/uL Sodium (137-145) mmol/L Glucose (74-99) mg/dL POC Glucose (mg/dL) 139 H (75-99) mg/dL Calcium (8.4-10.2) mg/dL Total Protein (6.3-8.2) g/dL Albumin (3.5-5.0) g/dL Assessment and Plan Assessment: 1. Coronary artery disease, status post CABG 3 2. History of coronary artery disease with myocardial infarction and previous PCI 3. History of sick sinus syndrome 4. History of hypertension 5. Hypercholesterolemia 6. History of TIA 7. Remote history of lung biopsy, for fungal infection 10-12 years ago 8. Remote history of tobacco dependence, with a preoperative FEV1 81% of predicted value, 2.13 L 9. Family history of coronary artery disease 10. Osteoarthritis with history of previous orthopedic surgeries 11. Postoperative acute blood loss anemia, an expected outcome due to hemodilution 12. Postoperative paroxysmal atrial fibrillation, a known common occurrence after cardiac surgery Plan: 1. Continue aspirin, statin, Plavix, and beta cristian. Will increase metoprolol tartrate carefully, as tolerated as patient does have documented history of sick sinus syndrome. 2. Encourage incentive spirometry use 10 times every hour while awake. Bronchodilators per pulmonology management. 3. We will remove his left pleural chest tube. 4. Increase activity, ambulate as tolerated. PT/OT/cardiac rehab consulted. 5. GI/DVT prophylaxis. 6. Will monitor daily labs and chest x-rays. Electrolyte replacement per protocol. 7. Insulin management per primary care service. The patient is not diabetic, preoperative hemoglobin A1c 5.4%, however he does need tight blood sugar control to promote sternal union and to prevent infection 8. Pain control with current medication regimen. Discontinue [place]. 9. Continue to record strict accurate intake and output. Daily weights. 10. continue to record strict accurate intake and output. Daily weights. 11. Start amiodarone 400 mg by mouth twice a day, for atrial fibrillation prophylaxis. 12. Lasix 20 mg IV 1 now. 13. Transfer to the cardiac stepdown unit when bed available. Discharge planning is in place. 14. More recommendations to follow based on patient's clinical course. Time with Patient: Greater than 30
[2021-03-03] MEDS: METOPROLOL TARTRATE 25 MG TAB PO SCH ×2 (08:38→20:07)
[2021-03-03] MEDS: HEPARIN SODIUM,PORCINE/PF 5,000 UNIT/0.5 ML SYRINGE SQ SCH ×3 (08:38→22:51)
[2021-03-03] MEDS: ASPIRIN 325 MG TAB PO SCH (08:38)
[2021-03-03] MEDS: CLOPIDOGREL 75 MG TAB PO SCH (08:38)
[2021-03-03] MEDS: CYANOCOBALAMIN 500 MCG TAB PO SCH (08:39)
[2021-03-03] MEDS: AMIODARONE 200 MG TAB PO SCH ×2 (08:39→20:07)
[2021-03-03] MEDS: MULTIVITAMINS, THERA 1 EACH TAB PO SCH (08:39)
[2021-03-03] MEDS: TAMSULOSIN 0.4 MG CAP.ER.24H PO SCH (08:39)
[2021-03-03] MEDS ORDERED: FUROSEMIDE 10 MG/ML 2 ML VIAL IV STA (09:32)
[2021-03-03 11:36] LABS: Glucose,Whole Blood 156 mg/dL (75-99)
--- NOTE | 2021-03-03 12:30 | XR ---
EXAMINATION TYPE: XR chest 1V portable DATE OF EXAM: 03/03/2021 COMPARISON: 03/02/2021 INDICATION: Postop CABG TECHNIQUE: Single frontal view of the chest is obtained. FINDINGS: The heart size is enlarged. The pulmonary vasculature is prominent. Mild left lung infiltrate is present. Right lower lobe infrahilar lung markings are present. Postsurg ical changes present. Sternotomy wires are in the midline. Left-sided chest tube is present. No pneum othorax is evident. IMPRESSION: 1. Increasing pulmonary vascular markings with increased lung markings on the left. Correlate for aty pical pulmonary edema. 2. No pneumothorax present. Left-sided chest tube remains in position.
--- NOTE | 2021-03-03 13:42 | P.PN ---
Subjective Progress Note Date: 03/03/21 Principal diagnosis: Status post off-pump CABG 3 postoperative day #3 Patient was reevaluated today on 03/03/2021, patient remains in the ICU, his postoperative day #3. Patient had off-pump CABG 3 with HOYT to LAD, saphenous vein graft to obtuse marginal and posterior descending coronary arteries. Patient is sitting at a bedside chair, doing great, he is alert oriented 3, d enies being short of breath, his mediastinal chest tube was removed without incident yesterday. Left pleural chest tube remains in place to low continuous wall suction. His O2 saturations 94% on 2 L. Patient is doing well with incentive spirometer. He is hemodynamically stable not requiring any inotropes or process. He is in sinus rhythm, patient had no further episodes of atrial fibrillation. Remains on amiodarone, this will likely be transitioned to oral amiodarone. CBC is relatively normal index was are normal. Chest x-ray showed no evidence of pneumothorax. Increased pulmonary vascular markings otherwise unremarkable. Objective - Vital Signs Vital signs: Vital Signs Temp 98.4 F 03/03/21 12:00 Pulse 67 03/03/21 12:00 Resp 21 03/03/21 12:00 BP 107/59 03/03/21 12:00 Pulse Ox 94 L 03/03/21 12:00 Intake & Output 03/02/21 03/03/21 03/03/21 18:59 06:59 18:59 Intake Total 159.252 110 850 Output Total 8833 149 6501 Balance -940.748 -560 -250 Weight 89.6 kg Intake: IV 149 110 0 .9 NS pressure bag 9 Lactated Ringers 1,000 ml 140 110 0 @ 20 mls/hr IV .Q24H [facility] Rx#:[id number] Intake, IV Titration 10.252 Amount Insulin Regular 100 unit 10.252 In Sodium Chloride 0.9% 100 ml @ Per Protocol IV .Q0M [facility] Rx#:[id number] Oral 850 Output: Chest Tube Drainage 110 220 Chest Tube Left Pleural/ 80 Mediastinal Left Lateral Chest 30 220 Urine 560 029 4485 Other: Voiding Method Indwelling Catheter Toilet Toilet Urinal Urinal # Voids 1 1 # Bowel Movements 1 ABP, PAP, CO, CI - Last Documented Arterial Blood Pressure 133/50 Pulmonary Artery Pressure 36/15 Cardiac Output 7.1 Cardiac Index 3.5 - Exam Physical Exam: Revealed an 81-year-old white male in no distress. Head: Atraumatic, normocephalic. HEENT:[Neck is supple.] [No neck masses.] [No thyromegaly.] [No JVD.] Chest: [Symmetrical chest expansion, minimal crackles at the left base. Cardiac Exam: [Normal S1 and S2, no S3 gallop, no murmur.] Abdomen: [Soft, nontender, no megaly, no rebound, no guarding, normal bowel sounds.] Extremities: [No clubbing, no edema, no cyanosis.] Neurological Exam: [No focal neurologic deficit.] Alert and oriented 3. Psychiatric: Normal mood affect and normal mental status examination. Musculoskeletal no deformities noted limitation in range of motion. - Labs CBC & Chem 7: 03/03/21 04:26 03/03/21 04:26 Labs: Abnormal Lab Results - Last 24 Hours (Table) 03/02/21 03/02/21 03/03/21 Range/Units 16:41 21:51 04:26 RBC 2.98 L (4.30-5.90) m/uL Hgb 9.4 L (13.0-17.5) gm/dL Hct 28.0 L (39.0-53.0) % RDW 17.6 H (11.5-15.5) % Plt Count 110 L (150-450) k/uL Sodium (137-145) mmol/L Glucose (74-99) mg/dL POC Glucose (mg/dL) 129 H 186 H (75-99) mg/dL Calcium (8.4-10.2) mg/dL Total Protein (6.3-8.2) g/dL Albumin (3.5-5.0) g/dL 03/03/21 03/03/21 03/03/21 Range/Units 04:26 06:52 11:35 RBC (4.30-5.90) m/uL Hgb (13.0-17.5) gm/dL Hct (39.0-53.0) % RDW (11.5-15.5) % Plt Count (150-450) k/uL Sodium 132 L (137-145) mmol/L Glucose 132 H (74-99) mg/dL POC Glucose (mg/dL) 139 H 156 H (75-99) mg/dL Calcium 8.0 L (8.4-10.2) mg/dL Total Protein 5.0 L (6.3-8.2) g/dL Albumin 2.9 L (3.5-5.0) g/dL Assessment and Plan Assessment: Impression: Status post CABG 3 postoperative day #3. Paroxysmal atrial fibrillation, responded well to amiodarone, today he is in sinus rhythm. 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 Former smoker. Degenerative joint disease. Postoperative atelectasis. Expected. Recommendation: Continue present supportive care measures. Continue aspirin statins and Plavix and beta blockers. Continue incentive spirometry. Continue ambulation. Continue GI and DVT prophylaxis. Continue pain control management. Continue amiodarone orally. Agree with Lasix given today. Transfer patient to stepdown unit and continue to monitor. Possible discharge planning in the next 48 hours. We'll continue to follow. Time with Patient: Less than 30
--- NOTE | 2021-03-03 14:44 | P.PN ---
Progress Note - Text Progress Note Date: 03/03/21 - Chief Complaint Coronary bypass Consultation: This is a 81-year-old patient who follows with Dr. Kuhn. Chronic stable medical conditions include hypertension, hyperlipidemia, BPH, osteoarthritis,. Patient undergone triple vessel bypass today. In the ICU. Currently intubated on the ventilator with FiO2 50% and a PEEP of 5. Patient did receive Cell Saver albumin previously. Current drips include nitroglycerin at 5 g, insulin 1.5 mg an hour, Cleviprex. Patient has 2 chest tubes 1 mediastinal and one left pleural. Telemetry shows sinus rhythm. Patient is semi-awake. Schofield catheter. And warming blanket. March 01: ICU: Sitting up in a chair. Chest tubes in place. Nasal cannula. Sinus rhythm. Tolerated clear liquids. Did thousand cc on incentive spirometry. No flatus. Patient did walk in the hallway with support. March 02: ICU: Laying in bed. Did call into atrial fibrillation this morning. Back in sinus rhythm. Started on IV amiodarone. And Lopressor. Schofield catheter in place. Put on Flomax. Did walk in the hallway. Mediastinal chest tube removed. Oral intake better. Using incentive spirometry. March 03: ICU. Up in a chair. Breathing better. Sinus rhythm. Did walk in the hallway. Decreased by mouth intake because does not like hospital food. Review of systems: Was done for constitutional, cardiovascular, GI, pulmonary. relevant finding as above Active Medications Albuterol/Ipratropium (Ipratropium-Albuterol 3 Ml Neb) 3 ml INHALATION RT-Q2H PRN PRN Reason: Shortness Of Breath Or Wheezing Albuterol/Ipratropium (Ipratropium-Albuterol 3 Ml Neb) 3 ml INHALATION RT-QID [facility] Last Admin: 03/03/21 11:37 Dose: 3 ml Documented by: Amiodarone HCl (Amiodarone 200 Mg Tab) 400 mg PO BID [facility] Last Admin: 03/03/21 08:39 Dose: 400 mg Documented by: Aspirin (Aspirin 325 Mg Tab) 325 mg PO DAILY [facility] Last Admin: 03/03/21 08:38 Dose: 325 mg Documented by: Atorvastatin Calcium (Atorvastatin 40 Mg Tab) 40 mg PO HS [facility] Last Admin: 03/02/21 22:03 Dose: 40 mg Documented by: Bisacodyl (Bisacodyl 10 Mg Supp) 10 mg RECTAL DAILY PRN PRN Reason: Constipation Last Admin: 03/03/21 08:39 Dose: 10 mg Documented by: Clopidogrel Bisulfate (Clopidogrel 75 Mg Tab) 75 mg PO DAILY [facility] Last Admin: 03/03/21 08:38 Dose: 75 mg Documented by: Cyanocobalamin (Cyanocobalamin 500 Mcg Tab) 2,500 mcg PO DAILY [facility] Last Admin: 03/03/21 08:39 Dose: 2,500 mcg Documented by: Heparin Sodium (Porcine) (Heparin Sodium,Porcine/Pf 5,000 Unit/0.5 Ml Syringe) 5,000 unit SQ Q8HR [facility] Last Admin: 03/03/21 08:38 Dose: 5,000 unit Documented by: Calcium Gluconate 2 gm/ Sodium (Chloride) 120 mls @ 100 mls/hr IVPB ONCE PRN PRN Reason: Ionized Calcium less than 4.4 Stop: 03/30/21 13:04 Insulin Aspart (Insulin Aspart (Novolog) 100 Unit/Ml Vial) 0 unit SQ ACHS [facility]; Protocol Last Admin: 03/03/21 11:39 Dose: 1 unit Documented by: Ketorolac Tromethamine (Ketorolac 15 Mg/Ml 1 Ml Vial) 15 mg IVP Q6HR [facility] Stop: 03/03/21 16:40 Last Admin: 03/03/21 11:38 Dose: 15 mg Documented by: Magnesium Hydroxide (Magnesium Hydroxide 2,400 Mg/10 Ml Cup) 2,400 mg PO BID PRN PRN Reason: Constipation Metoclopramide HCl (Metoclopramide 5 Mg/Ml 2 Ml Vial) 10 mg IVP Q4H PRN PRN Reason: Nausea And Vomiting Metoprolol Tartrate (Metoprolol Tartrate 25 Mg Tab) 25 mg PO BID [facility] Last Admin: 03/03/21 08:38 Dose: 25 mg Documented by: Miscellaneous Information (Potassium Replacement Protocol 1 Each Misc) 1 each MISCELLANE DAILY PRN; Protocol PRN Reason: Per Protocol Miscellaneous Information (Magnesium Replacement Protocol 1 Each Misc) 1 each MISCELLANE DAILY PRN; Protocol PRN Reason: Per Protocol Miscellaneous Information (Phosphorus Replacement Protoco 1 Each Misc) 1 each MISCELLANE DAILY PRN; Protocol PRN Reason: Per Protocol Multivitamins (Multivitamins, Thera 1 Each Tab) 1 each PO DAILY [facility] Last Admin: 03/03/21 08:39 Dose: 1 each Documented by: Ondansetron HCl (Ondansetron 4 Mg/2 Ml Vial) 4 mg IVP Q6HR PRN PRN Reason: Nausea And Vomiting Last Admin: 03/01/21 06:00 Dose: 4 mg Documented by: Pantoprazole Sodium (Pantoprazole 40 Mg Tablet) 40 mg PO AC-BRKFST [facility] Last Admin: 03/03/21 06:58 Dose: 40 mg Documented by: Senna/Docusate Sodium (Sennosides-Docusate Sodium 1 Each Tab) 2 each PO HS [facility] Last Admin: 03/02/21 22:03 Dose: 2 each Documented by: Sodium Chloride (Sodium Chloride 0.9% Flush 10 Ml Syringe) 10 ml IV BID [facility] Last Admin: 03/03/21 08:40 Dose: 10 ml Documented by: Tamsulosin HCl (Tamsulosin 0.4 Mg Cap.Er.24h) 0.4 mg PO PC-BRKFST [facility] Last Admin: 03/03/21 08:39 Dose: 0.4 mg Documented by: Past medical history to include: Coronary artery with stent, hypertension, hyperlipidemia, prostate disorder, osteoarthritis Social history: Patient is to be unit and zhang. Stop smoking about 22 years ago. Alcohol occasionally. Family history: Includes myocardial infarction Physical examination: VITAL SIGNS: 98.4, 67, 21, 107/59, 94% on 2 L GENERAL: Laying in bed, comfortable left, pleural Chest tube in place EYES: Pupils equal. Conjunctiva normal. HEENT: [External appearance of nose and ears normal, oral cavity normal NECK: JVD unable to assess; masses not palpable. HEART: First and second heart sounds are normal; no edema. LUNGS: Respiratory rate increased; decreased breath sounds. ABDOMEN: Soft, nontender, liver spleen not palpable, no masses palpable. PSYCH: AO - times three. Mood and affect normal. Tired NEUROLOGICAL: Cranial nerves grossly intact; no facial asymmetry, power and sensation grossly intact. INVESTIGATIONS, reviewed in the clinical context: March 03: WBC 8.8 hemoglobin 944 platelets 110 potassium 3.8 creatinine 0.79 March 02: WBC 13 hemoglobin 10.1 platelets 111 potassium 4 creatinine 0.97 March 01: WBC 13.2 hemoglobin 11.1 platelets 106 potassium 4 creatinine 0.61 WBC 12 hemoglobin 11.6 platelets 126 potassium 4.1 creatinine 0.57 albumin 2.7 LDL 33.2 Previous labs: Hemoglobin 14.2 on February 19 platelets 152 Assessment and plan: -Triple vessel coronary bypass. Patient has 1 mediastinal-discontinued and one left pleural chest tube. -Triple vessel coronary artery disease -Acute hypoxic respiratory failure , status post ventilator On 2 L nasal cannula -New onset of paroxysmal atrial fibrillation. Back in sinus rhythm IV amiodarone-changed to 400 mg twice a day. Lopressor -Essential hypertension Taken off Cleviprex. Lopressor 25 mg twice daily -Hyperlipidemia Lipitor 40 mg daily at bedtime -BPH On supplements -Acute postprocedure blood loss anemia, expected from surgery Follow H&H -Dilutional thrombocytopenia Follow H&H -Hypoalbuminemia, acute phase reactant From surgery Care was discussed with the patient. Increase activity as tolerated. Using incentive spirometry. Continue current medications. Thank you Dr. Guardado
--- NOTE | 2021-03-03 16:06 | P.PN ---
Subjective Progress Note Date: 03/03/21 This is a 81-year-old gentleman status post off-pump bypass surgery. Patient's chest tubes were removed. Patient seemed to be tolerating activity. Overall, hemodynamically stable. Chest pain is improving. No Sigmund arrhythmias noted. Lungs are clear. Heart is regular. Patient seemed clinically progressing well. Objective - Vital Signs Vital signs: Vital Signs Temp 98.4 F 03/03/21 12:00 Pulse 67 03/03/21 12:00 Resp 21 03/03/21 12:00 BP 107/59 03/03/21 12:00 Pulse Ox 94 L 03/03/21 12:00 Intake & Output 03/02/21 03/03/21 03/03/21 18:59 06:59 18:59 Intake Total 159.252 110 850 Output Total 4722 715 0842 Balance -940.748 -560 -250 Weight 89.6 kg Intake: IV 149 110 0 .9 NS pressure bag 9 Lactated Ringers 1,000 ml 140 110 0 @ 20 mls/hr IV .Q24H [facility] Rx#:[id number] Intake, IV Titration 10.252 Amount Insulin Regular 100 unit 10.252 In Sodium Chloride 0.9% 100 ml @ Per Protocol IV .Q0M [facility] Rx#:[id number] Oral 850 Output: Chest Tube Drainage 110 220 Chest Tube Left Pleural/ 80 Mediastinal Left Lateral Chest 30 220 Urine 811 001 6763 Other: Voiding Method Indwelling Catheter Toilet Toilet Urinal Urinal # Voids 1 1 # Bowel Movements 1 ABP, PAP, CO, CI - Last Documented Arterial Blood Pressure 133/50 Pulmonary Artery Pressure 36/15 Cardiac Output 7.1 Cardiac Index 3.5 - Exam GENERAL EXAM: Patient is alert and oriented a HEENT: Normocephalic. Normal reaction of pupils, equal size, normal range of extraocular motion. No erythema or exudates in the throat. NECK: No masses, no nuchal rigidity. CHEST: Postsurgical LUNGS: Equal air entry with no crackles or wheeze. HEART: S1 and S2 normal with no audible mumurs or gallops. Regular rhythm, femorals equal on both sides.. ABDOMEN: No hepatosplenomegaly, normal bowel sounds, no guarding or rigidity. SKIN: No rashes CENTRAL NERVOUS SYSTEM: No focal deficits. EXTREMITIES: No cyanosis, clubbing or edema. - Labs CBC & Chem 7: 03/03/21 04:26 03/03/21 04:26 Labs: Abnormal Lab Results - Last 24 Hours (Table) 03/02/21 03/02/21 03/03/21 Range/Units 16:41 21:51 04:26 RBC 2.98 L (4.30-5.90) m/uL Hgb 9.4 L (13.0-17.5) gm/dL Hct 28.0 L (39.0-53.0) % RDW 17.6 H (11.5-15.5) % Plt Count 110 L (150-450) k/uL Sodium (137-145) mmol/L Glucose (74-99) mg/dL POC Glucose (mg/dL) 129 H 186 H (75-99) mg/dL Calcium (8.4-10.2) mg/dL Total Protein (6.3-8.2) g/dL Albumin (3.5-5.0) g/dL 03/03/21 03/03/21 03/03/21 Range/Units 04:26 06:52 11:35 RBC (4.30-5.90) m/uL Hgb (13.0-17.5) gm/dL Hct (39.0-53.0) % RDW (11.5-15.5) % Plt Count (150-450) k/uL Sodium 132 L (137-145) mmol/L Glucose 132 H (74-99) mg/dL POC Glucose (mg/dL) 139 H 156 H (75-99) mg/dL Calcium 8.0 L (8.4-10.2) mg/dL Total Protein 5.0 L (6.3-8.2) g/dL Albumin 2.9 L (3.5-5.0) g/dL Assessment and Plan (1) Status post aorto-coronary artery bypass graft Current Visit: Yes Status: Acute Code(s): Z95.1 - PRESENCE OF AORTOCORONARY BYPASS GRAFT SNOMED Code(s): 017255828 (2) History of TIA (transient ischemic attack) Current Visit: Yes Status: Acute Code(s): Z86.73 - PRSNL HX OF TIA (TIA), AND CEREB INFRC W/O RESID DEFICITS SNOMED Code(s): 115440531 (3) Hyperlipidemia Current Visit: No Status: Acute Code(s): E78.5 - HYPERLIPIDEMIA, UNSPECIFIED SNOMED Code(s): 12833786 (4) Hypertension Current Visit: No Status: Acute Code(s): I10 - ESSENTIAL (PRIMARY) HYPERTENSION SNOMED Code(s): 61157311 Plan: Patient is making good progress. Chest tubes have been removed. Patient had an episode of atrial fibrillation but back in sinus rhythm. He'll continue current medical therapy. Possible transfer to telemetry unit. Incentive spirometry
[2021-03-03 17:05] LABS: Glucose,Whole Blood 132 mg/dL (75-99)
[2021-03-03] MEDS: SENNOSIDES-DOCUSATE SODIUM 1 EACH TAB PO SCH (20:07)
[2021-03-03] MEDS: ATORVASTATIN 40 MG TAB PO SCH (20:07)
[2021-03-04 05:53] LABS: Glucose,Whole Blood 138 mg/dL (75-99)
[2021-03-04] MEDS: PANTOPRAZOLE 40 MG TABLET PO SCH (06:39)
[2021-03-04] MEDS: INSULIN ASPART (NovoLOG) 100 UNIT/ML VIAL SQ SCH ×4 (06:39→20:37)
[2021-03-04] MEDS: IPRATROPIUM-ALBUTEROL 3 ML NEB INHALATION SCH ×4 (08:00→20:13)
--- NOTE | 2021-03-04 08:36 | P.PN ---
Subjective Progress Note Date: 03/04/21 Principal diagnosis: Coronary artery disease. Previous medical history of coronary artery disease with myocardial infarction and previous PCI, sick sinus syndrome, recent abnormal stress test, hypertension, hypercholesterolemia, TIA, prior lung biopsy, prior tobacco dependence and family history of coronary artery disease. POD #4 Off-pump CABG 3 with HOYT to LAD, saphenous vein grafts to obtuse marginal and posterior descending coronary arteries, endovascular vein harvest of the left greater saphenous vein from the ankle to the groin, epi-aortic ultrasonography, ligation of left atrial appendage with 40 mm AtriCure clip. Postoperative acute blood loss anemia, expected post cardiac surgery given hemodilution. Paroxysmal atrial fibrillation, a known common occurrence after cardiac surgery. The patient is currently laying in bed on the cardiac stepdown unit in no acute distress. Denies pain, complains of some mild shortness of breath although he appears very comfortable. Remains in sinus rhythm and hemodynamically stable. Patient has been ambulatory in the hallway without difficulty. Remains on room air. No new concerns. Objective - Vital Signs Vital signs: Vital Signs Temp 98.1 F 03/04/21 03:28 Pulse 81 03/04/21 08:15 Resp 16 03/04/21 03:28 BP 110/58 03/04/21 03:28 Pulse Ox 93 L 03/04/21 03:28 Intake & Output 03/03/21 03/04/21 03/04/21 18:59 06:59 18:59 Intake Total 1100 Output Total 1450 200 Balance -350 -200 Weight 93.667 kg Intake: IV 0 Lactated Ringers 1,000 ml 0 @ 20 mls/hr IV .Q24H [facility] Rx#:[id number] Oral 1100 Output: Urine 1450 200 Other: Voiding Method Toilet Toilet Urinal Urinal Diaper # Voids 1 3 # Bowel Movements 1 ABP, PAP, CO, CI - Last Documented Arterial Blood Pressure 133/50 Pulmonary Artery Pressure 36/15 Cardiac Output 7.1 Cardiac Index 3.5 - Exam CONSTITUTIONAL: Appears comfortable, cooperative, no acute distress RESPIRATORY: Lungs sounds diminished bilaterally. Respirations even, nonlabored. Currently on room air with oxygen saturation 93%. Able to achieve 1000 mL on incentive spirometry. Strong cough. CARDIOVASCULAR: S1, S2 present. Regular rate and rhythm, sinus rhythm on telemetry. Sternum stable. Palpable peripheral pulses bilaterally. No edema present. No calf pain or tenderness noted. Heart hugger in place with patient demonstrating appropriate use. Antiembolism stockings, SCDs present. GASTROINTESTINAL: Abdomen soft, nontender, nondistended. Active bowel sounds present 4 quadrants. Tolerating diet. Positive bowel movement 03/03. GENITOURINARY: Continues to void INTEGUMENTARY: Skin is warm and dry with evidence of good perfusion. Anterior chest incision well approximated and covered with dry intact dressing. Left lower extremity EVH site well approximated without redness or drainage. NEUROLOGIC: Cranial nerves II through XII intact MUSKULOSKELETAL: Able to move all extremities, strength equal bilaterally, gait normal PSYCHIATRIC: Alert and oriented to person place and time, appropriate affect, intact judgment and insight - Allied health notes Allied health notes reviewed: nursing - Labs CBC & Chem 7: 03/03/21 04:26 03/03/21 04:26 Labs: Abnormal Lab Results - Last 24 Hours (Table) 03/03/21 03/03/21 03/04/21 Range/Units 11:35 17:02 05:51 POC Glucose (mg/dL) 156 H 132 H 138 H (75-99) mg/dL - Imaging and Cardiology Chest x-ray: image reviewed Assessment and Plan Assessment: 1. Coronary artery disease, with previous history of myocardial infarction and previous PCI, S/P 3V off pump CABG 2. History of sick sinus syndrome 3. Hypertension 4. Hypercholesterolemia, treated, cholesterol 126, LDL 33 5. Previous TIA 6. Prior lung biopsy demostrating fungal infection 7. Prior tobacco dependence, preoperative FEV1 81% of predicted 8. Family history of coronary artery disease. 9. Postoperative acute blood loss anemia, expected 10. Paroxysmal atrial fibrillation, S/P left atrial appendage ligation Plan: 1. Continue aspirin, statin, Plavix, and beta cristian. Will increase beta cristian carefully as tolerated as patient does have documented history of sick sinus syndrome 2. Continue amiodarone for afib prophylaxis, no anticoagulation warranted at this time 3. Encourage incentive spirometry use 10 times every hour while awake. Bro nchodilators per pulmonology management. 4. Increase activity, ambulate as tolerated. PT/OT/cardiac rehab consulted. First post op shower today 5. Will monitor daily labs and chest x-rays. Electrolyte replacement per protocol 6. GI/DVT prophylaxis. 7. Insulin management per primary care service. The patient is not diabetic, preoperative hemoglobin A1c 5.4%, however he does need tight blood sugar control to promote sternal union and to prevent infection 8. Pain control with current medication regimen 9. Strict accurate intake and output. Daily weights. 10. Discharge planning in progress. Anticipate discharge to home with home care in the next 24-48 hours 11. More recommendations to follow Time with Patient: Greater than 30
[2021-03-04 08:51] LABS: Anisocytosis Slight; HCT 26.8 % (39.0-53.0); HGB 9.2 gm/dL (13.0-17.5); MCH 32.2 pg (25.0-35.0); MCHC 34.4 g/dL (31.0-37.0); MCV 93.8 fL (80.0-100.0); Mean Platelet Volume 9.7; Platelet Count 141 k/uL (150-450); RBC 2.86 m/uL (4.30-5.90); WBC 7.9 k/uL (3.8-10.6)
[2021-03-04 08:57] LABS: Calcium 8.3 mg/dL (8.4-10.2); Magnesium 2.1 mg/dL (1.6-2.3); Potassium 3.9 mmol/L (3.5-5.1)
--- NOTE | 2021-03-04 09:23 | XR ---
EXAMINATION TYPE: XR chest 2V DATE OF EXAM: 03/04/2021 COMPARISON: 03/03/2021 INDICATION: Post cardiac surgery TECHNIQUE: Frontal and lateral views of the chest are obtained. FINDINGS: The heart size is mildly prominent. The pulmonary vasculature is normal. Mild left lower lobe and is present. This is improved from comparison. IMPRESSION: 1. Improving left lower lobe infiltrate. 2. Postcardiac surgery changes
[2021-03-04] MEDS: TAMSULOSIN 0.4 MG CAP.ER.24H PO SCH (09:27)
[2021-03-04] MEDS: CYANOCOBALAMIN 500 MCG TAB PO SCH (09:27)
[2021-03-04] MEDS: METOPROLOL TARTRATE 25 MG TAB PO SCH ×2 (09:27→20:37)
[2021-03-04] MEDS: CLOPIDOGREL 75 MG TAB PO SCH (09:27)
[2021-03-04] MEDS: MULTIVITAMINS, THERA 1 EACH TAB PO SCH (09:27)
[2021-03-04] MEDS: AMIODARONE 200 MG TAB PO SCH ×2 (09:28→20:37)
[2021-03-04] MEDS: ASPIRIN 325 MG TAB PO SCH (09:28)
[2021-03-04] MEDS: HEPARIN SODIUM,PORCINE/PF 5,000 UNIT/0.5 ML SYRINGE SQ SCH ×2 (09:28→18:00)
[2021-03-04] MEDS ORDERED: FUROSEMIDE 10 MG/ML 2 ML VIAL IV STA (11:26)
[2021-03-04 11:53] LABS: Glucose,Whole Blood 137 mg/dL (75-99)
[2021-03-04] MEDS ORDERED: POTASSIUM CHLORIDE ER 20 MEQ TAB.ER PO SCH (12:00)
--- NOTE | 2021-03-04 12:02 | P.PN ---
Subjective Progress Note Date: 03/04/21 Principal diagnosis: Coronary artery disease This is a 81-year-old white male patient of Dr. Dharmesh staley with past medical history of coronary artery disease with prior history of myocardial infarction and previous PCI, hypertension, hypercholesterolemia, sick sinus syndrome, prior tobacco dependence, osteoarthritis with history of orthopedic surgeries. Patient also has history of a lung wedge biopsy for a fungal infection 10 or 12 years ago. He has a family history of coronary artery disease. Patient had an abnormal outpatient stress test which showed fixed defect in the inferior wall with possible reversible defect in the anterior lateral wall. Clinically patient had been asymptomatic, without any complaints of chest pain, shortness of breath or any other anginal-type symptoms recently. Patient had a heart catheterization on 02/19/2021 which showed a calcified left main disease, calcified proximal left anterior descending coronary artery with 80% lesion, 70% blockage to the ostium of the circumflex coronary artery, total occlusion of the dominant RCA. His most recent echocardiogram from 09/23/2020 showed mildly impaired left ventricular systolic function with an EF of 45-50%, mildly enlarged right ventricle, hypokinesis of the basal lateral, inferior, mid lateral, and mid inferior LV wall motion. There was moderate aortic valve sclerosis, with mild to moderate aortic regurgitation, mild to moderate mitral regurgitation, and moderate tricuspid regurgitation, pulmonary artery pressure was 42.8 mmHg. His preop FEV1 was in order of 2.13 L or 81% of predicted, with FVC of 2.6 L or 72% of predicted, FEV1 to FVC ratio of 112%, MCV of 79.9, and th is was consistent with mild restriction. Patient was referred to cardiothoracic surgery for coronary artery bypass consideration. After undergoing preop evaluation patient was deemed appropriate for off-pump coronary artery bypass surgery with left internal mammary artery, and endovascular vein harvest on possible left atrial appendage exclusion. On February 28 2021 patient underwent off pump elective myocardial revascularization with HOYT to the LAD, SVG to the PDA, SVG to the OM, endoscopic vein harvest from the left lower extremity, left atrial appendage exclusion and intraoperative transesophageal echocardiogram. Patient is seen in the postoperative period in the intensive care unit, he is intubated, and sedated on assist control mode of ventilation, with a rate of 12, tidal lines 500, FiO2 of 100% and PEEP of 5, postoperative blood gas showed a pO2 of 272, pCO2 of 47, and pH of 7.30 and this was done on FiO2 100%. FiO2 had since been dropped down to 60%. Patient is currently on lactated Ringer's at 50 ML per hour, Diprivan, and small amount of nitroglycerin infusion. He is in sinus mechanism, hemodynamically he is stable, blood pressures 139/60, PA pressures 42/18, CVP is 8, cardiac output is 5.3, and cardiac index is 2.6. He has a left pleural and mediastinal chest tube connected together, to Pleur-evac, wall suction, with small amount of sanguinous output. His incisions are clean dry and intact, covered with surgical dressings. Postoperative chest x-ray has been reviewed showing ET tube, [place] catheter, in appropriate positions. No pneumothorax On 03/01/2021 patient seen in follow-up intensive care unit. Today is postoperative day #1, status post three-vessel coronary artery bypass grafting was done off pump, with endovascular vein harvest. Patient is doing well, he seen sitting up in the recliner, on 3 L oxygen pulse ox is 93%, patient was ext ubated within 4 hours of the OR exit time. Patient has been working on incentive spirometer, today's chest x-ray shows mild bibasilar infiltrates, and platelike atelectasis at the left base. He was dynamically his been stable, he is currently on lactated Ringer's at a rate of 30 ML per hour, and insulin drip is at 2.5 units per hour. No other drips. Patient is in sinus mechanism with a controlled rate, [place] catheter has been discontinued, his mediastinal and left pleural chest tube has put out a total of 1070 ML of watery serosanguineous output in the last 24 hours. His incisions are clean dry and intact. Sternum was stable, chest tube sites are clean dry and intact. No episodes of arrhythmias overnight. Patient is breathing comfortably, he is tolerating oral intake. Today's labs have been reviewed, white count is 13.2, hemoglobin is 11.1, sodium is 133, the rest electrolytes are within normal limits, BUN is 9, creatinine 0.61. On 03/04/2021 patient seen in follow-up on selective care unit, he is awake and alert, oriented 3, he is sitting up in the recliner, appears to be in no acute distress, denies any pain, he does have some exertional dyspnea, but no apparent distress, hemodynamically stable, he is in sinus mechanism, he has been tolerating ambulation, is currently on room air, his pulse ox is 92%, vital signs have been stable. He is not on any IV infusions. Today's chest x-ray has been reviewed, and his left lower lobe infiltrate is improving. His labs have been reviewed, his white blood cell count is 7.9, hemoglobin is 9.2, his electrolytes and renal profile were unremarkable on today's labs. Patient received a dose of IV Lasix today per CT surgery. She received 1 dose of IV Lasix yesterday as well, and he has produced 1.6 L in urine output over last 24 hours, and he is in -550 ML. He is working on incentive spirometer, he is tolerating oral diet, his had no nausea vomiting or diarrhea. Objective - Vital Signs Vital signs: Vital Signs Temp 99.3 F 03/04/21 08:00 Pulse 81 03/04/21 08:15 Resp 18 03/04/21 08:00 BP 126/74 03/04/21 08:00 Pulse Ox 92 L 03/04/21 08:00 Intake & Output 03/03/21 03/04/21 03/04/21 18:59 06:59 18:59 Intake Total 1100 240 Output Total 1450 200 Balance -350 -200 240 Weight 93.667 kg Intake: IV 0 Lactated Ringers 1,000 ml 0 @ 20 mls/hr IV .Q24H [facility] Rx#:[id number] Oral 1100 240 Output: Urine 1450 200 Other: Voiding Method Toilet Toilet Toilet Urinal Urinal Urinal Diaper Diaper # Voids 1 3 # Bowel Movements 1 ABP, PAP, CO, CI - Last Documented Arterial Blood Pressure 133/50 Pulmonary Artery Pressure 36/15 Cardiac Output 7.1 Cardiac Index 3.5 - Exam GENERAL EXAM: Awake and alert, oriented 3,, 81-year-old white male on room air with a pulse ox of 92% sitting up in the recliner HEAD: Normocephalic/atraumatic. EYES: Normal reaction of pupils, equal size. Conjunctiva pink, sclera white. NOSE: Clear with pink turbinates. THROAT: No erythema or exudates. NECK: No masses, no JVD, no thyroid enlargement, no adenopathy. CHEST: No chest wall deformity. Symmetrical expansion. Midsternal incision is clean dry and intact, chest tube sites are clean dry and intact LUNGS: Equal air entry with no crackles, wheeze, rhonchi or dullness. CVS: Regular rate and rhythm, normal S1 and S2, no gallops, no murmurs, no rubs ABDOMEN: Soft, nontender. No hepatosplenomegaly, normal bowel sounds, no guarding or rigidity. EXTREMITIES: No clubbing, no edema, no cyanosis, 2+ pulses and upper and lower extremities. MUSCULOSKELETAL: Muscle strength and tone normal. Left leg endovascular vein harvest site covered with a surgical dressing, SCDs are on on bilateral lower extremities, SPINE: No scoliosis or deformity SKIN: No rashes CENTRAL NERVOUS SYSTEM: Awake and alert, oriented 3. No focal deficits, tone is normal in all 4 extremities. - Labs CBC & Chem 7: 03/04/21 07:58 03/04/21 07:58 Labs: Abnormal Lab Results - Last 24 Hours (Table) 03/03/21 03/03/21 03/04/21 Range/Units 17:02 20:09 05:51 RBC (4.30-5.90) m/uL Hgb (13.0-17.5) gm/dL Hct (39.0-53.0) % RDW (11.5-15.5) % Plt Count (150-450) k/uL BUN (9-20) mg/dL Glucose (74-99) mg/dL POC Glucose (mg/dL) 132 H 137 H 138 H (75-99) mg/dL Calcium (8.4-10.2) mg/dL 03/04/21 03/04/21 Range/Units 07:58 07:58 RBC 2.86 L (4.30-5.90) m/uL Hgb 9.2 L (13.0-17.5) gm/dL Hct 26.8 L (39.0-53.0) % RDW 17.0 H (11.5-15.5) % Plt Count 141 L (150-450) k/uL BUN 22 H (9-20) mg/dL Glucose 133 H (74-99) mg/dL POC Glucose (mg/dL) (75-99) mg/dL Calcium 8.3 L (8.4-10.2) mg/dL Assessment and Plan Plan: Assessment: #1. Multivessel coronary artery disease, with an abnormal outpatient stress test, post previous myocardial infarction, and previous PCI, status post off- pump three-vessel artery artery bypass grafting with HOYT to the LAD, SVG to the PDA, and SCDs to the OM, endoscopic vein harvest from the left lower extremity, and left atrial appendage exclusion, postoperative day #0 on 02/28/2021. Postop day #3 #2. Routine postoperative ventilator management, patient was successfully weaned and extubated on postoperative day #0, within 4 hours of OR exit time #3. Prior history of right lung biopsy for a fungal infection in 2009 #4. Former smoker #5. Prior history of TIA #6. Osteoarthritis, with prior history of bilateral knee replacements #7. Postoperative atelectasis, expected Plan: Continue current medical treatment Continue aspirin, statins, Plavix and beta blockers Encourage incentive spirometry use Continue GI and DVT prophylaxis Encourage ambulation Patient received an additional dose of IV Lasix today Today's chest x-ray has been reviewed Follow-up labs and chest x-ray in the morning I performed a history & physical examination of the patient and discussed their management with my nurse practitioner, Pily Reilly. I reviewed the nurse practitioner's note and agree with the documented findings and plan of care. Lung sounds are positive for clear breath sounds throughout the lung huynh. The findings and the impression was discussed with the patient. I attest to the documentation by the nurse practitioner. Time with Patient: Less than 30
[2021-03-04 12:06] LABS: Glucose,Whole Blood 113 mg/dL (75-99)
--- NOTE | 2021-03-04 14:05 | P.PN ---
Progress Note - Text Progress Note Date: 03/04/21 - Chief Complaint Coronary bypass Consultation: This is a 81-year-old patient who follows with Dr. Kuhn. Chronic stable medical conditions include hypertension, hyperlipidemia, BPH, osteoarthritis,. Patient undergone triple vessel bypass today. In the ICU. Currently intubated on the ventilator with FiO2 50% and a PEEP of 5. Patient did receive Cell Saver albumin previously. Current drips include nitroglycerin at 5 g, insulin 1.5 mg an hour, Cleviprex. Patient has 2 chest tubes 1 mediastinal and one left pleural. Telemetry shows sinus rhythm. Patient is semi-awake. [place] catheter. And warming blanket. March 01: ICU: Sitting up in a chair. Chest tubes in place. Nasal cannula. Sinus rhythm. Tolerated clear liquids. Did thousand cc on incentive spirometry. No flatus. Patient did walk in the hallway with support. March 02: ICU: Laying in bed. Did call into atrial fibrillation this morning. Back in sinus rhythm. Started on IV amiodarone. And Lopressor. Schofield catheter in place. Put on Flomax. Did walk in the hallway. Mediastinal chest tube removed. Oral intake better. Using incentive spirometry. March 03: ICU. Up in a chair. Breathing better. Sinus rhythm. Did walk in the hallway. Decreased by mouth intake because does not like hospital food. March 04: On the medical floor. Up in a chair. Breathing better. Gets tired with ambulation. Not very excited about hospital for. Using incentive spirometry. Review of systems: Was done for constitutional, cardiovascular, GI, pulmonary. relevant finding as above A Active Medications Albuterol/Ipratropium (Ipratropium-Albuterol 3 Ml Neb) 3 ml INHALATION RT-Q2H PRN PRN Reason: Shortness Of Breath Or Wheezing Albuterol/Ipratropium (Ipratropium-Albuterol 3 Ml Neb) 3 ml INHALATION RT-QID [facility] Last Admin: 03/04/21 12:02 Dose: 3 ml Documented by: Amiodarone HCl (Amiodarone 200 Mg Tab) 400 mg PO BID [facility] Last Admin: 03/04/21 09:28 Dose: 400 mg Documented by: Aspirin (Aspirin 325 Mg Tab) 325 mg PO DAILY [facility] Last Admin: 03/04/21 09:28 Dose: 325 mg Documented by: Atorvastatin Calcium (Atorvastatin 40 Mg Tab) 40 mg PO HS [facility] Last Admin: 03/03/21 20:07 Dose: 40 mg Documented by: Bisacodyl (Bisacodyl 10 Mg Supp) 10 mg RECTAL DAILY PRN PRN Reason: Constipation Last Admin: 03/03/21 08:39 Dose: 10 mg Documented by: Clopidogrel Bisulfate (Clopidogrel 75 Mg Tab) 75 mg PO DAILY [facility] Last Admin: 03/04/21 09:27 Dose: 75 mg Documented by: Cyanocobalamin (Cyanocobalamin 500 Mcg Tab) 2,500 mcg PO DAILY [facility] Last Admin: 03/04/21 09:27 Dose: 2,500 mcg Documented by: Heparin Sodium (Porcine) (Heparin Sodium,Porcine/Pf 5,000 Unit/0.5 Ml Syringe) 5,000 unit SQ Q8HR [facility] Last Admin: 03/04/21 09:28 Dose: 5,000 unit Documented by: Calcium Gluconate 2 gm/ Sodium (Chloride) 120 mls @ 100 mls/hr IVPB ONCE PRN PRN Reason: Ionized Calcium less than 4.4 Stop: 03/30/21 13:04 Insulin Aspart (Insulin Aspart (Novolog) 100 Unit/Ml Vial) 0 unit SQ ACHS [facility]; Protocol Last Admin: 03/04/21 12:32 Dose: Not Given Documented by: Magnesium Hydroxide (Magnesium Hydroxide 2,400 Mg/10 Ml Cup) 2,400 mg PO BID PRN PRN Reason: Constipation Metoclopramide HCl (Metoclopramide 5 Mg/Ml 2 Ml Vial) 10 mg IVP Q4H PRN PRN Reason: Nausea And Vomiting Metoprolol Tartrate (Metoprolol Tartrate 25 Mg Tab) 25 mg PO BID [facility] Last Admin: 03/04/21 09:27 Dose: 25 mg Documented by: Miscellaneous Information (Potassium Replacement Protocol 1 Each Misc) 1 each MISCELLANE DAILY PRN; Protocol PRN Reason: Per Protocol Miscellaneous Information (Magnesium Replacement Protocol 1 Each Misc) 1 each MISCELLANE DAILY PRN; Protocol PRN Reason: Per Protocol Miscellaneous Information (Phosphorus Replacement Protoco 1 Each Misc) 1 each MISCELLANE DAILY PRN; Protocol PRN Reason: Per Protocol Multivitamins (Multivitamins, Thera 1 Each Tab) 1 each PO DAILY [facility] Last Admin: 03/04/21 09:27 Dose: 1 each Documented by: Ondansetron HCl (Ondansetron 4 Mg/2 Ml Vial) 4 mg IVP Q6HR PRN PRN Reason: Nausea And Vomiting Last Admin: 03/01/21 06:00 Dose: 4 mg Documented by: Pantoprazole Sodium (Pantoprazole 40 Mg Tablet) 40 mg PO AC-BRKFST [facility] Last Admin: 03/04/21 06:39 Dose: 40 mg Documented by: Senna/Docusate Sodium (Sennosides-Docusate Sodium 1 Each Tab) 2 each PO HS [facility] Last Admin: 03/03/21 20:07 Dose: 2 each Documented by: Sodium Chloride (Sodium Chloride 0.9% Flush 10 Ml Syringe) 10 ml IV BID [facility] Last Admin: 03/04/21 09:28 Dose: 10 ml Documented by: Tamsulosin HCl (Tamsulosin 0.4 Mg Cap.Er.24h) 0.4 mg PO -BRKFST [facility] Last Admin: 03/04/21 09:27 Dose: 0.4 mg Documented by: Past medical history to include: Coronary artery with stent, hypertension, hyperlipidemia, prostate disorder, osteoarthritis Social history: Patient is to be unit and zhang. Stop smoking about 22 years ago. Alcohol occasionally. Family history: Includes myocardial infarction Physical examination: VITAL SIGNS: 99.3, 80, 18, 126/74, 92% room air GENERAL: Sitting up in a chair, comfortable EYES: Pupils equal. Conjunctiva normal. HEENT: [External appearance of nose and ears normal, oral cavity normal NECK: JVD unable to assess; masses not palpable. HEART: First and second heart sounds are normal; no edema. LUNGS: Respiratory rate increased; decreased breath sounds. ABDOMEN: Soft, nontender, liver spleen not palpable, no masses palpable. PSYCH: AO - times three. Mood and affect normal. Tired INVESTIGATIONS, reviewed in the clinical context: March 04: WBC 7.9 hemoglobin 9.2 platelets 141 potassium 3.9 creatinine 0.9 to March 03: WBC 8.8 hemoglobin 944 platelets 110 potassium 3.8 creatinine 0.79 March 02: WBC 13 hemoglobin 10.1 platelets 111 potassium 4 creatinine 0.97 March 01: WBC 13.2 hemoglobin 11.1 platelets 106 potassium 4 creatinine 0.61 WBC 12 hemoglobin 11.6 platelets 126 potassium 4.1 creatinine 0.57 albumin 2.7 LDL 33.2 Previous labs: Hemoglobin 14.2 on February 19 platelets 152 Assessment and plan: -Triple vessel coronary bypass. Patient has 1 mediastinal-discontinued and one left pleural chest tube. -Triple vessel coronary artery disease -Acute hypoxic respiratory failure , status post ventilator On 2 L nasal cannula -New onset of paroxysmal atrial fibrillation. Back in sinus rhythm IV amiodarone-changed to 400 mg twice a day. Lopressor -Essential hypertension Taken off Cleviprex. Lopressor 25 mg twice daily -Hyperlipidemia Lipitor 40 mg daily at bedtime -BPH On supplements -Acute postprocedure blood loss anemia, expected from surgery Follow H&H -Dilutional thrombocytopenia Follow H&H -Hypoalbuminemia, acute phase reactant From surgery Care was discussed with the patient. Continue current medication incentive spirometry. Progressing satisfactorily. Thank you Dr. Guardado
--- NOTE | 2021-03-04 14:26 | P.PN ---
Subjective Progress Note Date: 03/04/21 HISTORY OF PRESENT ILLNESS: This is a pleasant 81-year-old male past medical history significant for coronary artery disease with previous HI and PCI who was recently evaluated pericardial thoracic surgery due to abnormal cardiac catheterization and was found to have 80% stenosis of the calcified proximal LAD, 70% stenosis of ostial circumflex and total occlusion of the dominant RCA with an ejection fraction of 40-45% with mild to moderate aortic regurgitation, mitral regurgitation and moderate tricuspid regurgitation. He is status post HOYT to LAD, SVG to PDA and SVG to OM. He is seen and examined resting comfortably lying flat in bed in no acute distress. This morning he went into A. fib with RVR. He was initiated on IV amiodarone and converted back to sinus mechanism. He is currently maintaining sinus rhythm with a blood pressure of 91/58 heart rate of 68. Laboratory data reviewed, WBC 13, hemoglobin 10.1, platelets 111, sodium 133, potassium 4 creatinine 0.97. Chest x-ray this morning revealed similar interstitial density, possible pulmonary vascular congestion, left basilar atelectasis and/or consolidation remains. He denies symptoms of chest pain, shortness of breath, dizziness or palpitations. Even during the afib episode he was asymptomatic. 03/04/2021 Patient examined this morning at the bedside. Patient has been transferred out of the ICU to the selective care unit. He is status post CABG. He denies chest pain or pressure. He denies shortness of breath with exertion. He denies shortness of breath at rest. Chest x-ray this morning reveals improving left lower lobe infiltrate. Vital signs are stable. Telemetry reveals sinus mechanism. PHYSICAL EXAM: VITAL SIGNS: Reviewed. GENERAL: Well-developed in no acute distress. NECK: Supple. No JVD or thyromegaly LUNGS: Respirations even and unlabored. Lungs diminished bilaterally. HEART: Regular rate and rhythm. S1 and S2 heard. EXTREMITIES: Normal range of motion. No clubbing or cyanosis. Peripheral pulses intact. No lower extremity edema ASSESSMENT: Coronary artery disease, status post CABG Brief paroxysmal episode of atrial fibrillation with RVR, currently maintaining sinus mechanism Hypertension Hyperlipidemia History of TIA Former nicotine dependence PLAN: Continue postoperative management per cardiac thoracic surgery Increase activity as tolerated Encourage use of incentive spirometer Continue current cardiac medications Continue telemetry monitoring Further recommendations pending patient's course Nurse practitioner note has been reviewed by physician. Signing provider agrees with the documented findings, assessment, and plan of care. Objective - Vital Signs Vital signs: Vital Signs Temp 98.1 F 03/04/21 12:00 Pulse 80 03/04/21 14:00 Resp 18 03/04/21 14:00 BP 106/65 03/04/21 12:00 Pulse Ox 94 L 03/04/21 12:00 Intake & Output 03/03/21 03/04/21 03/04/21 18:59 06:59 18:59 Intake Total 1100 240 Output Total 1450 200 Balance -350 -200 240 Weight 93.667 kg Intake: IV 0 Lactated Ringers 1,000 ml 0 @ 20 mls/hr IV .Q24H [facility] Rx#:[id number] Oral 1100 240 Output: Urine 1450 200 Other: Voiding Method Toilet Toilet Toilet Urinal Urinal Urinal Diaper Diaper # Voids 1 3 # Bowel Movements 1 1 ABP, PAP, CO, CI - Last Documented Arterial Blood Pressure 133/50 Pulmonary Artery Pressure 36/15 Cardiac Output 7.1 Cardiac Index 3.5 - Labs CBC & Chem 7: 03/04/21 07:58 03/04/21 07:58 Labs: Abnormal Lab Results - Last 24 Hours (Table) 03/03/21 03/03/21 03/04/21 Range/Units 17:02 20:09 05:51 RBC (4.30-5.90) m/uL Hgb (13.0-17.5) gm/dL Hct (39.0-53.0) % RDW (11.5-15.5) % Plt Count (150-450) k/uL BUN (9-20) mg/dL Glucose (74-99) mg/dL POC Glucose (mg/dL) 132 H 137 H 138 H (75-99) mg/dL Calcium (8.4-10.2) mg/dL 03/04/21 03/04/21 03/04/21 Range/Units 07:58 07:58 12:04 RBC 2.86 L (4.30-5.90) m/uL Hgb 9.2 L (13.0-17.5) gm/dL Hct 26.8 L (39.0-53.0) % RDW 17.0 H (11.5-15.5) % Plt Count 141 L (150-450) k/uL BUN 22 H (9-20) mg/dL Glucose 133 H (74-99) mg/dL POC Glucose (mg/dL) 113 H (75-99) mg/dL Calcium 8.3 L (8.4-10.2) mg/dL
[2021-03-04 17:01] LABS: Glucose,Whole Blood 133 mg/dL (75-99)
[2021-03-04 20:14] LABS: Glucose,Whole Blood 157 mg/dL (75-99)
[2021-03-04] MEDS: SENNOSIDES-DOCUSATE SODIUM 1 EACH TAB PO SCH (20:37)
[2021-03-04] MEDS: ATORVASTATIN 40 MG TAB PO SCH (20:37)
[2021-03-05] MEDS: HEPARIN SODIUM,PORCINE/PF 5,000 UNIT/0.5 ML SYRINGE SQ SCH ×2 (00:15→08:37)
[2021-03-05 05:55] LABS: Glucose,Whole Blood 126 mg/dL (75-99)
[2021-03-05] MEDS: INSULIN ASPART (NovoLOG) 100 UNIT/ML VIAL SQ SCH ×2 (06:03→12:51)
[2021-03-05] MEDS: PANTOPRAZOLE 40 MG TABLET PO SCH (06:44)
--- NOTE | 2021-03-05 07:31 | CDI ---
Documentation Clarification Form Date: 03/05/2021 07:21:41 AM From: Lisa Wing CCS, CCDS Admit Date: 02/28/2021 05:42:00 AM Patient Name: Adriel Gates Visit Number: [id number] Discharge Date: ATTENTION: The Clinical Documentation Specialists (CDI) and [facility] Coding Staff appreciate your assistance in clarifying documentation. Please respond to the clarification below the line at the bottom and electronically sign. The CDI & [facility] Coding staff will review the response and follow-up if needed. Please note: Queries are made part of the Legal Health Record. If you have any questions, please contact the author of this message via ITS. Dr. Juanito Dietrich: Per the 02/28 Medical Management Consult and the 02/28 Medical Management Progress Note, the following is documented: Acute hypoxic respiratory failure, status post ventilator. On 3 L nasal cannula today. Per the 03/03 Medical Management Consult Progress Note: Acute Hypoxic Respiratory Failure, status post ventilator on 2Lnc today. 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 History/Risk Factors per the 02/28 Medical Management Consult: Hypertension, Hyperlipidemia, BPH, OA, CAD with prior Stent, Former smoker. Clinical Indicators: Presented on 02/28 for an elective CABG. Per the Pulmonary/Critical Electric Welder Helper, the patient was extubated to 3Lnc within 4 hours of OR exit time. 02/28 VS: R 27, PO 100 on vent (upon return from OR), extubated to 3Lnc - 4Lnc (PO 92 - 95 - 90) 03/01 VS: R 20, PO 95 - 93 4Lnc 02/28 CXR: Interval post CABG changes. New pulmonary vascular congestion along with small pleural effusions & adjacent atelectasis and/or consolidation. 03/01 CXR: Mild bibasilar infiltrates. Some platelike atelectasis at the left base. 03/05 CXR: COPD with persistent pulmonary vascular congestion. Trace effusions noted on the lateral view. Treatment 02/28: To ICU postoperatively, O2 3Lnc, INH Neb Bronchodilators q4Hrs, Incentive Spirometer, IV Cefazolin, IV Clevidipine, IV Heparin, IV Lactated Ringers, IV MagSulfate 03/01 O2 4L, IV Mag Sulfate/Dextrose, INH Duoneb (not given) 03/02 - 03/05: IV Lasix 20 mg x1 What relationship, if any, exists between the diagnosis of Acute Hypoxic Respiratory Failure and the procedure: [ ] Acute Hypoxic Respiratory Failure is a complication of the surgical procedure [ ] Acute Hypoxic Respiratory Failure is an expected outcome of the surgical procedure [ ] Acute Hypoxic Respiratory Failure is related to patients co-morbid condition(s), please specify condition(s): & is not a complication of the procedure [ ] Acute Hypoxic Respiratory Failure is ruled out [ ] Other please specify: [ ] Unable to determine (Template Last Revised: September 2020) MTDD
--- NOTE | 2021-03-05 07:58 | P.PN ---
Subjective Progress Note Date: 03/05/21 Principal diagnosis: Coronary artery disease. Previous medical history of coronary artery disease with myocardial infarction and previous PCI, sick sinus syndrome, recent abnormal stress test, hypertension, hypercholesterolemia, TIA, prior lung biopsy, prior tobacco dependence and family history of coronary artery disease. POD #5 Off-pump CABG 3 with HOYT to LAD, saphenous vein grafts to obtuse marginal and posterior descending coronary arteries, endovascular vein harvest of the left greater saphenous vein from the ankle to the groin, epi-aortic ultrasonography, ligation of left atrial appendage with 40 mm AtriCure clip. Postoperative acute blood loss anemia, expected post cardiac surgery given hemodilution. Paroxysmal atrial fibrillation, a known common occurrence after cardiac surgery. No postoperative hypoxic respiratory failure (documented in the medical con sultation)-patient had normal postoperative course with mechanical ventilation due to surgery, extubated 4.5 hours after OR exit time The patient is currently sitting up in a recliner on the cardiac stepdown unit in no acute distress. Denies pain, complains of some mild shortness of breath with ambulation, appears very comfortable at the moment. Remains in sinus rhythm and hemodynamically stable. Patient has been ambulatory in the hallway multiple times without difficulty. Remains on room air. His only complaint is that the food tastes awful. States he is ready to go home. No new concerns. Objective - Vital Signs Vital signs: Vital Signs Temp 98.5 F 03/05/21 05:05 Pulse 71 03/05/21 05:05 Resp 20 03/05/21 05:05 BP 124/81 03/05/21 05:05 Pulse Ox 91 L 03/05/21 05:05 Intake & Output 03/04/21 03/05/21 03/05/21 18:59 06:59 18:59 Intake Total 720 Output Total 600 950 Balance 120 -950 Weight 94 kg Intake: Oral 720 Output: Urine 600 950 Other: Voiding Method Toilet Toilet Urinal Urinal Diaper Diaper # Voids 1 # Bowel Movements 1 ABP, PAP, CO, CI - Last Documented Arterial Blood Pressure 133/50 Pulmonary Artery Pressure 36/15 Cardiac Output 7.1 Cardiac Index 3.5 - Exam CONSTITUTIONAL: Appears comfortable, cooperative, no acute distress RESPIRATORY: Lungs sounds diminished bilaterally. Respirations even, nonlabored. Currently on room air with oxygen saturation 93%. Able to achieve 2000 mL on incentive spirometry. Strong cough. CARDIOVASCULAR: S1, S2 present. Regular rate and rhythm, sinus rhythm on telemetry. Sternum stable. Palpable peripheral pulses bilaterally. No edema present. No calf pain or tenderness noted. Heart hugger in place with patient demonstrating appropriate use. Antiembolism stockings, SCDs present. GASTROINTESTINAL: Abdomen soft, nontender, nondistended. Active bowel sounds present 4 quadrants. Tolerating diet. Positive bowel movement 03/04. GENITOURINARY: Continues to void INTEGUMENTARY: Skin is warm and dry with evidence of good perfusion. Anterior chest incision well approximated and covered with dry intact dressing. Left lower extremity EVH site well approximated without redness or drainage. NEUROLOGIC: Cranial nerves II through XII intact MUSKULOSKELETAL: Able to move all extremities, strength equal bilaterally, gait normal PSYCHIATRIC: Alert and oriented to person place and time, appropriate affect, intact judgment and insight - Allied health notes Allied health notes reviewed: nursing - Labs CBC & Chem 7: 03/04/21 07:58 03/04/21 07:58 Labs: Abnormal Lab Results - Last 24 Hours (Table) 03/03/21 03/04/21 03/04/21 Range/Units 20:09 07:58 07:58 RBC 2.86 L (4.30-5.90) m/uL Hgb 9.2 L (13.0-17.5) gm/dL Hct 26.8 L (39.0-53.0) % RDW 17.0 H (11.5-15.5) % Plt Count 141 L (150-450) k/uL BUN 22 H (9-20) mg/dL Glucose 133 H (74-99) mg/dL POC Glucose (mg/dL) 137 H (75-99) mg/dL Calcium 8.3 L (8.4-10.2) mg/dL 03/04/21 03/04/21 03/04/21 Range/Units 12:04 16:59 20:13 RBC (4.30-5.90) m/uL Hgb (13.0-17.5) gm/dL Hct (39.0-53.0) % RDW (11.5-15.5) % Plt Count (150-450) k/uL BUN (9-20) mg/dL Glucose (74-99) mg/dL POC Glucose (mg/dL) 113 H 133 H 157 H (75-99) mg/dL Calcium (8.4-10.2) mg/dL 03/05/21 Range/Units 05:53 RBC (4.30-5.90) m/uL Hgb (13.0-17.5) gm/dL Hct (39.0-53.0) % RDW (11.5-15.5) % Plt Count (150-450) k/uL BUN (9-20) mg/dL Glucose (74-99) mg/dL POC Glucose (mg/dL) 126 H (75-99) mg/dL Calcium (8.4-10.2) mg/dL - Imaging and Cardiology Chest x-ray: image reviewed Assessment and Plan Assessment: 1. Coronary artery disease, with previous history of myocardial infarction and previous PCI, S/P 3V off pump CABG 2. History of sick sinus syndrome 3. Hypertension 4. Hypercholesterolemia, treated, cholesterol 126, LDL 33 5. Previous TIA 6. Prior lung biopsy demostrating fungal infection 7. Prior tobacco dependence, preoperative FEV1 81% of predicted 8. Family history of coronary artery disease. 9. Postoperative acute blood loss anemia, expected 10. Paroxysmal atrial fibrillation, S/P left atrial appendage ligation Plan: 1. Continue aspirin, statin, Plavix, and beta cristian. 2. Continue amiodarone for afib prophylaxis, will taper dose at discharge, no anticoagulation warranted at this time 3. Encourage incentive spirometry use 10 times every hour while awake. Bronchodilators per pulmonology management. 4. Increase activity, ambulate as tolerated. PT/OT/cardiac rehab following 5. Will monitor daily labs and chest x-rays. Electrolyte replacement per protocol 6. GI/DVT prophylaxis. 7. Insulin management per primary care service. The patient is not diabetic, preoperative hemoglobin A1c 5.4%, however he does need tight blood sugar control to promote sternal union and to prevent infection 8. Pain control with current medication regimen 9. Strict accurate intake and output. Daily weights. 10. Discharge planning in progress. Anticipate discharge to home with home care this afternoon 11. More recommendations to follow Time with Patient: Greater than 30
[2021-03-05] MEDS: IPRATROPIUM-ALBUTEROL 3 ML NEB INHALATION SCH ×2 (08:23→12:21)
[2021-03-05] MEDS: ASPIRIN 325 MG TAB PO SCH (08:36)
[2021-03-05] MEDS: METOPROLOL TARTRATE 25 MG TAB PO SCH (08:36)
[2021-03-05] MEDS: CLOPIDOGREL 75 MG TAB PO SCH (08:37)
[2021-03-05] MEDS: MULTIVITAMINS, THERA 1 EACH TAB PO SCH (08:37)
[2021-03-05] MEDS: AMIODARONE 200 MG TAB PO SCH (08:37)
[2021-03-05] MEDS: TAMSULOSIN 0.4 MG CAP.ER.24H PO SCH (08:37)
[2021-03-05] MEDS: CYANOCOBALAMIN 500 MCG TAB PO SCH (08:37)
--- NOTE | 2021-03-05 08:52 | XR ---
EXAMINATION TYPE: XR chest 2V DATE OF EXAM: 03/05/2021 COMPARISON: 03/04/2021 HISTORY: 81-year-old male post cardiac surgery TECHNIQUE: PA and lateral views FINDINGS: Median sternotomy wires are present. Interstitial opacities persist. No consolidation, air leak, or p leural effusion. Stable line at the right lower lung from prior surgery. Trace pleural effusions on l ateral view and hyperinflation. Heart remains mildly enlarged. IMPRESSION: COPD with persistent pulmonary vascular congestion. Trace effusions noted on the lateral view. Prior surgical change at the right base.
[2021-03-05 09:46] LABS: Anisocytosis Slight; HCT 28.7 % (39.0-53.0); HGB 9.3 gm/dL (13.0-17.5); Hypochromasia Slight; MCH 30.4 pg (25.0-35.0); MCHC 32.2 g/dL (31.0-37.0); MCV 94.5 fL (80.0-100.0); Mean Platelet Volume 9.9; Platelet Count 171 k/uL (150-450); RBC 3.04 m/uL (4.30-5.90); RDW 17.4 % (11.5-15.5)
[2021-03-05 10:03] LABS: Calcium 8.5 mg/dL (8.4-10.2); Potassium 3.7 mmol/L (3.5-5.1)
[2021-03-05] MEDS ORDERED: FUROSEMIDE 10 MG/ML 2 ML VIAL IV STA (10:15)
--- NOTE | 2021-03-05 11:33 | P.PN ---
Subjective Progress Note Date: 03/05/21 Principal diagnosis: Coronary artery disease This is a 81-year-old white male patient of Dr. Dharmesh staley with past medical history of coronary artery disease with prior history of myocardial infarction and previous PCI, hypertension, hypercholesterolemia, sick sinus syndrome, prior tobacco dependence, osteoarthritis with history of orthopedic surgeries. Patient also has history of a lung wedge biopsy for a fungal infection 10 or 12 years ago. He has a family history of coronary artery disease. Patient had an abnormal outpatient stress test which showed fixed defect in the inferior wall with possible reversible defect in the anterior lateral wall. Clinically patient had been asymptomatic, without any complaints of chest pain, shortness of breath or any other anginal-type symptoms recently. Patient had a heart catheterization on 02/19/2021 which showed a calcified left main disease, calcified proximal left anterior descending coronary artery with 80% lesion, 70% blockage to the ostium of the circumflex coronary artery, total occlusion of the dominant RCA. His most recent echocardiogram from 09/23/2020 showed mildly impaired left ventricular systolic function with an EF of 45-50%, mildly enlarged right ventricle, hypokinesis of the basal lateral, inferior, mid lateral, and mid inferior LV wall motion. There was moderate aortic valve sclerosis, with mild to moderate aortic regurgitation, mild to moderate mitral regurgitation, and moderate tricuspid regurgitation, pulmonary artery pressure was 42.8 mmHg. His preop FEV1 was in order of 2.13 L or 81% of predicted, with FVC of 2.6 L or 72% of predicted, FEV1 to FVC ratio of 112%, MCV of 79.9, and th is was consistent with mild restriction. Patient was referred to cardiothoracic surgery for coronary artery bypass consideration. After undergoing preop evaluation patient was deemed appropriate for off-pump coronary artery bypass surgery with left internal mammary artery, and endovascular vein harvest on possible left atrial appendage exclusion. On February 28 2021 patient underwent off pump elective myocardial revascularization with HOYT to the LAD, SVG to the PDA, SVG to the OM, endoscopic vein harvest from the left lower extremity, left atrial appendage exclusion and intraoperative transesophageal echocardiogram. Patient is seen in the postoperative period in the intensive care unit, he is intubated, and sedated on assist control mode of ventilation, with a rate of 12, tidal lines 500, FiO2 of 100% and PEEP of 5, postoperative blood gas showed a pO2 of 272, pCO2 of 47, and pH of 7.30 and this was done on FiO2 100%. FiO2 had since been dropped down to 60%. Patient is currently on lactated Ringer's at 50 ML per hour, Diprivan, and small amount of nitroglycerin infusion. He is in sinus mechanism, hemodynamically he is stable, blood pressures 139/60, PA pressures 42/18, CVP is 8, cardiac output is 5.3, and cardiac index is 2.6. He has a left pleural and mediastinal chest tube connected together, to Pleur-evac, wall suction, with small amount of sanguinous output. His incisions are clean dry and intact, covered with surgical dressings. Postoperative chest x-ray has been reviewed showing ET tube, Delhi-Adele catheter, in appropriate positions. No pneumothorax On 03/01/2021 patient seen in follow-up intensive care unit. Today is postoperative day #1, status post three-vessel coronary artery bypass grafting was done off pump, with endovascular vein harvest. Patient is doing well, he seen sitting up in the recliner, on 3 L oxygen pulse ox is 93%, patient was ext ubated within 4 hours of the OR exit time. Patient has been working on incentive spirometer, today's chest x-ray shows mild bibasilar infiltrates, and platelike atelectasis at the left base. He was dynamically his been stable, he is currently on lactated Ringer's at a rate of 30 ML per hour, and insulin drip is at 2.5 units per hour. No other drips. Patient is in sinus mechanism with a controlled rate, Delhi-Adele catheter has been discontinued, his mediastinal and left pleural chest tube has put out a total of 1070 ML of watery serosanguineous output in the last 24 hours. His incisions are clean dry and intact. Sternum was stable, chest tube sites are clean dry and intact. No episodes of arrhythmias overnight. Patient is breathing comfortably, he is tolerating oral intake. Today's labs have been reviewed, white count is 13.2, hemoglobin is 11.1, sodium is 133, the rest electrolytes are within normal limits, BUN is 9, creatinine 0.61. On 03/04/2021 patient seen in follow-up on selective care unit, he is awake and alert, oriented 3, he is sitting up in the recliner, appears to be in no acute distress, denies any pain, he does have some exertional dyspnea, but no apparent distress, hemodynamically stable, he is in sinus mechanism, he has been tolerating ambulation, is currently on room air, his pulse ox is 92%, vital signs have been stable. He is not on any IV infusions. Today's chest x-ray has been reviewed, and his left lower lobe infiltrate is improving. His labs have been reviewed, his white blood cell count is 7.9, hemoglobin is 9.2, his electrolytes and renal profile were unremarkable on today's labs. Patient received a dose of IV Lasix today per CT surgery. She received 1 dose of IV Lasix yesterday as well, and he has produced 1.6 L in urine output over last 24 hours, and he is in -550 ML. He is working on incentive spirometer, he is tolerating oral diet, his had no nausea vomiting or diarrhea. On 03/05/2021 patient seen in follow-up on selective care unit. Today is day 4, status post off-pump three-vessel coronary artery bypass grafting with endoscopic vein harvest, and left atrial appendage exclusion. Patient is doing well, he is awake and alert, oriented 3, he sitting up in the recliner, he is on room air, breathing comfortably. Is working on incentive spirometer, today's chest x-ray showing COPD with persistent pulmonary vascular congestion and trace pleural effusions. Is in sinus mechanism, hemodynamically stable, all incisions clean dry and intact, all chest tubes, Schofield catheter has been removed. His IVs have been hep-locked, patient has been tolerating ambulation. His had no acute events overnight, today's labs have been reviewed, his white blood cell, 7.0, hemoglobin is 9.3, electively some renal profile were within normal limits. Patient received another dose of IV Lasix today per CT surgery. Remains on nebulized bronchodilators. Objective - Vital Signs Vital signs: Vital Signs Temp 97.6 F 03/05/21 08:00 Pulse 80 03/05/21 08:30 Resp 16 03/05/21 08:00 BP 123/68 03/05/21 08:00 Pulse Ox 92 L 03/05/21 08:23 Intake & Output 03/04/21 03/05/21 03/05/21 18:59 06:59 18:59 Intake Total 720 240 Output Total 600 950 Balance 120 -950 240 Weight 94 kg Intake: Oral 720 240 Output: Urine 600 950 Other: Voiding Method Toilet Toilet Toilet Urinal Urinal Urinal Diaper Diaper Diaper # Voids 1 # Bowel Movements 1 ABP, PAP, CO, CI - Last Documented Arterial Blood Pressure 133/50 Pulmonary Artery Pressure 36/15 Cardiac Output 7.1 Cardiac Index 3.5 - Exam GENERAL EXAM: Awake and alert, oriented 3, 81-year-old white male on room air with a pulse ox of 92% sitting up in the recliner HEAD: Normocephalic/atraumatic. EYES: Normal reaction of pupils, equal size. Conjunctiva pink, sclera white. NOSE: Clear with pink turbinates. THROAT: No erythema or exudates. NECK: No masses, no JVD, no thyroid enlargement, no adenopathy. CHEST: No chest wall deformity. Symmetrical expansion. Midsternal incision is clean dry and intact, chest tube sites are clean dry and intact LUNGS: Equal air entry with no crackles, wheeze, rhonchi or dullness. CVS: Regular rate and rhythm, normal S1 and S2, no gallops, no murmurs, no rubs ABDOMEN: Soft, nontender. No hepatosplenomegaly, normal bowel sounds, no guardi ng or rigidity. EXTREMITIES: No clubbing, no edema, no cyanosis, 2+ pulses and upper and lower extremities. MUSCULOSKELETAL: Muscle strength and tone normal. Left leg endovascular vein harvest site covered with a surgical dressing, SCDs are on on bilateral lower extremities, SPINE: No scoliosis or deformity SKIN: No rashes CENTRAL NERVOUS SYSTEM: Awake and alert, oriented 3. No focal deficits, tone is normal in all 4 extremities. - Labs CBC & Chem 7: 03/05/21 08:49 03/05/21 08:49 Labs: Abnormal Lab Results - Last 24 Hours (Table) 03/03/21 03/04/21 03/04/21 Range/Units 20:09 12:04 16:59 RBC (4.30-5.90) m/uL Hgb (13.0-17.5) gm/dL Hct (39.0-53.0) % RDW (11.5-15.5) % Glucose (74-99) mg/dL POC Glucose (mg/dL) 137 H 113 H 133 H (75-99) mg/dL 03/04/21 03/05/21 03/05/21 Range/Units 20:13 05:53 08:49 RBC 3.04 L (4.30-5.90) m/uL Hgb 9.3 L (13.0-17.5) gm/dL Hct 28.7 L (39.0-53.0) % RDW 17.4 H (11.5-15.5) % Glucose (74-99) mg/dL POC Glucose (mg/dL) 157 H 126 H (75-99) mg/dL 03/05/21 Range/Units 08:49 RBC (4.30-5.90) m/uL Hgb (13.0-17.5) gm/dL Hct (39.0-53.0) % RDW (11.5-15.5) % Glucose 163 H (74-99) mg/dL POC Glucose (mg/dL) (75-99) mg/dL Assessment and Plan Plan: Assessment: #1. Multivessel coronary artery disease, with an abnormal outpatient stress test, post previous myocardial infarction, and previous PCI, status post off- pump three-vessel artery artery bypass grafting with HOYT to the LAD, SVG to the PDA, and SCDs to the OM, endoscopic vein harvest from the left lower extremity, and left atrial appendage exclusion, postoperative day #0 on 02/28/2021. Postop day #4 #2. Routine postoperative ventilator management, patient was successfully weaned and extubated on postoperative day #0, within 4 hours of OR exit time #3. Prior history of right lung biopsy for a fungal infection in 2009 #4. Former smoker #5. Prior history of TIA #6. Osteoarthritis, with prior history of bilateral knee replacements #7. Postoperative atelectasis, expected Plan: Today's lab and chest x-rays reviewed Patient is doing well, remains stable Received additional dose of IV Lasix Continues on aspirin, beta blockers, Lipitor, amiodarone Tolerating ambulation Maintaining stable O2 saturations on room air He had no acute events overnight Patient will likely to be discharged home today Follow-up Dr. Purcell in the office in 7-10 days. I performed a history & physical examination of the patient and discussed their management with my nurse practitioner, Pily Reilly. I reviewed the nurse practitioner's note and agree with the documented findings and plan of care. Lung sounds are positive for clear breath sounds throughout the lung huynh. The findings and the impression was discussed with the patient. I attest to the documentation by the nurse practitioner. Time with Patient: Less than 30
[2021-03-05 11:36] LABS: Glucose,Whole Blood 132 mg/dL (75-99)
[2021-03-05 11:51] VITALS: BP 98/62; PULSE 64; RESP 14; TEMP 97.9
--- NOTE | 2021-03-05 13:04 | P.DS ---
Providers Date of admission: 02/28/21 05:42 Expected date of discharge: 03/05/21 Attending physician: Adriel Guardado Consults: 02/28/21 13:03 Consult Physician Routine Consulting Provider: Gwen Velásquez Consult Reason/Comments: Onboarding Specialist Consult: post cardiac surgery Do you want consulting provider notified?: Yes Consult Physician Routine Consulting Provider: Juanito Dietrich Consult Reason/Comments: Wine Merchant Consult: post cardiac surgery Do you want consulting provider notified?: Yes Consult Physician Routine Consulting Provider: Yohannes Whitehead Consult Reason/Comments: [facility]; [facility] patient Do you want consulting provider notified?: Yes Primary care physician: [facility] Hospital Course: FINAL DIAGNOSIS: 1. Coronary artery disease with previous history of myocardial infarction and previous PCI 2. History of sick sinus syndrome 3. Hypertension 4. Hyperlipidemia, treated, cholesterol 126, LDL 33 5. Previous TIA 6. Prior lung biopsy demonstrating fungal infection 7. Prior tobacco dependence, preoperative FEV1 81% of predicted 8. Family history of coronary artery disease 9. Postoperative acute blood loss anemia, expected 10. Paroxysmal atrial fibrillation PRINCIPAL PROCEDURE: 1. Off-pump coronary artery bypass graft 3 with left internal mammary artery to the left anterior descending artery, reverse saphenous vein grafts to the obtuse marginal and posterior descending coronary arteries 2. Endovascular vein harvest of the left greater saphenous vein from ankle to groin 3. Epi-aortic ultrasonography 4. Ligation of the left atrial appendage with a 40 mm AtriCure clip HISTORY OF PRESENT ILLNESS: This is an 81-year-old active gentleman who follows on an outpatient basis with Dr. Kuhn for primary care and Dr. Ascencio for cardiology. He receives annual stress tests performed by cardiology, and his recent stress test was abnormal, demonstrating fixed defect in the inferior wall with possible reversible defect in the anterior lateral wall. He denied any chest pain, shortness of breath, or any other anginal type symptomatology in recent history. Due to these findings there was concern for progression of his coronary artery disease and he was recommended to undergo heart catheterization which demonstrated calcified left main disease, calcified proximal left anterior descending coronary artery with 80% lesion, 70% blockage to the ostium of the circumflex coronary artery, and total occlusion of the dominant right coronary artery. Consultation was placed to Dr. Guardado from cardiothoracic surgery. He was recommended to undergo off-pump coronary artery bypass surgery. The usual perioperative course was discussed in detail with the patient and his family, all risks and benefits were explained, all questions were answered, and consent was obtained to proceed with surgery. The patient was discharged to home on maximal medical therapy to return as an outpatient for surgery at the earliest possible date. HOSPITAL COURSE: The patient was brought to the hospital on 02/28/21, taken to the preoperative area, prepared in the usual fashion, and subsequently taken to the operating room where Dr. Guardado performed off-pump three-vessel CABG. Upon completion of surgery the patient was transferred to the cardiovascular intensive care unit where he was recovered and monitored hemodynamically. He was extubated, all lines, tubes, and drips were discontinued when appropriate, and he was transferred to 3 S cardiac stepdown unit for further monitoring and rehabilitation. He did experience a short burst of paroxysmal atrial fibrillation which was successfully treated with amiodarone. His oxygen was titrated down, he continued to work with physical and occupational therapy, he was tolerating oral diet, his pain was controlled, and he was ready to be discharged to home with [facility] on postoperative day #5. He received written and verbal instruction regarding his medications, activity restrictions, signs and symptoms requiring physician notification, and follow-up appointments. Patient Condition at Discharge: Stable Plan - Discharge Summary Discharge Rx Participant: No New Discharge Prescriptions: New Tamsulosin [Flomax] 0.4 mg PO PC-BRKFST #30 cap.er.24h Pantoprazole [Protonix] 40 mg PO AC-BRKFST #30 tablet. Amiodarone [Cordarone] 200 mg PO BID #21 tab Metoprolol Tartrate [Lopressor] 25 mg PO BID #60 tab Clopidogrel [Plavix] 75 mg PO DAILY #30 tab Sennosides-Docusate Sodium [Senokot-S] 2 each PO HS PRN tab PRN Reason: Constipation Continue Atorvastatin [Lipitor] 40 mg PO HS Aspirin EC [Ecotrin Low Dose] 81 mg PO DAILY Multivitamin [Men's Multi-Vitamin] 1 tab PO DAILY Saw Joseph 160 mg PO BID Cyanocobalamin (Vitamin B-12) [Vitamin B-12] 2,500 mcg PO DAILY Flaxseed Oil 1,000 mg PO DAILY Super C 1 tab PO DAILY Pumpkin Seed Oil 1 tab PO DAILY Green Tea [place] Extract [Green Tea Extract] 150 mg PO DAILY Discontinued Benazepril [Lotensin] 5 mg PO QAM Discharge Medication List Aspirin EC [Ecotrin Low Dose] 81 mg PO DAILY 10/09/17 [History] Atorvastatin [Lipitor] 40 mg PO HS 10/09/17 [History] Multivitamin [Men's Multi-Vitamin] 1 tab PO DAILY 10/09/17 [History] Saw Joseph 160 mg PO BID 09/05/18 [History] Cyanocobalamin (Vitamin B-12) [Vitamin B-12] 2,500 mcg PO DAILY 09/22/20 [History] Flaxseed Oil 1,000 mg PO DAILY 02/26/21 [History] Green Tea [place] Extract [Green Tea Extract] 150 mg PO DAILY 02/26/21 [History] Pumpkin Seed Oil 1 tab PO DAILY 02/26/21 [History] Super C 1 tab PO DAILY 02/26/21 [History] Amiodarone [Cordarone] 200 mg PO BID #21 tab 03/05/21 [Rx] Clopidogrel [Plavix] 75 mg PO DAILY #30 tab 03/05/21 [Rx] Metoprolol Tartrate [Lopressor] 25 mg PO BID #60 tab 03/05/21 [Rx] Pantoprazole [Protonix] 40 mg PO AC-BRKFST #30 tablet.dr 03/05/21 [Rx] Sennosides-Docusate Sodium [Senokot-S] 2 each PO HS PRN tab 03/05/21 [Rx] Tamsulosin [Flomax] 0.4 mg PO PC-BRKFST #30 cap.er.24h 03/05/21 [Rx] Follow up Appointment(s)/Referral(s): Juanito Dietrich MD [STAFF PHYSICIAN] - 03/27/21 1:00 pm [facility], [NON-STAFF] - Pavithra Ascencio MD [STAFF PHYSICIAN] - 1 Week (Dr. AMRIT Ascencio's office will call with a follow up appointment.) Rehab Amarjit CURRY,Cardiac [NON-STAFF] - 4 Weeks (You will be called approximately 4-6 weeks after surgery for cardiac rehab evaluation) Dharmesh Kuhn DO [Primary Care Provider] - 03/21/21 12:20 pm Adriel Guardado MD [STAFF PHYSICIAN] - 03/29/21 9:45 am Ezra Browning NPC [Nurse Practitioner] - 03/08/21 11:30 am (Please follow-up add address [address] [place] [address] [address], [facility], [address], office number [phone]) Ambulatory/Diagnostic Orders: Complete Blood Count w/diff [LAB.AMB] Time Frame: 3 Days, Location: None Selected Comprehensive Metabolic Panel [LAB.AMB] Time Frame: 3 Days, Location: None Selected Activity/Diet/Wound Care/Special Instructions: DISCHARGE INSTRUCTIONS: 1. No driving for 4 weeks, or until physician gives their ok. 2. The patient should sleep in their own bed, no medical bed needed. 3. Stairs are not an issue. If the bedroom is upstairs, it is advised that the patient go up at night and down in the morning for the first week. Go slowly, using handrail and take 1 step at a time. 4. DAVID hose are to be worn for 30 days or until physician discontinues. 5. Heart hugger is to be worn 100% of the time until physician discontinues.(except when showering) 6. No lifting, pushing, or pulling more than 10 pounds for 12 weeks. The physician will advise of any restriction changes. 7. The patient is expected to continue the prescribed walking program. 8. Continue pain control per as needed orders. 9. Continue with incentive spirometry and splinting/heart hugger until otherwise directed by the physician. 10. Must shower daily using liquid antibacterial soap and a separate white washcloth for each individual incision. 11. Routine sternal incision care. No powders, lotions, ointments on incisions. No dressings are necessary on incisions unless they are draining. Dermabond tape is to remain on sternal incision until surgeon follow-up. 12. Please call surgeon/DROP PRESS HAND for temp greater than 101 F or purulent drainage from incisions. 13. All prescriptions given by surgeon for 30 days. Refills need to be filled through transportation clerk/primary care physician. 14. A Red armband has been placed on the patient. It should be worn for 30 days post surgery and will be removed by the cardiac surgeons. If an ER visit is necessary, please make sure the number on the Red armband is called. 15. You have been referred to and are expected to begin Cardiac Rehab in approximately 4-6 weeks. HOME HEALTH SERVICES TO PROVIDE: RN SKILLED HOME CARE SERVICES FOR POST-OP SURGICAL PATIENTS WITH THE FOLLOWING: Coronary Artery Bypass Surgery (CABG), Mitral Valve Replacement/Repair ( MVR), Aortic Valve Replacement/Repair (AVR) RN TO CONTINUE EDUCATION FROM ``ROAD TO A HEALTH HEART PATIENT EDUCATION MANUAL (GIVEN TO PATIENT IN THE HOSPITAL) MEDICATION RECONCILIATION WITH EDUCATION NEEDED ON FIRST HOME VISIT EMPHASIZE IMPORTANCE OF WEARING BREAST SUPPORT/HEART HUGGER ENCOURAGE USE OF INCENTIVE SPIROMETER 10 X EVERY HOUR WHILE AWAKE ENCOURAGE UTILIZATION OF LOWER EXTREMITY COMPRESSION STOCKINGS/DAVID HOSE and ELEVATE LEGS ABOVE LEVEL OF HEART WHILE AT REST. ENCOURAGE AMBULATION 3-5x/day INCREASING TOLERATES, WHILE AVOIDING EXTREMES IN TEMPERATURE FREQUENCY: RN TO OPEN THE PATIENT WITHIN 24 HOURS OF DISCHARGE FROM THE HOSPITAL WITH [place]HEALTH [place] AT [facility] [place]ISIT 2-3 X A WEEK FOR 4 WEEKS ESTABLISHED BY PATIENT NEEDS. LABORATORY: CBC, CMP TO BE DRAWN ON THE THIRD DAY HOME, (RAN STAT) FAX RESULTS TO [phone]. TELEHEALTH PARAMETERS: WEIGHT: NOTIFY MD OF WEIGHT GAIN OF 2 LBS IN 24 HOURS OR 5 LBS IN ONE WEEK HR: NOTIFY MD OF HR <55 BPM OR HR>100 BPM BP: NOTIFY MD IF BP <90/55 OR BP>140/100 O2 SAT: NOTIFY MD IF PO2<93% ON ROOM AIR SEND TELEHEALTH REPORT TO SENIOR BUYER PLANNER AND CARDIOVASCULAR SURGEON THE FIRST WEEK OF CARE AND THEN BI-WEEKLY. PLEASE ADDITIONALLY COMMUNICATE ANY ABNORMALS AND NEW FINDINGS TO THE SURGEONS OFFICE. For any questions or concerns please call commercial credit portfolio manager Elvira @ or Chaitanya @ Discharge Disposition: HOME WITH HOME HEALTH SERVICES
--- NOTE | 2021-03-05 13:13 | PN ---
PROGRESS NOTE Adriel Gates is an 81-year-old gentleman who underwent aortocoronary bypass surgery that was performed by Dr. Adriel Guardado on 02/28/2021. This patient had a known history of prior inferior NC and PTCA of RCA. His RCA was totally occluded and collateralized from the left. He had off pump coronary artery bypass with the HOYT to LAD, vein graft to the obtuse marginal branch and PDA branch of the RCA. Post procedure, he developed some atrial fibrillation but he is now maintaining sinus rhythm. LV function was about 45% prior to surgery. Post procedure he is doing well. He is resting comfortably without symptoms. He is able to bring up almost nearly 2810-2289 mL on his incentive spirometry. He is maintaining sinus rhythm today. I am recommending that he can be discharged and upon discharge, I will see him in the office in 2 weeks. We will decrease his amiodarone to 200 mg b.i.d. He is on aspirin and Plavix combination and he is also on a beta cristian and statin, which we will continue. I will see him in the office 2 weeks after discharge. Advised to continue current medical regimen, incentive spirometry pulmonary toilet, gradual increase in activity. PHYSICAL EXAMINATION: Vital signs are stable. There is no JVD. S1-S2 heard normally. Short systolic murmur is evident. Lungs: Fairly decent air entry. Abdomen is soft. Lower extremities reveal diminished pulses. Central nervous system is normal. IMPRESSION: 1. Coronary artery disease with prior myocardial infarction status post recent bypass surgery, doing well. 2. Hypertension. 3. Hyperlipidemia. RECOMMENDATIONS: Same medical regimen, incentive spirometry, pulmonary toilet, increase activity, possible discharge and I will see him in 2 weeks in the office. Medications reviewed. Continue the same. MMODL / IJN: [id number] /
--- NOTE | 2021-03-05 19:43 | P.PN ---
Progress Note - Text Progress Note Date: 03/05/21 - Chief Complaint Coronary bypass Consultation: This is a 81-year-old patient who follows with Dr. Kuhn. Chronic stable medical conditions include hypertension, hyperlipidemia, BPH, osteoarthritis,. Patient undergone triple vessel bypass today. In the ICU. Currently intubated on the ventilator with FiO2 50% and a PEEP of 5. Patient did receive Cell Saver albumin previously. Current drips include nitroglycerin at 5 g, insulin 1.5 mg an hour, Cleviprex. Patient has 2 chest tubes 1 mediastinal and one left pleural. Telemetry shows sinus rhythm. Patient is semi-awake. Schofield catheter. And warming blanket. March 01: ICU: Sitting up in a chair. Chest tubes in place. Nasal cannula. Sinus rhythm. Tolerated clear liquids. Did thousand cc on incentive spirometry. No flatus. Patient did walk in the hallway with support. March 02: ICU: Laying in bed. Did call into atrial fibrillation this morning. Back in sinus rhythm. Started on IV amiodarone. And Lopressor. Schofield catheter in place. Put on Flomax. Did walk in the hallway. Mediastinal chest tube removed. Oral intake better. Using incentive spirometry. March 03: ICU. Up in a chair. Breathing better. Sinus rhythm. Did walk in the hallway. Decreased by mouth intake because does not like hospital food. March 04: On the medical floor. Up in a chair. Breathing better. Gets tired with ambulation. Not very excited about hospital for. Using incentive spirometry. March 05: Doing well. Oral intake good. Up and about. Breathing much improved. Keen to go home. Review of systems: Was done for constitutional, cardiovascular, GI, pulmonary. relevant finding as above Current medications reviewed in electronic records Past medical history to include: Coronary artery with stent, hypertension, hyperlipidemia, prostate disorder, osteoarthritis Social history: Patient is to be unit and zhang. Stop smoking about 22 years ago. Alcohol occasionally. Family history: Includes myocardial infarction Physical examination: VITAL SIGNS: He 7.9, 64, 14, 98/62, 92% room air GENERAL: Sitting up in a chair, comfortable EYES: Pupils equal. Conjunctiva normal. HEENT: [External appearance of nose and ears normal, oral cavity normal NECK: JVD unable to assess; masses not palpable. HEART: First and second heart sounds are normal; no edema. LUNGS: Respiratory rate increased; decreased breath sounds. ABDOMEN: Soft, nontender, liver spleen not palpable, no masses palpable. PSYCH: AO - times three. Mood and affect normal. Tired INVESTIGATIONS, reviewed in the clinical context: March 05: WBC 7 hemoglobin 9.3 creatinine 0.97 Accu-Cheks 132 March 04: WBC 7.9 hemoglobin 9.2 platelets 141 potassium 3.9 creatinine 0.9 to March 03: WBC 8.8 hemoglobin 944 platelets 110 potassium 3.8 creatinine 0.79 March 02: WBC 13 hemoglobin 10.1 platelets 111 potassium 4 creatinine 0.97 March 01: WBC 13.2 hemoglobin 11.1 platelets 106 potassium 4 creatinine 0.61 WBC 12 hemoglobin 11.6 platelets 126 potassium 4.1 creatinine 0.57 albumin 2.7 LDL 33.2 Previous labs: Hemoglobin 14.2 on February 19 platelets 152 Assessment and plan: -Triple vessel coronary bypass. Chest tubes removed -Triple vessel coronary artery disease -Acute hypoxic respiratory failure , status post ventilator 93% on room air -New onset of paroxysmal atrial fibrillation. Back in sinus rhythm IV amiodarone-changed to 400 mg twice a day. Lopressor -Essential hypertension Taken off Cleviprex. Lopressor 25 mg twice daily -Hyperlipidemia Lipitor 40 mg daily at bedtime -BPH On supplements -Acute postprocedure blood loss anemia, expected from surgery Follow H&H -Dilutional thrombocytopenia Follow H&H -Hypoalbuminemia, acute phase reactant From surgery D well. Continue current medication treatment plan. Follow-up with PCP upon discharge. Thank you Dr. Guardado
[2021-03-05] MEDS ORDERED: AMIODARONE 200 MG TAB PO SCH (21:00)
== END 2021-03-05 14:50 | disposition home health service (06) | DRG 235 ==
LOC: 2ORMAIN 05:42 → 2SICU 13:21 → 3SCARD 03-03 18:23
PROVIDERS: ADMIT Thoracic Surgery (Cardiothoracic Vascular Surgery); ATTEND Thoracic Surgery (Cardiothoracic Vascular Surgery)
DX: I25.10 Atherosclerotic heart disease of native coronary artery without angina pectoris (principal); J96.01 Acute respiratory failure with hypoxia; B39.1 Chronic pulmonary histoplasmosis capsulati; D62 Acute posthemorrhagic anemia; J98.11 Atelectasis; I25.82 Chronic total occlusion of coronary artery; Z87.891 Personal history of nicotine dependence; D69.59 Other secondary thrombocytopenia; E78.00 Pure hypercholesterolemia, unspecified; E78.5 Hyperlipidemia, unspecified; E88.09 Other disorders of plasma-protein metabolism, not elsewhere classified; I08.3 Combined rheumatic disorders of mitral, aortic and tricuspid valves; I10 Essential (primary) hypertension; I25.2 Old myocardial infarction; I25.84 Coronary atherosclerosis due to calcified coronary lesion; I48.0 Paroxysmal atrial fibrillation; J44.9 Chronic obstructive pulmonary disease, unspecified; M19.90 Unspecified osteoarthritis, unspecified site; N40.0 Benign prostatic hyperplasia without lower urinary tract symptoms; Z90.2 Acquired absence of lung [part of]; Z86.19 Personal history of other infectious and parasitic diseases; Z80.0 Family history of malignant neoplasm of digestive organs; Z82.49 Family history of ischemic heart disease and other diseases of the circulatory system; Z98.890 Other specified postprocedural states; Z86.73 Personal history of transient ischemic attack (TIA), and cerebral infarction without residual deficits; Z79.02 Long term (current) use of antithrombotics/antiplatelets; Z79.82 Long term (current) use of aspirin; Z79.899 Other long term (current) drug therapy; Z95.5 Presence of coronary angioplasty implant and graft; Z96.653 Presence of artificial knee joint, bilateral; Z98.42 Cataract extraction status, left eye; Z98.41 Cataract extraction status, right eye; Z96.1 Presence of intraocular lens
CPT/HCPCS: 71045; 71046; 80048; 80053; 82330; 82805; 83735; 84132; 85025; 85027; 85520; 85610; 85730; 86850; 86891; 86900; 86901; 86920; 94640; 94760

== ENCOUNTER 2022-08-11 19:35 | Observation (INO) | payer MEDICARE ==
[2022-08-11 20:12] LABS: Anisocytosis Slight; Basophils % (A) 1 %; Eosinophils # (A) 0.1 k/uL (0-0.7); Eosinophils % (A) 2 %; HCT 40.6 % (39.0-53.0); HGB 13.7 gm/dL (13.0-17.5); Lymphocytes # (A) 1.5 k/uL (1.0-4.8); Lymphocytes % (A) 29 %; MCH 30.8 pg (25.0-35.0); MCHC 33.6 g/dL (31.0-37.0); MCV 91.6 fL (80.0-100.0); Mean Platelet Volume 9.3; Monocytes # (A) 0.3 k/uL (0-1.0); Monocytes % (A) 7 %; Neutrophils # (A) 2.9 k/uL (1.3-7.7); Neutrophils % (A) 58 %; Platelet Count 144 k/uL (150-450); Poikilocytosis Slight; RBC 4.44 m/uL (4.30-5.90); RDW 16.9 % (11.5-15.5)
[2022-08-11 20:20] LABS: Partial Thromboplastin Time 27.5 sec (22.0-30.0); Prothrombin Time 10.5 sec (9.0-12.0)
[2022-08-11 20:23] LABS: ALT 24 U/L (4-49); AST 31 U/L (17-59); African American GFR (CKD) >90 (>60 ml/min/1.73 sqM); Albumin 3.9 g/dL (3.5-5.0); Alkaline Phosphatase 87 U/L (38-126); Anion Gap 10 mmol/L; Blood Urea Nitrogen 19 mg/dL (9-20); Carbon Dioxide 24 mmol/L (22-30); Chloride 108 mmol/L (98-107); Glucose 109 mg/dL (74-99); Lipase 196 U/L (23-300); Magnesium 2.1 mg/dL (1.6-2.3); Non-African American GFR(CKD) 84 (>60 ml/min/1.73 sqM); Potassium 3.9 mmol/L (3.5-5.1); Sodium 142 mmol/L (137-145); Total Bilirubin 0.6 mg/dL (0.2-1.3); Total Protein 6.7 g/dL (6.3-8.2)
--- NOTE | 2022-08-11 20:40 | XR ---
EXAMINATION TYPE: XR chest 2V DATE OF EXAM: 08/11/2022 COMPARISON: 03/05/2021 HISTORY: Chest pain TECHNIQUE: FINDINGS: There is no heart failure nor confluent pneumonic infiltrate. Costophrenic angles are clear there are chest leads. No pleural effusion. Bony thorax is intact. IMPRESSION: No active cardiopulmonary disease. There is clearing of some mild interstitial infiltrate in the left lung compared to old exam.
[2022-08-11] MEDS ORDERED: MORPHINE SULFATE 4 MG/ML SYRINGE IVP STA (20:42)
[2022-08-11] MEDS ORDERED: NALOXONE 0.4 MG/ML 1 ML VIAL IV PRN (21:24)
[2022-08-11] MEDS ORDERED: hydrALAZINE HCL 20 MG/ML 1 ML VIAL IVP STA (21:24)
--- NOTE | 2022-08-11 21:27 | ED ---
General Adult HPI - General Chief complaint: Chest Pain Stated complaint: Pain in center of back radiating to chest Time Seen by Provider: 08/11/22 19:52 Source: patient Mode of arrival: ambulatory Limitations: no limitations - History of Present Illness Initial comments: This is an 82 -year-old male with a past medical history including hypertension, previous MIs, stents and previous CABG presents emergency department for chest pain and back pain. The patient stated that he had back pain that began around 9:30 in the morning that it progressed and worsened and radiated to the front chest since 5 PM. The patient stated that he had some mild nausea associated with this and more discomfort in his back that his chest. The patient denied any further radiation. The patient did state that it felt similar to his previous CA and was concerned. The patient did state that he chewed a full aspirin earlier in the day but did not have any significant relief. The patient denied any other acute pain or complaints at this time but did state he had continued back and chest pain on my evaluation. - Related Data Home Medications Medication Instructions Recorded Confirmed Aspirin EC [Ecotrin Low Dose] 81 mg PO DAILY 10/09/17 02/28/21 Atorvastatin [Lipitor] 40 mg PO HS 10/09/17 02/28/21 Multivitamin [Men's Multi-Vitamin] 1 tab PO DAILY 10/09/17 02/28/21 Saw [place] 160 mg PO BID 09/05/18 02/28/21 Cyanocobalamin (Vitamin B-12) 2,500 mcg PO DAILY 09/22/20 02/28/21 [Vitamin B-12] Green Tea [place] Extract [Green Tea 150 mg PO DAILY 02/26/21 02/28/21 Extract] Pumpkin Seed Oil 1 tab PO DAILY 02/26/21 02/28/21 Super C 1 tab PO DAILY 02/26/21 02/28/21 flaxseed oiL [Flaxseed Oil] 1,000 mg PO DAILY 02/26/21 02/28/21 Previous Rx's Medication Instructions Recorded Amiodarone [Cordarone] 200 mg PO BID #21 tab 03/05/21 Clopidogrel [Plavix] 75 mg PO DAILY #30 tab 03/05/21 Metoprolol Tartrate [Lopressor] 25 mg PO BID #60 tab 03/05/21 Pantoprazole [Protonix] 40 mg PO AC-BRKFST #30 tablet. 03/05/21 Sennosides-Docusate Sodium 2 each PO HS PRN tab 03/05/21 [Senokot-S] Tamsulosin [Flomax] 0.4 mg PO PC-BRKFST #30 cap.er.24h 03/05/21 Allergies Allergy/AdvReac Type Severity Reaction Status Date / Time No Known Allergies Allergy Verified 02/28/21 07:17 Review of Systems ROS Statement: Those systems with pertinent positive or pertinent negative responses have been documented in the HPI. ROS Other: All systems not noted in ROS Statement are negative. Past Medical History Past Medical History: Coronary Artery Disease (CAD), Chest Pain / Angina, Hyperlipidemia, Hypertension, Myocardial Infarction ([place]), Prostate Disorder Additional Past Medical History / Comment(s): states has 3 cardiac stents that are 100% blocked, with collateral bypass; patient denies hypertension although it is listed in his history and he is on antihypertensives Last Myocardial Infarction Date:: 1996 History of Any Multi-Drug Resistant Organisms: None Reported Past Surgical History: Heart Catheterization, Heart Catheterization With Stent, Joint Replacement, Orthopedic Surgery, Tonsillectomy Additional Past Surgical History / Comment(s): bilateral knee replacments, right lung wedge resection, cataracts removed-lens implants, states 3 cardiac stents Past Anesthesia/Blood Transfusion Reactions: No Reported Reaction Date of Last Stent Placement:: 1996 Past Psychological History: No Psychological Hx Reported Smoking Status: Former smoker - Past Family History Father Family Medical History: Myocardial Infarction ([place]) Mother Family Medical History: Cancer Additional Family Medical History / Comment(s): colon General Exam Limitations: no limitations General appearance: alert, in no apparent distress Head exam: Present: atraumatic, normocephalic, normal inspection Eye exam: Present: normal appearance, PERRL Pupils: Present: normal accommodation ENT exam: Present: normal exam, normal oropharynx, mucous membranes moist Neck exam: Present: normal inspection, full ROM Respiratory exam: Present: normal lung sounds bilaterally Cardiovascular Exam: Present: regular rate, normal rhythm, normal heart sounds GI/Abdominal exam: Present: soft, normal bowel sounds Extremities exam: Present: normal inspection, full ROM Back exam: Present: normal inspection, full ROM Neurological exam: Present: alert, oriented X3, CN II-XII intact Psychiatric exam: Present: normal affect, normal mood Skin exam: Present: warm, dry Course Vital Signs 08/11/22 08/11/22 08/11/22 19:37 20:02 20:55 Temperature 97 F L Pulse Rate 62 60 Respiratory 19 18 Rate Blood Pressure 159/122 195/90 195/89 O2 Sat by Pulse 96 98 Oximetry EKG Findings - EKG Comments: EKG Findings:: An EKG was obtained and was interpreted by myself showing a rate of 68, SC interval 149, QRS duration of 116 and QTC of 443. This EKG showed a normal sinus rhythm with no ST segment elevation or depression noted. Medical Decision Making - Medical Decision Making Was pt. sent in by a medical professional or institution (, [facility], [employer], urgent care, hospital, or long term...) When possible be specific @ -No Did you speak to anyone other than the patient for history (EMS, parent, family, police, friend...)? What history was obtained from this source @ -Yes, patient's Did you review nursing and triage notes (agree or disagree)? Why? @ -I reviewed and agree with nursing and triage notes Were old charts reviewed (outside hosp., previous admission, EMS record, old EKG, old radiological studies, urgent care reports/EKG's, long term records)? Report findings @ -No old charts were reviewed Differential Diagnosis (chest pain, altered mental status, abdominal pain women, abdominal pain men, vaginal bleeding, weakness, fever, dyspnea, syncope, headache, dizziness, GI bleed, back pain, seizure, CVA, palpatations, mental health)? @ -Acute coronary syndrome, pneumonia, chest wall muscle strain, hypertensive emergency EKG interpreted by me (3pts min.). @ -As above X-rays interpreted by me (1pt min.). @ -Chest x-ray was obtained and was interpreted by myself showing no acute process CT interpreted by me (1pt min.). @ -None done U/S interpreted by me (1pt. min.). @ -None done What testing was considered but not performed or refused? (CT, X-rays, U/S, labs)? Why? @ -None What meds were considered but not given or refused? Why? @ -None Did you discuss the management of the patient with other professionals (professionals i.e. , PA, [employer], lab, RT, psych nurse, professor of social work, obstetrics specialist, teacher, supervisory cbp officer, casey saw operator)? Give summary @ -Yes, admitting team and Ryann Cast Was smoking cessation discussed for >3mins.? @ -No Was critical care preformed (if so, how long)? @ -No Were there social determinants of health that impacted care today? How? (Homelessness, low income, unemployed, alcoholism, drug addiction, transportation, low edu. Level, literacy, decrease access to med. care, custodial, rehab)? @ -No Was there de-escalation of care discussed even if they declined (Discuss DNR or withdrawal of care, Hospice)? DNR status @ -No What co-morbidities impacted this encounter? (DM, HTN, Smoking, COPD, CAD, Cancer, CVA, ARF, Chemo, Hep., AIDS, mental health diagnosis, sleep apnea, morbid obesity)? @ -Hypertension, previous CABG, previous stents Was patient admitted / discharged? Hospital course, mention meds given and route, prescriptions, significant lab abnormalities, going to OR and other pertinent info. @ -The patient was seen and evaluated in the emergency department. Physical exam, the patient was resting in bed with minor distress secondary to back and chest pain. Vital signs were stable. All laboratory workup was within normal limits and was negative. The patient had continued discomfort and elevated blood pressure the patient was given a dose of morphine with significant improvement of his pain. The patient's blood pressure continued to remain elevated and therefore the patient was given a dose of hydralazine as the patient's heart rate was in the 50s. Due to the patient's continued discomfort and chest pain in the setting of significant cardiac history, the patient will be placed in observation to be seen and evaluated by cardiology in the morning. The patient was agreeable to this plan. The patient's primary care physician was being covered by Dr. Whitehead who is being covered by [facility] and Ryann Cast. She was contacted at [phone] and accepted the patient for observation. The patient was placed in observation in stable condition. Undiagnosed new problem with uncertain prognosis? @ -No Drug Therapy requiring intensive monitoring for toxicity (Heparin, Nitro, Insulin, Cardizem)? @ -No Were any procedures done? @ -No Diagnosis/symptom? @ -Chest pain, rule out ACS Acute, or Chronic, or Acute on Chronic? @ -Acute Uncomplicated (without systemic symptoms) or Complicated (systemic symptoms)? @ -Complicated Side effects of treatment? @ -No Exacerbation, Progression, or Severe Exacerbation? @ -No Poses a threat to life or bodily function? How? (Chest pain, [place], CA, pneumonia, PE, COPD, DKA, ARF, appy, cholecystitis, CVA, Diverticulitis, Homicidal, Suicidal, threat to staff... and all critical care pts) @ -Yes, chest pain, rule out ACS - Lab Data Result diagrams: 08/11/22 20:02 08/11/22 20:02 Lab Results 08/11/22 08/11/22 08/11/22 Range/Units 20:02 20:02 20:02 WBC 5.0 (3.8-10.6) k/uL RBC 4.44 (4.30-5.90) m/uL Hgb 13.7 (13.0-17.5) gm/dL Hct 40.6 (39.0-53.0) % MCV 91.6 (80.0-100.0) fL MCH 30.8 (25.0-35.0) pg MCHC 33.6 (31.0-37.0) g/dL RDW 16.9 H (11.5-15.5) % Plt Count 144 L (150-450) k/uL MPV 9.3 Neutrophils % 58 % Lymphocytes % 29 % Monocytes % 7 % Eosinophils % 2 % Basophils % 1 % Neutrophils # 2.9 (1.3-7.7) k/uL Lymphocytes # 1.5 (1.0-4.8) k/uL Monocytes # 0.3 (0-1.0) k/uL Eosinophils # 0.1 (0-0.7) k/uL Basophils # 0.0 (0-0.2) k/uL Poikilocytosis Slight Anisocytosis Slight PT 10.5 (9.0-12.0) sec INR 1.0 (<1.2) APTT 27.5 (22.0-30.0) sec Sodium 142 (137-145) mmol/L Potassium 3.9 (3.5-5.1) mmol/L Chloride 108 H (98-107) mmol/L Carbon Dioxide 24 (22-30) mmol/L Anion Gap 10 mmol/L BUN 19 (9-20) mg/dL Creatinine 0.77 (0.66-1.25) mg/dL Est GFR (CKD-EPI)AfAm >90 (>60 ml/min/1.73 sqM) Est GFR (CKD-EPI)NonAf 84 (>60 ml/min/1.73 sqM) Glucose 109 H (74-99) mg/dL Calcium 9.0 (8.4-10.2) mg/dL Magnesium 2.1 (1.6-2.3) mg/dL Total Bilirubin 0.6 (0.2-1.3) mg/dL AST 31 (17-59) U/L ALT 24 (4-49) U/L Alkaline Phosphatase 87 (38-126) U/L Troponin I (0.000-0.034) ng/mL Total Protein 6.7 (6.3-8.2) g/dL Albumin 3.9 (3.5-5.0) g/dL Lipase 196 (23-300) U/L 08/11/22 Range/Units 20:02 WBC (3.8-10.6) k/uL RBC (4.30-5.90) m/uL Hgb (13.0-17.5) gm/dL Hct (39.0-53.0) % MCV (80.0-100.0) fL MCH (25.0-35.0) pg MCHC (31.0-37.0) g/dL RDW (11.5-15.5) % Plt Count (150-450) k/uL MPV Neutrophils % % Lymphocytes % % Monocytes % % Eosinophils % % Basophils % % Neutrophils # (1.3-7.7) k/uL Lymphocytes # (1.0-4.8) k/uL Monocytes # (0-1.0) k/uL Eosinophils # (0-0.7) k/uL Basophils # (0-0.2) k/uL Poikilocytosis Anisocytosis PT (9.0-12.0) sec INR (<1.2) APTT (22.0-30.0) sec Sodium (137-145) mmol/L Potassium (3.5-5.1) mmol/L Chloride (98-107) mmol/L Carbon Dioxide (22-30) mmol/L Anion Gap mmol/L BUN (9-20) mg/dL Creatinine (0.66-1.25) mg/dL Est GFR (CKD-EPI)AfAm (>60 ml/min/1.73 sqM) Est GFR (CKD-EPI)NonAf (>60 ml/min/1.73 sqM) Glucose (74-99) mg/dL Calcium (8.4-10.2) mg/dL Magnesium (1.6-2.3) mg/dL Total Bilirubin (0.2-1.3) mg/dL AST (17-59) U/L ALT (4-49) U/L Alkaline Phosphatase (38-126) U/L Troponin I <0.012 (0.000-0.034) ng/mL Total Protein (6.3-8.2) g/dL Albumin (3.5-5.0) g/dL Lipase (23-300) U/L Disposition Clinical Impression: Chest pain Disposition: ADMITTED IP TO THIS [facility] Condition: Stable Is patient prescribed a controlled substance at d/c from ED?: No Referrals: Dharmesh Kuhn DO [Primary Care Provider] - 1-2 days Time of Disposition: 21:15 Decision to Admit Reason: Admit from EC Decision Date: 08/11/22 Decision Time: 21:15
[2022-08-11] MEDS ORDERED: LOSARTAN 50 MG TAB PO SCH (22:15)
[2022-08-11] MEDS: METOPROLOL TARTRATE 12.5 MG TAB PO SCH (22:37)
[2022-08-12] MEDS ORDERED: PANTOPRAZOLE 40 MG TABLET PO SCH (07:30)
[2022-08-12 08:19] VITALS: BP 117/71; PULSE 61; RESP 16; TEMP 97.7
[2022-08-12] MEDS ORDERED: ASPIRIN 81 MG PO SCH (09:00)
[2022-08-12] MEDS ORDERED: MULTIVITAMINS, THERA 1 EACH TAB PO SCH (09:00)
[2022-08-12] MEDS ORDERED: CYANOCOBALAMIN 500 MCG TAB PO SCH (09:00)
[2022-08-12] MEDS ORDERED: TAMSULOSIN 0.4 MG CAP.ER.24H PO SCH (09:00)
[2022-08-12] MEDS: METOPROLOL TARTRATE 12.5 MG TAB PO SCH (09:00)
--- NOTE | 2022-08-12 09:21 | P.CRDCN ---
History of Present Illness Consult date: 08/12/22 History of present illness: HISTORY OF PRESENT ILLNESS: This is a 82-year-old male with a past medical history significant for for coronary artery disease with previous CABG, cardiomyopathy, hypertension, and hyperlipidemia. Patient follows in the office with Dr. Ascencio. We have been asked to see the patient in consultation for chest pain. Patient examined at the bedside. Patient presented to the emergency room with a chief complaint of pain in his back. He states the pain was in between his shoulder blades. He states he has not lifted anything heavy recently. He states that nothing made the pain better. He states he has not had pain like this before. His was concerned and encouraged him to come to the hospital for further evaluation. The patient currently denies chest pain or pressure. He denies shortness of breath. The patient's blood pressure was found to be elevated on admission. However the patient states he checks his blood pressure at home and it usually runs with a systolic in the 130s. He denies having any higher readings than that. His blood pressure this morning is well-controlled. * EKG reveals sinus mechanism with no signs of acute ischemia * Chest xray negative for acute process. * Laboratory data: WBC 5.0. Hemoglobin 13.7. Platelet count 144. Sodium 142. Potassium 3.9. BUN 19. Creatinine 0.77. Troponin negative 1 * Current home cardiac medications include losartan 50 mg at night, metoprolol tartrate 12.5 mg twice a day, Lipitor 40 mg at night, aspirin 81 mg daily * Most recent echocardiogram obtained in 2020 revealed ejection fraction 40-45%, mild AR, mild MR, mild TR * Patient underwent 3 vessel CABG in February 2021 with HOYT to LAD, SVG to OM, and SVG to PDA REVIEW OF SYSTEMS: At the time of my exam: CONSTITUTIONAL: Denies fever or chills. HEENT: Denies blurred vision, vision changes, or eye pain. Denies hemoptysis CARDIOVASCULAR: Denies chest pain. Denies orthopnea. Denies PND. Denies palpitations RESPIRATORY: Denies shortness of breath. GASTROINTESTINAL: Denies abdominal pain. Denies nausea or vomiting. HEMATOLOGIC: Denies bleeding disorders. GENITOURINARY: Denies any blood in urine. SKIN: Denies pruitis. Denies rash. PHYSICAL EXAM: VITAL SIGNS: Reviewed. GENERAL: Well-developed in no acute distress. HEENT: Head is normocephalic. Pupils are equal, round. Sclerae anicteric. Mucous membranes of the mouth are moist. Neck supple. No JVD or thyromegaly LUNGS: Respirations even and unlabored. Lungs essentially clear to auscultation bilaterally. HEART: Regular rate and rhythm. S1 and S2 heard. ABDOMEN: Soft. Nondistended. Nontender. EXTREMITIES: Normal range of motion. No clubbing or cyanosis. Peripheral pulses intact. No lower extremity edema NEUROLOGIC: Awake and alert. Oriented x 3. ASSESSMENT: Back pain Coronary artery disease with previous CABG Ischemic cardiomyopathy Hypertension Hyperlipidemia PLAN: Obtain additional troponin level Obtain CTA to assess aorta No need to repeat echocardiogram at this time. This may be done on an outpatient basis Resume home cardiac medications Continue to monitor blood pressure. Patient encouraged to keep a blood pressure log and bring with him to his follow-up appointment. Further recommendations pending patient's course Nurse practitioner note has been reviewed by physician. Signing provider agrees with the documented findings, assessment, and plan of care. Past Medical History Past Medical History: Coronary Artery Disease (CAD), Chest Pain / Angina, Hyperlipidemia, Hypertension, Myocardial Infarction ([place]), Prostate Disorder Additional Past Medical History / Comment(s): states has 3 cardiac stents that are 100% blocked, with collateral bypass; patient denies hypertension although it is listed in his history and he is on antihypertensives Last Myocardial Infarction Date:: 1996 History of Any Multi-Drug Resistant Organisms: None Reported Past Surgical History: Heart Catheterization, Heart Catheterization With Stent, Joint Replacement, Orthopedic Surgery, Tonsillectomy Additional Past Surgical History / Comment(s): bilateral knee replacments, right lung wedge resection, cataracts removed-lens implants, states 3 cardiac stents Past Anesthesia/Blood Transfusion Reactions: No Reported Reaction Date of Last Stent Placement:: 1996 Past Psychological History: No Psychological Hx Reported Additional Psychological History / Comment(s): . Smoking Status: Former smoker Past Alcohol Use History: Rare Additional Past Alcohol Use History / Comment(s): quit smoking 1979? Past Drug Use History: None Reported - Past Family History Father Family Medical History: Myocardial Infarction ([place]) Mother Family Medical History: Cancer Additional Family Medical History / Comment(s): colon Medications and Allergies Home Medications Medication Instructions Recorded Confirmed Type Aspirin EC [Ecotrin Low Dose] 81 mg PO DAILY 10/09/17 08/11/22 History Atorvastatin [Lipitor] 40 mg PO HS 10/09/17 08/11/22 History Multivitamin [Men's Multi-Vitamin] 1 tab PO DAILY 10/09/17 08/11/22 History Cyanocobalamin (Vitamin B-12) 2,500 mcg PO DAILY 09/22/20 08/11/22 History [Vitamin B-12] Super C 1 tab PO DAILY 02/26/21 08/11/22 History Losartan Potassium 50 mg PO HS 08/11/22 08/11/22 History Metoprolol Tartrate [Lopressor] 12.5 mg PO BID 08/11/22 08/11/22 History Tamsulosin [Flomax] 0.4 mg PO DAILY 08/11/22 08/11/22 History Allergies Allergy/AdvReac Type Severity Reaction Status Date / Time No Known Allergies Allergy Verified 08/11/22 21:34 Physical Exam Vitals: Vital Signs Temp Pulse Pulse Resp BP BP Pulse Ox 08/12/22 02:17 97.8 F 62 17 100/64 94 L 08/12/22 02:00 60 08/11/22 22:35 98.1 F 65 18 158/74 96 08/11/22 22:00 63 18 170/84 98 08/11/22 21:37 64 18 170/125 99 08/11/22 20:55 60 18 195/89 98 08/11/22 20:02 195/90 08/11/22 19:37 97 F L 62 19 159/122 96 Intake and Output 08/11/22 08/12/22 08/12/22 22:59 06:59 14:59 Intake Total 540 540 Balance 540 540 Intake: Oral 540 540 Other: Voiding Method Toilet Weight 83.915 kg Results 08/11/22 20:02 08/11/22 20:02 Cardiac Enzymes 08/11/22 08/11/22 Range/Units 20:02 20:02 AST 31 (17-59) U/L Troponin I <0.012 (0.000-0.034) ng/mL Coagulation 08/11/22 Range/Units 20:02 PT 10.5 (9.0-12.0) sec APTT 27.5 (22.0-30.0) sec CBC 08/11/22 Range/Units 20:02 WBC 5.0 (3.8-10.6) k/uL RBC 4.44 (4.30-5.90) m/uL Hgb 13.7 (13.0-17.5) gm/dL Hct 40.6 (39.0-53.0) % Plt Count 144 L (150-450) k/uL Comprehensive Metabolic Panel 08/11/22 Range/Units 20:02 Sodium 142 (137-145) mmol/L Potassium 3.9 (3.5-5.1) mmol/L Chloride 108 H (98-107) mmol/L Carbon Dioxide 24 (22-30) mmol/L BUN 19 (9-20) mg/dL Creatinine 0.77 (0.66-1.25) mg/dL Glucose 109 H (74-99) mg/dL Calcium 9.0 (8.4-10.2) mg/dL AST 31 (17-59) U/L ALT 24 (4-49) U/L Alkaline Phosphatase 87 (38-126) U/L Total Protein 6.7 (6.3-8.2) g/dL Albumin 3.9 (3.5-5.0) g/dL Current Medications Generic Name Dose Route Start Last Admin Trade Name Freq PRN Reason Stop Dose Admin Aspirin 81 mg 08/12/22 09:00 Aspirin 81 Mg PO DAILY [facility] Atorvastatin Calcium 40 mg 08/12/22 21:00 Atorvastatin 40 Mg Tab PO HS PRAKASH Cyanocobalamin 2,500 mcg 08/12/22 09:00 Cyanocobalamin 500 Mcg Tab PO DAILY [facility] Losartan Potassium 50 mg 08/11/22 22:15 08/11/22 22:37 Losartan 50 Mg Tab PO 50 mg HS PRAKASH Administration Metoprolol Tartrate 12.5 mg 08/11/22 22:15 08/11/22 22:37 Metoprolol Tartrate 12.5 Mg Tab PO 12.5 mg BID PRAKASH Administration Multivitamins 1 each 08/12/22 09:00 Multivitamins, Thera 1 Each Tab PO DAILY [facility] Naloxone HCl 0.2 mg 08/11/22 21:24 Naloxone 0.4 Mg/Ml 1 Ml Vial IV Q2M PRN Opioid Reversal Pantoprazole Sodium 40 mg 08/12/22 07:30 08/12/22 05:44 Pantoprazole 40 Mg Tablet PO 40 mg AC-BRKFST PRAKASH Administration Tamsulosin HCl 0.4 mg 08/12/22 09:00 Tamsulosin 0.4 Mg Cap.Er.24h PO DAILY PRAKASH Intake and Output 08/11/22 08/12/22 08/12/22 22:59 06:59 14:59 Intake Total 540 540 Balance 540 540 Intake: Oral 540 540 Other: Voiding Method Toilet Weight 83.915 kg 08/11/22 20:02 08/11/22 20:02
--- NOTE | 2022-08-12 09:50 | CT ---
CT CHEST FOR PULMONARY EMBOLISM. EXAMINATION TYPE: CT angio chest DATE OF EXAM: 08/12/2022 INDICATION: Back pain, assess aorta CT DLP: 624.9 mGycm, Automated exposure control for dose reduction was used. CONTRAST: Patient injected with 100 mL of Isovue 370. COMPARISON: TECHNIQUE: CT of the chest is performed on a spiral scan at 2 mm thick sections. Study is performed with intravenous contrast timed for evaluation of the aorta. This will limit additional portions of the evaluation. 3-D MIP images reconstructed by the technologist are reviewed on the computer in the coronal and sagittal planes. FINDINGS: No persistent filling defects are evident to suggest an acute pulmonary embolism. There is a 3 vessel arch. Vascular calcifications within the aorta. No aortic dissection is evident. No mediastinal or hilar adenopathy enlarged by CT criteria is evident. Scattered small lymph nodes a re present within the mediastinum. The ascending aorta diameter at the level of the main pulmonary ar marcus is 4.4 cm. The main pulmonary artery diameter at the bifurcation is 3.0 cm. Coronary artery efe cification is present. There is some reflux of contrast into the inferior vena cava. Lung windows are clear. Emphysematous changes are present. Some scarring very present at the right ba se. Limited CT section through the upper abdomen. Cholelithiasis is present. Small hiatal hernia may be p resent. IMPRESSIONS: 1. No acute pulmonary embolism or aortic dissection. 2. Ascending thoracic aortic aneurysm measuring 4.4 cm. 3. COPD.
--- NOTE | 2022-08-12 14:28 | P.HPIM ---
History of Present Illness -year-old male came in with complaints of back pain but patient was admitted with concerns of coronary artery disease because of his history of CABG in the past. Patient was evaluated by cardiology and patient has mildly elevated d- dimer because of which CT angios the chest was obtained which showed 4.4 mm ascending aortic aneurysm no pulmonary embolism. Patient doesn't have any significant acute changes on the EKG. Chest x-ray mentioned is significant abnormality patient had an echocardiogram in 2020 showed ejection fraction of around 40-45% with mild AR, mild MR and mild TR patient has a three-vessel CABG in 2020. REVIEW OF SYSTEMS: CONSTITUTIONAL: No fever, no malaise, no fatigue. HEENT: No recent visual problems or hearing problems. Denied any sore throat. CARDIOVASCULAR: No chest pain, orthopnea, PND, no palpitations, no syncope. PULMONARY: No shortness of breath, no cough, no hemoptysis. GASTROINTESTINAL: No diarrhea, no nausea, no vomiting, no abdominal pain. NEUROLOGICAL: No headaches, no weakness, no numbness. HEMATOLOGICAL: Denies any bleeding or petechiae. GENITOURINARY: Denies any burning micturition, frequency, or urgency. MUSCULOSKELETAL/RHEUMATOLOGICAL: Denies any joint pain, swelling, or any muscle pain. ENDOCRINE: Denies any polyuria or polydipsia. The rest of the 14-point review of systems is negative. PHYSICAL EXAMINATION: GENERAL: The patient is alert and oriented x3, not in any acute distress. Well developed, well nourished. HEENT: Pupils are round and equally reacting to light. EOMI. No scleral icterus. No conjunctival pallor. Normocephalic, atraumatic. No pharyngeal erythema. No thyromegaly. CARDIOVASCULAR: S1 and S2 present. No murmurs, rubs, or gallops. PULMONARY: Chest is clear to auscultation, no wheezing or crackles. ABDOMEN: Soft, nontender, nondistended, normoactive bowel sounds. No palpable organomegaly. MUSCULOSKELETAL: No joint swelling or deformity. EXTREMITIES: No cyanosis, clubbing, or pedal edema. NEUROLOGICAL: Gross neurological examination did not reveal any focal deficits. SKIN: No rashes. 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 Patient did improve further management as an outpatient -Ruled out acute coronary syndromes -ruled out pulmonary embolism -Congestive heart failure chronic systolic dysfunction ischemic cardiomyopathy patient is not in acute heart failure exacerbation patient systolic dysfunction chronic -Hypertension next and-hyperlipidemia -Coronary disease CABG in the past - Patient will be discharged today Past Medical History Past Medical History: Coronary Artery Disease (CAD), Chest Pain / Angina, Hyperlipidemia, Hypertension, Myocardial Infarction (CT), Prostate Disorder Additional Past Medical History / Comment(s): states has 3 cardiac stents that are 100% blocked, with collateral bypass; patient denies hypertension although it is listed in his history and he is on antihypertensives Last Myocardial Infarction Date:: 1996 History of Any Multi-Drug Resistant Organisms: None Reported Past Surgical History: Heart Catheterization, Heart Catheterization With Stent, Joint Replacement, Orthopedic Surgery, Tonsillectomy Additional Past Surgical History / Comment(s): bilateral knee replacments, right lung wedge resection, cataracts removed-lens implants, states 3 cardiac stents Past Anesthesia/Blood Transfusion Reactions: No Reported Reaction Date of Last Stent Placement:: 1996 Past Psychological History: No Psychological Hx Reported Additional Psychological History / Comment(s): . Smoking Status: Former smoker Past Alcohol Use History: Rare Additional Past Alcohol Use History / Comment(s): quit smoking 1979? Past Drug Use History: None Reported - Past Family History Father Family Medical History: Myocardial Infarction (CT) Mother Family Medical History: Cancer Additional Family Medical History / Comment(s): colon Medications and Allergies Home Medications Medication Instructions Recorded Confirmed Type Aspirin EC [Ecotrin Low Dose] 81 mg PO DAILY 10/09/17 08/11/22 History Atorvastatin [Lipitor] 40 mg PO HS 10/09/17 08/11/22 History Multivitamin [Men's Multi-Vitamin] 1 tab PO DAILY 10/09/17 08/11/22 History Cyanocobalamin (Vitamin B-12) 2,500 mcg PO DAILY 09/22/20 08/11/22 History [Vitamin B-12] Super C 1 tab PO DAILY 02/26/21 08/11/22 History Losartan Potassium 50 mg PO HS 08/11/22 08/11/22 History Metoprolol Tartrate [Lopressor] 12.5 mg PO BID 08/11/22 08/11/22 History Tamsulosin [Flomax] 0.4 mg PO DAILY 08/11/22 08/11/22 History Allergies Allergy/AdvReac Type Severity Reaction Status Date / Time No Known Allergies Allergy Verified 08/11/22 21:34 Physical Exam Vitals: Vital Signs Temp Pulse Pulse Resp BP BP Pulse Ox 08/12/22 07:00 97.7 F 61 16 117/71 97 08/12/22 02:17 97.8 F 62 17 100/64 94 L 08/12/22 02:00 60 08/11/22 22:35 98.1 F 65 18 158/74 96 08/11/22 22:00 63 18 170/84 98 08/11/22 21:37 64 18 170/125 99 08/11/22 20:55 60 18 195/89 98 08/11/22 20:02 195/90 08/11/22 19:37 97 F L 62 19 159/122 96 Intake and Output 08/11/22 08/12/22 08/12/22 22:59 06:59 14:59 Intake Total 540 540 118 Balance 540 540 118 Intake: Oral 540 540 118 Other: Voiding Method Toilet Weight 83.915 kg Results CBC & Chem 7: 08/11/22 20:02 08/11/22 20:02 Labs: Abnormal Lab Results - Last 24 Hours (Table) 08/11/22 08/11/22 Range/Units 20:02 20:02 RDW 16.9 H (11.5-15.5) % Plt Count 144 L (150-450) k/uL Chloride 108 H (98-107) mmol/L Glucose 109 H (74-99) mg/dL
--- NOTE | 2022-08-12 14:29 | P.DS ---
Providers Date of admission: 08/11/22 21:24 Attending physician: Marii Talley Consults: 08/11/22 21:24 Consult Physician Routine Consulting Provider: [facility] Consult Reason/Comments: Chest pain, r/o ACS Do you want consulting provider notified?: Yes, Notify in am Primary care physician: [facility] Course: Refer to [facility] for further details Patient Condition at Discharge: Stable Plan - Discharge Summary New Discharge Prescriptions: Continue Atorvastatin [Lipitor] 40 mg PO HS Aspirin EC [Ecotrin Low Dose] 81 mg PO DAILY Multivitamin [Men's Multi-Vitamin] 1 tab PO DAILY Cyanocobalamin (Vitamin B-12) [Vitamin B-12] 2,500 mcg PO DAILY Tamsulosin [Flomax] 0.4 mg PO DAILY Losartan Potassium 50 mg PO HS Super C 1 tab PO DAILY Metoprolol Tartrate [Lopressor] 12.5 mg PO BID Discharge Medication List Aspirin EC [Ecotrin Low Dose] 81 mg PO DAILY 10/09/17 [History] Atorvastatin [Lipitor] 40 mg PO HS 10/09/17 [History] Multivitamin [Men's Multi-Vitamin] 1 tab PO DAILY 10/09/17 [History] Cyanocobalamin (Vitamin B-12) [Vitamin B-12] 2,500 mcg PO DAILY 09/22/20 [History] Super C 1 tab PO DAILY 02/26/21 [History] Losartan Potassium 50 mg PO HS 08/11/22 [History] Metoprolol Tartrate [Lopressor] 12.5 mg PO BID 08/11/22 [History] Tamsulosin [Flomax] 0.4 mg PO DAILY 08/11/22 [History] Follow up Appointment(s)/Referral(s): Pavithra Ascencio MD [STAFF PHYSICIAN] - 1 Week Dharmesh Kuhn DO [Primary Care Provider] - 3 Days Discharge Disposition: HOME SELF-CARE
[2022-08-12] MEDS ORDERED: ATORVASTATIN 40 MG TAB PO SCH (21:00)
== END 2022-08-12 12:40 | disposition home or self-care (01) ==
LOC: EC 19:35 → 6NMEDSUR 21:24
PROVIDERS: ADMIT Internal Medicine; ATTEND Internal Medicine
DX: R07.89 Other chest pain (principal); M51.34 Other intervertebral disc degeneration, thoracic region; I11.0 Hypertensive heart disease with heart failure; I50.22 Chronic systolic (congestive) heart failure; I25.10 Atherosclerotic heart disease of native coronary artery without angina pectoris; E78.5 Hyperlipidemia, unspecified; I25.5 Ischemic cardiomyopathy; I25.2 Old myocardial infarction; Z87.891 Personal history of nicotine dependence; Z95.5 Presence of coronary angioplasty implant and graft; Z79.82 Long term (current) use of aspirin; Z79.899 Other long term (current) drug therapy; Z79.02 Long term (current) use of antithrombotics/antiplatelets; Z82.49 Family history of ischemic heart disease and other diseases of the circulatory system
CPT/HCPCS: 96374; 96375; 99285; 36415; 93005; 83880; 80053; 83690; 83735; 84484 ×2; 85025; 85610; 85730; 71046; 71275; G0378 ×2; J2270; J0360; Q9967

== ENCOUNTER 2022-08-18 06:23 | Inpatient (IN) | payer MEDICARE ==
[2022-08-18] MEDS ORDERED: SODIUM CHLORIDE 0.9% 500 ML 500 ML IV STA (06:39)
[2022-08-18 06:55] LABS: Anisocytosis Slight; Basophils % (A) 0 %; Eosinophils # (A) 0.1 k/uL (0-0.7); Eosinophils % (A) 0 %; HCT 42.2 % (39.0-53.0); HGB 14.4 gm/dL (13.0-17.5); Lymphocytes # (A) 0.7 k/uL (1.0-4.8); Lymphocytes % (A) 4 %; MCH 30.3 pg (25.0-35.0); MCHC 34.1 g/dL (31.0-37.0); MCV 88.9 fL (80.0-100.0); Mean Platelet Volume 9.2; Monocytes # (A) 0.6 k/uL (0-1.0); Monocytes % (A) 4 %; Neutrophils # (A) 13.4 k/uL (1.3-7.7); Neutrophils % (A) 91 %; Platelet Count 159 k/uL (150-450); Poikilocytosis Slight; RBC 4.75 m/uL (4.30-5.90); RDW 16.3 % (11.5-15.5); WBC 14.8 k/uL (3.8-10.6)
--- NOTE | 2022-08-18 06:55 | ED ---
General Adult HPI - General Chief complaint: Neuro Symptoms/Deficit Stated complaint: Dizziness Time Seen by Provider: 08/18/22 06:27 Source: patient, family, EMS, RN notes reviewed Mode of arrival: EMS Limitations: no limitations - History of Present Illness Initial comments: This an 82-year-old male presents emergency Department with chief complaint of episode of dizziness, lightheadedness. Patient states he is going to the bathroom states went to get up and felt dizzy he tends to walk back to the bedroom and slipped on his bed. Patient states cannot get up off the floor he states he was therefore approximate hour to he states he just was dizzy, lightheaded states his symptoms have resolved. He denies any chest pain shortness breath had, neck back injury. Patient states he had triple-vessel CABG 5 months ago. He states he has been emergency department and admitted one week ago because he had some chest discomfort and back pain there is no acute findings at that time. - Related Data Home Medications Medication Instructions Recorded Confirmed Aspirin EC [Ecotrin Low Dose] 81 mg PO DAILY 10/09/17 08/11/22 Atorvastatin [Lipitor] 40 mg PO HS 10/09/17 08/11/22 Multivitamin [Men's Multi-Vitamin] 1 tab PO DAILY 10/09/17 08/11/22 Cyanocobalamin (Vitamin B-12) 2,500 mcg PO DAILY 09/22/20 08/11/22 [Vitamin B-12] Super C 1 tab PO DAILY 02/26/21 08/11/22 Losartan Potassium 50 mg PO HS 08/11/22 08/11/22 Metoprolol Tartrate [Lopressor] 12.5 mg PO BID 08/11/22 08/11/22 Tamsulosin [Flomax] 0.4 mg PO DAILY 08/11/22 08/11/22 Allergies Allergy/AdvReac Type Severity Reaction Status Date / Time No Known Allergies Allergy Verified 08/11/22 21:34 Review of Systems ROS Statement: Those systems with pertinent positive or pertinent negative responses have been documented in the HPI. ROS Other: All systems not noted in ROS Statement are negative. Past Medical History Past Medical History: Coronary Artery Disease (CAD), Chest Pain / Angina, Hy perlipidemia, Hypertension, Myocardial Infarction ([place]), Prostate Disorder Additional Past Medical History / Comment(s): states has 3 cardiac stents that are 100% blocked, with collateral bypass; patient denies hypertension although it is listed in his history and he is on antihypertensives Last Myocardial Infarction Date:: 1996 History of Any Multi-Drug Resistant Organisms: None Reported Past Surgical History: Heart Catheterization, Heart Catheterization With Stent, Joint Replacement, Orthopedic Surgery, Tonsillectomy Additional Past Surgical History / Comment(s): bilateral knee replacments, right lung wedge resection, cataracts removed-lens implants, states 3 cardiac stents Past Anesthesia/Blood Transfusion Reactions: No Reported Reaction Date of Last Stent Placement:: 1996 Past Psychological History: No Psychological Hx Reported Smoking Status: Former smoker Past Alcohol Use History: Rare Past Drug Use History: None Reported - Past Family History Father Family Medical History: Myocardial Infarction ([place]) Mother Family Medical History: Cancer Additional Family Medical History / Comment(s): colon General Exam Limitations: no limitations General appearance: alert, in no apparent distress Head exam: Present: atraumatic, normocephalic, normal inspection Eye exam: Present: normal appearance, PERRL, EOMI. Absent: scleral icterus, conjunctival injection, periorbital swelling ENT exam: Present: normal exam, mucous membranes moist Neck exam: Present: normal inspection, full ROM. Absent: tenderness, meningismus, lymphadenopathy Respiratory exam: Present: normal lung sounds bilaterally. Absent: respiratory distress, wheezes, rales, rhonchi, stridor Cardiovascular Exam: Present: regular rate, normal rhythm, normal heart sounds. Absent: systolic murmur, diastolic murmur, rubs, gallop, clicks GI/Abdominal exam: Present: soft, normal bowel sounds. Absent: distended, tenderness, guarding, rebound, rigid Neurological exam: Present: alert, oriented X3, CN II-XII intact, reflexes normal. Absent: motor sensory deficit Skin exam: Present: warm, dry, intact, normal color. Absent: rash Course Vital Signs 08/18/22 08/18/22 08/18/22 06:25 08:00 09:19 Temperature 98.2 F 100.7 F H 101.3 F H Pulse Rate 83 Respiratory 18 Rate Blood Pressure 156/80 Blood Pressure 117/67 [Left Arm Sitting] Blood Pressure 130/53 [Left Arm Supine] O2 Sat by Pulse 93 L Oximetry 08/18/22 10:34 Temperature 98.6 F Pulse Rate Respiratory Rate Blood Pressure Blood Pressure [Left Arm Sitting] Blood Pressure [Left Arm Supine] O2 Sat by Pulse Oximetry Medical Decision Making - Medical Decision Making Was pt. sent in by a medical professional or institution (, [facility]A, SCROLL SHEAR OPERATOR, urgent care, hospital, or [facility]...) When possible be specific @ -No Did you speak to anyone other than the patient for history (EMS, parent, family, police, friend...)? What history was obtained from this source @ -EMS and family provided recent history, prehospital care Did you review nursing and triage notes (agree or disagree)? Why? @ -I reviewed and agree with nursing and triage notes Were old charts reviewed (outside hosp., previous admission, EMS record, old EKG, old radiological studies, urgent care reports/EKG's, [facility] records)? Report findings @ -No old charts were reviewed Differential Diagnosis (chest pain, altered mental status, abdominal pain women, abdominal pain men, vaginal bleeding, weakness, fever, dyspnea, syncope, headache, dizziness, GI bleed, back pain, seizure, CVA, palpatations, mental health)? @ -Near-syncope, syncope, vertigo, ACS, influenza,: 19, UTI, this is is not all inclusive EKG interpreted by me (3pts min.). @ -EKG performed at 17:01 sinus rhythm rate of 78. 155 QRS 100 QT/QTC 404/438 X-rays interpreted by me (1pt min.). @ -None done CT interpreted by me (1pt min.). @ -None done U/S interpreted by me (1pt. min.). @ -None done What testing was considered but not performed or refused? (CT, X-rays, U/S, labs)? Why? @ -None What meds were considered but not given or refused? Why? @ -None Did you discuss the management of the patient with other professionals (annalisa sanches i.e. , ALONDRA, SCROLL SHEAR OPERATOR, lab, RT, psych nurse, social sciences department chair, surveillance officer, teacher, optics technical officer, telephonic case manager)? Give summary @ -No Was smoking cessation discussed for >3mins.? @ -No Was critical care preformed (if so, how long)? @ -No Were there social determinants of health that impacted care today? How? (Homelessness, low income, unemployed, alcoholism, drug addiction, transportatio n, low edu. Level, literacy, decrease access to med. care, [facility], rehab)? @ -No Was there de-escalation of care discussed even if they declined (Discuss DNR or withdrawal of care, Hospice)? DNR status @ -No What co-morbidities impacted this encounter? (DM, HTN, Smoking, COPD, CAD, Cancer, CVA, ARF, Chemo, Hep., AIDS, mental health diagnosis, sleep apnea, morbid obesity)? @ -None Was patient admitted / discharged? Hospital course, mention meds given and route, prescriptions, significant lab abnormalities, going to OR and other pertinent info. @ -hospital course Undiagnosed new problem with uncertain prognosis? @ -No Drug Therapy requiring intensive monitoring for toxicity (Heparin, Nitro, Insulin, Cardizem)? @ -No Were any procedures done? @ -No Diagnosis/symptom? @ -UTI Acute, or Chronic, or Acute on Chronic? @ -acute Uncomplicated (without systemic symptoms) or Complicated (systemic symptoms)? @ -complicated Side effects of treatment? @ -No Exacerbation, Progression, or Severe Exacerbation? @ -No Poses a threat to life or bodily function? How? (Chest pain, [place], [place], pneumonia, PE, COPD, DKA, ARF, appy, cholecystitis, CVA, Diverticulitis, Homicidal, Suicidal, threat to staff... and all critical care pts) @ -No Diagnosis/symptom? @ -weakness Acute, or Chronic, or Acute on Chronic? @ -acute Uncomplicated (without systemic symptoms) or Complicated (systemic symptoms)? @ -uncomplicated Side effects of treatment? @ -none Exacerbation, Progression, or Severe Exacerbation @ -no Poses a threat to life or bodily function? @ -no Diagnosis/symptom? @ -near syncope Acute, or Chronic, or Acute on Chronic? @ -acute Uncomplicated (without systemic symptoms) or Complicated (systemic symptoms)? @ -complicated Side effects of treatment? @ -none Exacerbation, Progression, or Severe Exacerbation] @ -no Poses a threat to life or bodily function? @ -no - Lab Data Result diagrams: 08/18/22 06:43 08/18/22 06:43 Lab Results 08/18/22 08/18/22 08/18/22 Range/Units 06:43 06:43 06:43 WBC 14.8 H (3.8-10.6) k/uL RBC 4.75 (4.30-5.90) m/uL Hgb 14.4 (13.0-17.5) gm/dL Hct 42.2 (39.0-53.0) % MCV 88.9 (80.0-100.0) fL MCH 30.3 (25.0-35.0) pg MCHC 34.1 (31.0-37.0) g/dL RDW 16.3 H (11.5-15.5) % Plt Count 159 (150-450) k/uL MPV 9.2 Neutrophils % 91 % Lymphocytes % 4 % Monocytes % 4 % Eosinophils % 0 % Basophils % 0 % Neutrophils # 13.4 H (1.3-7.7) k/uL Lymphocytes # 0.7 L (1.0-4.8) k/uL Monocytes # 0.6 (0-1.0) k/uL Eosinophils # 0.1 (0-0.7) k/uL Basophils # 0.0 (0-0.2) k/uL Poikilocytosis Slight Anisocytosis Slight Sodium 139 (137-145) mmol/L Potassium 3.8 (3.5-5.1) mmol/L Chloride 106 (98-107) mmol/L Carbon Dioxide 25 (22-30) mmol/L Anion Gap 8 mmol/L BUN 15 (9-20) mg/dL Creatinine 0.83 (0.66-1.25) mg/dL Est GFR (CKD-EPI)AfAm >90 (>60 ml/min/1.73 sqM) Est GFR (CKD-EPI)NonAf 81 (>60 ml/min/1.73 sqM) Glucose 143 H (74-99) mg/dL Calcium 9.0 (8.4-10.2) mg/dL Magnesium 1.7 (1.6-2.3) mg/dL Total Bilirubin 1.0 (0.2-1.3) mg/dL AST 31 (17-59) U/L ALT 26 (4-49) U/L Alkaline Phosphatase 86 (38-126) U/L Creatine Kinase 72 (55-170) U/L Troponin I <0.012 (0.000-0.034) ng/mL Total Protein 7.1 (6.3-8.2) g/dL Albumin 4.2 (3.5-5.0) g/dL Urine Color Urine Appearance (Clear) Urine pH (5.0-8.0) Ur Specific [place] (1.001-1.035) Urine Protein (Negative) Urine Glucose (UA) (Negative) Urine Ketones (Negative) Urine Blood (Negative) Urine Nitrite (Negative) Urine Bilirubin (Negative) Urine Urobilinogen (<2.0) mg/dL Ur Leukocyte Esterase (Negative) Urine RBC (0-5) /hpf Urine WBC (0-5) /hpf Urine Bacteria (None) /hpf Urine Mucus (None) /hpf Influenza Type A (PCR) (Not Detectd) Influenza Type B (PCR) (Not Detectd) RSV (PCR) (Not Detectd) SARS-CoV-2 (PCR) (Not Detectd) 08/18/22 08/18/22 Range/Units 08:27 08:27 WBC (3.8-10.6) k/uL RBC (4.30-5.90) m/uL Hgb (13.0-17.5) gm/dL Hct (39.0-53.0) % MCV (80.0-100.0) fL MCH (25.0-35.0) pg MCHC (31.0-37.0) g/dL RDW (11.5-15.5) % Plt Count (150-450) k/uL MPV Neutrophils % % Lymphocytes % % Monocytes % % Eosinophils % % Basophils % % Neutrophils # (1.3-7.7) k/uL Lymphocytes # (1.0-4.8) k/uL Monocytes # (0-1.0) k/uL Eosinophils # (0-0.7) k/uL Basophils # (0-0.2) k/uL Poikilocytosis Anisocytosis Sodium (137-145) mmol/L Potassium (3.5-5.1) mmol/L Chloride (98-107) mmol/L Carbon Dioxide (22-30) mmol/L Anion Gap mmol/L BUN (9-20) mg/dL Creatinine (0.66-1.25) mg/dL Est GFR (CKD-EPI)AfAm (>60 ml/min/1.73 sqM) Est GFR (CKD-EPI)NonAf (>60 ml/min/1.73 sqM) Glucose (74-99) mg/dL Calcium (8.4-10.2) mg/dL Magnesium (1.6-2.3) mg/dL Total Bilirubin (0.2-1.3) mg/dL AST (17-59) U/L ALT (4-49) U/L Alkaline Phosphatase (38-126) U/L Creatine Kinase (55-170) U/L Troponin I (0.000-0.034) ng/mL Total Protein (6.3-8.2) g/dL Albumin (3.5-5.0) g/dL Urine Color Yellow Urine Appearance Cloudy (Clear) Urine pH 5.5 (5.0-8.0) Ur Specific [place] 1.021 (1.001-1.035) Urine Protein Trace H (Negative) Urine Glucose (UA) Negative (Negative) Urine Ketones Negative (Negative) Urine Blood Negative (Negative) Urine Nitrite Negative (Negative) Urine Bilirubin Negative (Negative) Urine Urobilinogen <2.0 (<2.0) mg/dL Ur Leukocyte Esterase Large H (Negative) Urine RBC 3 (0-5) /hpf Urine WBC 164 H (0-5) /hpf Urine Bacteria Rare H (None) /hpf Urine Mucus Few H (None) /hpf Influenza Type A (PCR) Not Detected (Not Detectd) Influenza Type B (PCR) Not Detected (Not Detectd) RSV (PCR) Not Detected (Not Detectd) SARS-CoV-2 (PCR) Not Detected (Not Detectd) Disposition Clinical Impression: UTI (urinary tract infection), Weakness, Near syncope Disposition: ADMITTED IP TO THIS [facility] Condition: Fair Referrals: Dharmesh Kuhn DO [Primary Care Provider] - 1-2 days Time of Disposition: 12:02
[2022-08-18 07:02] LABS: ALT 26 U/L (4-49); AST 31 U/L (17-59); African American GFR (CKD) >90 (>60 ml/min/1.73 sqM); Albumin 4.2 g/dL (3.5-5.0); Alkaline Phosphatase 86 U/L (38-126); Anion Gap 8 mmol/L; Blood Urea Nitrogen 15 mg/dL (9-20); Carbon Dioxide 25 mmol/L (22-30); Chloride 106 mmol/L (98-107); Creatine Kinase 72 U/L (55-170); Glucose 143 mg/dL (74-99); Magnesium 1.7 mg/dL (1.6-2.3); Non-African American GFR(CKD) 81 (>60 ml/min/1.73 sqM); Potassium 3.8 mmol/L (3.5-5.1); Sodium 139 mmol/L (137-145); Total Protein 7.1 g/dL (6.3-8.2)
--- NOTE | 2022-08-18 07:36 | XR ---
EXAMINATION TYPE: XR chest 2V DATE OF EXAM: 08/18/2022 COMPARISON: 08/11/2022 HISTORY: Weakness TECHNIQUE: Frontal and lateral views of the chest are obtained. FINDINGS: There are median sternotomy wires. There is mild persistent elevation of the right diaphragm. There is mild interstitial prominence whic h has been seen on multiple prior studies and possibly reflects mild chronic interstitial changes. There is no consolidative/airspace opacity. There is no pleural effusion or pneumothorax. The heart size is normal and the pulmonary vasculature is not congested. The osseous structures are grossly intact. IMPRESSION: No definite evidence of acute cardiopulmonary disease. There is probable mild chronic interstitial ch wendy.There has been no change compared to previous.
[2022-08-18] MEDS ORDERED: ACETAMINOPHEN TAB 500 MG TAB PO STA (08:00)
[2022-08-18] MEDS ORDERED: SODIUM CHLORIDE 0.9% 500 ML 500 ML IV ONE (09:06)
[2022-08-18] MEDS ORDERED: SODIUM CHLORIDE 0.9% 1,000 ML IV SCH (09:15)
[2022-08-18 11:13] LABS: Appearance,Urine Cloudy (Clear); Bacteria,Urine Rare /hpf; Bilirubin,Urine Negative (Negative); Blood,Urine Negative (Negative); Color,Urine Yellow; Glucose,Urine (UA) Negative (Negative); Ketones,Urine Negative (Negative); Leukocyte Esterase,Urine Large (Negative); Mucus,Urine Few /hpf; Nitrite,Urine Negative (Negative); PH, Urine 5.5 (5.0-8.0); Protein,Urine Trace (Negative); RBC,Urine 3 /hpf (0-5); Specific Gravity,Urine 1.021 (1.001-1.035); Urobilinogen,Urine <2.0 mg/dL (<2.0); WBC,Urine 164 /hpf (0-5)
[2022-08-18] MEDS ORDERED: ONDANSETRON 4 MG/2 ML VIAL IVP PRN (12:00)
[2022-08-18] MEDS ORDERED: NALOXONE 0.4 MG/ML 1 ML VIAL IV PRN (12:00)
[2022-08-18] MEDS ORDERED: ACETAMINOPHEN TAB 325 MG TAB PO PRN (12:00)
--- NOTE | 2022-08-18 20:13 | P.HPIM ---
History of Present Illness H&P Date: 08/18/22 Chief Complaint: Weak and tired This is a 82-year-old patient who follows with Dr. Kuhn. Chronic stable medical conditions include hypertension, hyperlipidemia, BPH, osteoarthritis, CAD with bypass. Patient presents feeling weak and tired for 2 days. Decreased appetite. No obvious fever and chills. Some burning in the urine. Patient's had prior urine infection/UTI. Tired rundown. Review of systems: GEN.: Tired increased appetite EYES: None HEENT: None NECK: None RESPIRATORY: None CARDIOVASCULAR: None GASTROINTESTINAL: None GENITOURINARY: As above MUSCULOSKELETAL: Joint pains LYMPHATICS: None HEMATOLOGICAL: None PSYCHIATRY: None NEUROLOGICAL: None Past medical history to include: Coronary artery with stent, bypass, hypertension, hyperlipidemia, prostate disorder, osteoarthritis Social history: Retired z[employer]. Stop smoking in . Alcohol occasionally. Lives alone Physical examination: VITAL SIGNS: 101.3, 83, 18, 117/67, 93% room air upon presentation GENERAL: BMI 27.4, declining but awake, tired. EYES: Pupils equal. Conjunctiva normal. HEENT: External appearance of nose and ears normal, oral cavity grossly normal. NECK: JVD not raised; masses not palpable. HEART: First and second heart sounds are normal; no edema. LUNGS: Respiratory rate normal; fair air entry. ABDOMEN: Soft, nontender, liver spleen not palpable, no masses palpable. PSYCH: [Alert and oriented x3; mood and affect tired l. MUSCULOSKELETAL:No Clubbing/cyanosis;muscles-grossly intact. OA NEUROLOGICAL: Cranial nerves grossly intact; no facial asymmetry, power and sensation grossly intact. LYMPHATICS: No lymph nodes palpable in the axilla and neck INVESTIGATIONS, reviewed in the clinical context: White count 14.18:40.4 platelets 159 sodium 139 potassium 3.8 creatinine 0.83 UA: Leukoesterase large WBC 164 bacteria rare Influenza type A/diabetes/RSV/COVID-19: Not detected EKG tracing personally reviewed by me-no sinus rhythm. Chest x-ray film personally reviewed by me-7. Atelectasis Assessment and plan: -Acute UTI with cystitis. Urine culture pending. IV ceftriaxone 1 g every 12 -Sepsis from UTI, IV fluids. Antibiotics. -CAD with prior history of stent and coronary bypass Aspirin, Lopressor 12.5 mg twice a day -Essential hypertension Lopressor 12.5 twice daily -Hyperlipidemia Lipitor 40 mg daily at bedtime -BPH Flomax Past Medical History Past Medical History: Coronary Artery Disease (CAD), Chest Pain / Angina, Hyperlipidemia, Hypertension, Myocardial Infarction (AR), Prostate Disorder Additional Past Medical History / Comment(s): states has 3 cardiac stents that are 100% blocked, with collateral bypass; patient denies hypertension although it is listed in his history and he is on antihypertensives Last Myocardial Infarction Date:: 1996 History of Any Multi-Drug Resistant Organisms: None Reported Past Surgical History: Heart Catheterization, Heart Catheterization With Stent, Joint Replacement, Orthopedic Surgery, Tonsillectomy Additional Past Surgical History / Comment(s): bilateral knee replacments, right lung wedge resection, cataracts removed-lens implants, states 3 cardiac stents Past Anesthesia/Blood Transfusion Reactions: No Reported Reaction Date of Last Stent Placement:: 1996 Past Psychological History: No Psychological Hx Reported Additional Psychological History / Comment(s): . Smoking Status: Former smoker Past Alcohol Use History: Rare Additional Past Alcohol Use History / Comment(s): quit smoking 1979? Past Drug Use History: None Reported - Past Family History Father Family Medical History: Myocardial Infarction (AR) Mother Family Medical History: Cancer Additional Family Medical History / Comment(s): colon Medications and Allergies Home Medications Medication Instructions Recorded Confirmed Type Aspirin EC [Ecotrin Low Dose] 81 mg PO DAILY 10/09/17 08/18/22 History Atorvastatin [Lipitor] 40 mg PO HS 10/09/17 08/18/22 History Multivitamin [Men's Multi-Vitamin] 1 tab PO DAILY 10/09/17 08/18/22 History Cyanocobalamin (Vitamin B-12) 2,500 mcg PO DAILY 09/22/20 08/18/22 History [Vitamin B-12] Super C 1 tab PO DAILY 02/26/21 08/18/22 History Losartan Potassium 50 mg PO HS 08/11/22 08/18/22 History Metoprolol Tartrate [Lopressor] 12.5 mg PO BID 08/11/22 08/18/22 History Tamsulosin [Flomax] 0.4 mg PO DAILY 08/11/22 08/18/22 History Allergies Allergy/AdvReac Type Severity Reaction Status Date / Time No Known Allergies Allergy Verified 08/11/22 21:34 Physical Exam Vitals: Vital Signs Temp Pulse Pulse Resp BP BP BP 08/18/22 14:00 98.2 F 65 16 08/18/22 12:00 67 18 135/60 08/18/22 10:34 98.6 F 08/18/22 09:19 101.3 F H 08/18/22 08:00 100.7 F H 117/67 130/53 08/18/22 06:25 98.2 F 83 18 156/80 BP Pulse Ox 08/18/22 14:00 135/70 96 08/18/22 12:00 98 08/18/22 10:34 08/18/22 09:19 08/18/22 08:00 08/18/22 06:25 93 L Intake and Output 08/18/22 08/18/22 08/18/22 06:59 14:59 22:59 Intake Total 300 Balance 300 Intake: Intake, IV Titration 300 Amount Sodium Chloride 0.9% 1, 300 000 ml @ 75 mls/hr IV . [id number] [facility] Rx#:[id number] Other: Weight 81.647 kg 81.647 kg Results CBC & Chem 7: 08/18/22 06:43 08/18/22 06:43 Labs: Abnormal Lab Results - Last 24 Hours (Table) 08/18/22 08/18/22 08/18/22 Range/Units 06:43 06:43 08:27 WBC 14.8 H (3.8-10.6) k/uL RDW 16.3 H (11.5-15.5) % Neutrophils # 13.4 H (1.3-7.7) k/uL Lymphocytes # 0.7 L (1.0-4.8) k/uL Glucose 143 H (74-99) mg/dL Urine Protein Trace H (Negative) Ur Leukocyte Esterase Large H (Negative) Urine WBC 164 H (0-5) /hpf Urine Bacteria Rare H (None) /hpf Urine Mucus Few H (None) /hpf Microbiology - Last 24 Hours (Table) 08/18/22 08:27 Urine Culture - Preliminary Urine,Voided Thrombosis Risk Factor Assmnt - Choose All That Apply Each Factor Represents 1 point: Acute AR Thrombosis Risk Factor Assessment Total Risk Factor Score: 1 Thrombosis Risk Factor Assessment Level: Low Risk
[2022-08-18] MEDS: LOSARTAN 50 MG TAB PO SCH (20:29)
[2022-08-18] MEDS: METOPROLOL TARTRATE 12.5 MG TAB PO SCH (20:29)
[2022-08-18] MEDS: LACTATED RINGERS 1,000 ML IV SCH (20:29)
[2022-08-18] MEDS: ATORVASTATIN 40 MG TAB PO SCH (20:29)
[2022-08-19] MEDS: ASCORBIC ACID 500 MG TAB PO SCH (08:33)
[2022-08-19] MEDS: TAMSULOSIN 0.4 MG CAP.ER.24H PO SCH (08:33)
[2022-08-19] MEDS: ASPIRIN 81 MG PO SCH (08:33)
[2022-08-19] MEDS: METOPROLOL TARTRATE 12.5 MG TAB PO SCH ×2 (08:33→20:20)
[2022-08-19] MEDS: CYANOCOBALAMIN 500 MCG TAB PO SCH (08:33)
[2022-08-19] MEDS: MULTIVITAMINS, THERA 1 EACH TAB PO SCH (08:33)
[2022-08-19] MEDS: LACTATED RINGERS 1,000 ML IV SCH ×3 (11:42→20:23)
[2022-08-19] MEDS ORDERED: VANCOMYCIN IV PER PHARMACY 1 EACH MISC MISCELLANE PRN (19:57)
--- NOTE | 2022-08-19 19:57 | P.PN ---
Progress Note - Text Progress Note Date: 08/19/22 Chief Complaint: Weak and tired This is a 82-year-old patient who follows with Dr. Kuhn. Chronic stable medical conditions include hypertension, hyperlipidemia, BPH, osteoarthritis, CAD with bypass. Patient presents feeling weak and tired for 2 days. Decreased appetite. No obvious fever and chills. Some burning in the urine. Patient's had prior urine infection/UTI. Tired rundown. Admitted with UTI and cystitis. Started on IV ceftriaxone. August 19: Feels a bit better. On IV ceftriaxone. Some decrease in urine symptoms. Oral intake better. No fever Active Medications Acetaminophen (Acetaminophen Tab 325 Mg Tab) 650 mg PO Q6HR PRN PRN Reason: Mild Pain or Fever > 100.5 Ascorbic Acid (Ascorbic Acid 500 Mg Tab) 500 mg PO DAILY [facility] Last Admin: 08/19/22 08:33 Dose: 500 mg Aspirin (Aspirin 81 Mg) 81 mg PO DAILY [facility] Last Admin: 08/19/22 08:33 Dose: 81 mg Atorvastatin Calcium (Atorvastatin 40 Mg Tab) 40 mg PO [facility] Last Admin: 08/18/22 20:29 Dose: 40 mg Cyanocobalamin (Cyanocobalamin 500 Mcg Tab) 2,500 mcg PO DAILY [facility] Last Admin: 08/19/22 08:33 Dose: 2,500 mcg Ceftriaxone Sodium 1 gm/ (Sodium Chloride) 50 mls @ 100 mls/hr IVPB Q12HR [facility]; Protocol Last Admin: 08/19/22 08:34 Dose: 100 mls/hr Lactated Ringer's (Lactated Ringers) 1,000 mls @ 100 mls/hr IV .Q10H [facility] Last Admin: 08/19/22 17:43 Dose: Not Given Losartan Potassium (Losartan 50 Mg Tab) 50 mg PO [facility] Last Admin: 08/18/22 20:29 Dose: 50 mg Metoprolol Tartrate (Metoprolol Tartrate 12.5 Mg Tab) 12.5 mg PO BID [facility] Last Admin: 08/19/22 08:33 Dose: 12.5 mg Multivitamins (Multivitamins, Thera 1 Each Tab) 1 each PO DAILY [facility] Last Admin: 08/19/22 08:33 Dose: 1 each Naloxone HCl (Naloxone 0.4 Mg/Ml 1 Ml Vial) 0.2 mg IV Q2M PRN PRN Reason: Opioid Reversal Ondansetron HCl (Ondansetron 4 Mg/2 Ml Vial) 4 mg IVP Q8HR PRN PRN Reason: Nausea And Vomiting Tamsulosin HCl (Tamsulosin 0.4 Mg Cap.Er.24h) 0.4 mg PO DAILY [facility] Last Admin: 08/19/22 08:33 Dose: 0.4 mg Past medical history to include: Coronary artery with stent, bypass, hypertension, hyperlipidemia, prostate disorder, osteoarthritis Social history: Retired [employer]. Stop smoking in 1980s. Alcohol occasionally. Lives alone Physical examination: VITAL SIGNS: 98.2, 65, 16, 1 35 x 70, 96% room air GENERAL: Reclining in bed, tired EYES: Pupils equal. Conjunctiva normal. HEENT: External appearance of nose and ears normal, oral cavity grossly normal. NECK: JVD not raised; masses not palpable. HEART: First and second heart sounds are normal; no edema. LUNGS: Respiratory rate normal; fair air entry. ABDOMEN: Soft, nontender, liver spleen not palpable, no masses palpable. PSYCH: [Alert and oriented x3; mood and affect tired l. MUSCULOSKELETAL:No Clubbing/cyanosis;muscles-grossly intact. OA INVESTIGATIONS, reviewed in the clinical context: White count 14.18:40.4 platelets 159 sodium 139 potassium 3.8 creatinine 0.83 UA: Leukoesterase large WBC 164 bacteria rare Influenza type A/diabetes/RSV/COVID-19: Not detected EKG tracing personally reviewed by me-no sinus rhythm. Chest x-ray film personally reviewed by me-7. Atelectasis Assessment and plan: -Acute UTI with cystitis. Urine culture gram-negative bacilli IV ceftriaxone 1 g every 12 -Blood culture positive for coagulase-negative staph: Possible possible contaminant -Sepsis from UTI, IV fluids. Antibiotics. -CAD with prior history of stent and coronary bypass Aspirin, Lopressor 12.5 mg twice a day -Essential hypertension Lopressor 12.5 twice daily -Hyperlipidemia Lipitor 40 mg daily at bedtime -BPH Flomax
[2022-08-19] MEDS ORDERED: VANCOMYCIN 1,500 MG in SODIUM CHLORIDE 0.9% 500 ML 500 ML IVPB SCH (20:15)
[2022-08-19] MEDS: LOSARTAN 50 MG TAB PO SCH (20:20)
[2022-08-19] MEDS: ATORVASTATIN 40 MG TAB PO SCH (20:20)
[2022-08-20] MEDS: LACTATED RINGERS 1,000 ML IV SCH ×2 (06:04→20:43)
[2022-08-20 06:53] LABS: African American GFR (CKD) >90 (>60 ml/min/1.73 sqM); Anion Gap 7 mmol/L; Blood Urea Nitrogen 9 mg/dL (9-20); Calcium 8.3 mg/dL (8.4-10.2); Carbon Dioxide 22 mmol/L (22-30); Chloride 109 mmol/L (98-107); Glucose 129 mg/dL (74-99); Non-African American GFR(CKD) 86 (>60 ml/min/1.73 sqM); Potassium 3.6 mmol/L (3.5-5.1); Sodium 138 mmol/L (137-145)
[2022-08-20] MEDS: METOPROLOL TARTRATE 12.5 MG TAB PO SCH ×2 (07:48→20:43)
[2022-08-20] MEDS: TAMSULOSIN 0.4 MG CAP.ER.24H PO SCH (07:48)
[2022-08-20] MEDS: ASPIRIN 81 MG PO SCH (07:48)
[2022-08-20] MEDS: ASCORBIC ACID 500 MG TAB PO SCH (07:48)
[2022-08-20] MEDS: CYANOCOBALAMIN 500 MCG TAB PO SCH (07:48)
[2022-08-20] MEDS: MULTIVITAMINS, THERA 1 EACH TAB PO SCH (07:48)
[2022-08-20 08:46] LABS: Anisocytosis Slight; Basophils # (A) 0.1 k/uL (0-0.2); Basophils % (A) 1 %; Eosinophils # (A) 0.1 k/uL (0-0.7); Eosinophils % (A) 1 %; HCT 38.9 % (39.0-53.0); HGB 13.2 gm/dL (13.0-17.5); Lymphocytes % (A) 12 %; MCH 31.1 pg (25.0-35.0); MCHC 33.8 g/dL (31.0-37.0); Mean Platelet Volume 10.6; Monocytes # (A) 0.5 k/uL (0-1.0); Monocytes % (A) 6 %; Neutrophils # (A) 6.9 k/uL (1.3-7.7); Neutrophils % (A) 79 %; Platelet Count 120 k/uL (150-450); RBC 4.23 m/uL (4.30-5.90); RDW 16.9 % (11.5-15.5); WBC 8.7 k/uL (3.8-10.6)
[2022-08-20] MEDS: ATORVASTATIN 40 MG TAB PO SCH (20:43)
[2022-08-20] MEDS: LOSARTAN 50 MG TAB PO SCH (20:43)
--- NOTE | 2022-08-20 21:16 | P.PN ---
Progress Note - Text Progress Note Date: 08/20/22 Chief Complaint: Weak and tired This is a 82-year-old patient who follows with Dr. Kuhn. Chronic stable medical conditions include hypertension, hyperlipidemia, BPH, osteoarthritis, CAD with bypass. Patient presents feeling weak and tired for 2 days. Decreased appetite. No obvious fever and chills. Some burning in the urine. Patient's had prior urine infection/UTI. Tired rundown. Admitted with UTI and cystitis. Started on IV ceftriaxone. August 19: Feels a bit better. On IV ceftriaxone. Some decrease in urine symptoms. Oral intake better. No fever August 20: Improving slowly. Pending urine culture results. Continue IV ceftriaxone. Oral intake good. Ambulating. Active Medications Acetaminophen (Acetaminophen Tab 325 Mg Tab) 650 mg PO Q6HR PRN PRN Reason: Mild Pain or Fever > 100.5 Ascorbic Acid (Ascorbic Acid 500 Mg Tab) 500 mg PO DAILY [facility] Last Admin: 08/20/22 07:48 Dose: 500 mg Aspirin (Aspirin 81 Mg) 81 mg PO DAILY [facility] Last Admin: 08/20/22 07:48 Dose: 81 mg Atorvastatin Calcium (Atorvastatin 40 Mg Tab) 40 mg PO [facility] Last Admin: 08/20/22 20:43 Dose: 40 mg Cyanocobalamin (Cyanocobalamin 500 Mcg Tab) 2,500 mcg PO DAILY [facility] Last Admin: 08/20/22 07:48 Dose: 2,500 mcg Ceftriaxone Sodium 1 gm/ (Sodium Chloride) 50 mls @ 100 mls/hr IVPB Q12HR [facility]; Protocol Last Admin: 08/20/22 20:43 Dose: 100 mls/hr Lactated Ringer's (Lactated Ringers) 1,000 mls @ 50 mls/hr IV .Q20H [facility] Last Admin: 08/20/22 20:43 Dose: 50 mls/hr Losartan Potassium (Losartan 50 Mg Tab) 50 mg PO HS [facility] Last Admin: 08/20/22 20:43 Dose: 50 mg Metoprolol Tartrate (Metoprolol Tartrate 12.5 Mg Tab) 12.5 mg PO BID [facility] Last Admin: 08/20/22 20:43 Dose: 12.5 mg Multivitamins (Multivitamins, Thera 1 Each Tab) 1 each PO DAILY [facility] Last Admin: 08/20/22 07:48 Dose: 1 each Naloxone HCl (Naloxone 0.4 Mg/Ml 1 Ml Vial) 0.2 mg IV Q2M PRN PRN Reason: Opioid Reversal Ondansetron HCl (Ondansetron 4 Mg/2 Ml Vial) 4 mg IVP Q8HR PRN PRN Reason: Nausea And Vomiting Tamsulosin HCl (Tamsulosin 0.4 Mg Cap.Er.24h) 0.4 mg PO DAILY [facility] Last Admin: 08/20/22 07:48 Dose: 0.4 mg Past medical history to include: Coronary artery with stent, bypass, hypertension, hyperlipidemia, prostate disorder, osteoarthritis Social history: Retired [employer]. Stop smoking in 1980s. Alcohol occasionally. Lives alone Physical examination: VITAL SIGNS: 98.6, 64, 18, 1 45 x 72, 97% room air GENERAL: Reclining in bed, tired EYES: Pupils equal. Conjunctiva normal. HEENT: External appearance of nose and ears normal, oral cavity grossly normal. NECK: JVD not raised; masses not palpable. HEART: First and second heart sounds are normal; no edema. LUNGS: Respiratory rate normal; fair air entry. ABDOMEN: Soft, nontender, liver spleen not palpable, no masses palpable. PSYCH: [Alert and oriented x3; mood and affect tired l. MUSCULOSKELETAL:No Clubbing/cyanosis;muscles-grossly intact. OA INVESTIGATIONS, reviewed in the clinical context: White count 14.18:40.4 platelets 159 sodium 139 potassium 3.8 creatinine 0.83 UA: Leukoesterase large WBC 164 bacteria rare Influenza type A/diabetes/RSV/COVID-19: Not detected EKG tracing personally reviewed by me-no sinus rhythm. Chest x-ray film personally reviewed by me-7. Atelectasis Assessment and plan: -Acute UTI with cystitis. Urine culture gram-negative bacilli IV ceftriaxone 1 g every 12 -Blood culture positive for coagulase-negative staph: - contaminant -Sepsis from UTI, IV fluids. Antibiotics. -CAD with prior history of stent and coronary bypass Aspirin, Lopressor 12.5 mg twice a day -Essential hypertension Lopressor 12.5 twice daily -Hyperlipidemia Lipitor 40 mg daily at bedtime -BPH Flomax Discussed with patient. Pending culture results.
[2022-08-21 07:55] VITALS: BP 151/65; PULSE 53; RESP 18; TEMP 98.3
[2022-08-21] MEDS: ASPIRIN 81 MG PO SCH (08:59)
[2022-08-21] MEDS: METOPROLOL TARTRATE 12.5 MG TAB PO SCH (08:59)
[2022-08-21] MEDS: TAMSULOSIN 0.4 MG CAP.ER.24H PO SCH (08:59)
[2022-08-21] MEDS: CYANOCOBALAMIN 500 MCG TAB PO SCH (08:59)
[2022-08-21] MEDS: MULTIVITAMINS, THERA 1 EACH TAB PO SCH (08:59)
[2022-08-21] MEDS: ASCORBIC ACID 500 MG TAB PO SCH (08:59)
--- NOTE | 2022-08-21 23:14 | P.DS ---
Providers Date of admission: 08/18/22 11:51 Expected date of discharge: 08/21/22 Attending physician: Yohannes Whitehead Primary care physician: Dharmesh Kuhn [facility] Course: Chief Complaint: Weak and tired This is a 82-year-old patient who follows with Dr. Kuhn. Chronic stable medical conditions include hypertension, hyperlipidemia, BPH, osteoarthritis, CAD with bypass. Patient presents feeling weak and tired for 2 days. Decreased appetite. No obvious fever and chills. Some burning in the urine. Patient's had prior urine infection/UTI. Tired rundown. Admitted with UTI and cystitis. Started on IV ceftriaxone. August 19: Feels a bit better. On IV ceftriaxone. Some decrease in urine symptoms. Oral intake better. No fever August 20: Improving slowly. Pending urine culture results. Continue IV ceftriaxone. Oral intake good. Ambulating. August 21: Doing well. No urine symptoms. Urine culture confirmed to be E. coli. Complete 7 days of Ceftin 5 mg 4 times a day. Discussed with patient. Discussion and discharge planning more than 35 minutes Past medical history to include: Coronary artery with stent, bypass, hypertension, hyperlipidemia, prostate disorder, osteoarthritis Social history: Retired [employer]. Stop smoking in . Alcohol occasionally. Lives alone Physical examination: VITAL SIGNS: 98.3, 53, 18, 150/65, 95% room air GENERAL: Comfortable EYES: Pupils equal. Conjunctiva normal. HEENT: External appearance of nose and ears normal, oral cavity grossly normal. NECK: JVD not raised; masses not palpable. HEART: First and second heart sounds are normal; no edema. LUNGS: Respiratory rate normal; fair air entry. ABDOMEN: Soft, nontender, liver spleen not palpable, no masses palpable. PSYCH: [Alert and oriented x3; mood and affect tired l. MUSCULOSKELETAL:No Clubbing/cyanosis;muscles-grossly intact. OA INVESTIGATIONS, reviewed in the clinical context: Urine culture: E. coli White count 14.18:40.4 platelets 159 sodium 139 potassium 3.8 creatinine 0.83 UA: Leukoesterase large WBC 164 bacteria rare Influenza type A/diabetes/RSV/COVID-19: Not detected EKG tracing personally reviewed by me-no sinus rhythm. Chest x-ray film personally reviewed by me-7. Atelectasis Assessment and plan: -Acute UTI with cystitis. Urine culture E. coli IV ceftriaxone 1 g every 12. Keflex 500 mg 4 times a day for 7 days -Blood culture positive for coagulase-negative staph: - contaminant -Sepsis from UTI,: Corrected IV fluids. Antibiotics. -CAD with prior history of stent and coronary bypass Aspirin, Lopressor 12.5 mg twice a day -Essential hypertension Lopressor 12.5 twice daily -Hyperlipidemia Lipitor 40 mg daily at bedtime -BPH Flomax Disposition: Home Plan - Discharge Summary New Discharge Prescriptions: New Cephalexin [Keflex] 500 mg PO Q6HR #28 cap Continue Atorvastatin [Lipitor] 40 mg PO HS Aspirin EC [Ecotrin Low Dose] 81 mg PO DAILY Multivitamin [Men's Multi-Vitamin] 1 tab PO DAILY Cyanocobalamin (Vitamin B-12) [Vitamin B-12] 2,500 mcg PO DAILY Tamsulosin [Flomax] 0.4 mg PO DAILY Losartan Potassium 50 mg PO HS Super C 1 tab PO DAILY Metoprolol Tartrate [Lopressor] 12.5 mg PO BID Discharge Medication List Aspirin EC [Ecotrin Low Dose] 81 mg PO DAILY 10/09/17 [History] Atorvastatin [Lipitor] 40 mg PO HS 10/09/17 [History] Multivitamin [Men's Multi-Vitamin] 1 tab PO DAILY 10/09/17 [History] Cyanocobalamin (Vitamin B-12) [Vitamin B-12] 2,500 mcg PO DAILY 09/22/20 [History] Super C 1 tab PO DAILY 02/26/21 [History] Losartan Potassium 50 mg PO HS 08/11/22 [History] Metoprolol Tartrate [Lopressor] 12.5 mg PO BID 08/11/22 [History] Tamsulosin [Flomax] 0.4 mg PO DAILY 08/11/22 [History] Cephalexin [Keflex] 500 mg PO Q6HR #28 cap 08/21/22 [Rx] Follow up Appointment(s)/Referral(s): Dharmesh Kuhn DO [Primary Care Provider] - 1-2 days (The office will call you with an appointment time and date.) Discharge Disposition: HOME SELF-CARE
== END 2022-08-21 12:58 | disposition home or self-care (01) | DRG 872 ==
LOC: EC 06:23 → 5NMEDONC 11:51
PROVIDERS: ADMIT Hospitalist; ATTEND Hospitalist
DX: A41.51 Sepsis due to Escherichia coli [E. coli] (principal); N30.00 Acute cystitis without hematuria; J98.11 Atelectasis; Z20.822 Contact with and (suspected) exposure to COVID-19; I25.10 Atherosclerotic heart disease of native coronary artery without angina pectoris; I10 Essential (primary) hypertension; E78.5 Hyperlipidemia, unspecified; M19.90 Unspecified osteoarthritis, unspecified site; N40.0 Benign prostatic hyperplasia without lower urinary tract symptoms; I25.2 Old myocardial infarction; R55 Syncope and collapse; Z95.5 Presence of coronary angioplasty implant and graft; Z95.1 Presence of aortocoronary bypass graft; Z79.82 Long term (current) use of aspirin; Z79.899 Other long term (current) drug therapy; Z87.891 Personal history of nicotine dependence; Z82.49 Family history of ischemic heart disease and other diseases of the circulatory system; Z80.0 Family history of malignant neoplasm of digestive organs; Z96.1 Presence of intraocular lens; Z96.653 Presence of artificial knee joint, bilateral; Z98.42 Cataract extraction status, left eye; Z98.41 Cataract extraction status, right eye
CPT/HCPCS: 36415; 71046; 80048; 80053; 81001; 82550; 83735; 84484; 85025; 87040; 87077; 87086; 87186; 87636; 93005; 94760; 96361; 96365; 99285

== ENCOUNTER 2022-12-22 07:08 | Inpatient (IN) | payer MEDICARE ==
--- NOTE | 2022-12-22 07:46 | ED ---
General Adult HPI - General Chief complaint: Chest Pain Stated complaint: chest pain Time Seen by Provider: 12/22/22 07:15 Source: patient Mode of arrival: ambulatory Limitations: no limitations - History of Present Illness Initial comments: Dictation was produced using [employer] dictation software. please excuse any grammatical, word or spelling errors. Chief Complaint: 82-year-old male past nuchal history of thoracic aortic aneurysm and CABG presents to the ER for mid scapular pain History of Present Illness: Is 82-year-old male states that at 4 AM this morning chest pain and will come up out of sleep. States that it was dull. No associated diaphoresis or nausea. Patient states that shortly after that pain radiated to his mid scapular area. Patient rates the pain as a 9 out of 10. States it severe. Denies any radiation of symptoms on the extremities. No numbness or paresthesias. The ROS documented in this emergency department record has been reviewed and confirmed by me. Those systems with pertinent positive or negative responses have been documented in the HPI. All other systems are other negative and/or no ncontributory. - Related Data Home Medications Medication Instructions Recorded Confirmed Aspirin EC [Ecotrin Low Dose] 81 mg PO DAILY 10/09/17 08/18/22 Atorvastatin [Lipitor] 40 mg PO HS 10/09/17 08/18/22 Multivitamin [Men's Multi-Vitamin] 1 tab PO DAILY 10/09/17 08/18/22 Cyanocobalamin (Vitamin B-12) 2,500 mcg PO DAILY 09/22/20 08/18/22 [Vitamin B-12] Super C 1 tab PO DAILY 02/26/21 08/18/22 Losartan Potassium 50 mg PO HS 08/11/22 08/18/22 Metoprolol Tartrate [Lopressor] 12.5 mg PO BID 08/11/22 08/18/22 Tamsulosin [Flomax] 0.4 mg PO DAILY 08/11/22 08/18/22 Previous Rx's Medication Instructions Recorded Cephalexin [Keflex] 500 mg PO Q6HR #28 cap 08/21/22 Allergies Allergy/AdvReac Type Severity Reaction Status Date / Time No Known Allergies Allergy Verified 12/22/22 07:24 Review of Systems ROS Statement: Those systems with pertinent positive or pertinent negative responses have been documented in the HPI. ROS Other: All systems not noted in ROS Statement are negative. Past Medical History Past Medical History: Coronary Artery Disease (CAD), Chest Pain / Angina, Hyperlipidemia, Hypertension, Myocardial Infarction (DC), Prostate Disorder Additional Past Medical History / Comment(s): states has 3 cardiac stents that are 100% blocked, with collateral bypass; patient denies hypertension although it is listed in his history and he is on antihypertensives Last Myocardial Infarction Date:: 1996 History of Any Multi-Drug Resistant Organisms: None Reported Past Surgical History: Heart Catheterization, Heart Catheterization With Stent, Joint Replacement, Orthopedic Surgery, Tonsillectomy Additional Past Surgical History / Comment(s): bilateral knee replacments, right lung wedge resection, cataracts removed-lens implants, states 3 cardiac stents Past Anesthesia/Blood Transfusion Reactions: No Reported Reaction Date of Last Stent Placement:: 1996 Past Psychological History: No Psychological Hx Reported Smoking Status: Former smoker Past Alcohol Use History: Rare Past Drug Use History: None Reported - Past Family History Father Family Medical History: Myocardial Infarction (DC) Mother Family Medical History: Cancer Additional Family Medical History / Comment(s): colon General Exam - General Exam Comments Initial Comments: PHYSICAL EXAM: General Impression: Alert and oriented x3, not in acute distress HEENT: Normocephalic atraumatic, extra-ocular movements intact, pupils equal and reactive to light bilaterally, mucous membranes moist. Cardiovascular: Heart regular rate and rhythm Chest: Able to complete full sentences, no retractions, no tachypnea Abdomen: abdomen soft, non-tender, non-distended, no organomegaly Musculoskeletal: Pulses present and equal in all extremities, no peripheral edema Motor: no focal deficits noted Neurological: CN II-XII grossly intact, no focal motor or sensory deficits noted Skin: Intact with no visualized rashes Psych: Normal affect and mood Limitations: no limitations Course Vital Signs 12/22/22 12/22/22 12/22/22 07:16 08:52 09:21 Temperature 97.7 F Pulse Rate 62 68 73 Respiratory 18 18 18 Rate Blood Pressure 185/86 157/55 140/77 O2 Sat by Pulse 97 97 97 Oximetry - Reevaluation(s) Reevaluation #1: 12/22/22 07:46 Previous documentation was reviewed. Operative notes from 02/28/2021 was reviewed showing the patient had a CABG. Patient also had a CT angiography performed in July of this year showing 4.4 cm descending thoracic aortic aneurysm. Prior cardiology consultation note reviewed showing that patient was evaluated for cardiomyopathy, unspecified back pain. Patient evaluated in room #5. Vital signs reviewed showing that he is hypertensive 185/86. EKG Findings - EKG Comments: EKG Findings:: My EKG interpretation: Ventricular rate 64, sinus rhythm,. Interval 149, QRS 1, QTc 462. No UT prolongation, no QTC prolongation, no ST or T-wave changes noted. Overall, this EKG is unremarkable Medical Decision Making - Medical Decision Making Was pt. sent in by a medical professional or institution (, PA, CLASSROOM INSTRUCTOR, urgent care, hospital, or penitentiary...) When possible be specific @ -No Did you speak to anyone other than the patient for history (EMS, parent, family, police, friend...)? What history was obtained from this source @ -No Did you review nursing and triage notes (agree or disagree)? Why? @ -I reviewed and agree with nursing and triage notes Were old charts reviewed (outside hosp., previous admission, EMS record, old EKG, old radiological studies, urgent care reports/EKG's, penitentiary records)? Report findings @ -Prior cardiac charts reviewed showing patient's history of CABG Differential Diagnosis (chest pain, altered mental status, abdominal pain women, abdominal pain men, vaginal bleeding, musculoskeletal, weakness, fever, dyspn ea, syncope, headache, dizziness, GI bleed, back pain, seizure, CVA, palpatations, mental health)? @ -Differential Chest Pain: Stable Angina, Unstable Angina, STEMI, NSTEMI Aortic Dissection, Pneumothorax, Musculoskeletal, Esophageal Spasm GERD, Cholecystitis, Pancreatitis, Zoster, this is not meant to be an all-inclusive list. EKG interpreted by me (3pts min.). @ -See above X-rays interpreted by me (1pt min.). @ -None done CT interpreted by me (1pt min.). @ -Angiography shows redemonstration of descending thoracic artery aneurysm. No dissection. No other acute processes U/S interpreted by me (1pt. min.). @ -None done What testing was considered but not performed or refused? (CT, X-rays, U/S, labs)? Why? @ -None What meds were considered but not given or refused? Why? @ -None Did you discuss the management of the patient with other professionals (professionals i.e. DrDayana, PA, CLASSROOM INSTRUCTOR, lab, RT, psych nurse, social media marketing manager, filter press supervisor, teacher, correction officer supervisor, field nurse case manager)? Give summary @ -Labs and imaging EKG discussed with Dr. Zuluaga for admission Was smoking cessation discussed for >3mins.? @ -No Was critical care preformed (if so, how long)? @ -No Were there social determinants of health that impacted care today? How? (Homelessness, low income, unemployed, alcoholism, drug addiction, tra nsportation, low edu. Level, literacy, decrease access to med. care, fpc, rehab)? @ -No Was there de-escalation of care discussed even if they declined (Discuss DNR or withdrawal of care, Hospice)? DNR status @ -No What co-morbidities impacted this encounter? (DM, HTN, Smoking, COPD, CAD, Cancer, CVA, ARF, Chemo, Hep., AIDS, mental health diagnosis, sleep apnea, morbid obesity)? @ -None Was patient admitted / discharged? Hospital course, mention meds given and route, prescriptions, significant lab abnormalities, going to OR and other pertinent info. @ -82-year-old male presents with chest pain. There are dissection was ruled out with imaging. Labs obtained showing no acute processes. Patient reevaluated on several condition. Patient be admitted for ACS rule out. Undiagnosed new problem with uncertain prognosis? @ -No Drug Therapy requiring intensive monitoring for toxicity (Heparin, Nitro, In sulin, Cardizem)? @ -No Were any procedures done? @ -No Diagnosis/symptom? Acute, or Chronic, or Acute on Chronic? Uncomplicated (without systemic symptoms) or Complicated (systemic symptoms)? @ -1. Chest pain, positive high risk features Side effects of treatment? @ -No Exacerbation, Progression, or Severe Exacerbation? @ -No Poses a threat to life or bodily function? How? (Chest pain, USA, DC, pneumonia, PE, COPD, DKA, ARF, appy, cholecystitis, CVA, Diverticulitis, Homicidal, Suicidal, threat to staff... and all critical care pts) @ -yes - Lab Data Result diagrams: 12/22/22 07:55 12/22/22 07:55 Lab Results 12/22/22 12/22/22 12/22/22 Range/Units 07:55 07:55 07:55 WBC 5.7 (3.8-10.6) k/uL RBC 4.42 (4.30-5.90) m/uL Hgb 13.5 (13.0-17.5) gm/dL Hct 40.7 (39.0-53.0) % MCV 92.0 (80.0-100.0) fL MCH 30.6 (25.0-35.0) pg MCHC 33.3 (31.0-37.0) g/dL RDW 16.7 H (11.5-15.5) % Plt Count 142 L (150-450) k/uL MPV 9.0 Neutrophils % 64 % Lymphocytes % 22 % Monocytes % 8 % Eosinophils % 3 % Basophils % 1 % Neutrophils # 3.7 (1.3-7.7) k/uL Lymphocytes # 1.3 (1.0-4.8) k/uL Monocytes # 0.4 (0-1.0) k/uL Eosinophils # 0.2 (0-0.7) k/uL Basophils # 0.0 (0-0.2) k/uL Anisocytosis Slight PT 10.8 (9.0-12.0) sec INR 1.0 (<1.2) APTT 26.2 (22.0-30.0) sec Sodium 138 (137-145) mmol/L Potassium 4.3 (3.5-5.1) mmol/L Chloride 109 H (98-107) mmol/L Carbon Dioxide 22 (22-30) mmol/L Anion Gap 7 mmol/L BUN 16 (9-20) mg/dL Creatinine 0.87 (0.66-1.25) mg/dL Est GFR (CKD-EPI)AfAm >90 (>60 ml/min/1.73 sqM) Est GFR (CKD-EPI)NonAf 80 (>60 ml/min/1.73 sqM) Glucose 129 H (74-99) mg/dL Plasma Lactic Acid Davey (0.7-2.0) mmol/L Calcium 8.6 (8.4-10.2) mg/dL Total Bilirubin 0.7 (0.2-1.3) mg/dL AST 29 (17-59) U/L ALT 24 (4-49) U/L Alkaline Phosphatase 85 (38-126) U/L Troponin I (0.000-0.034) ng/mL Total Protein 6.4 (6.3-8.2) g/dL Albumin 3.7 (3.5-5.0) g/dL 12/22/22 12/22/22 Range/Units 07:55 07:55 WBC (3.8-10.6) k/uL RBC (4.30-5.90) m/uL Hgb (13.0-17.5) gm/dL Hct (39.0-53.0) % MCV (80.0-100.0) fL MCH (25.0-35.0) pg MCHC (31.0-37.0) g/dL RDW (11.5-15.5) % Plt Count (150-450) k/uL MPV Neutrophils % % Lymphocytes % % Monocytes % % Eosinophils % % Basophils % % Neutrophils # (1.3-7.7) k/uL Lymphocytes # (1.0-4.8) k/uL Monocytes # (0-1.0) k/uL Eosinophils # (0-0.7) k/uL Basophils # (0-0.2) k/uL Anisocytosis PT (9.0-12.0) sec INR (<1.2) APTT (22.0-30.0) sec Sodium (137-145) mmol/L Potassium (3.5-5.1) mmol/L Chloride (98-107) mmol/L Carbon Dioxide (22-30) mmol/L Anion Gap mmol/L BUN (9-20) mg/dL Creatinine (0.66-1.25) mg/dL Est GFR (CKD-EPI)AfAm (>60 ml/min/1.73 sqM) Est GFR (CKD-EPI)NonAf (>60 ml/min/1.73 sqM) Glucose (74-99) mg/dL Plasma Lactic Acid Davey 1.1 (0.7-2.0) mmol/L Calcium (8.4-10.2) mg/dL Total Bilirubin (0.2-1.3) mg/dL AST (17-59) U/L ALT (4-49) U/L Alkaline Phosphatase (38-126) U/L Troponin I <0.012 (0.000-0.034) ng/mL Total Protein (6.3-8.2) g/dL Albumin (3.5-5.0) g/dL Disposition Clinical Impression: Chest pain Disposition: ADMITTED IP TO THIS HOSP Condition: Fair Decision Time: 09:30
[2022-12-22 08:09] LABS: Anisocytosis Slight; Basophils % (A) 1 %; Eosinophils # (A) 0.2 k/uL (0-0.7); Eosinophils % (A) 3 %; HCT 40.7 % (39.0-53.0); HGB 13.5 gm/dL (13.0-17.5); Lymphocytes # (A) 1.3 k/uL (1.0-4.8); Lymphocytes % (A) 22 %; MCH 30.6 pg (25.0-35.0); MCHC 33.3 g/dL (31.0-37.0); Monocytes # (A) 0.4 k/uL (0-1.0); Monocytes % (A) 8 %; Neutrophils # (A) 3.7 k/uL (1.3-7.7); Neutrophils % (A) 64 %; Platelet Count 142 k/uL (150-450); RBC 4.42 m/uL (4.30-5.90); RDW 16.7 % (11.5-15.5); WBC 5.7 k/uL (3.8-10.6)
[2022-12-22 08:21] LABS: ALT 24 U/L (4-49); AST 29 U/L (17-59); African American GFR (CKD) >90 (>60 ml/min/1.73 sqM); Albumin 3.7 g/dL (3.5-5.0); Alkaline Phosphatase 85 U/L (38-126); Anion Gap 7 mmol/L; Blood Urea Nitrogen 16 mg/dL (9-20); Calcium 8.6 mg/dL (8.4-10.2); Carbon Dioxide 22 mmol/L (22-30); Chloride 109 mmol/L (98-107); Glucose 129 mg/dL (74-99); Non-African American GFR(CKD) 80 (>60 ml/min/1.73 sqM); Potassium 4.3 mmol/L (3.5-5.1); Sodium 138 mmol/L (137-145); Total Bilirubin 0.7 mg/dL (0.2-1.3); Total Protein 6.4 g/dL (6.3-8.2)
[2022-12-22 08:25] LABS: Partial Thromboplastin Time 26.2 sec (22.0-30.0); Prothrombin Time 10.8 sec (9.0-12.0)
--- NOTE | 2022-12-22 09:08 | CT ---
EXAMINATION TYPE: CT angio thor/abd pel aorta CT DLP: 1443.2 mGycm, Automated exposure control for dose reduction was used. DATE OF EXAM: 12/22/2022 8:48 AM COMPARISON: 08/12/2022 CT CLINICAL INDICATION:Male, 82 years old with history of history of aortic aneurysm, midscapular pain, radiating midscapular pain. hx of aortic aneurysm. TECHNIQUE: Dissection protocol: Multiple axial CT images of the chest, abdomen, and pelvis were obtai jemima prior and to the administration of IV contrast. 3-D reformats and maximum intensity projection fo rmat were performed on a separate workstation. Contrast used:100ml mL of Isovue 370 with IV Contrast, Oral contrast used: None FINDINGS: ARTERIAL VASCULATURE: The noncontrast imaging does not demonstrate evidence for intramural hematoma. Moderate to severe atherosclerosis throughout the arterial vasculature. The origins of the great vess els are patent. There is mild calcified plaque at the origin of the left subclavian artery with less than 25% stenosis. The origins of the abdominal aorta including the celiac axis the superior mesenter ic artery and bilateral renal arteries with 2 on the right and one on the left are patent. The inferi or mesenteric artery is patent. PULMONARY ARTERIAL VASCULATURE: Normal caliber. No evidence of filling defect to suggest pulmonary em bolus. VENOUS SYSTEM: Unremarkable. Lungs/pleura: Mild emphysema changes scattered throughout the lungs with streaky scarring. Thickening of the intralobular septa. No focal consolidation, pneumothorax or pleural effusion. Heart: Within normal limits. Severe coronary artery atherosclerosis. Mediastinum: No gross evidence of adenopathy. Sternotomy wires are present. Lower Neck: No significant findings. Abdomen: Liver: Unremarkable. Gallbladder and Bile ducts: Layering gallstones. Pancreas: Unremarkable. Spleen: Unremarkable. Adrenal glands: Unremarkable. Kidneys and Ureters: Partially visualized left renal mass measuring 4.5 x 3.9 cm Bladder: Unremarkabl e. Reproductive: Unremarkable. Stomach and Bowel: Scattered colonic diverticula. Small hiatal hernia is present. No evidence of krish l obstruction. Peritoneum: No evidence of pneumoperitoneum, free fluid, or adenopathy. Musculoskeletal: The osseous structures appear intact. Lymph nodes: No evidence of lymphadenopathy. Abdominal wall/soft tissues: Unremarkable. IMPRESSION: 1. Left renal 4.5 cm mass concerning for renal cell carcinoma until proven otherwise. Further evalua tion recommended. No evidence of lymphadenopathy at this time 2. No evidence for aortic aneurysm. 3. No evidence for pulmonary embolus. 4. No evidence for dissection. 5. Moderate to severe atherosclerosis of the arterial vasculature. 6. Ectasia of ascending thoracic aorta measuring up to 4.5 cm. 7. Severe coronary artery atherosclerosis. 8. Small hiatal hernia. 9. Scattered colonic diverticulosis. 10. Cardiomegaly with pulmonary vascular congestion correlate with serum BNP. 11. Mild emphysema.
[2022-12-22] MEDS ORDERED: MORPHINE SULFATE 4 MG/ML SYRINGE IVP STA (09:18)
[2022-12-22] MEDS ORDERED: ASPIRIN 81 MG PO STA (09:50)
[2022-12-22] MEDS ORDERED: NITROGLYCERIN SL TABS 0.4 MG TAB SUBLINGUAL PRN (09:50)
--- NOTE | 2022-12-22 18:46 | P.HPIM ---
History of Present Illness H&P Date: 12/22/22 Chief Complaint: Chest pain 82-year-old male, with history of CAD, hypertension, hyperlipidemia, presents to ED with complaint of chest pain; patient states that at 4 AM this morning chest pain and will come up out of sleep. States that it was dull. No associated diaphoresis or nausea. Patient states that shortly after that pain radiated to his mid scapular area. Patient rates the pain as a 9 out of 10. States it severe. Denies any radiation of symptoms on the extremities. No numbness or paresthesias. EKG Findings:: My EKG interpretation: Ventricular rate 64, sinus rhythm,. Interval 149, QRS 1, QTc 462. No PA prolongation, no QTC prolongation, no ST or T-wave changes noted. Overall, this EKG is unremarkable Blood work completed in ED disease with WBC of 8.7, hemoglobin 13.5 and platelet count of 142, sodium 138 count is 4.3, BUN/creatinine of 6 is is 0.87 and blood glucose of [address] of chest abdomen and pelvis; no PE was found; there is a left renal mass which is about 4.5 cm concerning for renal cell carcinoma; no lymphadenopathy Review of Systems REVIEW OF SYSTEMS: CONSTITUTIONAL: No fever, no malaise, no fatigue. HEENT: No recent visual problems or hearing problems. Denied any sore throat. CARDIOVASCULAR: No chest pain, orthopnea, PND, no palpitations, no syncope. PULMONARY: No shortness of breath, no cough, no hemoptysis. GASTROINTESTINAL: No diarrhea, no nausea, no vomiting, no abdominal pain. NEUROLOGICAL: No headaches, no weakness, no numbness. HEMATOLOGICAL: Denies any bleeding or petechiae. GENITOURINARY: Denies any burning micturition, frequency, or urgency. MUSCULOSKELETAL/RHEUMATOLOGICAL: Denies any joint pain, swelling, or any muscle pain. ENDOCRINE: Denies any polyuria or polydipsia. The rest of the 14-point review of systems is negative. Past Medical History Past Medical History: Coronary Artery Disease (CAD), Chest Pain / Angina, Hyperlipidemia, Hypertension, Myocardial Infarction (CT), Prostate Disorder Additional Past Medical History / Comment(s): states has 3 cardiac stents that are 100% blocked, with collateral bypass; patient denies hypertension although it is listed in his history and he is on antihypertensives Last Myocardial Infarction Date:: 1996 History of Any Multi-Drug Resistant Organisms: None Reported Past Surgical History: Heart Catheterization, Heart Catheterization With Stent, Joint Replacement, Orthopedic Surgery, Tonsillectomy Additional Past Surgical History / Comment(s): bilateral knee replacments, right lung wedge resection, cataracts removed-lens implants, states 3 cardiac stents Past Anesthesia/Blood Transfusion Reactions: No Reported Reaction Date of Last Stent Placement:: 1996 Past Psychological History: No Psychological Hx Reported Additional Psychological History / Comment(s): . Smoking Status: Former smoker Past Alcohol Use History: Rare Additional Past Alcohol Use History / Comment(s): quit smoking 1979? Past Drug Use History: None Reported - Past Family History Father Family Medical History: Myocardial Infarction (CT) Mother Family Medical History: Cancer Additional Family Medical History / Comment(s): colon Medications and Allergies Home Medications Medication Instructions Recorded Confirmed Type Aspirin EC [Ecotrin Low Dose] 81 mg PO DAILY 10/09/17 12/22/22 History Atorvastatin [Lipitor] 40 mg PO HS 10/09/17 12/22/22 History Multivitamin [Men's Multi-Vitamin] 1 tab PO DAILY 10/09/17 12/22/22 History Cyanocobalamin (Vitamin B-12) 2,500 mcg PO DAILY 09/22/20 12/22/22 History [Vitamin B-12] Super C 1 tab PO DAILY 02/26/21 12/22/22 History Losartan Potassium 50 mg PO HS 08/11/22 12/22/22 History Metoprolol Tartrate [Lopressor] 12.5 mg PO DAILY 08/11/22 12/22/22 History Tamsulosin [Flomax] 0.4 mg PO DAILY 08/11/22 12/22/22 History Allergies Allergy/AdvReac Type Severity Reaction Status Date / Time No Known Allergies Allergy Verified 12/22/22 07:24 Physical Exam Vitals: Vital Signs Temp Pulse Pulse Resp BP BP Pulse Ox 12/22/22 13:15 97.3 F L 69 14 109/68 98 12/22/22 12:37 97.3 F L 61 18 98/53 96 12/22/22 11:40 81 18 117/59 92 L 12/22/22 10:26 55 L 18 133/65 96 12/22/22 09:21 73 18 140/77 97 12/22/22 08:52 68 18 157/55 97 12/22/22 07:16 97.7 F 62 18 185/86 97 Intake and Output 12/21/22 12/22/22 12/22/22 22:59 06:59 14:59 Other: Weight 83.915 kg General Impression: Alert and oriented x3, not in acute distress HEENT: Normocephalic atraumatic, extra-ocular movements intact, pupils equal and reactive to light bilaterally, mucous membranes moist. Cardiovascular: Heart regular rate and rhythm Chest: Able to complete full sentences, no retractions, no tachypnea Abdomen: abdomen soft, non-tender, non-distended, no organomegaly Musculoskeletal: Pulses present and equal in all extremities, no peripheral edema Motor: no focal deficits noted Neurological: CN II-XII grossly intact, no focal motor or sensory deficits noted Skin: Intact with no visualized rashes Psych: Normal affect and mood Results CBC & Chem 7: 12/22/22 07:55 12/22/22 07:55 Labs: Abnormal Lab Results - Last 24 Hours (Table) 12/22/22 12/22/22 Range/Units 07:55 07:55 RDW 16.7 H (11.5-15.5) % Plt Count 142 L (150-450) k/uL Chloride 109 H (98-107) mmol/L Glucose 129 H (74-99) mg/dL Thrombosis Risk Factor Assmnt - Choose All That Apply Each Risk Factor Represents 3 Points: Age 75 years or older Thrombosis Risk Factor Assessment Total Risk Factor Score: 3 Thrombosis Risk Factor Assessment Level: Moderate Risk Assessment and Plan Assessment: 1. Chest pain rule out acute coronary syndrome - We will plan to admit to cardiac telemetry; monitor cardiac enzymes and trend troponin; monitor EKG - Consult cardiology for further recommendations 2. Left renal mass; suspicion for renal cell carcinoma; we will consult urology for further evaluation 3. Hypertension; Cozaar 50 mg daily at bedtime; metoprolol 12.5 mg daily 4. Hyperlipidemia; Lipitor 40 mg by mouth daily at bedtime 5. History of coronary artery disease; patient is currently on aspirin, statin and beta cristian 6. BPH; Flomax 0.4 mg daily DVT prophylaxis; SCDs/subcu heparin CODE STATUS; full code
[2022-12-22] MEDS: LOSARTAN 50 MG TAB PO SCH (21:44)
[2022-12-22] MEDS: ATORVASTATIN 40 MG TAB PO SCH (21:44)
[2022-12-23] MEDS: ASPIRIN 325 MG TAB PO SCH (08:20)
[2022-12-23] MEDS: CYANOCOBALAMIN 500 MCG TAB PO SCH (08:20)
[2022-12-23] MEDS: METOPROLOL TARTRATE 12.5 MG TAB PO SCH (08:21)
[2022-12-23] MEDS: TAMSULOSIN 0.4 MG CAP.ER.24H PO SCH (08:21)
[2022-12-23] MEDS: MULTIVITAMINS, THERA 1 EACH TAB PO SCH (08:21)
[2022-12-23] MEDS ORDERED: NON FORMULARY DRUG (Aspirin Ec 81 MG Tablet.Dr) PO SCH (09:00)
[2022-12-23 09:11] LABS: Basophils # (A) 0.06 X 10*3/uL (0.00-0.10); Basophils % (A) 1.5 %; Eosinophils # (A) 0.21 X 10*3/uL (0.04-0.35); Eosinophils % (A) 5.1 %; HCT 38.3 % (39.6-50.0); HGB 12.5 g/dL (13.0-17.0); Immature Grans, Automated 0.2 %; Lymphocytes # (A) 1.42 X 10*3/uL (0.90-5.00); Lymphocytes % (A) 34.8 %; MCH 29.6 pg (27.0-32.0); MCHC 32.6 g/dL (32.0-37.0); MCV 90.8 fL (80.0-97.0); Mean Platelet Volume 12.3 fL (9.5-12.2); Monocytes # (A) 0.53 X 10*3/uL (0.20-1.00); NRBC Per 100 WBC 0 /100 WBCS (0.0-0.0); Neutrophils # (A) 1.85 X 10*3/uL (1.80-7.70); Neutrophils % (A) 45.4 %; Platelet Count 154 X 10*3/uL (140-440); RBC 4.22 X 10*6/uL (4.40-5.60); RDW 16.6 % (11.5-14.5); WBC 4.08 X 10*3/uL (4.50-10.00)
[2022-12-23 09:21] LABS: African American GFR (CKD) 92.7 (60.0-200.0); BUN/Creat Ratio 13.05 Ratio (12.00-20.00); Blood Urea Nitrogen 11.3 mg/dL (9.0-27.0); Calcium 8.6 mg/dL (8.7-10.3); Carbon Dioxide 23.9 mmol/L (20.0-27.5); Chloride 108 mmol/L (96-109); Chol/HDL Ratio 2.84 Ratio; Glucose 108 mg/dL (70-110); LDL Cholesterol,Calculated 47.8 mg/dL (0.0-131.0); Potassium 4.1 mmol/L (3.5-5.5); Sodium 141 mmol/L (135-145)
--- NOTE | 2022-12-23 12:03 | P.CRDCN ---
History of Present Illness Consult date: 12/23/22 Consult reason: chest pain History of present illness: This is Danie Stanley NP, I'm dictating on behalf of Dr. Thomson's H&P and A&P The patient was interviewed and examined. HPI: Patient is a pleasant 82-year-old male who presented to the hospital with complaints of chest pain. Patient reports that he was woken up out of sleep with central chest pain, that then radiated into his mid back. He states this lasted for a few hours, and he decided to come to the hospital for evaluation. On his way to the hospital, and then in the hospital, he reports the pain increased in intensity, and radiated back to his mid chest. He reports that he was given medications in the emergency department completely resolved his chest pain. Patient had a EKG completed that demonstrated normal sinus rhythm. Troponin was initially checked which was negative. Patient had a computed tomography scan of the thoracic aorta which demonstrated no evidence for aortic aneurysm, no evidence for pulmonary embolus, no evidence for dissection. Patient was subsequently admitted for further evaluation of the chest pain. Patient has a pertinent past medical history that includes coronary artery disease, chest pain, hyperlipidemia, hypertension, and myocardial infarction. Patient has a past pertinent surgical history that includes cardiac stent placement, CABG in 2020. This morning patient reports that he is having no chest pain. He also denies shortness of breath and heart palpitations, as well as dizziness. Patient is noted to be in normal sinus rhythm on the monitor. ROS: [No fever, chills, or rigors] [no cough, phlegm, or expectoration] [no nausea, vomiting, or diarrhea] [no hematuria, dysuria] [no musculoskelatal complaints] [no strokes or seizures] [no skin lesions] EXAMINATION: GENERAL: Well-appearing, well-nourished and in no acute distress. NECK: Supple without JVD or thyromegaly. LUNGS: Breath sounds clear to auscultation bilaterally. Respiration equal and unlabored. No wheezes, rales or rhonchi. HEART: Regular rate and rhythm without murmurs, rubs or gallops. S1 and S2 heard. EXTREMITIES: Normal range of motion, no edema. No clubbing or cyanosis. Peripheral pulses intact and strong. REVIEW OF LABS, ECG & MEDICAL DATA: LABS: White count 4.0, hemoglobin 12.5, platelets 154, sodium 141, potassium 4.1, chloride 108, B1 11.3, creatinine 0.9, calcium 8.6, troponin-less than 0.0123, triglycerides 140, cholesterol 117, LDL 47.8, HDL 41.2 EKG: Sinus bradycardia IMAGING: CT angiogram of the thoracic and abdominal aorta dated 12/22/2022 demonstrates a left renal 4.5 cm mass concerning for renal cell carcinoma until proven otherwise, further evaluation recommended, no evidence of lymphadenopathy at this time, no evidence for aortic aneurysm, no evidence troponin I embolus, no evidence for dissection, moderate to severe arteriosclerosis of the arterial vasculature, 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 VITALS: Temp 98.1, pulse 53, respirations 18, blood pressure 145/81, O2 saturation 94% on room air IMPRESSION: 1. Atypical chest pain 2. History of CABG in 2020 3. Occluded stents with collateral circulation PLAN: Obtain d-dimer. Obtain echocardiogram. Continue home cardiac medications. Further recommendations based on patient's clinical course Thank you for the consult and allowing us to participate in the care of this patient. Past Medical History Past Medical History: Coronary Artery Disease (CAD), Chest Pain / Angina, Hyperlipidemia, Hypertension, Myocardial Infarction ([place]), Prostate Disorder Additional Past Medical History / Comment(s): states has 3 cardiac stents that are 100% blocked, with collateral bypass; patient denies hypertension although it is listed in his history and he is on antihypertensives Last Myocardial Infarction Date:: 1996 History of Any Multi-Drug Resistant Organisms: None Reported Past Surgical History: Heart Catheterization, Heart Catheterization With Stent, Joint Replacement, Orthopedic Surgery, Tonsillectomy Additional Past Surgical History / Comment(s): bilateral knee replacments, right lung wedge resection, cataracts removed-lens implants, states 3 cardiac stents Past Anesthesia/Blood Transfusion Reactions: No Reported Reaction Date of Last Stent Placement:: 1996 Past Psychological History: No Psychological Hx Reported Additional Psychological History / Comment(s): . Smoking Status: Former smoker Past Alcohol Use History: Rare Additional Past Alcohol Use History / Comment(s): quit smoking 1979? Past Drug Use History: None Reported - Past Family History Father Family Medical History: Myocardial Infarction ([place]) Mother Family Medical History: Cancer Additional Family Medical History / Comment(s): colon Medications and Allergies Home Medications Medication Instructions Recorded Confirmed Type Aspirin EC [Ecotrin Low Dose] 81 mg PO DAILY 10/09/17 12/22/22 History Atorvastatin [Lipitor] 40 mg PO HS 10/09/17 12/22/22 History Multivitamin [Men's Multi-Vitamin] 1 tab PO DAILY 10/09/17 12/22/22 History Cyanocobalamin (Vitamin B-12) 2,500 mcg PO DAILY 09/22/20 12/22/22 History [Vitamin B-12] Super C 1 tab PO DAILY 02/26/21 12/22/22 History Losartan Potassium 50 mg PO HS 08/11/22 12/22/22 History Metoprolol Tartrate [Lopressor] 12.5 mg PO DAILY 08/11/22 12/22/22 History Tamsulosin [Flomax] 0.4 mg PO DAILY 08/11/22 12/22/22 History Allergies Allergy/AdvReac Type Severity Reaction Status Date / Time No Known Allergies Allergy Verified 12/22/22 07:24 Physical Exam Vitals: Vital Signs Temp Pulse Pulse Resp BP BP BP 12/23/22 10:00 12/23/22 08:00 53 L 18 12/23/22 07:00 98.1 F 53 L 18 145/81 12/23/22 03:28 97.8 F 52 L 18 130/70 12/22/22 19:06 97.6 F 56 L 17 109/63 12/22/22 14:46 97.4 F L 63 16 109/65 12/22/22 13:15 97.3 F L 69 14 109/68 12/22/22 12:37 97.3 F L 61 18 98/53 Pulse Ox 12/23/22 10:00 94 L 12/23/22 08:00 12/23/22 07:00 94 L 12/23/22 03:28 97 12/22/22 19:06 96 12/22/22 14:46 95 12/22/22 13:15 98 12/22/22 12:37 96 Intake and Output 12/22/22 12/23/22 12/23/22 22:59 06:59 14:59 Intake Total 118 Balance 118 Intake: Oral 118 Other: # Voids 1 1 Results 12/23/22 05:52 12/23/22 05:52 Cardiac Enzymes 12/22/22 Range/Units 13:00 Troponin I <0.012 (0.000-0.034) ng/mL Lipids 12/23/22 Range/Units 05:52 Triglycerides 140.00 (0.00-149.00) mg/dL Cholesterol 117.00 (0.00-200.00) mg/dL HDL Cholesterol 41.20 (40.00-60.00) mg/dL Cholesterol/HDL Ratio 2.84 Ratio CBC 12/23/22 Range/Units 05:52 WBC 4.08 L (4.50-10.00) X 10*3/uL RBC 4.22 L (4.40-5.60) X 10*6/uL Hgb 12.5 L (13.0-17.0) g/dL Hct 38.3 L (39.6-50.0) % Plt Count 154 (140-440) X 10*3/uL Comprehensive Metabolic Panel 12/23/22 Range/Units 05:52 Sodium 141 (135-145) mmol/L Potassium 4.1 (3.5-5.5) mmol/L Chloride 108 (96-109) mmol/L Carbon Dioxide 23.9 (20.0-27.5) mmol/L BUN 11.3 (9.0-27.0) mg/dL Creatinine 0.9 (0.6-1.5) mg/dL Glucose 108 (70-110) mg/dL Calcium 8.6 L (8.7-10.3) mg/dL Current Medications Generic Name Dose Route Start Last Admin Trade Name Freq PRN Reason Stop Dose Admin Aspirin 325 mg 12/23/22 09:00 12/23/22 08:20 Aspirin 325 Mg Tab PO 325 mg DAILY PRAKASH Administration Atorvastatin Calcium 40 mg 12/22/22 21:00 12/22/22 21:44 Atorvastatin 40 Mg Tab PO 40 mg HS PRAKASH Administration Cyanocobalamin 2,500 mcg 12/23/22 09:00 12/23/22 08:20 Cyanocobalamin 500 Mcg Tab PO 2,500 mcg DAILY PRAKASH Administration Losartan Potassium 50 mg 12/22/22 21:00 12/22/22 21:44 Losartan 50 Mg Tab PO 50 mg HS PRAKASH Administration Metoprolol Tartrate 12.5 mg 12/23/22 09:00 12/23/22 08:21 Metoprolol Tartrate 12.5 Mg Tab PO 12.5 mg DAILY PRAKASH Administration Multivitamins 1 each 12/23/22 09:00 12/23/22 08:21 Multivitamins, Thera 1 Each Tab PO 1 each DAILY PRAKASH Administration Nitroglycerin 0.4 mg 12/22/22 09:50 Nitroglycerin Sl Tabs 0.4 Mg Tab SUBLINGUAL Q5M PRN Chest Pain Tamsulosin HCl 0.4 mg 12/23/22 09:00 12/23/22 08:21 Tamsulosin 0.4 Mg Cap.Er.24h PO 0.4 mg DAILY PRAKASH Administration Intake and Output 12/22/22 12/23/22 12/23/22 22:59 06:59 14:59 Intake Total 118 Balance 118 Intake: Oral 118 Other: # Voids 1 1 12/23/22 05:52 12/23/22 05:52
--- NOTE | 2022-12-23 14:42 | P.GSCN ---
History of Present Illness Consult date: 12/23/22 History of present illness: A 82-year-old gentleman who came in the hospital chest pain. He gave a history of thoracic aneurysm. The chest pain is of indeterminate etiology. The patient had a computed tomography scan identifying diffuse atherosclerosis of a newly identified 4.5 cm left renal mass. He denies flank pain on the left He denies hematuria. He does have some bladder neck obstruction. Review of Systems All systems: negative - Constitutional Denies fever, Denies weight loss - EENT Eyes: denies blurred vision Ears, nose, mouth and throat: Denies dysphagia - Cardiovascular Denies chest pain, Denies shortness of breath - Respiratory Denies cough, Denies 7 - Gastrointestinal Reports as per HPI - Genitourinary Denies dysuria, Denies hematuria - Integumentary Denies rash, Denies unusual bruising - Neurological Denies headaches, Denies syncope - Hematologic/Lymphatic Denies easy bleeding, Denies easy bruising Past Medical History Past Medical History: Coronary Artery Disease (CAD), Chest Pain / Angina, Hyperlipidemia, Hypertension, Myocardial Infarction ([place]), Prostate Disorder Additional Past Medical History / Comment(s): states has 3 cardiac stents that are 100% blocked, with collateral bypass; patient denies hypertension although it is listed in his history and he is on antihypertensives Last Myocardial Infarction Date:: 1996 History of Any Multi-Drug Resistant Organisms: None Reported Past Surgical History: Heart Catheterization, Heart Catheterization With Stent, Joint Replacement, Orthopedic Surgery, Tonsillectomy Additional Past Surgical History / Comment(s): bilateral knee replacments, right lung wedge resection, cataracts removed-lens implants, states 3 cardiac stents Past Anesthesia/Blood Transfusion Reactions: No Reported Reaction Date of Last Stent Placement:: 1996 Past Psychological History: No Psychological Hx Reported Additional Psychological History / Comment(s): . Smoking Status: Former smoker Past Alcohol Use History: Rare Additional Past Alcohol Use History / Comment(s): quit smoking 1979? Past Drug Use History: None Reported - Past Family History Father Family Medical History: Myocardial Infarction ([place]) Mother Family Medical History: Cancer Additional Family Medical History / Comment(s): colon Medications and Allergies Home Medications Medication Instructions Recorded Confirmed Type Aspirin EC [Ecotrin Low Dose] 81 mg PO DAILY 10/09/17 12/22/22 History Atorvastatin [Lipitor] 40 mg PO HS 10/09/17 12/22/22 History Multivitamin [Men's Multi-Vitamin] 1 tab PO DAILY 10/09/17 12/22/22 History Cyanocobalamin (Vitamin B-12) 2,500 mcg PO DAILY 09/22/20 12/22/22 History [Vitamin B-12] Super C 1 tab PO DAILY 02/26/21 12/22/22 History Losartan Potassium 50 mg PO HS 08/11/22 12/22/22 History Metoprolol Tartrate [Lopressor] 12.5 mg PO DAILY 08/11/22 12/22/22 History Tamsulosin [Flomax] 0.4 mg PO DAILY 08/11/22 12/22/22 History Allergies Allergy/AdvReac Type Severity Reaction Status Date / Time No Known Allergies Allergy Verified 12/22/22 07:24 Surgical - Exam Vital Signs Temp Pulse Resp BP Pulse Ox 97.7 F 62 18 185/86 97 12/22/22 07:16 12/22/22 07:16 12/22/22 07:16 12/22/22 07:16 12/22/22 07:16 Results - Labs 12/23/22 05:52 12/23/22 05:52 Abnormal Lab Results - Last 24 Hours (Table) 12/22/22 12/22/22 Range/Units 07:55 07:55 RDW 16.7 H (11.5-15.5) % Plt Count 142 L (150-450) k/uL Chloride 109 H (98-107) mmol/L Glucose 129 H (74-99) mg/dL Diabetes panel 12/22/22 Range/Units 07:55 Sodium 138 (137-145) mmol/L Potassium 4.3 (3.5-5.1) mmol/L Chloride 109 H (98-107) mmol/L Carbon Dioxide 22 (22-30) mmol/L BUN 16 (9-20) mg/dL Creatinine 0.87 (0.66-1.25) mg/dL Glucose 129 H (74-99) mg/dL Calcium 8.6 (8.4-10.2) mg/dL AST 29 (17-59) U/L ALT 24 (4-49) U/L Alkaline Phosphatase 85 (38-126) U/L Total Protein 6.4 (6.3-8.2) g/dL Albumin 3.7 (3.5-5.0) g/dL Calcium panel 12/22/22 Range/Units 07:55 Calcium 8.6 (8.4-10.2) mg/dL Albumin 3.7 (3.5-5.0) g/dL Pituitary panel 12/22/22 Range/Units 07:55 Sodium 138 (137-145) mmol/L Potassium 4.3 (3.5-5.1) mmol/L Chloride 109 H (98-107) mmol/L Carbon Dioxide 22 (22-30) mmol/L BUN 16 (9-20) mg/dL Creatinine 0.87 (0.66-1.25) mg/dL Glucose 129 H (74-99) mg/dL Calcium 8.6 (8.4-10.2) mg/dL Adrenal panel 12/22/22 Range/Units 07:55 Sodium 138 (137-145) mmol/L Potassium 4.3 (3.5-5.1) mmol/L Chloride 109 H (98-107) mmol/L Carbon Dioxide 22 (22-30) mmol/L BUN 16 (9-20) mg/dL Creatinine 0.87 (0.66-1.25) mg/dL Glucose 129 H (74-99) mg/dL Calcium 8.6 (8.4-10.2) mg/dL Total Bilirubin 0.7 (0.2-1.3) mg/dL AST 29 (17-59) U/L ALT 24 (4-49) U/L Alkaline Phosphatase 85 (38-126) U/L Total Protein 6.4 (6.3-8.2) g/dL Albumin 3.7 (3.5-5.0) g/dL - Imaging CT scan - abdomen: report reviewed, image reviewed CT scan - pelvis: report reviewed, image reviewed Assessment and Plan Assessment: [id number]; Chest pain. CAd Left renal mass suspicious for ca kidney Plan: The patient will need further evaluation of the mass, He will probably need a partial or radical nephrectomy left for this mass which is most likely malignant
--- NOTE | 2022-12-23 16:59 | P.PN ---
Subjective Progress Note Date: 12/23/22 Principal diagnosis: Chest and rule out acute coronary syndrome Left renal mass suspicious for renal cell carcinoma 82-year-old male, with history of CAD, hypertension, hyperlipidemia, presents to ED with complaint of chest pain; patient states that at 4 AM this morning chest pain and will come up out of sleep. States that it was dull. No associated diaphoresis or nausea. Patient states that shortly after that pain radiated to his mid scapular area. Patient rates the pain as a 9 out of 10. States it severe. Denies any radiation of symptoms on the extremities. No numbness or paresthesias. EKG Findings:: My EKG interpretation: Ventricular rate 64, sinus rhythm,. Interval 149, QRS 1, QTc 462. No NV prolongation, no QTC prolongation, no ST or T-wave changes noted. Overall, this EKG is unremarkable Blood work completed in ED disease with WBC of 8.7, hemoglobin 13.5 and platelet count of 142, sodium 138 count is 4.3, BUN/creatinine of 6 is is 0.87 and blood glucose of [address] of chest abdomen and pelvis; no PE was found; there is a left renal mass which is about 4.5 cm concerning for renal cell carcinoma; no lymphadenopathy -- Patient has been evaluated by urology for left renal mass; recommended further evaluation of the mass with probable need for partial radical nephrectomy for likely malignant mass - Cardiology on board recommending to proceed with 2-D echocardiogram and continue with all home cardiac medications; d-dimer disorder Objective - Vital Signs Vital signs: Vital Signs Temp 98.1 F 12/23/22 07:00 Pulse 53 L 12/23/22 08:00 Resp 18 12/23/22 08:00 BP 145/81 12/23/22 07:00 Pulse Ox 94 L 12/23/22 10:00 FiO2 Intake & Output 12/22/22 12/23/22 12/23/22 18:59 06:59 18:59 Intake Total 118 Balance 118 Weight 83.915 kg Intake: Oral 118 Other: # Voids 1 1 - Exam General Impression: Alert and oriented x3, not in acute distress HEENT: Normocephalic atraumatic, extra-ocular movements intact, pupils equal and reactive to light bilaterally, mucous membranes moist. Cardiovascular: Heart regular rate and rhythm Chest: Able to complete full sentences, no retractions, no tachypnea Abdomen: abdomen soft, non-tender, non-distended, no organomegaly Musculoskeletal: Pulses present and equal in all extremities, no peripheral edema Motor: no focal deficits noted Neurological: CN II-XII grossly intact, no focal motor or sensory deficits noted Skin: Intact with no visualized rashes Psych: Normal affect and mood - Labs CBC & Chem 7: 12/23/22 05:52 12/23/22 05:52 Labs: Abnormal Lab Results - Last 24 Hours (Table) 12/23/22 12/23/22 12/23/22 Range/Units 05:52 05:52 09:03 WBC 4.08 L (4.50-10.00) X 10*3/uL RBC 4.22 L (4.40-5.60) X 10*6/uL Hgb 12.5 L (13.0-17.0) g/dL Hct 38.3 L (39.6-50.0) % RDW 16.6 H (11.5-14.5) % MPV 12.3 H (9.5-12.2) fL D-Dimer 0.70 H (<0.60) mg/L FEU Anion Gap 9.40 L (10.00-18.00) mmol/L Calcium 8.6 L (8.7-10.3) mg/dL Assessment and Plan Assessment: 1. Chest pain rule out acute coronary syndrome - We will plan to admit to cardiac telemetry; monitor cardiac enzymes and trend troponin; monitor EKG - Consult cardiology for further recommendations 2. Left renal mass; suspicion for renal cell carcinoma; we will consult urology for further evaluation 3. Hypertension; Cozaar 50 mg daily at bedtime; metoprolol 12.5 mg daily 4. Hyperlipidemia; Lipitor 40 mg by mouth daily at bedtime 5. History of coronary artery disease; patient is currently on aspirin, statin and beta cristian 6. BPH; Flomax 0.4 mg daily DVT prophylaxis; SCDs/subcu heparin CODE STATUS; full code
[2022-12-23] MEDS: ATORVASTATIN 40 MG TAB PO SCH (19:53)
[2022-12-23] MEDS: LOSARTAN 50 MG TAB PO SCH (19:53)
[2022-12-24] MEDS ORDERED: AMINOPHYLLINE 500 MG/20 ML VIAL IV PRN (07:54)
[2022-12-24] MEDS ORDERED: REGADENOSON 0.4 MG/5 ML SYRINGE IV PRN (07:54)
[2022-12-24] MEDS ORDERED: CAFFEINE CITRATE 60 MG/3 ML VIAL IV PRN (07:54)
[2022-12-24] MEDS: ASPIRIN 325 MG TAB PO SCH (08:03)
[2022-12-24] MEDS: MULTIVITAMINS, THERA 1 EACH TAB PO SCH (08:03)
[2022-12-24] MEDS: CYANOCOBALAMIN 500 MCG TAB PO SCH (08:03)
[2022-12-24] MEDS: TAMSULOSIN 0.4 MG CAP.ER.24H PO SCH (08:03)
--- NOTE | 2022-12-24 10:17 | PN ---
PROGRESS NOTE SUBJECTIVE: Adriel is an 82-year-old gentleman with history of coronary artery disease, status post prior bypass surgery, who presented to hospital with chest pain and ruled out for myocardial infarction. This morning, he is comfortable at rest and is free of symptoms. He has been diagnosed with cancer of the kidney. OBJECTIVE: GENERAL: Comfortable at rest. VITAL SIGNS: Stable. NECK: There is no jugular venous distention. CHEST: Reveals good air entry bilaterally. HEART: Reveals first and second heart sounds. No gallop. No murmur. ABDOMEN: Soft. EXTREMITIES: Did not reveal any edema. Peripheral pulses are felt. LABORATORY DATA: His D-dimer was elevated. He had a CT scan of the chest that is negative for pulmonary embolism. An echocardiogram is pending at this time. ASSESSMENT: Precordial chest pain in a patient with known coronary artery disease, status post prior bypass surgery. PLAN: I will obtain a Lexiscan on him, and if this is abnormal, Dr. Ascencio, his primary car porter, will perform a cardiac catheterization on him. MMODL / IJN: [id number] /
--- NOTE | 2022-12-24 11:33 | CA ---
Lexiscan Nuclear Stress Test Report Name: Adriel Gates Exam Date: 12/24/2022 10:41 Exam Location: [facility] Ht (in): 68 Wt (lb): 185 BSA: 1.98 Ordering Phys: Shaun Bertrand MD Referring Phys: ZAYRA,, Technologist: Luis Gurrola Age: 82 Gender: M : 1940 Procedure CPT: Indications: Reflex order-Stress test ICD-10 Codes: Patient History: CHEST PAIN, HTN, ANGINA, ELEVATED CHOLESTEROL LEVELS, FAMILY HX OF HEART DISEASE, PRIOR [place], PRIOR CARDIAC CATH WITH STENTING (3), CABG X 3, PRIOR SMOKER Medications: Meds past 24 hrs: Pretest Chest Pain: STRESS TEST Lexiscan Protocol Exercise Duration (min:sec): 01:[address] Depressions (mm): Angina Score: Lizama Score: Resting HR (bpm): 56 Peak HR (bpm): 77 Resting BP (mmHg): 136 / 81 Peak BP (mmHg): 160 / 79 MPHR: 137 Target HR: 116 % MPHR: 56 METS: 1.0 Total Dose: Peak Dose: Atropine: Double Product: 37871 BP Response: Stress Termination: INFUSION COMPLETE Stress Symptoms: NAUSEA Stress Summary: ECG ANALYSIS Resting ECG: Normal sinus rhythm with incomplete right bundle branch block Normal sinus rhythm normal axis normal intervals negative stress test by EKG criteria Stress ECG: CONCLUSIONS Negative stress test by EKG criteria Cardiolite portion of the stress test will be reported separately Dr. Shaun Bertrand MD (Electronically Signed) Final Date: 24 Dec 2022 11:32
--- NOTE | 2022-12-24 12:36 | NM ---
EXAMINATION TYPE: NM stress lexiscan cardiolite DATE OF EXAM: 12/24/2022 COMPARISON: NONE CLINICAL INDICATION: Male, 82 years old with history of chest pain; TECHNIQUE: After the intravenous administration of 10.3 mCi Tc 99m Sestamibi - Cardiolite resting SP ECT images acquired 60 minutes post injection. The patient received 0.4mg Lexiscan, 25.8 mCi Tc 99m Sestamibi - Stress images obtained [address] injection FINDINGS: Review of stress and rest SPECT images demonstrates large areas of fixed defect noted involving the c ardiac apex, inferior wall and lateral wall with superimposed areas of stress-induced ischemia involv ing the lateral wall and inferior wall. Gated analysis shows hypokinetic motion with an estimated lef t ventricular ejection fraction of 44 %. IMPRESSION: large areas of fixed defect noted involving the cardiac apex, inferior wall and lateral wall with sup erimposed areas of stress-induced ischemia involving the lateral wall and inferior wall.
--- NOTE | 2022-12-24 15:01 | P.PN ---
Subjective Patient is admitted for chest pain, underwent stress test patient has areas of fixed defects along with some reversible stress-induced defects. Patient will undergo cardiac catheterization Constitutional: Denied any fatigue denied any fever. Cardio vascular: denied any chest pain, palpitations Gastrointestinal denied any nausea vomiting Pulmonary: Denied any shortness of breath cough Neurologic denied any new focal deficits All inpatient medications were reviewed and appropriate changes in these medications as dictated in the interval history and assessment and plan. PHYSICAL EXAMINATION: GENERAL: The patient is alert and oriented x3, not in any acute distress. Well developed, well nourished. HEENT: Pupils are round and equally reacting to light. EOMI. No scleral icterus. No conjunctival pallor. Normocephalic, atraumatic. No pharyngeal erythema. No thyromegaly. CARDIOVASCULAR: S1 and S2 present. No murmurs, rubs, or gallops. PULMONARY: Chest is clear to auscultation, no wheezing or crackles. ABDOMEN: Soft, nontender, nondistended, normoactive bowel sounds. No palpable organomegaly. MUSCULOSKELETAL: No joint swelling or deformity. EXTREMITIES: No cyanosis, clubbing, or pedal edema. NEUROLOGICAL: Gross neurological examination did not reveal any focal deficits. SKIN: No rashes. Assessment and plan 1. Chest pain rule out acute coronary syndrome Patient has positive stress test will undergo cardiac catheterization 2. Left renal mass; suspicion for renal cell carcinoma; urology will evaluate the patient 3. Hypertension; Cozaar 50 mg daily at bedtime; metoprolol 12.5 mg daily 4. Hyperlipidemia; Lipitor 40 mg by mouth daily at bedtime 5. History of coronary artery disease; patient is currently on aspirin, statin and beta cristian 6. BPH; Flomax 0.4 mg daily DVT prophylaxis; SCDs/subcu heparin CODE STATUS; full code Objective - Vital Signs Vital signs: Vital Signs Temp 97.5 F L 12/24/22 07:00 Pulse 83 12/24/22 08:00 Resp 17 12/24/22 08:00 BP 150/76 12/24/22 07:00 Pulse Ox 99 12/24/22 10:00 FiO2 Intake & Output 12/23/22 12/24/22 12/24/22 18:59 06:59 18:59 Intake Total 236 Balance 236 Intake: Oral 236 Other: # Voids 3 2 1 - Labs CBC & Chem 7: 12/23/22 05:52 12/23/22 05:52
[2022-12-24] MEDS: METOPROLOL TARTRATE 12.5 MG TAB PO SCH (15:14)
--- NOTE | 2022-12-24 17:31 | CA ---
Transthoracic Echo Report Name: Adriel Gates Age: 82 Gender: M : 1940 Exam Date: 12/24/2022 13:30 Exam Location: [place] [facility] Ht (in): 68 Wt (lb): 185 Ordering Physician: Danie Stanley Attending/Referring Phys: Lace Sewer TM Procedure CPT: Indications: Chest Pain Cardiac Hx: Technical Quality: Fair Contrast 1: Total Dose (mL): Contrast 2: Total Dose (mL): MEASUREMENTS (Male / Female) Normal Values 2D ECHO LV Diastolic Diameter PLAX 4.4 cm 4.2 - 5.9 / 3.9 - 5.3 cm LV Systolic Diameter PLAX 3.4 cm IVS Diastolic Thickness 1.7 cm 0.6 - 1.0 / 0.6 - 0.9 cm LVPW Diastolic Thickness 1.4 cm 0.6 - 1.0 / 0.6 - 0.9 cm LV Relative Wall Thickness 0.7 RV Internal Dim ED PLAX 3.6 cm LVOT Diameter 2.1 cm Aortic Root Diameter 3.3 cm LA Systolic Diameter LX 2.4 cm 3.0 - 4.0 / 2.7 - 3.8 cm LV Diastolic Volume MOD BP 75.6 cm??? 67 - 155 / 56 - 104 cm??? LV Systolic Volume MOD BP 32.3 cm??? 22 - 58 / 19 - 49 cm??? LV Ejection Fraction MOD BP 57.3 % >= 55 % LV Diastolic Volume MOD 4C 77.5 cm??? LV Systolic Volume MOD 4C 34.8 cm??? LV Ejection Fraction MOD 4C 55.1 % LV Diastolic Length 4C 7.4 cm LV Systolic Length 4C 6.3 cm LV Diastolic Volume MOD 2C 71.4 cm??? LV Systolic Volume MOD 2C 29.0 cm??? LV Ejection Fraction MOD 2C 59.4 % LV Diastolic Length 2C 7.2 cm LV Systolic Length 2C 6.0 cm LA Volume 40.2 cm??? 18 - 58 / 22 - 52 cm??? Ascending Aorta Diameter 3.9 cm DOPPLER AV Peak Velocity 180.7 cm/s AV Peak Gradient 13.1 mmHg AV Mean Velocity 115.5 cm/s AV Mean Gradient 6.4 mmHg AV Velocity Time Integral 31.5 cm AI Peak Velocity 405.0 cm/s AI Peak Gradient 65.6 mmHg AI Pressure Half Time 935.8 ms LVOT Peak Velocity 98.1 cm/s LVOT Peak Gradient 3.9 mmHg LVOT Velocity Time Integral 21.7 cm LVOT Stroke Volume 77.2 cm??? LVOT Stroke Volume Index 39.1 ml/m??? AV Area Cont Eq vti 2.5 cm??? AV Area Cont Eq pk 1.9 cm??? MV Peak Velocity 99.3 cm/s MV Peak Gradient 3.9 mmHg MV Mean Velocity 44.1 cm/s MV Mean Gradient 1.0 mmHg MV Velocity Time Integral 34.4 cm MR Peak Velocity 195.6 cm/s MR Peak Gradient 15.3 mmHg Mitral E Point Velocity 62.1 cm/s Mitral A Point Velocity 98.2 cm/s Mitral E to A Ratio 0.6 MV Deceleration Time 425.1 ms TR Peak Velocity 200.5 cm/s TR Peak Gradient 16.1 mmHg Right Ventricular Systolic Press 24.1 mmHg PV Peak Velocity 118.4 cm/s PV Peak Gradient 5.6 mmHg FINDINGS Left Ventricle Left ventricular ejection fraction is estimated at 50-55 %. Right Ventricle Normal right ventricular size. Right Atrium Normal right atrial size. Left Atrium Normal left atrial size. Mitral Valve Structurally normal mitral valve. Aortic Valve Mild AV Calcification. Mild to moderate AI. Tricuspid Valve Structurally normal tricuspid valve. Mild to moderate TR. RVSP= 38mmhg Pulmonic Valve Pulmonic valve not well visualized. Mild to moderate PI. Pericardium Normal pericardium. Aorta Normal size aortic root and proximal ascending aorta. CONCLUSIONS Normal LV systolic function Mild to moderate aortic regurgitation Previewed by: Dr. Shaun Bertrand MD (Electronically Signed) Final Date: 24 Dec 2022 17:31
[2022-12-24] MEDS: LOSARTAN 50 MG TAB PO SCH (21:49)
[2022-12-24] MEDS: ATORVASTATIN 40 MG TAB PO SCH (21:49)
[2022-12-25] MEDS ORDERED: HEPARIN SODIUM,PORCINE 2,500 UNIT in SODIUM CHLORIDE 0.9% 250 ML IRRIGATION PRN (07:00)
[2022-12-25] MEDS ORDERED: HEPARIN SODIUM,PORCINE 10,000 UNIT in SODIUM CHLORIDE 0.9% 1,000 ML IRRIGATION PRN (07:00)
[2022-12-25] MEDS ORDERED: SODIUM CHLORIDE 0.9% 1,000 ML in EMPTY BAG 1 BAG IV ONE (07:39)
[2022-12-25] MEDS ORDERED: ASPIRIN 325 MG TAB PO STA (07:39)
[2022-12-25 08:11] LABS: African American GFR (CKD) >90 (>60 ml/min/1.73 sqM); Anion Gap 8 mmol/L; Blood Urea Nitrogen 18 mg/dL (9-20); Calcium 8.7 mg/dL (8.4-10.2); Carbon Dioxide 22 mmol/L (22-30); Chloride 108 mmol/L (98-107); Glucose 125 mg/dL (74-99); Non-African American GFR(CKD) 80 (>60 ml/min/1.73 sqM); Potassium 4.1 mmol/L (3.5-5.1); Sodium 138 mmol/L (137-145)
[2022-12-25 08:20] LABS: Anisocytosis Slight; Basophils # (A) 0.1 k/uL (0-0.2); Basophils % (A) 1 %; Eosinophils # (A) 0.2 k/uL (0-0.7); Eosinophils % (A) 4 %; HCT 41.4 % (39.0-53.0); HGB 13.8 gm/dL (13.0-17.5); Lymphocytes # (A) 1.3 k/uL (1.0-4.8); Lymphocytes % (A) 29 %; MCH 30.5 pg (25.0-35.0); MCHC 33.3 g/dL (31.0-37.0); MCV 91.4 fL (80.0-100.0); Monocytes # (A) 0.3 k/uL (0-1.0); Monocytes % (A) 7 %; Neutrophils # (A) 2.4 k/uL (1.3-7.7); Neutrophils % (A) 55 %; Platelet Count 137 k/uL (150-450); RBC 4.53 m/uL (4.30-5.90); RDW 16.7 % (11.5-15.5); WBC 4.4 k/uL (3.8-10.6)
[2022-12-25] MEDS: MULTIVITAMINS, THERA 1 EACH TAB PO SCH (08:48)
[2022-12-25] MEDS: CYANOCOBALAMIN 500 MCG TAB PO SCH (08:49)
[2022-12-25] MEDS: METOPROLOL TARTRATE 12.5 MG TAB PO SCH (08:49)
[2022-12-25] MEDS: TAMSULOSIN 0.4 MG CAP.ER.24H PO SCH (08:49)
--- NOTE | 2022-12-25 08:49 | US ---
EXAMINATION TYPE: US gallbladder DATE OF EXAM: 12/25/2022 Exam done portable COMPARISON: CT 3 days ago CLINICAL INDICATION: Male, 82 years old with history of atypical chest pain abd pain; TECHNIQUE: Multiple sonographic images of the right upper quadrant are obtained. FINDINGS: EXAM MEASUREMENTS: Liver Length: 14.9 cm Gallbladder Wall: 0.2 cm CBD: 0.4 cm Right Kidney: 10.2 x 5.5 x 4.6 cm Pancreas: visualized portions wnl, limited by overlying midline bowel gas Liver: scanned intercostally, visualized portions wnl Gallbladder: limited visualization, sludge with multiple echogenic foci, wall measures wnl Evidence for sonographic Ojeda's sign: no CBD: visualized portions wnl, limited by overlying bowel gas Right Kidney: wnl Visualized pancreas appears within normal limits. Portions obscured by overlying bowel gas. Visualize d liver shows no worrisome mass or ductal dilatation. No right-sided hydronephrosis. Gallbladder not completely anechoic with small mobile gallstones. No pericholecystic fluid or abnormal gallbladder wa ll thickening. No extrahepatic biliary dilatation IMPRESSION: Gallstones redemonstrated without secondary ultrasound evidence for acute cholecystitis.
[2022-12-25] MEDS ORDERED: LIDOCAINE 1% INJ 10MG/ML (20 ML MDV) ONE (12:01)
[2022-12-25] MEDS ORDERED: MIDAZOLAM 2 MG/2 ML VIAL IVP ONE (12:09)
[2022-12-25] MEDS ORDERED: IV FLUID CONTINUATION 250 ML IV ONE (12:09)
[2022-12-25] MEDS ORDERED: LIDOCAINE 1% INJ 10MG/ML (20 ML MDV) SQ ONE (12:14)
--- NOTE | 2022-12-25 12:19 | P.PN ---
Subjective Progress Note Date: 12/25/22 Addendum entered and electronically signed by Marii Talley MD 12/24/22 15:02: Patient was evaluated for renal mass by urology patient will follow-up with them as an outpatient and they recommended partial radical nephrectomy Addendum entered and electronically signed by Marii Talley MD 12/24/22 15:01: Patient said d-dimer is 0.7 which is normal for his age Original Note: Subjective Patient is admitted for chest pain, underwent stress test patient has areas of fixed defects along with some reversible stress-induced defects. Patient will undergo cardiac catheterization 12/25/2022 Patient is seen and evaluated in follow-up this morning currently nothing by mouth did have some abnormal stress test which cardiology recommended cardiac catheterization which is supposed to be around noon today. Patient awaiting for cardiology clearance and will await Report. Patient is currently afebrile denies chest pain or shortness of breath requesting if he can go home yet. Will await cardiology clearance. Review of systems: Constitutional: Denied any fatigue denied any fever. Cardio vascular: denied any chest pain, palpitations Gastrointestinal denied any nausea vomiting Pulmonary: Denied any shortness of breath cough Neurologic denied any new focal deficits All inpatient medications were reviewed and appropriate changes in these medications as dictated in the interval history and assessment and plan. PHYSICAL EXAMINATION: GENERAL: The patient is alert and oriented x3, not in any acute distress. Well developed, well nourished. HEENT: Pupils are round and equally reacting to light. EOMI. No scleral icterus. No conjunctival pallor. Normocephalic, atraumatic. No pharyngeal erythema. No thyromegaly. CARDIOVASCULAR: S1 and S2 present. No murmurs, rubs, or gallops. PULMONARY: Chest is clear to auscultation, no wheezing or crackles. ABDOMEN: Soft, nontender, nondistended, normoactive bowel sounds. No palpable organomegaly. MUSCULOSKELETAL: No joint swelling or deformity. EXTREMITIES: No cyanosis, clubbing, or pedal edema. NEUROLOGICAL: Gross neurological examination did not reveal any focal deficits. SKIN: No rashes. Assessment: 1. Chest pain rule out acute coronary syndrome Patient has positive stress test will undergo cardiac catheterization 2. Left renal mass; suspicion for renal cell carcinoma; urology will evaluate the patient in the outpatient setting 3. Hypertension; Cozaar 50 mg daily at bedtime; metoprolol 12.5 mg daily 4. Hyperlipidemia; Lipitor 40 mg by mouth daily at bedtime 5. History of coronary artery disease; patient is currently on aspirin, statin and beta cristian 6. BPH; Flomax 0.4 mg daily 7. DVT prophylaxis; SCDs/subcu heparin 8. Full code Plan: Patient is seen in follow-up this morning currently on telemetry monitoring with cardiology following and plans for cardiac catheterization today. Will follow-up on cath report and await cardiology clearance for discharge Labs reviewed and within normal limits Home medications reviewed and resumed as appropriate If cardiac catheterization is negative will consider clearance and discharge later today and await cardiology clearance The impression and plan of care has been dictated by Candelaria Lyons, Nurse Practitioner as directed. Dr. Mayank MD I have performed a history and examination and MDM of this patient, discussed the same with the dictator, and agree with the dictator's assessment and plan as written ,documented as a scribe. Based on total visit time, I have performed more than 50% of the visit. Objective - Vital Signs Vital signs: Vital Signs Temp 98.1 F 12/25/22 07:30 Pulse 68 12/25/22 07:30 Resp 16 12/25/22 07:30 BP 126/78 12/25/22 07:30 Pulse Ox 96 12/25/22 07:30 FiO2 Intake & Output 12/24/22 12/25/22 12/25/22 18:59 06:59 18:59 Intake Total 118 Balance 118 Intake: Oral 118 Other: # Voids 1 2 - Labs CBC & Chem 7: 12/25/22 07:46 12/25/22 07:46 Labs: Abnormal Lab Results - Last 24 Hours (Table) 12/25/22 12/25/22 Range/Units 07:46 07:46 RDW 16.7 H (11.5-15.5) % Plt Count 137 L (150-450) k/uL Chloride 108 H (98-107) mmol/L Glucose 125 H (74-99) mg/dL
[2022-12-25] MEDS ORDERED: IOPAMIDOL-370 100ML BTL INJ ONE ×2 (12:34→12:48)
[2022-12-25] MEDS ORDERED: ISOSORBIDE MONONITRATE ER 30 MG TAB.ER.24H PO STA (14:04)
[2022-12-25] MEDS: SODIUM CHLORIDE 0.9% 1,000 ML IV SCH (15:45)
--- NOTE | 2022-12-25 20:15 | PN ---
PROGRESS NOTE SUBJECTIVE: An 82-year-old gentleman with known coronary artery disease, was admitted to hospital with chest pain and ruled out for myocardial infarction. On a stress Cardiolite study I performed, he has fixed perfusion defect involving the apex, inferior and lateral wall with superimposed stress-induced ischemia involving the inferolateral wall. Due to this, he is going to undergo a cardiac catheterization today. OBJECTIVE: VITAL SIGNS: Stable. NECK: There is no jugular venous distention. CHEST: Reveals good air entry bilaterally. HEART: Reveals first and second heart sounds. No gallop. EXTREMITIES: Did not reveal any edema. Peripheral pulses are felt. ASSESSMENT: Precordial chest pain in a patient with known coronary artery disease and abnormal stress test showing ischemia. PLAN: The patient will undergo cardiac catheterization today by Dr. AMRIT Ascencio. MMCOLEL / SOPHIAN: [id number] /
[2022-12-25] MEDS: ATORVASTATIN 40 MG TAB PO SCH (21:06)
[2022-12-25] MEDS: LOSARTAN 50 MG TAB PO SCH (21:06)
--- NOTE | 2022-12-25 23:21 | CC ---
CARDIAC CATHETERIZATION REPORT DATE OF SERVICE: 12/25/2022. PROCEDURES PERFORMED: 1. Left heart catheterization. 2. Selective injection of bypass grafts. 3. Left internal mammary artery injection. PERFORMED BY: Dr. Miguel Ascencio. ANESTHESIA: Moderate conscious sedation time was 36 minutes. The patient was administered Versed. Oxygen saturation, hemodynamics, and EKG were monitored closely. CLINICAL INFORMATION: Mr. Adriel Gates is an 82-year-old gentleman with a history of CAD, prior inferior DC more than 20 years ago, and had PTCA of RCA. In 2020, he presented with a non-ST- elevation DC in January and underwent cardiac catheterization, which revealed total occlusion of RCA collateralized from the left system. Left main distally and also proximal LAD and proximal circumflex had significant lesions, and he went on to have an aortocoronary bypass surgery with HOYT to LAD, a vein graft to the circumflex marginal and another vein graft to the PDA branch of RCA. He did well since then but came into the hospital with episode of chest pain and then had a negative troponin. Stress test revealed predominantly fixed inferior wall defect where he is known to have previous DC, but there was also some partial reversibility at the lateral wall. Therefore, cardiac catheterization was advised. Risks, benefits, options, and rationale were explained, and the patient was brought in for the procedure today. PROCEDURE NOTE: Under local anesthesia and strict aseptic precautions, a 6-Kyrgyz introducer was placed in the right femoral artery. I used a standard left Tiffany diagnostic catheter for left coronary artery and a Edgar catheter for the HOYT. I used an AR2 catheter for selective injection of the bypass grafts. A pigtail catheter was used to check LV pressure, but LV-gram was not performed. Sheath was taken out, and Angio-Seal device was used to secure hemostasis, and he was sent to the room in a stable condition. CARDIAC CATHETERIZATION FINDINGS: The left ventricular end-diastolic pressure was 9 mmHg without any gradient across aortic valve. CORONARY ANGIOGRAPHY FINDINGS: RIGHT CORONARY ARTERY: This is totally occluded, seen as a stump without antegrade flow. LEFT MAIN CORONARY ARTERY: This is a short, patent vessel, has about 20% narrowing. Bifurcates into LAD and circumflex. All angiograms were not easily seen because of the left atrial clip that kept occluding the view. LEFT ANTERIOR DESCENDING CORONARY ARTERY: This vessel appears to be widely patent with a decent flow, has some disease in the ostium of no more than 40%, but the flow is brisk. Gives off septal and diagonal branches. It runs all the way to the apex supplying a sizable amount of myocardium. There is a second diagonal branch, which has about a 60% to 70% narrowing, but the LAD itself is free of significant disease, has minor irregularities. LEFT POSTERIOR CIRCUMFLEX CORONARY ARTERY: This vessel is nondominant and is difficult to visualize, especially in the ostial portion. In an TRINIDADIAN caudal projection (TRINIDADIAN 40, caudal 18), I was able to see the ostium and proximal portion of the circumflex better. There is about a 40% to 50% ostial and proximal lesion, after which, the caliber improves, and the first obtuse marginal is totally occluded, and then the second obtuse marginal and other branches have minor irregularities. The circumflex, therefore, has a 40% to 50% proximal lesion. The first obtuse marginal is occluded. SAPHENOUS VEIN GRAFT TO THE PDA BRANCH OF RCA: This graft is widely patent with brisk flow and opacifies the PDA as well as the PLV branches. The PDA has mild diffuse disease. SAPHENOUS VEIN GRAFT TO THE OBTUSE MARGINAL BRANCH OF CIRCUMFLEX: This is totally occluded, seen as a stump. LEFT INTERNAL MAMMARY ARTERY GRAFT TO LAD: This graft is patent. The HOYT itself does not have much flow, almost looks atretic because of probably competitive flow in the [place] LAD. The HOYT, therefore, is patent but does not fill all the way to the LAD since there is competitive flow. FINAL IMPRESSION: Normal filling pressures. No gradient across aortic valve. Left anterior descending has no significant disease other than a 40% ostial lesion. Left main has a 20% lesion. Circumflex proximal and ostial portion has a 40% to 50% lesion. Right coronary artery is totally occluded. Vein graft to the posterior descending artery branch of right coronary artery is patent. Vein graft to the obtuse marginal branch of circumflex is occluded. Left internal mammary artery is patent but has limited flow, atretic, because of competitive flow. RECOMMENDATIONS: After reviewing the anatomy, it appears that the lesions in the LAD and circumflex in 2020, were not as critical or at least there may have been some thrombus which resolved. The vessels are now patent with brisk flow. First obtuse marginal appears to be totally occluded, and this may explain the partially reversible defect in the lateral wall. I believe continued aggressive medical therapy is the best approach. No aggressive intervention is necessary. Findings were reviewed with the patient. I spoke to his son by phone. He will be discharged tomorrow. Discussed my thoughts in detail with the patient as well as his son, Brock. NICOLETTE / CARMELA: [id number] /
[2022-12-26 03:02] VITALS: RESP 16
[2022-12-26] MEDS: SODIUM CHLORIDE 0.9% 1,000 ML IV SCH (04:58)
[2022-12-26 06:30] LABS: Anisocytosis Slight; Basophils % (A) 1 %; Eosinophils # (A) 0.2 k/uL (0-0.7); Eosinophils % (A) 3 %; HCT 35.5 % (39.0-53.0); HGB 11.8 gm/dL (13.0-17.5); Lymphocytes # (A) 1.3 k/uL (1.0-4.8); Lymphocytes % (A) 26 %; MCH 30.4 pg (25.0-35.0); MCHC 33.2 g/dL (31.0-37.0); MCV 91.5 fL (80.0-100.0); Mean Platelet Volume 9.9; Monocytes # (A) 0.4 k/uL (0-1.0); Monocytes % (A) 7 %; Neutrophils # (A) 2.9 k/uL (1.3-7.7); Neutrophils % (A) 60 %; Platelet Count 119 k/uL (150-450); RBC 3.88 m/uL (4.30-5.90); WBC 4.9 k/uL (3.8-10.6)
[2022-12-26 06:43] LABS: African American GFR (CKD) >90 (>60 ml/min/1.73 sqM); Anion Gap 7 mmol/L; Blood Urea Nitrogen 18 mg/dL (9-20); Calcium 8.3 mg/dL (8.4-10.2); Carbon Dioxide 24 mmol/L (22-30); Chloride 108 mmol/L (98-107); Glucose 102 mg/dL (74-99); Non-African American GFR(CKD) 83 (>60 ml/min/1.73 sqM); Sodium 139 mmol/L (137-145)
[2022-12-26 08:56] VITALS: BP 133/67; PULSE 51; TEMP 98.2
--- NOTE | 2022-12-26 08:58 | PN ---
PROGRESS NOTE SUBJECTIVE: This is an 82-year-old gentleman, who was admitted to hospital with [id number] elevation SD and underwent cardiac catheterization by Dr. AMRIT Ascencio. This morning patient is doing well, free of symptoms and eager to go home. His cardiac catheterization revealed severe 3-vessel coronary artery disease with an atretic HOYT to LAD with competitive flow from the LAD that only shows a 40% ostial stenosis. Right coronary artery appears totally occluded with vein graft to the RCA being patent, vein graft to the OM is occluded. The plan at this stage is to treat him with optimal medical therapy. MEDICATIONS: He is currently on: 1. Aspirin. 2. Lipitor. 3. Imdur. 4. Cozaar. 5. Lopressor, which will be discharged home on. OBJECTIVE: GENERAL: He is comfortable at rest. VITAL SIGNS: Stable. NECK: There is no jugular venous distention. CHEST: Reveals good air entry bilaterally. HEART: Reveals first and second heart sounds. No gallop. No murmur. ABDOMEN: Soft. EXTREMITIES: Did not reveal any edema. Groin is free of bleeding, bruit, hematoma. Foot pulses are intact. ASSESSMENT: Unstable angina, status post cardiac catheterization following an abnormal stress test. The patient is doing well. His HOYT to LAD is atretic and the venous graft to OM is occluded. Venous graft to the RCA is patent. Venetie RCA is occluded. PLAN: At this stage is to treat him with aggressive medical therapy, discharge him home, and arrange followup with Dr. AMRIT Ascencio, his primary chief operator hydroformer. MMODL / IJN: [id number] /
[2022-12-26] MEDS ORDERED: ASPIRIN 325 MG TAB PO SCH (09:00)
[2022-12-26] MEDS ORDERED: ASPIRIN 81 MG PO SCH (09:00)
[2022-12-26] MEDS ORDERED: ISOSORBIDE MONONITRATE ER 30 MG TAB.ER.24H PO SCH (09:00)
[2022-12-26] MEDS: TAMSULOSIN 0.4 MG CAP.ER.24H PO SCH (09:56)
[2022-12-26] MEDS: METOPROLOL TARTRATE 12.5 MG TAB PO SCH (09:56)
[2022-12-26] MEDS: CYANOCOBALAMIN 500 MCG TAB PO SCH (09:56)
[2022-12-26] MEDS: MULTIVITAMINS, THERA 1 EACH TAB PO SCH (09:56)
--- NOTE | 2022-12-27 15:57 | P.DS ---
Providers Date of admission: 12/23/22 16:59 Expected date of discharge: 12/26/22 Attending physician: Yohannes Whitehead Consults: 12/22/22 09:50 Consult Physician Urgent Consulting Provider: Xiomy Mckenzie Consult Reason/Comments: chest pain Do you want consulting provider notified?: Yes 12/22/22 18:44 Consult Physician Routine Consulting Provider: Jeanmarie Poole Consult Reason/Comments: Renal mass Do you want consulting provider notified?: Yes, Notify in am Primary care physician: [facility] Course: Patient is admitted for chest pain, underwent stress test patient has areas of fixed defects along with some reversible stress-induced defects. Patient will undergo cardiac catheterization 12/25/2022 Patient is seen and evaluated in follow-up this morning currently nothing by mouth did have some abnormal stress test which cardiology recommended cardiac catheterization which is supposed to be around noon today. Patient awaiting for cardiology clearance and will await Report. Patient is currently afebrile denies chest pain or shortness of breath requesting if he can go home yet. Will await cardiology clearance. December 26: I assumed care of the patient today. Patient underwent cardiac catheterization yesterday. Mostly chronic findings. Medical management was decided by cardiology. Patient was seen by urology. 4 outpatient partial nephrectomy. Discussion and discharge planning more than 35 minutes PHYSICAL EXAMINATION: GENERAL: 98.2, 51, 16, 1 33 x 67, 95% room air. Comfortable CARDIOVASCULAR: S1 and S2 present. No murmurs, rubs, or gallops. PULMONARY: Chest is clear to auscultation, no wheezing or crackles. ABDOMEN: Soft, nontender, nondistended, normoactive bowel sounds. No palpable organomegaly. MUSCULOSKELETAL: No joint swelling or deformity. EXTREMITIES: No cyanosis, clubbing, or pedal edema. Psych: Answering questions appropriately Assessment: 1. Unstable angina Patient had positive stress test. Cardiac cath showed chronic findings. Medical management 2. Left renal mass; suspicion for renal cell carcinoma; Follow-up with nephrology outpatient for partial nephrectomy 3. Hypertension; Cozaar 50 mg daily at bedtime; metoprolol 12.5 mg daily 4. Hyperlipidemia; Lipitor 40 mg by mouth daily at bedtime 5. coronary artery disease; patient is currently on aspirin, statin and beta cristian 6. BPH; Flomax 0.4 mg daily 7. DVT prophylaxis; SCDs/subcu heparin 8. Full code Disposition: Home Patient Condition at Discharge: Fair Plan - Discharge Summary Discharge Rx Participant: No New Discharge Prescriptions: New Isosorbide Mononitrate ER [Imdur] 30 mg PO DAILY #30 tab Continue Atorvastatin [Lipitor] 40 mg PO HS Aspirin EC [Ecotrin Low Dose] 81 mg PO DAILY Multivitamin [Men's Multi-Vitamin] 1 tab PO DAILY Cyanocobalamin (Vitamin B-12) [Vitamin B-12] 2,500 mcg PO DAILY Tamsulosin [Flomax] 0.4 mg PO DAILY Losartan Potassium 50 mg PO HS Metoprolol Tartrate [Lopressor] 12.5 mg PO DAILY No Action Super C 1 tab PO DAILY Discharge Medication List Aspirin EC [Ecotrin Low Dose] 81 mg PO DAILY 10/09/17 [History] Atorvastatin [Lipitor] 40 mg PO HS 10/09/17 [History] Multivitamin [Men's Multi-Vitamin] 1 tab PO DAILY 10/09/17 [History] Cyanocobalamin (Vitamin B-12) [Vitamin B-12] 2,500 mcg PO DAILY 09/22/20 [History] Super C 1 tab PO DAILY 02/26/21 [History] Losartan Potassium 50 mg PO HS 08/11/22 [History] Metoprolol Tartrate [Lopressor] 12.5 mg PO DAILY 08/11/22 [History] Tamsulosin [Flomax] 0.4 mg PO DAILY 08/11/22 [History] Isosorbide Mononitrate ER [Imdur] 30 mg PO DAILY #30 tab 12/26/22 [Rx] Follow up Appointment(s)/Referral(s): Pavithra Ascencio MD [STAFF PHYSICIAN] - 01/01/23 3:30 pm Dharmesh Kuhn DO [Primary Care Provider] - 1-2 days Jeanmarie Poole MD [STAFF PHYSICIAN] - 1 Week (follow up in 1 week for mass on l kidney. Office will call with appointment time and date. ) Discharge Disposition: HOME SELF-CARE
== END 2022-12-26 12:25 | disposition home or self-care (01) | DRG 287 ==
LOC: EC 07:08 → 6NMEDSUR 09:50 → OBSVTOIN 12-23 16:59
PROVIDERS: ADMIT Hospitalist; ATTEND Hospitalist
PROC: B2131ZZ Fluoroscopy of Multiple Coronary Artery Bypass Grafts using Low Osmolar Contrast (ICD-10-PCS; principal; 2022-12-25 09:00)
PROC: B2111ZZ Fluoroscopy of Multiple Coronary Arteries using Low Osmolar Contrast (ICD-10-PCS; principal; 2022-12-25 09:00)
PROC: 4A023N7 Measurement of Cardiac Sampling and Pressure, Left Heart, Percutaneous Approach (ICD-10-PCS; principal; 2022-12-25 09:00)
DX: I25.710 Atherosclerosis of autologous vein coronary artery bypass graft(s) with unstable angina pectoris (principal); C64.2 Malignant neoplasm of left kidney, except renal pelvis; I25.110 Atherosclerotic heart disease of native coronary artery with unstable angina pectoris; Q24.5 Malformation of coronary vessels; Z95.1 Presence of aortocoronary bypass graft; Z95.5 Presence of coronary angioplasty implant and graft; Z87.891 Personal history of nicotine dependence; I25.82 Chronic total occlusion of coronary artery; N32.0 Bladder-neck obstruction; I25.2 Old myocardial infarction; N40.0 Benign prostatic hyperplasia without lower urinary tract symptoms; E78.5 Hyperlipidemia, unspecified; I10 Essential (primary) hypertension; Z79.82 Long term (current) use of aspirin; Z79.899 Other long term (current) drug therapy; Z82.49 Family history of ischemic heart disease and other diseases of the circulatory system; Z96.653 Presence of artificial knee joint, bilateral; Z28.311 Partially vaccinated for COVID-19
CPT/HCPCS: 36415; 71275; 74174; 76705; 78452; 80048; 80053; 80061; 83605; 84484; 85025; 85379; 85610; 85730; 93005; 93017; 93306; 93459; 94760; 96374; 99285

== ENCOUNTER → 2023-05-09 | Outpatient (CLI) | payer MEDICARE ==
--- NOTE | 2023-05-09 10:19 | CT ---
EXAMINATION TYPE: CT abdomen pelvis wo con DATE OF EXAM: 05/09/2023 COMPARISON: 12/22/2022 HISTORY: 83-year-old male C64.1, left kidney spot, assess for cancer. CT DLP: 637.9 mGycm. Automated exposure control for dose reduction was used. TECHNIQUE: Contiguous axial scanning of the abdomen and pelvis without IV contrast. Coronal and sagit tate reconstructions performed. FINDINGS: Some emphysematous and fibrotic changes in the lower lungs. Some surgical material at the right base. Heart upper limits of normal in size. Aortic valvular calcifications. Median sternotomy wires. 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 Tiny hiatal hernia. Moderate atherosclerotic calcifications infrarenal aorta and common iliac arterie s. Noncontrast appearance of the liver, adrenal glands, and spleen show no gross abnormality. Punctate 2 mm nonobstructive right renal calculus. Punctate calcified granuloma within the spleen. There appears to be a solid rounded lesion within the central left kidney renal sinus region measurin g approximately 4.4 cm versus 4.1 cm, previously. Punctate 2 mm nonobstructive left renal calculus at the lower pole. Some layering calcification in th e nondistended gallbladder. No dilated small bowel, free fluid, or free air. No mesenteric or retroperitoneal lymphadenopathy. Normal appendix. Grfd-za-[id number] stool. Lower descending and sigmoid colonic diverticulosis. No kael colonic inflammatory change. There is a small fat-containing indirect right inguinal hernia. Bladder nondistended. Prostate gland measures 5.4 cm wide. Multiple pelvic phleboliths. No abnormal f luid collection in the pelvis or pelvic lymphadenopathy. Bones: Mild degenerative change of the hips. Degenerative bony ankylosis SI joints. [facility] lower thorac ic spine. Moderate degenerative disc disease lower lumbar spine. IMPRESSION: 1. Redemonstrated round solid mass within the central left kidney largely involving the renal sinus region. Estimated at 4.4 cm versus 4.1 cm, previously. An indolent RCC remains to be excluded. 2. No suspicious lymphadenopathy or other masses seen. 3. A couple punctate nonobstructive renal calculi. Sigmoid diverticulosis. Small fat containing righ t groin hernia. Prostatomegaly at 5.4 cm wide.
== END | disposition home or self-care (01) ==
LOC: RADCTMAIN 08:13
PROVIDERS: ATTEND Urology
DX: C64.2 Malignant neoplasm of left kidney, except renal pelvis (principal); N20.0 Calculus of kidney; K57.30 Diverticulosis of large intestine without perforation or abscess without bleeding; N40.0 Benign prostatic hyperplasia without lower urinary tract symptoms; K44.9 Diaphragmatic hernia without obstruction or gangrene
CPT/HCPCS: 74176

== ENCOUNTER → 2023-11-26 | Outpatient (CLI) | payer MEDICARE ==
--- NOTE | 2023-11-28 18:46 | CT ---
EXAMINATION TYPE: CT abdomen pelvis wo con DATE OF EXAM: 11/26/2023 COMPARISON: 05/09/2023 INDICATION: Renal cancer DLP: 842 mGycm, Automated exposure control for dose reduction was used. CONTRAST: 0 mL of Isovue 300. Study performed without Oral Contrast TECHNIQUE: Axial images were obtained from above the diaphragm to the pubic rami in the axial plane a t 5 mm thick sections. Reconstructed images are reviewed on the computer in the coronal plane. FINDINGS: Limited CT sections are obtained the lung bases. The lung bases are clear. CT ABDOMEN: Liver: Normal Spleen: Normal Pancreas: Normal Adrenal glands: The adrenal glands are normal. Gallbladder: Large gallstone versus porcelain gallbladder may be present. This may be progressive Kidneys: There is a 5 cm isodense subtly hyperdense mass on the anterior upper pole left kidney. This appears stable from comparison.. No hydronephrosis is present. No cysts are present. There is a p unctate nonobstructing renal stone inferior pole left kidney measuring 0.4 cm. Aorta: Vascular calcification is within the aorta. Inferior vena cava: Normal. CT PELVIS: Loops of bowel within the abdomen and pelvis are normal. There are diverticular changes within the s igmoid colon. This study is without oral contrast limiting bowel evaluation. Appendix: Normal as visualized. Urinary bladder: Normal. Genitourinary structures: Prostate is prominent Osseous structures: No suspicious lytic or sclerotic lesions. IMPRESSION: 1. Superior pole left renal mass appears stable in size over the interval. No suspicious changes to s uggest metastatic disease. 2. Diverticulosis without acute diverticulitis. 3. Nonobstructing inferior pole left renal calcification
== END | disposition home or self-care (01) ==
LOC: RADCTMAIN 13:57
PROVIDERS: ATTEND Urology
DX: K57.30 Diverticulosis of large intestine without perforation or abscess without bleeding (principal); C64.2 Malignant neoplasm of left kidney, except renal pelvis; N28.89 Other specified disorders of kidney and ureter
CPT/HCPCS: 74176

== ENCOUNTER → 2024-05-26 | Outpatient (CLI) | payer MEDICARE ==
--- NOTE | 2024-05-26 08:31 | US ---
EXAMINATION TYPE: US kidneys/renal and bladder DATE OF EXAM: 05/26/2024 COMPARISON: 11/26/2023 CLINICAL INDICATION: Male, 84 years old with history of D41.02 LEFT KIDNEY CANCER; Left renal mass. TECHNIQUE: Grayscale and color Doppler imaging of the bilateral kidneys and urinary bladder: FINDINGS: EXAM MEASUREMENTS: Right Kidney: 9.6 x 4.5 x 5.5 cm Left Kidney: 10.7 x 4.6 x 5.5 cm Right Kidney: No hydronephrosis or masses seen Left Kidney: Medial upper solid appearing mass = 4.0 x 3.9 x 3.4 cm as seen on prior CT. Bladder: nondistended Bilateral Jets not seen There is no evidence for hydronephrosis at this point in time. No nephrolithiasis is seen. Left obi l mass remains present. The urinary bladder is anechoic. IMPRESSION 1. Left kidney solid-appearing mass similar to prior given differences in imaging technique. Surveil mak with renal mass protocol MRI recommended. Findings concerning for renal cell carcinoma. 2. No evidence for obstructive uropathy. [facility], , 05/26/2024 8:29 AM
== END | disposition home or self-care (01) ==
LOC: RADUSWWP 07:21
PROVIDERS: ATTEND Urology
CPT/HCPCS: 76770

== ENCOUNTER 2024-08-02 01:27 | Observation (INO) | payer MEDICARE ==
--- NOTE | 2024-08-02 02:00 | ED ---
General Adult HPI - General Chief complaint: Chest Pain Stated complaint: chest pain Time Seen by Provider: 08/02/24 01:43 Source: patient Mode of arrival: ambulatory Limitations: no limitations - History of Present Illness Initial comments: Dictation was produced using [employer] dictation software. please excuse any grammatical, word or spelling errors. Chief Complaint: 84-year-old male with history of coronary artery disease, CABG presents to the emergency department with chest and back pain History of Present Illness: This is a 84-year-old male he has multiple comorbidities. States that his history of CABG last performed 3 years ago. States that for the last 3 hours she has had chest and back pain states that it feels like initially was in his back and radiates to his chest now it feels like its both. States that it is like an ache. States that it is an 8 out of 10 pain. Nonradiating not associate diaphoresis. He did vomit with the pain earlier. Son is at the bedside who aids in providing history present illness. The ROS documented in this emergency department record has been reviewed and confirmed by me. Those systems with pertinent positive or negative responses have been documented in the HPI. All other systems are other negative and/or noncontributory. - Related Data Home Medications Medication Instructions Recorded Confirmed Aspirin EC [Ecotrin Low Dose] 81 mg PO DAILY 10/09/17 12/22/22 Atorvastatin [Lipitor] 40 mg PO HS 10/09/17 12/22/22 Multivitamin [Men's Multi-Vitamin] 1 tab PO DAILY 10/09/17 12/22/22 Cyanocobalamin (Vitamin B-12) 2,500 mcg PO DAILY 09/22/20 12/22/22 [Vitamin B-12] Super C 1 tab PO DAILY 02/26/21 12/22/22 Losartan Potassium 50 mg PO HS 08/11/22 12/22/22 Metoprolol Tartrate [Lopressor] 12.5 mg PO DAILY 08/11/22 12/22/22 Tamsulosin [Flomax] 0.4 mg PO DAILY 08/11/22 12/22/22 Previous Rx's Medication Instructions Recorded Isosorbide Mononitrate ER [Imdur] 30 mg PO DAILY #30 tab 12/26/22 Allergies Allergy/AdvReac Type Severity Reaction Status Date / Time No Known Allergies Allergy Verified 08/02/24 01:31 Review of Systems ROS Statement: Those systems with pertinent positive or pertinent negative responses have been documented in the HPI. ROS Other: All systems not noted in ROS Statement are negative. Past Medical History Past Medical History: Coronary Artery Disease (CAD), Chest Pain / Angina, Hyperlipidemia, Hypertension, Myocardial Infarction (MS), Prostate Disorder Additional Past Medical History / Comment(s): states has 3 cardiac stents that are 100% blocked, with collateral bypass; patient denies hypertension although it is listed in his history and he is on antihypertensives Last Myocardial Infarction Date:: 1996 History of Any Multi-Drug Resistant Organisms: None Reported Past Surgical History: Heart Catheterization, Heart Catheterization With Stent, Joint Replacement, Orthopedic Surgery, Tonsillectomy Additional Past Surgical History / Comment(s): bilateral knee replacments, right lung wedge resection, cataracts removed-lens implants, states 3 cardiac stents Past Anesthesia/Blood Transfusion Reactions: No Reported Reaction Date of Last Stent Placement:: 1996 Past Psychological History: No Psychological Hx Reported Smoking Status: Former smoker Past Alcohol Use History: Rare Past Drug Use History: None Reported - Past Family History Father Family Medical History: Myocardial Infarction (MS) Mother Family Medical History: Cancer Additional Family Medical History / Comment(s): colon General Exam - General Exam Comments Initial Comments: PHYSICAL EXAM: General Impression: Alert and oriented x3, not in acute distress HEENT: Normocephalic atraumatic, extra-ocular movements intact, pupils equal and reactive to light bilaterally, mucous membranes moist. Cardiovascular: Heart regular rate and rhythm Chest: Able to complete full sentences, no retractions, no tachypnea Abdomen: abdomen soft, non-tender, non-distended, no organomegaly Musculoskeletal: Pulses present and equal in all extremities, no peripheral edema Motor: no focal deficits noted Neurological: CN II-XII grossly intact, no focal motor or sensory deficits noted Skin: Intact with no visualized rashes Psych: Normal affect and mood Limitations: no limitations Course Vital Signs 08/02/24 08/02/24 08/02/24 01:28 02:01 02:14 Temperature 98.3 F Pulse Rate 61 58 L 57 L Respiratory 18 17 18 Rate Blood Pressure 182/87 178/90 175/83 O2 Sat by Pulse 96 95 93 L Oximetry 08/02/24 08/02/24 03:00 04:00 Temperature Pulse Rate 57 L 60 Respiratory 15 15 Rate Blood Pressure 183/96 187/89 O2 Sat by Pulse 94 L 94 L Oximetry EKG Findings - EKG Comments: EKG Findings:: My EKG interpretation: Ventricular rate 59, sinus bradycardia,. 147, QRS 109, QTc 453. No MS prolongation, no QTC prolongation, no ST or T-wave changes noted. Overall, this EKG is unremarkable Medical Decision Making - Medical Decision Making Was pt. sent in by a medical professional or institution (, PA, TABLEAU DEVELOPER, urgent care, hospital, or custodial...) When possible be specific @ -No Did you speak to anyone other than the patient for history (EMS, parent, family, police, friend...)? What history was obtained from this source @ -No Did you review nursing and triage notes (agree or disagree)? Why? @ -I reviewed and agree with nursing and triage notes Were old charts reviewed (outside hosp., previous admission, EMS record, old EKG, old radiological studies, urgent care reports/EKG's, custodial records)? Report findings @ -No old charts were reviewed Differential Diagnosis (chest pain, altered mental status, abdominal pain women, abdominal pain men, vaginal bleeding, musculoskeletal, weakness, fever, dyspnea, syncope, headache, dizziness, GI bleed, back pain, seizure, CVA, palpatations, mental health)? @ -Differential Chest Pain: Stable Angina, Unstable Angina, STEMI, NSTEMI Aortic Dissection, Pneumothorax, Musculoskeletal, Esophageal Spasm GERD, Cholecystitis, Pancreatitis, Zoster, this is not meant to be an all-inclusive list. EKG interpreted by me (3pts min.). @ -As above X-rays interpreted by me (1pt min.). @ -Chest x-ray shows no acute processes CT interpreted by me (1pt min.). @ -Angio CT angio of the chest shows no acute processes. There is a noted thoracic aortic aneurysm. No dissection U/S interpreted by me (1pt. min.). @ -None done What testing was considered but not performed or refused? (CT, X-rays, U/S, labs)? Why? @ -None What meds were considered but not given or refused? Why? @ -None Was smoking cessation discussed for >3mins.? @ -No Were there social determinants of health that impacted care today? How? (Homelessness, low income, unemployed, alcoholism, drug addiction, transportation, low edu. Level, literacy, decrease access to med. care, custodial, rehab)? @ -No Was there de-escalation of care discussed even if they declined (Discuss DNR or withdrawal of care, Hospice)? DNR status @ -No What co-morbidities impacted this encounter? (DM, HTN, Smoking, COPD, CAD, Cancer, CVA, ARF, Chemo, Hep., AIDS, mental health diagnosis, sleep apnea, morbid obesity)? @ -Old age, coronary artery disease Was patient admitted / discharged? Hospital course, mention meds given and route, prescriptions, significant lab abnormalities, going to OR and other pertinent info. @ -84-year-old male presents emergency department with chest and back pain. Vital signs stable. Patient has history of coronary artery disease. Symptoms are atypical typical features. Laboratory evaluation is unremarkable. Imaging studies are negative. Patient be admitted observation consultation to cardiology. Case discussed with hospitalist for admission Did you discuss the management of the patient with other professionals (pr ofessionals i.e. , PA, TABLEAU DEVELOPER, lab, RT, psych nurse, delinquency prevention social worker, shelter case manager, teacher, life science technical officer, spring encaser)? Give summary @ -See above Was critical care preformed (if so, how long)? @ -No Undiagnosed new problem with uncertain prognosis? @ -No Drug Therapy requiring intensive monitoring for toxicity (Heparin, Nitro, Insulin, Cardizem)? @ -No Were any procedures done? @ -No Diagnosis/symptom? Acute, or Chronic, or Acute on Chronic? Uncomplicated (without systemic symptoms) or Complicated (systemic symptoms)? @ -Chest pain Side effects of treatment? @ -No Exacerbation, Progression, or Severe Exacerbation? @ -No Poses a threat to life or bodily function? How? (Chest pain, USA, MS, pneumonia, PE, COPD, DKA, ARF, appy, cholecystitis, CVA, Diverticulitis, Homicidal, Suicidal, threat to staff... and all critical care pts) @ -yes - Lab Data Result diagrams: 08/02/24 02:00 08/02/24 02:00 Lab Results 08/02/24 08/02/24 08/02/24 Range/Units 02:00 02:00 02:00 WBC 5.4 (3.8-10.6) k/uL RBC 4.36 (4.30-5.90) m/uL Hgb 13.4 (13.0-17.5) gm/dL Hct 40.1 (39.0-53.0) % MCV 91.9 (80.0-100.0) fL MCH 30.6 (25.0-35.0) pg MCHC 33.3 (31.0-37.0) g/dL RDW 17.1 H (11.5-15.5) % Plt Count 147 L (150-450) k/uL MPV 8.6 Neutrophils % 53 % Lymphocytes % 29 % Monocytes % 10 % Eosinophils % 4 % Basophils % 1 % Neutrophils # 2.9 (1.3-7.7) k/uL Lymphocytes # 1.6 (1.0-4.8) k/uL Monocytes # 0.5 (0-1.0) k/uL Eosinophils # 0.2 (0-0.7) k/uL Basophils # 0.1 (0-0.2) k/uL Hypochromasia Slight Anisocytosis Slight PT 10.6 (10.0-12.5) sec INR 1.0 (<1.2) APTT 26.6 (22.0-30.0) sec D-Dimer 0.57 (<0.60) mg/L FEU Sodium 139 (137-145) mmol/L Potassium 4.4 (3.5-5.1) mmol/L Chloride 107 (98-107) mmol/L Carbon Dioxide 22 (22-30) mmol/L Anion Gap 10 mmol/L BUN 19 (9-20) mg/dL Creatinine 0.83 (0.66-1.25) mg/dL Est GFR (CKD-EPI)AfAm >90 (>60 ml/min/1.73 sqM) Est GFR (CKD-EPI)NonAf 80 (>60 ml/min/1.73 sqM) Glucose 117 H (74-99) mg/dL Calcium 9.8 (8.4-10.2) mg/dL Magnesium 2.0 (1.6-2.3) mg/dL Total Bilirubin 0.7 (0.2-1.3) mg/dL AST 35 (17-59) U/L ALT 28 (4-49) U/L Alkaline Phosphatase 78 (38-126) U/L Troponin I (0.000-0.034) ng/mL Total Protein 6.5 (6.3-8.2) g/dL Albumin 4.0 (3.5-5.0) g/dL 08/02/24 Range/Units 02:00 WBC (3.8-10.6) k/uL RBC (4.30-5.90) m/uL Hgb (13.0-17.5) gm/dL Hct (39.0-53.0) % MCV (80.0-100.0) fL MCH (25.0-35.0) pg MCHC (31.0-37.0) g/dL RDW (11.5-15.5) % Plt Count (150-450) k/uL MPV Neutrophils % % Lymphocytes % % Monocytes % % Eosinophils % % Basophils % % Neutrophils # (1.3-7.7) k/uL Lymphocytes # (1.0-4.8) k/uL Monocytes # (0-1.0) k/uL Eosinophils # (0-0.7) k/uL Basophils # (0-0.2) k/uL Hypochromasia Anisocytosis PT (10.0-12.5) sec INR (<1.2) APTT (22.0-30.0) sec D-Dimer (<0.60) mg/L FEU Sodium (137-145) mmol/L Potassium (3.5-5.1) mmol/L Chloride (98-107) mmol/L Carbon Dioxide (22-30) mmol/L Anion Gap mmol/L BUN (9-20) mg/dL Creatinine (0.66-1.25) mg/dL Est GFR (CKD-EPI)AfAm (>60 ml/min/1.73 sqM) Est GFR (CKD-EPI)NonAf (>60 ml/min/1.73 sqM) Glucose (74-99) mg/dL Calcium (8.4-10.2) mg/dL Magnesium (1.6-2.3) mg/dL Total Bilirubin (0.2-1.3) mg/dL AST (17-59) U/L ALT (4-49) U/L Alkaline Phosphatase (38-126) U/L Troponin I <0.012 (0.000-0.034) ng/mL Total Protein (6.3-8.2) g/dL Albumin (3.5-5.0) g/dL Disposition Clinical Impression: Chest pain Disposition: ADMITTED IP TO THIS HOSP Condition: Fair Referrals: Dharmesh Kuhn DO [Primary Care Provider] - 1-2 days Decision Time: 05:07
[2024-08-02 02:10] LABS: Anisocytosis Slight; Basophils # (A) 0.1 k/uL (0-0.2); Basophils % (A) 1 %; Eosinophils # (A) 0.2 k/uL (0-0.7); Eosinophils % (A) 4 %; HCT 40.1 % (39.0-53.0); HGB 13.4 gm/dL (13.0-17.5); Hypochromasia Slight; Lymphocytes # (A) 1.6 k/uL (1.0-4.8); Lymphocytes % (A) 29 %; MCH 30.6 pg (25.0-35.0); MCHC 33.3 g/dL (31.0-37.0); MCV 91.9 fL (80.0-100.0); Mean Platelet Volume 8.6; Monocytes # (A) 0.5 k/uL (0-1.0); Monocytes % (A) 10 %; Neutrophils # (A) 2.9 k/uL (1.3-7.7); Neutrophils % (A) 53 %; Platelet Count 147 k/uL (150-450); RBC 4.36 m/uL (4.30-5.90); RDW 17.1 % (11.5-15.5); WBC 5.4 k/uL (3.8-10.6)
[2024-08-02 02:23] LABS: ALT 28 U/L (4-49); AST 35 U/L (17-59); African American GFR (CKD) >90 (>60 ml/min/1.73 sqM); Alkaline Phosphatase 78 U/L (38-126); Anion Gap 10 mmol/L; Blood Urea Nitrogen 19 mg/dL (9-20); Calcium 9.8 mg/dL (8.4-10.2); Carbon Dioxide 22 mmol/L (22-30); Chloride 107 mmol/L (98-107); Glucose 117 mg/dL (74-99); Non-African American GFR(CKD) 80 (>60 ml/min/1.73 sqM); Potassium 4.4 mmol/L (3.5-5.1); Sodium 139 mmol/L (137-145); Total Bilirubin 0.7 mg/dL (0.2-1.3); Total Protein 6.5 g/dL (6.3-8.2)
[2024-08-02 02:43] LABS: Partial Thromboplastin Time 26.6 sec (22.0-30.0); Prothrombin Time 10.6 sec (10.0-12.5)
[2024-08-02] MEDS: HYDROcodone/APAP 5-325MG 1 EACH TAB PO STA (03:38)
--- NOTE | 2024-08-02 04:18 | XR ---
EXAM: XR Chest, 2 Views CLINICAL HISTORY: ITS.REASON XR Reason: Chest Pain TECHNIQUE: Frontal and lateral views of the chest. COMPARISON: X-ray dated 08/18/2022 FINDINGS: Lungs: The lungs are hyperinflated with flattening of the diaphragms. No consolidation. Pleural space: Unremarkable. No pneumothorax. Heart: Mild enlargement of the cardiac silhouette. Mediastinum: Unremarkable. Normal mediastinal contour. Bones/joints: Degenerative changes are seen within the spine and shoulders. No acute fracture. Vasculature: Calcifications overlie the aorta. IMPRESSION: No acute findings in the chest.
[2024-08-02] MEDS: MORPHINE SULFATE 4 MG/ML SYRINGE IV STA (04:35)
--- NOTE | 2024-08-02 04:44 | CT ---
ADDENDUM - Added by Bennie Miranda MD on 08/04/2024 8:48 AM (-05:00) Correction to the body of the report. Aneurysmal dilatation of the ascending thoracic aorta measuring 4.4 cm. No change impression. EXAM: CT Angiography Chest Without and With Intravenous Contrast CLINICAL HISTORY: ITS.REASON CT Reason: evaluate for aortic dissection TECHNIQUE: Axial computed tomographic angiography images of the chest without and with intravenous contrast. CTDI is 56.2 mGy and DLP is 773.9 mGy-cm. This CT exam was performed using one or more of the following dose reduction techniques: automated exposure control, adjustment of the mA and/or kV according to patient size, and/or use of iterative reconstruction technique. MIP reconstructed images were created and reviewed. COMPARISON: CT dated 08/12/2022 FINDINGS: Pulmonary arteries: Unremarkable. No pulmonary embolism. Aorta: Aneurysmal dilatation of the ascending thoracic aorta measuring 0.6 cm. Calcifications are seen within the aorta. No evidence of dissection. Lungs: Bilateral emphysematous changes. No mass. No consolidation. Pleural space: Unremarkable. No significant effusion. No pneumothorax. Heart: Coronary artery calcifications. Mild cardiac enlargement. No pericardial effusion. No evidence of RV dysfunction. Bones/joints: Degenerative changes are seen within the spine and shoulders. Sternotomy wires are in place. No acute fracture. No dislocation. Soft tissues: Unremarkable. Lymph nodes: Prominent but not pathologically enlarged lymph nodes are seen within the mediastinum and left hilum. Single enlarged right hilar lymph node measuring 1.6 cm. Liver: Hepatic steatosis. Gallbladder and bile ducts: Cholelithiasis without evidence of acute cholecystitis. IMPRESSION: 1. Aneurysmal dilatation of the ascending thoracic aorta without evidence of dissection. 2. No pulmonary artery embolism. 3. No acute findings seen within the chest.
[2024-08-02] MEDS ORDERED: NITROGLYCERIN SL TABS 0.4 MG TAB SUBLINGUAL PRN (05:05)
[2024-08-02] MEDS: ASPIRIN 81 MG PO STA (05:39)
[2024-08-02] MEDS: CYANOCOBALAMIN 500 MCG TAB PO SCH (10:18)
[2024-08-02] MEDS: METOPROLOL TARTRATE 12.5 MG TAB PO SCH (10:18)
[2024-08-02] MEDS: ATORVASTATIN 40 MG TAB PO SCH (10:18)
[2024-08-02] MEDS: LOSARTAN 50 MG TAB PO SCH (10:18)
[2024-08-02] MEDS: ISOSORBIDE MONONITRATE ER 30 MG TAB.ER.24H PO SCH (10:19)
[2024-08-02] MEDS: TAMSULOSIN 0.4 MG CAP.ER.24H PO SCH (10:19)
[2024-08-02] MEDS: FAMOTIDINE 20 MG TAB PO SCH (10:19)
[2024-08-02] MEDS: ENOXAPARIN 40 MG/0.4 ML SYRINGE SQ SCH (10:21)
--- NOTE | 2024-08-02 11:24 | P.CRDCN ---
History of Present Illness Consult date: 08/02/24 Consult reason: chest pain History of present illness: This is an 84-year-old male patient of Dr. AMRIT Ascencio with past medical history of coronary artery disease with previous inferior RI status post PCI of the RCA with BMS and subsequent bypass grafting three-vessel in 2020, ischemic cardiomyopathy with EF of 45%, hypertension, hyperlipidemia, remote history of tobacco use and dependence. We have been asked to evaluate the patient for chest pain. Patient states that he had chest pain going from the front to the back. No shortness of breath. He states his balance is off. Patient presented with blood pressure 182/87 and blood pressure remained high throughout the night. He did not receive his nighttime losartan. Blood pressure is currently 151/86, heart rate 61, pulse ox 94% on room air. Patient states that he was scheduled for outpatient testing in the office today at 930. Patient was apparently scheduled for Lexiscan stress test. -EKG: Sinus bradycardia with no acute ST changes. -Chest x-ray: No acute findings. -CTA chest revealed aneurysmal dilatation of the ascending thoracic aorta without evidence of dissection. No pulmonary artery embolism. No acute findings. -Laboratory studies: Platelet count 147, hemoglobin 13.4, INR MD and dimer are normal. BUN 19 and creatinine 0.83. Troponin negative x 3. -Home cardiac medications based on office note dated on : Aspirin 81 mg daily, atorvastatin 40 mg daily, losartan 50 mg every bedtime, metoprolol tartrate 25 mg half tablet daily -Cardiac catheterization performed 12/25/2022 reveals LAD 40% ostial lesion, left main 20% lesion, circumflex proximal and ostial portion has 40 to 50% lesion, right coronary artery totally occluded, vein graft to the posterior descending artery of the right coronary artery is patent, vein graft to the obtuse marginal branch of the circumflex is occluded, left internal mammary artery is patent but is limited flow. Plan for aggressive medical therapy. -Echocardiogram performed 12/24/2022 revealed normal LV systolic function, mild to moderate aortic regurgitation. -CV surgery 02/28/2021: HOYT to LAD, vein graft to obtuse marginal branch and PDA branch of the RCA. Review Of Systems: At the time of my exam: CONSTITUTIONAL: Denies fever or chills. HEENT: Denies blurred vision, vision changes, or eye pain. Denies hemoptysis CARDIOVASCULAR: Denies chest pain. Denies orthopnea. Denies PND. Denies palpitations RESPIRATORY: Denies shortness of breath. GASTROINTESTINAL: Denies abdominal pain. Denies nausea or vomiting. HEMATOLOGIC: Denies bleeding disorders. GENITOURINARY: Denies any blood in urine. SKIN: Denies puritis. Denies rash. Physical examination: Gen: This is an 84-year-old male in no acute distress VS: reviewed HEENT: Head is atraumatic, normocephalic. Pupils equal, round. Sclerae is anicteric. NECK: Supple. No JVD. LUNGS: Clear to auscultation. No wheezes or rhonchi. No intercostal retractions. HEART: Regular rate and rhythm. No murmur. ABDOMEN: Soft No tenderness. EXTREMITIES: No pedal edema. No calf tenderness. NEUROLOGICAL: Patient is awake, alert and oriented x3. Assessment: Chest pain, acute coronary syndrome ruled out History of coronary artery disease with previous CABG and most recent cardiac catheterization performed 12/25/2022 finding obstructive disease as listed above, on medical management Ischemic cardiomyopathy with EF 45% and normalized Hypertension, uncontrolled Hyperlipidemia Remote history of tobacco use and dependence Plan: Resume patient's home cardiac medications Schedule patient for Lexiscan stress test tomorrow Obtain 2-D echocardiogram and Doppler study to assess cardiac structure and function Monitor blood pressure closely Further recommendations to follow based upon clinical course Thank you kindly for this consultation. Nurse practitioner note has been reviewed, I agree with documented findings and plan of care. Patient was seen and examined. Past Medical History Past Medical History: Coronary Artery Disease (CAD), Chest Pain / Angina, Hyperlipidemia, Hypertension, Myocardial Infarction ([place]), Prostate Disorder Additional Past Medical History / Comment(s): states has 3 cardiac stents that are 100% blocked, with collateral bypass; patient denies hypertension although it is listed in his history and he is on antihypertensives Last Myocardial Infarction Date:: 1996 History of Any Multi-Drug Resistant Organisms: None Reported Past Surgical History: Heart Catheterization, Heart Catheterization With Stent, Joint Replacement, Orthopedic Surgery, Tonsillectomy Additional Past Surgical History / Comment(s): bilateral knee replacments, right lung wedge resection, cataracts removed-lens implants, states 3 cardiac stents Past Anesthesia/Blood Transfusion Reactions: No Reported Reaction Date of Last Stent Placement:: 1996 Past Psychological History: No Psychological Hx Reported Smoking Status: Former smoker Past Alcohol Use History: Rare Past Drug Use History: None Reported - Past Family History Father Family Medical History: Myocardial Infarction ([place]) Mother Family Medical History: Cancer Additional Family Medical History / Comment(s): colon Medications and Allergies Home Medications Medication Instructions Recorded Confirmed Type Aspirin EC [Ecotrin Low Dose] 81 mg PO DAILY 10/09/17 12/22/22 History Atorvastatin [Lipitor] 40 mg PO HS 10/09/17 12/22/22 History Multivitamin [Men's Multi-Vitamin] 1 tab PO DAILY 10/09/17 12/22/22 History Cyanocobalamin (Vitamin B-12) 2,500 mcg PO DAILY 09/22/20 12/22/22 History [Vitamin B-12] Super C 1 tab PO DAILY 02/26/21 12/22/22 History Losartan Potassium 50 mg PO HS 08/11/22 12/22/22 History Metoprolol Tartrate [Lopressor] 12.5 mg PO DAILY 08/11/22 12/22/22 History Tamsulosin [Flomax] 0.4 mg PO DAILY 08/11/22 12/22/22 History Isosorbide Mononitrate ER [Imdur] 30 mg PO DAILY #30 tab 12/26/22 Rx Allergies Allergy/AdvReac Type Severity Reaction Status Date / Time No Known Allergies Allergy Verified 08/02/24 10:59 Physical Exam Vitals: Vital Signs Temp Pulse Resp BP Pulse Ox 08/02/24 05:52 97.7 F 55 L 16 142/67 90 L 08/02/24 04:00 60 15 187/89 94 L 08/02/24 03:00 57 L 15 183/96 94 L 08/02/24 02:14 57 L 18 175/83 93 L 08/02/24 02:01 58 L 17 178/90 95 08/02/24 01:28 98.3 F 61 18 182/87 96 Intake and Output 08/01/24 08/02/24 08/02/24 22:59 06:59 14:59 Other: Weight 82.554 kg Results 08/02/24 02:00 08/02/24 02:00 Cardiac Enzymes 08/02/24 08/02/24 08/02/24 Range/Units 02:00 02:00 06:38 AST 35 (17-59) U/L Troponin I <0.012 <0.012 (0.000-0.034) ng/mL 08/02/24 Range/Units 07:48 AST (17-59) U/L Troponin I <0.012 (0.000-0.034) ng/mL Coagulation 08/02/24 Range/Units 02:00 PT 10.6 (10.0-12.5) sec APTT 26.6 (22.0-30.0) sec CBC 08/02/24 Range/Units 02:00 WBC 5.4 (3.8-10.6) k/uL RBC 4.36 (4.30-5.90) m/uL Hgb 13.4 (13.0-17.5) gm/dL Hct 40.1 (39.0-53.0) % Plt Count 147 L (150-450) k/uL Comprehensive Metabolic Panel 08/02/24 Range/Units 02:00 Sodium 139 (137-145) mmol/L Potassium 4.4 (3.5-5.1) mmol/L Chloride 107 (98-107) mmol/L Carbon Dioxide 22 (22-30) mmol/L BUN 19 (9-20) mg/dL Creatinine 0.83 (0.66-1.25) mg/dL Glucose 117 H (74-99) mg/dL Calcium 9.8 (8.4-10.2) mg/dL AST 35 (17-59) U/L ALT 28 (4-49) U/L Alkaline Phosphatase 78 (38-126) U/L Total Protein 6.5 (6.3-8.2) g/dL Albumin 4.0 (3.5-5.0) g/dL Current Medications Generic Name Dose Route Start Last Admin Trade Name Freq PRN Reason Stop Dose Admin Aspirin 325 mg 08/03/24 09:00 Aspirin 325 Mg Tab PO DAILY PRAKASH Nitroglycerin 0.4 mg 08/02/24 05:05 Nitroglycerin Sl Tabs 0.4 Mg Tab SUBLINGUAL Q5M PRN Chest Pain Intake and Output 08/01/24 08/02/24 08/02/24 22:59 06:59 14:59 Other: Weight 82.554 kg 08/02/24 02:00 08/02/24 02:00
--- NOTE | 2024-08-02 19:55 | P.HPIM ---
History of Present Illness H&P Date: 08/02/24 Chief Complaint: Chest pressure Pleasant 84-year-old patient who follows, with Dr. Kuhn. 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 Hypertension. Hyperlipidemia. CAD. BPH. Patient now presents last night developed pressure across the chest. Also going to the back. Had an episode where he vomited. Patient did take 2 Aleve's nitroglycerin aspirin and Tums as the pain had lasted overnight. Patient pain improved with getting morphine in the ER. At baseline patient is a bit off balance. Patient is accompanied by his son in the ER. Otherwise normally patient does not get any chest pains. Review of systems: GEN.: Tired EYES: None HEENT: None NECK: None RESPIRATORY: None CARDIOVASCULAR: As above GASTROINTESTINAL: Occasional heartburn GENITOURINARY: None MUSCULOSKELETAL: Some joint pain LYMPHATICS: None HEMATOLOGICAL: None PSYCHIATRY: None NEUROLOGICAL: None Social history: Stop smoking in . Alcohol rarely. Physical examination: VITAL SIGNS: [97.7, 60, 16, 142 x 67, 94% room air GENERAL: BMI 27.7, reclining bed awake comfortable. EYES: Pupils equal. Conjunctiva candie l. HEENT: External appearance of nose and ears normal, oral cavity grossly normal. NECK: JVD not raised; masses not palpable. HEART: First and second heart sounds are normal; no edema. LUNGS: Respiratory rate normal; clear to auscultation. ABDOMEN: Soft, nontender, liver spleen not palpable, no masses palpable. PSYCH: Alert and oriented x3; mood and affect candie l. MUSCULOSKELETAL:No Clubbing/cyanosis;muscles-grossly intact. OA NEUROLOGICAL: Cranial nerves grossly intact; no facial asymmetry, power and sensation grossly intact. LYMPHATICS: No lymph nodes palpable in the axilla and neck INVESTIGATIONS, reviewed in the clinical context: August 02, 2024: White count 5.4 hemoglobin 13.4 platelets 147 sodium 139 potassium 4.4 creatinine 0.83 Troponin I less than 0.012 x 3 EKG tracing personally reviewed by me-normal sinus rhythm. Q waves inferior l bryan Chest x-ray film personally reviewed by me-borderline cardiomegaly CT angio chest: Aneurysmal dilatation of the ascending thoracic aorta without evidence of dissection. Gallstones. Hepatic steatosis. Assessment and plan: -Possible unstable angina, in a patient with known coronary disease. Cardiology consulted. -Left renal mass; suspicion for renal cell carcinoma; Patient is following outpatient with urology for possible partial nephrectomy -Essential hypertension; Lopressor losartan -Hyperlipidemia; Lipitor 40 mg by mouth daily at bedtime -Coronary artery disease; patient is currently on aspirin, statin and beta cristian Aspirin. Beta-cristian. Patient's payer specialist Dr. AMRIT Ascencio -BPH; Flomax 0.4 mg daily -Primary osteoarthritis Care was discussed with the patient and son at the bedside. Cardiology was consulted. Increase activity. Past Medical History Past Medical History: Coronary Artery Disease (CAD), Chest Pain / Angina, Hy perlipidemia, Hypertension, Myocardial Infarction ([place]), Prostate Disorder Additional Past Medical History / Comment(s): states has 3 cardiac stents that are 100% blocked, with collateral bypass; patient denies hypertension although it is listed in his history and he is on antihypertensives Last Myocardial Infarction Date:: 1996 History of Any Multi-Drug Resistant Organisms: None Reported Past Surgical History: Heart Catheterization, Heart Catheterization With Stent, Joint Replacement, Orthopedic Surgery, Tonsillectomy Additional Past Surgical History / Comment(s): bilateral knee replacments, right lung wedge resection, cataracts removed-lens implants, states 3 cardiac stents Past Anesthesia/Blood Transfusion Reactions: No Reported Reaction Date of Last Stent Placement:: 1996 Past Psychological History: No Psychological Hx Reported Smoking Status: Former smoker Past Alcohol Use History: Rare Past Drug Use History: None Reported - Past Family History Father Family Medical History: Myocardial Infarction ([place]) Mother Family Medical History: Cancer Additional Family Medical History / Comment(s): colon Medications and Allergies Home Medications Medication Instructions Recorded Confirmed Type Aspirin EC [Ecotrin Low Dose] 81 mg PO DAILY 10/09/17 08/02/24 History Atorvastatin [Lipitor] 40 mg PO HS 10/09/17 08/02/24 History Multivitamin [Men's Multi-Vitamin] 1 tab PO DAILY 10/09/17 08/02/24 History Losartan Potassium 50 mg PO HS 08/11/22 08/02/24 History Metoprolol Tartrate [Lopressor] 12.5 mg PO DAILY 08/11/22 08/02/24 History Ascorbic Acid [Vitamin C] 1,000 mg PO DAILY 08/02/24 08/02/24 History Cholecalciferol [Vitamin D3 (125 125 mcg PO DAILY 08/02/24 08/02/24 History Mcg = 5000 Iu)] Ginkgo Biloba [place] Extract [Ginkgo 40 mg PO DAILY 08/02/24 08/02/24 History Biloba] [place] 500 mg PO DAILY 08/02/24 08/02/24 History Vitamin A 2,400 mcg PO DAILY 08/02/24 08/02/24 History Vitamin E (Dl,Tocopheryl Acet) 400 unit PO DAILY 08/02/24 08/02/24 History [Vitamin E (400 Iu = 180 mg)] Allergies Allergy/AdvReac Type Severity Reaction Status Date / Time No Known Allergies Allergy Verified 08/02/24 10:59 Physical Exam Vitals: Vital Signs Temp Pulse Resp BP Pulse Ox 08/02/24 09:25 61 20 151/86 94 L 08/02/24 05:52 97.7 F 55 L 16 142/67 90 L 08/02/24 04:00 60 15 187/89 94 L 08/02/24 03:00 57 L 15 183/96 94 L 08/02/24 02:14 57 L 18 175/83 93 L 08/02/24 02:01 58 L 17 178/90 95 08/02/24 01:28 98.3 F 61 18 182/87 96 Intake and Output 08/01/24 08/02/24 08/02/24 22:59 06:59 14:59 Other: Weight 82.554 kg Results CBC & Chem 7: 08/02/24 02:00 08/02/24 02:00 Labs: Abnormal Lab Results - Last 24 Hours (Table) 08/02/24 08/02/24 Range/Units 02:00 02:00 RDW 17.1 H (11.5-15.5) % Plt Count 147 L (150-450) k/uL Glucose 117 H (74-99) mg/dL
[2024-08-03] MEDS ORDERED: REGADENOSON 0.4 MG/5 ML SYRINGE IV PRN (06:00)
[2024-08-03] MEDS ORDERED: AMINOPHYLLINE 500 MG/20 ML VIAL IV PRN (06:00)
[2024-08-03] MEDS ORDERED: CAFFEINE CITRATE 60 MG/3 ML VIAL IV PRN (06:00)
[2024-08-03 08:05] VITALS: RESP 17
[2024-08-03] MEDS: ASPIRIN 81 MG PO SCH (08:47)
[2024-08-03] MEDS ORDERED: ASPIRIN 325 MG TAB PO SCH (09:00)
--- NOTE | 2024-08-03 09:51 | P.PN ---
Subjective Progress Note Date: 08/03/24 Consult reason: chest pain History of present illness: This is an 84-year-old male patient of Dr. AMRIT Ascencio with past medical history of coronary artery disease with previous inferior [place] status post PCI of the RCA with BMS and subsequent bypass grafting three-vessel in 2020, ischemic cardiomyopathy with EF of 45%, hypertension, hyperlipidemia, remote history of tobacco use and dependence. We have been asked to evaluate the patient for chest pain. Patient states that he had chest pain going from the front to the back. No shortness of breath. He states his balance is off. Patient presented with blood pressure 182/87 and blood pressure remained high throughout the night. He did not receive his nighttime losartan. Blood pressure is currently 151/86, heart rate 61, pulse ox 94% on room air. Patient states that he was scheduled for outpatient testing in the office today at 930. Patient was apparently scheduled for Lexiscan stress test. -EKG: Sinus bradycardia with no acute ST changes. -Chest x-ray: No acute findings. -CTA chest revealed aneurysmal dilatation of the ascending thoracic aorta without evidence of dissection. No pulmonary artery embolism. No acute findings. -Laboratory studies: Platelet count 147, hemoglobin 13.4, INR MD and dimer are normal. BUN 19 and creatinine 0.83. Troponin negative x 3. -Home cardiac medications based on office note dated on 04/13/2024: Aspirin 81 mg daily, atorvastatin 40 mg daily, losartan 50 mg every bedtime, metoprolol tartrate 25 mg half tablet daily -Cardiac catheterization performed 12/25/2022 reveals LAD 40% ostial lesion, left main 20% lesion, circumflex proximal and ostial portion has 40 to 50% lesion, right coronary artery totally occluded, vein graft to the posterior descending artery of the right coronary artery is patent, vein graft to the obtuse marginal branch of the circumflex is occluded, left internal mammary artery is patent but is limited flow. Plan for aggressive medical therapy. -Echocardiogram performed 12/24/2022 revealed normal LV systolic function, mild to moderate aortic regurgitation. -CV surgery 02/28/2021: HOYT to LAD, vein graft to obtuse marginal branch and PDA branch of the RCA. 08/03/2024 Patient seen and examined. Patient denies having chest pain or abdominal pain today. Patient is scheduled for Lexiscan stress test today. Blood pressure 121/70, heart rate 70, pulse ox 99% on room air. Blood pressure readings overnight have been much improved. Echocardiogram is pending. Physical examination: Gen: This is an 84-year-old male in no acute distress VS: reviewed HEENT: Head is atraumatic, normocephalic. Pupils equal, round. Sclerae is anicteric. NECK: Supple. No JVD. LUNGS: Clear to auscultation. No wheezes or rhonchi. No intercostal retractions. HEART: Regular rate and rhythm. No murmur. ABDOMEN: Soft No tenderness. EXTREMITIES: No pedal edema. No calf tenderness. NEUROLOGICAL: Patient is awake, alert and oriented x3. Assessment: Chest pain, acute coronary syndrome ruled out History of coronary artery disease with previous CABG and most recent cardiac catheterization performed 12/25/2022 finding obstructive disease as listed above, on medical management Ischemic cardiomyopathy with EF 45% and normalized Hypertension, uncontrolled Hyperlipidemia Remote history of tobacco use and dependence Plan: Continue patient's home cardiac medications Schedule patient for Lexiscan stress test today Obtain 2-D echocardiogram and Doppler study to assess cardiac structure and function If stress test and echocardiogram are unremarkable, patient is cleared for discharge from cardiology perspective and he may follow-up with Dr. AMRIT Ascencio in the office in 1 week. Nurse practitioner note has been reviewed, I agree with documented findings and plan of care. Patient was seen and examined. Objective - Vital Signs Vital signs: Vital Signs Temp 98.1 F 08/03/24 02:00 Pulse 70 08/03/24 02:00 Resp 16 08/03/24 02:00 BP 121/70 08/03/24 02:00 Pulse Ox 99 08/03/24 05:05 FiO2 Intake & Output 08/02/24 08/03/24 08/03/24 18:59 06:59 18:59 Weight 82.554 kg Other: # Voids 2 - Labs CBC & Chem 7: 08/02/24 02:00 08/02/24 02:00
--- NOTE | 2024-08-03 10:45 | CA ---
Lexiscan Nuclear Stress Test Report Name: Adriel Gates Exam Date: 08/03/2024 09:58 Exam Location: [place] Stress Ht (in): 68 Wt (lb): 182 BSA: 1.96 Ordering Phys: Amee Schreiber Referring Phys: HELIO ABBOTT,, Technologist: Marcelo Sexton Age: 84 Gender: M : 1940 Procedure CPT: Indications: Reflex order-Stress test ICD-10 Codes: Patient History: Medications: SEE CHART Meds past 24 hrs: Pretest Chest Pain: STRESS TEST Lexiscan Protocol Exercise Duration (min:sec): 02:[address] Depressions (mm): Angina Score: Lizama Score: Resting HR (bpm): 58 Peak HR (bpm): 77 Resting BP (mmHg): 132 / 66 Peak BP (mmHg): 126 / 69 MPHR: 135 Target HR: 115 % MPHR: 57 METS: 1.0 Total Dose: Peak Dose: Atropine: Double Product: 9702 BP Response: Stress Termination: INFUSION COMPLETE Stress Symptoms: NO SYMPTOMS Stress Summary: ECG ANALYSIS Resting ECG: Stress ECG: CONCLUSIONS RESTING EKG: Normal sinus rhythm with Q waves in inferior lead, Heart rate 63 BPM Patient recieved IV infusion of Lexiscan 0.4mg and at peak infusion STRESS EKG showed: No significant ST-T wave changes concerning for ischemia ARRYTHMIAS: Occasional PVCs. No sustained arrhythmias CONCLUSION: 1. Normal hemodynamic and clinical response to Lexiscan infusion. 2. Non-ischemic EKG response to lexiscan infusion Please refer to the nuclear imaging portion of this stress test for complete interpretation of the study. Dr Edin Martinez (Electronically Signed) Final Date: 03 August 2024 10:45
[2024-08-03 11:04] LABS: Chol/HDL Ratio 2.59 Ratio
--- NOTE | 2024-08-03 11:23 | NM ---
EXAMINATION TYPE: NM stress lexiscan cardiolite DATE OF EXAM: 08/03/2024 COMPARISON: Prior nuclear medicine study December 24, 2022 CLINICAL INDICATION: Male, 84 years old with history of chest pain; history of hypertension and prior 3 vessel CABG. History of hypercholesteremia and prior heart attack. TECHNIQUE: After the intravenous administration of 7.8 mCi Tc 99m Sestamibi - Cardiolite resting SPE CT images acquired 45 minutes post injection. The patient received 0.4mg Lexiscan, 25.5 mCi Tc 99m Sestamibi - Stress images obtained [address] injection FINDINGS: Review of stress and rest SPECT images demonstrates some diminished uptake on stress and rest images inferior left ventricular wall could reflect old infarct versus artifact. There is similar diminishe d radiotracer uptake lateral left ventricular wall more suspicious for old infarct. Similar to prior study cannot exclude some new area of ischemia along the anterior aspect of the left lateral wall on the polar maps. Elevated end-diastolic volume redemonstrated. 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 Cannot exclude new acute periInfarct ischemia left la teral ventricular wall . Need to further investigate by direct catheter angiogram should be based on clinical correlation. [facility], , 08/03/2024 11:20 AM
[2024-08-03 11:55] VITALS: PULSE 60
[2024-08-03 15:17] VITALS: BP 155/73; TEMP 97.5
--- NOTE | 2024-08-03 16:46 | P.DS ---
Providers Date of admission: 08/02/24 05:05 Expected date of discharge: 08/03/24 Attending physician: Yohannes Whitehead Consults: 08/02/24 05:05 Consult Physician Urgent Consulting Provider: Xiomy Mckenzie Consult Reason/Comments: chest pain Do you want consulting provider notified?: Yes Primary care physician: Dharmesh Beaumont Hospital Course: Chief Complaint: Chest pressure Pleasant 84-year-old patient who follows, with Dr. Kuhn. 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 Hypertension. Hyperlipidemia. CAD. BPH. Patient now presents last night developed pressure across the chest. Also going to the back. Had an episode where he vomited. Patient did take 2 Aleve's nitroglycerin aspirin and Tums as the pain had lasted overnight. Patient pain improved with getting morphine in the ER. At baseline patient is a bit off balance. Patient is accompanied by his son in the ER. Otherwise normally patient does not get any chest pains. August 03: Comfortable. No chest pain. Nurse informed patient was cleared by cardiology for discharge. Lexiscan stress test findings most suggestive probably of old changes. Some new area of ischemia along anterior aspect could not be ruled out. Patient to follow-up with his dynamotor repairer Dr. Ascencio outpatient. Social history: Stop smoking in 1980s. Alcohol rarely. Physical examination: VITAL SIGNS: 97.5, 60, 17, 155 x 73, 96% room air septic pack GENERAL: Comfortable. EYES: Pupils equal. Conjunctiva candie l. HEENT: External appearance of nose and ears normal, oral cavity grossly normal. NECK: JVD not raised; masses not palpable. HEART: First and second heart sounds are normal; no edema. LUNGS: Respiratory rate normal; clear to auscultation. ABDOMEN: Soft, nontender, liver spleen not palpable, no masses palpable. PSYCH: Alert and oriented x3; mood and affect candie l. MUSCULOSKELETAL:No Clubbing/cyanosis;muscles-grossly intact. OA INVESTIGATIONS, reviewed in the clinical context: Nuclear stress test: Results noted August 02, 2024: White count 5.4 hemoglobin 13.4 platelets 147 sodium 139 potassium 4.4 creatinine 0.83 Troponin I less than 0.012 x 3 EKG tracing personally reviewed by me-normal sinus rhythm. 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 Gallstones. Hepatic steatosis. Assessment and plan: -Possible unstable angina, in a patient with known coronary disease. Nuclear stress test results noted by cardiology. Patient to follow-up with his dynamotor repairer Dr. AMRIT Ascencio -Left renal mass; suspicion for renal cell carcinoma; Patient is following outpatient with urology for possible partial nephrectomy -Essential hypertension; Lopressor losartan -Hyperlipidemia; Lipitor 40 mg by mouth daily at bedtime -Coronary artery disease; patient is currently on aspirin, statin and beta cristian Aspirin. Beta-cristian. Patient's dynamotor repairer Dr. AMRIT Ascencio -BPH; Flomax 0.4 mg daily -Primary osteoarthritis Disposition: Home Past Medical History Past Medical History: Coronary Artery Disease (CAD), Chest Pain / Angina, Hyperlipidemia, Hypertension, Myocardial Infarction (IA), Prostate Disorder Additional Past Medical History / Comment(s): states has 3 cardiac stents that are 100% blocked, with collateral bypass; patient denies hypertension although it is listed in his history and he is on antihypertensives Last Myocardial Infarction Date:: 1996 History of Any Multi-Drug Resistant Organisms: None Reported Past Surgical History: Heart Catheterization, Heart Catheterization With Stent, Joint Replacement, Orthopedic Surgery, Tonsillectomy Additional Past Surgical History / Comment(s): bilateral knee replacments, right lung wedge resection, cataracts removed-lens implants, states 3 cardiac stents Past Anesthesia/Blood Transfusion Reactions: No Reported Reaction Date of Last Stent Placement:: 1996 Past Psychological History: No Psychological Hx Reported Smoking Status: Former smoker Past Alcohol Use History: Rare Past Drug Use History: None Reported Plan - Discharge Summary Discharge Rx Participant: No New Discharge Prescriptions: New Nitroglycerin Sl Tabs [Nitrostat] 0.4 mg SUBLINGUAL Q5M PRN #30 tab PRN Reason: Chest Pain Famotidine [Pepcid] 20 mg PO BID PRN #30 tab PRN Reason: Heartburn Continue Atorvastatin [Lipitor] 40 mg PO HS Aspirin EC [Ecotrin Low Dose] 81 mg PO DAILY Multivitamin [Men's Multi-Vitamin] 1 tab PO DAILY Losartan Potassium 50 mg PO HS Vitamin A 2,400 mcg PO DAILY Cholecalciferol [Vitamin D3 (125 Mcg = 5000 Iu)] 125 mcg PO DAILY Ascorbic Acid [Vitamin C] 1,000 mg PO DAILY Metoprolol Tartrate [Lopressor] 12.5 mg PO DAILY Vitamin E (Dl,Tocopheryl Acet) [Vitamin E (400 Iu = 180 mg)] 400 unit PO DAILY No Action Ginkgo Biloba Sandwich Extract [Ginkgo Biloba] 40 mg PO DAILY [place] 500 mg PO DAILY Discharge Medication List Aspirin EC [Ecotrin Low Dose] 81 mg PO DAILY 10/09/17 [History] Atorvastatin [Lipitor] 40 mg PO HS 10/09/17 [History] Multivitamin [Men's Multi-Vitamin] 1 tab PO DAILY 10/09/17 [History] Losartan Potassium 50 mg PO HS 08/11/22 [History] Metoprolol Tartrate [Lopressor] 12.5 mg PO DAILY 08/11/22 [History] Ascorbic Acid [Vitamin C] 1,000 mg PO DAILY 08/02/24 [History] Cholecalciferol [Vitamin D3 (125 Mcg = 5000 Iu)] 125 mcg PO DAILY 08/02/24 [History] Ginkgo Biloba Sandwich Extract [Ginkgo Biloba] 40 mg PO DAILY 08/02/24 [History] [place] 500 mg PO DAILY 08/02/24 [History] Vitamin A 2,400 mcg PO DAILY 08/02/24 [History] Vitamin E (Dl,Tocopheryl Acet) [Vitamin E (400 Iu = 180 mg)] 400 unit PO DAILY 08/02/24 [History] Famotidine [Pepcid] 20 mg PO BID PRN #30 tab 08/03/24 [Rx] Nitroglycerin Sl Tabs [Nitrostat] 0.4 mg SUBLINGUAL Q5M PRN #30 tab 08/03/24 [Rx] Follow up Appointment(s)/Referral(s): Pavithra Ascencio MD [STAFF PHYSICIAN] - 08/10/24 2:15 pm (@ [facility] in front of [facility]) Dharmesh Kuhn DO [Primary Care Provider] - 1-2 days (Patient is on a waiting list, Dr. Kuhn is booked until September, office will call patient )
--- NOTE | 2024-08-04 10:54 | CA ---
Transthoracic Echo Report Name: Adriel Gates Age: 84 Gender: M : 1940 Exam Date: 08/03/2024 14:21 Exam Location: [facility] Ht (in): 68 Wt (lb): 182 Ordering Physician: Amee Schreiber Attending/Referring Phys: [id number], Abdoul Cco & President Ting Goldstein RDCS Procedure CPT: Indications: LVF Cardiac Hx: Technical Quality: Fair Contrast 1: Total Dose (mL): Contrast 2: Total Dose (mL): MEASUREMENTS (Male / Female) Normal Values 2D ECHO LV Diastolic Diameter PLAX 5.0 cm 4.2 - 5.9 / 3.9 - 5.3 cm LV Systolic Diameter PLAX 3.4 cm IVS Diastolic Thickness 1.2 cm 0.6 - 1.0 / 0.6 - 0.9 cm LVPW Diastolic Thickness 1.3 cm 0.6 - 1.0 / 0.6 - 0.9 cm LV Relative Wall Thickness 0.5 RV Internal Dim ED PLAX 4.0 cm LVOT Diameter 2.5 cm LA Systolic Diameter LX 4.3 cm 3.0 - 4.0 / 2.7 - 3.8 cm LV Diastolic Volume MOD 4C 118.2 cm??? LV Systolic Volume MOD 4C 59.3 cm??? LV Ejection Fraction MOD 4C 49.8 % LV Cardiac Index MOD 4C 1790.2 cm???/min???m??? LV Diastolic Length 4C 8.5 cm LV Systolic Length 4C 7.3 cm LV Diastolic Volume MOD 2C 112.7 cm??? LV Systolic Volume MOD 2C 66.7 cm??? LV Ejection Fraction MOD 2C 40.9 % LV Cardiac Index MOD 2C 1399.4 cm???/min???m??? LV Diastolic Length 2C 8.4 cm LV Systolic Length 2C 7.0 cm LA Volume 80.3 cm??? 18 - 58 / 22 - 52 cm??? LA Volume Index 40.0 cm???/m??? 16 - 28 cm???/m??? M-MODE Aortic Root Diameter MM 3.8 cm AV Cusp Separation MM 2.1 cm DOPPLER AV Peak Velocity 175.9 cm/s AV Peak Gradient 12.4 mmHg AV Mean Velocity 123.0 cm/s AV Mean Gradient 7.0 mmHg AV Velocity Time Integral 42.6 cm AI Peak Velocity 349.0 cm/s AI Peak Gradient 48.7 mmHg AI Pressure Half Time 662.9 ms MV Area PHT 3.0 cm??? Mitral E Point Velocity 88.5 cm/s Mitral A Point Velocity 106.3 cm/s Mitral E to A Ratio 0.8 MV Deceleration Time 251.0 ms TR Peak Velocity 303.5 cm/s TR Peak Gradient 36.9 mmHg Right Ventricular Systolic Press 41.0 mmHg FINDINGS Left Ventricle Left ventricular ejection fraction is estimated at 50-55 %. Left ventricular cavity size normal. Mildly increased septal wall thickness. Right Ventricle Moderate right ventricular dilatation. Mild pulmonary hypertension. Right Atrium Normal right atrial size. No right atrial thrombus or mass seen. Left Atrium Mildly increased left atrial diameter. Moderately increased left atrial volume. Mildly increased left atrial area. No left atrial thrombus or mass present. Mitral Valve Structurally normal mitral valve. Mild mitral regurgitation. Aortic Valve Thickened aortic valve without stenosis. Mild aortic regurgitation. Tricuspid Valve Structurally normal tricuspid valve. Mild tricuspid regurgitation. Pulmonic Valve Structurally normal pulmonic valve. Mild pulmonic regurgitation. Pericardium No pericardial effusion. Aorta Mild aortic dilatation at the level of the sinuses of valsalva 38 mm CONCLUSIONS LVEF 50 to 55% Mild concentric LVH No obvious regional wall motion abnormality Moderate RV dilatation with mild pulmonary hypertension. RVSP 41 mmHg Mild LA dilatation Mild pulm valvular regurgitation Aortic root at upper limit of normal measuring 3.8 cm Previewed by: Dr Edin Martinez (Electronically Signed) Final Date: 04 August 2024 10:53
== END 2024-08-03 16:46 | disposition home or self-care (01) ==
LOC: EC 01:27 → 6NMEDSUR 05:05
PROVIDERS: ADMIT Hospitalist; ATTEND Hospitalist
DX: R07.9 Chest pain, unspecified (principal); I25.5 Ischemic cardiomyopathy; I10 Essential (primary) hypertension; I25.10 Atherosclerotic heart disease of native coronary artery without angina pectoris; I25.2 Old myocardial infarction; I71.21 Aneurysm of the ascending aorta, without rupture; N28.89 Other specified disorders of kidney and ureter; E78.5 Hyperlipidemia, unspecified; N40.0 Benign prostatic hyperplasia without lower urinary tract symptoms; M19.91 Primary osteoarthritis, unspecified site; Z79.82 Long term (current) use of aspirin; Z79.899 Other long term (current) drug therapy; Z87.891 Personal history of nicotine dependence; Z95.1 Presence of aortocoronary bypass graft; Z95.5 Presence of coronary angioplasty implant and graft
CPT/HCPCS: 96372 ×2; 96374; 99285; 36415; 93005; 93017; 93306; 85379; 80061; 80053; 83735; 84484; 85025; 85610; 85730; 71046; 71275; 78452; G0378 ×2; A9500; J2270; J1650 ×2; J2785; Q9967

== ENCOUNTER → 2025-01-13 | Outpatient (CLI) | payer MEDICARE ==
--- NOTE | 2025-01-13 15:26 | US ---
EXAMINATION TYPE: US kidneys/renal and bladder DATE OF EXAM: 01/13/2025 COMPARISON: 05/26/24 09/03/2024. CLINICAL INDICATION: Male, 84 years old with history of D41.02 NEOPLASM OF UNCERTAIN BEHAVIOR OF LEFT KIDN; Mass on left kidney TECHNIQUE: Grayscale imaging of the bilateral kidneys and urinary bladder: FINDINGS: EXAM MEASUREMENTS: Right Kidney: 10.6 x 5.3 x 4.5 cm Left Kidney: 10.6 x 5.3 x 5.3 cm Right Kidney: No hydronephrosis or masses seen Left Kidney: Hypoechoic area seen superior medial pole measuring 3.9 x 3.5 x 3.7cm. Bladder: wnl Bilateral Jets seen: No There is no evidence for hydronephrosis at this point in time. No nephrolithiasis is seen. No cristina s are identified. The urinary bladder is anechoic. IMPRESSION: Left renal mass measuring up to 3.9 cm. Findings concerning for renal cell carcinoma. [facility], , 01/13/2025 3:24 PM
== END | disposition home or self-care (01) ==
LOC: RADUSWWP 14:19
PROVIDERS: ATTEND Urology
DX: D41.02 Neoplasm of uncertain behavior of left kidney (principal); N28.89 Other specified disorders of kidney and ureter
CPT/HCPCS: 76770